=== PATIENT | male | born 1965 | race African-American/Black ===

== ENCOUNTER 2017-03-25 09:03 | Emergency (ER) | payer OTHER ==
[~2017-03-25] VITALS: Ht 170.2 cm; Wt 61.2 kg
[~2017-03-25 09:03] MED LIST: OXYC10TA44 PO
[2017-03-25 09:12] VITALS: BP 117/74
== END 2017-03-25 10:10 | disposition home or self-care (01) ==
LOC: ER 09:09
DX: S46.912A Strain of unspecified muscle, fascia and tendon at shoulder and upper arm level, left arm, initial encounter (principal); S76.912A Strain of unspecified muscles, fascia and tendons at thigh level, left thigh, initial encounter; I10 Essential (primary) hypertension; V43.52XA Car driver injured in collision with other type car in traffic accident, initial encounter; Y93.89 Activity, other specified; Y92.89 Other specified places as the place of occurrence of the external cause; Y99.8 Other external cause status

== ENCOUNTER 2018-10-30 14:33 | Emergency (ER) | payer OTHER ==
[~2018-10-30] VITALS: Ht 175.3 cm; Wt 63.5 kg
[2018-10-30] MEDS ORDERED: SODIUM CHLORIDE 0.9% 1,000 ML IV ONE (15:45)
[2018-10-30 16:06] LABS: Basophils # (auto) 0.1 uL; Basophils % (auto) 0.5 % (0.0-2.0); Eosinophils # (auto) 0 uL; Eosinophils % (auto) 0.3 % (0.0-7.0); Hematocrit 31.1 % (41.0-53.0); Hemoglobin 10.1 g/dL (13.5-17.5); Lymphocytes # (auto) 1.5 uL; Lymphocytes % (auto) 13.3 % (10.0-50.0); Mean Corpuscular Hemoglobin 29.9 pg (28.0-32.0); Mean Corpuscular Hgb Conc. 32.6 g/dL (32.0-36.0); Mean Corpuscular Volume 91.8 fL (80.0-100.0); Monocytes # (auto) 0.8 uL; Monocytes % (auto) 6.7 % (0.0-12.0); Neutrophils # (auto) 9.2 uL; Neutrophils % (auto) 79.2 % (37.0-80.0); Platelet Count (auto) 452 10^3/uL (140-450); Red Blood Cells 3.38 10^6/uL (4.5-5.90); Red Cell Distribution Width 17.8 % (11.8-14.3); White Blood Cell 11.6 10^3/uL (4.4-10.8)
[2018-10-30 16:24] LABS: Albumin 2.9 g/dL (3.4-5.0); Anion Gap 6 (5-15); Blood Urea Nitrogen 32 mg/dL (7-18); Calcium 8.9 mg/dL (8.5-10.1); Carbon Dioxide 27 mmol/L (21-32); Chloride 102 mmol/L (98-107); Glucose 90 mg/dL (74-106); Magnesium 2.5 mg/dL (1.6-2.6); Potassium 3.4 mmol/L (3.5-5.1); Sodium 135 mmol/L (136-145)
[2018-10-30 16:28] LABS: Alanine Aminotransferase 11 U/L (16-61); Alkaline Phosphatase 119 U/L (45-117); Aspartate Aminotransferase 7 U/L (15-37); BUN/Creatinine Ratio 19.5; Bilirubin, Total 0.4 mg/dL (0.2-1.0); GFR African American 57 mL/min; GFR Non-African American 47 mL/min; Total Protein 7.8 g/dL (6.4-8.2)
[2018-10-30 16:43] LABS: INR 1.1 (0.9-1.15); Partial Thromboplastin Time 26.1 sec (23.78-33.04); Prothrombin Time 11.7 sec (9.27-12.13)
[2018-10-30 18:27] VITALS: BP 92/54
[2018-10-30] MEDS ORDERED: HYDROcodone-ACET 10/325MG TAB PO ONE (19:15)
[2018-10-30] MEDS ORDERED: ONDANSETRON ODT 4 MG TAB PO ONE (19:15)
== END 2018-10-30 21:59 | disposition home or self-care (01) ==
LOC: EDBD 14:33 → ER 14:33
DX: G89.18 Other acute postprocedural pain (principal); R10.9 Unspecified abdominal pain; R55 Syncope and collapse; M54.9 Dorsalgia, unspecified; R11.11 Vomiting without nausea; R53.1 Weakness; I10 Essential (primary) hypertension
CPT/HCPCS: 36415; 70450; 71045; 74176; 80053; 82150; 83690; 83735; 83880; 84443; 84484; 85025; 85610; 85730; 93005; 96360; 99284; J7030; Q0162

== ENCOUNTER 2019-04-27 11:56 | Emergency (ER) | payer OTHER ==
[~2019-04-27] VITALS: Ht 170.2 cm; Wt 63.5 kg
[2019-04-27 14:35] VITALS: BP 110/72
== END 2019-04-27 14:58 | disposition home or self-care (01) ==
LOC: ER 12:09
DX: S71.112D Laceration without foreign body, left thigh, subsequent encounter (principal); I10 Essential (primary) hypertension; F12.10 Cannabis abuse, uncomplicated; X58.XXXD Exposure to other specified factors, subsequent encounter

== ENCOUNTER 2022-02-10 10:28 | Emergency (ER) | payer OTHER ==
[~2022-02-10] VITALS: Ht 170.2 cm; Wt 63.5 kg
[2022-02-10 12:46] LABS: Basophils # (auto) 0.1 10 ^3/uL (0-0.2); Eosinophils # (auto) 0.1 10 ^3/uL (0-0.8); Hemoglobin 7.9 g/dL (13.5-17.5); Lymphocytes # (auto) 3.4 10 ^3/uL (0.4-5.4); Mean Corpuscular Hemoglobin 24.9 pg (28.0-32.0); Monocytes # (auto) 0.8 10 ^3/uL (0-1.3); White Blood Cell 13.3 10^3/uL (4.4-10.8)
[2022-02-10 12:52] LABS: Eosinophils % (auto) 0.6 % (0.0-7.0); Hematocrit 25.1 % (41.0-53.0); Lymphocytes % (auto) 25.8 % (10.0-50.0); Mean Corpuscular Hgb Conc. 31.4 g/dL (32.0-36.0); Mean Corpuscular Volume 79.3 fL (80.0-100.0); Neutrophils # (auto) 8.8 10 ^3/uL (1.6-8.6); Neutrophils % (auto) 66.6 % (37.0-80.0); Red Blood Cells 3.17 10^6/uL (4.5-5.90); Red Cell Distribution Width 21.5 % (11.8-14.3)
[2022-02-10 12:58] LABS: Albumin 2.7 g/dL (3.4-5.0); Calcium 8.6 mg/dL (8.5-10.1); Magnesium 3.1 mg/dL (1.6-2.6); Potassium 3.6 mmol/L (3.5-5.1)
[2022-02-10 13:01] LABS: BUN/Creatinine Ratio 12.3; Bilirubin, Total 0.2 mg/dL (0.2-1.0); Total Protein 9.1 g/dL (6.4-8.2)
[2022-02-11] MEDS ORDERED: AMLO-496 PO (05:14)
[2022-02-11] MEDS ORDERED: VORI200T3 PO (05:15)
[2022-02-11 06:00] VITALS: BP 113/64
[2022-02-11] MEDS ORDERED: VORICONAZOLE INJ 0 MG in D5W 5% 250 ML IV SCH (08:30)
== END 2022-02-11 08:35 | disposition left against medical advice (07) ==
LOC: ER 10:28
DX: R06.02 Shortness of breath (principal); I10 Essential (primary) hypertension; Z86.19 Personal history of other infectious and parasitic diseases; Z20.822 Contact with and (suspected) exposure to COVID-19
CPT/HCPCS: 36415; 71045; 80053; 83735; 83880; 84484; 85025; 93005

== ENCOUNTER 2025-01-24 09:56 | Inpatient (IN) | payer OTHER ==
[~2025-01-24] VITALS: Ht 170.2 cm; Wt 71.0 kg
[~2025-01-24 09:56] MED LIST changes: +AMLO1TAB23 PO; +BENA-36 PO; +HYDR12.55 PO; +OMEP-448 PO; +OXYC30TA PO; +VORI200T3 PO
--- NOTE | 2025-01-24 11:05 | ED.PDOC ---
History of Present Illness HPI Comments 60 year old male presents to the ED with a chief complaint of abnormal labs onset today (01/24/25). Patient states he was sent to ED by PCP due to low hemoglobin of 5.7. Has no further complaints PMHx HTN. No other symptoms or modifying factors present at this time. Chief Complaint: Abnormal LAB's Time Seen by MD: 10:30 Primary Care Provider: unknown Reviewed Notes: Medications, Allergies Allergies: Coded Allergies: NO KNOWN ALLERGIES (Unverified , 03/30/16) Home Meds Reported Medications Voriconazole (VORICONAZOLE) 200 Mg Tab, 200 MG PO, TAB 02/11/22 Amlodipine Besylate (Amlodipine Besylate) 10 Mg Tab, 1 TAB PO DAILY, #30 TAB 5 Refills 02/11/22 Oxycodone W/ Acetaminophen (Percocet 10/325) 1 Tab Tab, 3 TAB PO BID, #60 TAB 04/05/16 Information Source: Patient Mode of Arrival: Ambulatory Severity: Moderate Timing: Hours Duration: Since onset Prehospital treatment: None Past Medical History PAST MEDICAL HISTORY: HTN Surgical History: Denies all surgeries Family History Family History: Unobtainable Social History Smoker: Non-Smoker Alcohol: Denies ETOH Use Drugs: Marijuana Lives In: Home Constitutional: reports: others (abnormal lab values); denies: chills, di aphoresis, fatigue, fever, malaise, sweats, weakness EENTM: denies: blurred vision, double vision, ear bleeding, ear discharge, ear drainage, ear pain, ear ringing, eye pain, eye redness, hearing loss, mouth pain, mouth swelling, nasal discharge, nose bleeding, nose congestion, nose pain, photophobia, tearing, throat pain, throat swelling, voice changes, others Respiratory: denies: cough, hemoptysis, orthopnea, SOB at rest, shortness of breath, SOB with excertion, stridor, wheezing, others Cardiovascular: denies: chest pain, dizzy spells, diaphoresis, Dyspnea on exert ion, edema, irregular heart beat, left arm pain, lightheadedness, palpitations, PND, syncope, others Gastrointestinal: denies: abdomen distended, abdominal pain, blood streaked bowels, constipated, diarrhea, dysphagia, difficulty swallowing, hematemesis, melena, nausea, poor appetite, poor fluid intake, rectal bleeding, rectal pain, vomiting, others Genitourinary: denies: burning, dysuria, flank pain, frequency, hematuria, incontinence, penile discharge, penile sore, pain, testicle pain, testicle swelling, urgency, others Neurological: denies: dizziness, fainting, headache, left sided numbness, left sided weakness, numbness, paresthesia, pre-existing deficit, right sided numbness, right sided weakness, seizure, speech problems, tingling, tremors, weakness, others Musculoskeletal: denies: back pain, gout, joint pain, joint swelling, muscle pain, muscle stiffness, neck pain, others Integumetry: denies: bruises, change in color, change in hair/nails, dryness, laceration, lesions, lumps, rash, wounds, others Allergic/Immunocompromised: denies: Difficulty Healing, Frequent Infections, Hives, Itching, others Hematologic/Lymphatic: denies: anemia, blood clots, easy bleeding, easy bruising, swollen glands, others Endocrine: denies: excessive hunger, excessive sweating, excessive thirst, excessive urination, flushing, intolerance to cold, intolerance to heat, unexplained weight gain, unexplained weight loss, others Psychiatric: denies: anxiety, bipolar disorder, depression, hopeless, panic disorder, schizophrenia, sleepless, suicidal, others All Other Systems: Reviewed and Negative Physical Exam General Appearance: Normal HEENT: Normal ENT Inspection, Pharynx Normal, TMs Normal Neck: Full Range of Motion, Non-Tender, Normal, Normal Inspection Respiratory: Chest Non-Tender, Lungs Clear, No Accessory Muscle Use, No Respiratory Distress, Normal Breath Sounds Cardiovascular: No Edema, No JVD, No Murmur, No Gallop, Normal Peripheral Pulses, Regular Rate/Rhythm Breast Exam: Deferred Gastrointestinal: No Organomegaly, Non Tender, No Pulsatile Mass, Normal Bowel Sounds, Soft Genitalia: Deferred Pelvic: Deferred Rectal: Deferred Extremities: No calf tenderness, Normal capillary refill, Normal inspection, Normal range of motion, Non-tender, No pedal edema Musculoskeletal : Apperance: Normal Neurologic: Alert, cigarette stamper II-XII nml as Tested, No Motor Deficits, Normal Affect, Normal Mood, No Sensory Deficits Cerebellar Function: Normal Reflexes: Normal Skin: Dry, Normal Color, Warm Lymphatic: No Adenopathy Was a procedure done? Was a procedure done?: No Differential Dx Considerations may include: Symptomatic anemia that, electrolyte abnormality, infectious etiology, viral syndrome X-Ray, Labs, Meds, VS Vital Signs Date Time Temp Pulse Resp B/P (MAP) Pulse Ox O2 Delivery O2 Flow Rate FiO2 01/24/25 10:30 98.1 81 17 114/73 (87) 97 98.1 Lab Test 01/24/25 11:00 Range/Units White Blood Count 8.9 4.4-10.8 10^3/uL Red Blood Count 2.91 L 4.5-5.90 10^6/uL Hemoglobin 5.7 *L 13.5-17.5 g/dL Hematocrit 18.5 L 41.0-53.0 % Mean Corpuscular Volume 63.7 L 80.0-100.0 fL Mean Corpuscular Hemoglobin 19.7 L 28.0-32.0 pg Mean Corpuscular Hemoglobin Concent 31.0 L 32.0-36.0 g/dL Red Cell Distribution Width 23.5 H 11.8-14.3 % Platelet Count 504 H 140-450 10^3/uL Mean Platelet Volume 7.0 6.9-10.8 fL Neutrophils (%) (Auto) 65.3 37.0-80.0 % Lymphocytes (%) (Auto) 23.7 10.0-50.0 % Monocytes (%) (Auto) 9.2 0.0-12.0 % Eosinophils (%) (Auto) 1.4 0.0-7.0 % Basophils (%) (Auto) 0.4 0.0-2.0 % Neutrophils # (Auto) 5.8 1.6-8.6 10 ^3/uL Lymphocytes # (Auto) 2.1 0.4-5.4 10 ^3/uL Monocytes # (Auto) 0.8 0-1.3 10 ^3/uL Eosinophils # (Auto) 0.1 0-0.8 10 ^3/uL Basophils # (Auto) 0 0-0.2 10 ^3/uL Nucleated Red Blood Cells 0.1 % Platelet Estimate Pending Prothrombin Time Pending Prothrombin Time INR Pending Activated Partial Thromboplast Time Pending Sodium Level 141 136-145 mmol/L Potassium Level 3.8 3.5-5.1 mmol/L Chloride Level 109 H 98-107 mmol/L Carbon Dioxide Level 25 20-31 mmol/L Anion Gap 7 5-15 Blood Urea Nitrogen Pending Creatinine Pending Glomerular Filtration Rate Calc Pending BUN/Creatinine Ratio Pending Serum Glucose Pending Calcium Level 9.1 8.7-10.4 mg/dL Time of 1ST Reevaluation: 11:00 Reevaluation 1ST: Unchanged Patient Education/Counseling: Diagnosis, Treatment, Prognosis Family Education/Counseling: No Family Present SEPSIS Sepsis Screen Physician Orders PTPTT (01/24/25 10:56) Type And Screen (01/24/25 10:56) Basic Metabolic Panel (01/24/25 10:56) Complete Blood Count (01/24/25 10:56) Sodium Chloride 0.9% (01/24/25 11:00) Rbc Morphology (01/24/25 11:00) Packedcell-Noactive Bleeding (01/24/25 11:39) Vital Signs Date Time Temp Pulse Resp B/P (MAP) Pulse Ox O2 Delivery O2 Flow Rate FiO2 01/24/25 10:30 98.1 81 17 114/73 (87) 97 98.1 Laboratory Tests Test 01/24/25 11:00 White Blood Count 8.9 10^3/uL (4.4-10.8) Departure 1 Departure Time of Disposition: 11:40 (Patient with a worsening dizziness and weakness concerning for symptomatic anemia. We will transfuse the patient with blunt admit patient for further workup and expert consultation.) Impression: Primary Impression: Symptomatic anemia Additional Impression: Generalized weakness Disposition: ADMITTED INPATIENT Admit to: Med Surg Condition: Serious Critical Care Note Critical Care Time?: Yes Critical care comment: Symptomatic anemia Authorized and Performed by: Nickie Howell MD Total critical care time: Approximately 39 minutes Due to a high probability of clinically significant, life threatening deterioration, the patient required my highest level of preparedness to intervene emergently and I personally spent this critical care time directly and personally managing the patient. This critical care time included obtaining a history; examining the patient; pulse oximetry; ordering and review of studies; arranging urgent treatment with development of a management plan; evaluation of patient's response to treatment; frequent reassessment; and, discussions with other providers. This critical care time was performed to assess and manage the high probability of imminent, life-threatening deterioration that could result in multi-organ failure. It was exclusive of separately billable procedures and treating other patients and teaching time. Please see my other sections and the rest of the note for further information on patient assessment and treatment. Stability Stability form required: No I personally scribed for NICKIE HOWELL MD ([email or web address]) on 01/24/25 at 11:05. Electronically submitted by Veena Knapp ([email or web address]). I personally scribed for NICKIE HOWELL MD ([email or web address]) on 01/24/25 at 11:15. Electronically submitted by Veena Knapp ([email or web address]). NICKIE HOWELL MD Jan 24, 2025 11:05
[2025-01-24 11:27] LABS: Eosinophils # (auto) 0.1 10 ^3/uL (0-0.8); Monocytes # (auto) 0.8 10 ^3/uL (0-1.3)
[2025-01-24 11:30] LABS: Basophils # (auto) 0 10 ^3/uL (0-0.2); Basophils % (auto) 0.4 % (0.0-2.0); Eosinophils % (auto) 1.4 % (0.0-7.0); Hematocrit 18.5 % (41.0-53.0); Lymphocytes # (auto) 2.1 10 ^3/uL (0.4-5.4); Lymphocytes % (auto) 23.7 % (10.0-50.0); Mean Corpuscular Hemoglobin 19.7 pg (28.0-32.0); Mean Corpuscular Volume 63.7 fL (80.0-100.0); Monocytes % (auto) 9.2 % (0.0-12.0); Neutrophils # (auto) 5.8 10 ^3/uL (1.6-8.6); Neutrophils % (auto) 65.3 % (37.0-80.0); Nucleated Red Blood Cells % 0.1 %; Platelet Count (auto) 504 10^3/uL (140-450); Red Blood Cells 2.91 10^6/uL (4.5-5.90); White Blood Cell 8.9 10^3/uL (4.4-10.8)
[2025-01-24 11:32] LABS: Red Cell Distribution Width 23.5 % (11.8-14.3)
[2025-01-24 11:33] LABS: Hemoglobin 5.7 g/dL (13.5-17.5)
[2025-01-24 11:35] LABS: Potassium 3.8 mmol/L (3.5-5.1); Sodium 141 mmol/L (136-145)
[2025-01-24 11:36] LABS: Anion Gap 7 (5-15); Carbon Dioxide 25 mmol/L (20-31); Chloride 109 mmol/L (98-107)
[2025-01-24 11:37] LABS: Calcium 9.1 mg/dL (8.7-10.4)
[2025-01-24 11:41] LABS: BUN/Creatinine Ratio 10.1 (10.0-20.0); Blood Urea Nitrogen 14 mg/dL (9-23); Glucose 102 mg/dL (74-106)
[2025-01-24 11:50] LABS: INR 1.22 (0.9-1.15); Partial Thromboplastin Time 32.3 SEC (24.5-34.5); Prothrombin Time 12.7 sec (9.3-11.8)
[2025-01-24 12:02] LABS: Anisocytosis Slight; Hypochromia Marked; Platelet Estimate Increased
[2025-01-24 12:03] LABS: Target Cell FEW
--- NOTE | 2025-01-24 14:38 | DVHHP2 ---
History of Present Illness Reason for Visit: anemia History of Present Illness 60-year-old male past medical history hypertension valley fever right foot drop chief complaint patient was sent by his primary doctor for abnormal labs they were told his hemoglobin was low when he did his blood work so they told him to come to the ER for evaluation patient currently denies any black stools no vomiting blood no blood in his urine he denies any dizziness but he is tired and weak he denies any chest pain no shortness with the breath patient does state he is on treatment for valley fever since 2006 back then they told me was anemic with never told that he was so anemic that he had a blood transfusion he is currently on antifungal medications he takes daily as scheduled when evaluating patient's labs and imaging normal saline was provided hemoglobin was 5.7 18.5 platelet count was 504 creatinine was 1.39 INR was 1.22 otherwise CBC and CMP unremarkable with these findings we will admit we will provide blood transfusion. Occult blood to be ordered. We will follow up hemoglobin in the a.m. we will likely need workup for anemia Past Medical History See HPI above Past Surgical History See HPI above Family History Reviewed, non-contributory to the management of this case. Past Social History The patient lives at home, denies smoking, alcohol or illicit drugs abuse. Does smoke marijuana Review of Systems Constitutional: No: Fever, Chills, Sweats, Weakness, Malaise, Other Eyes: No: Pain, Vision change, Conjunctivae inflammation, Eyelid inflammation, Other, Redness ENT: No: Ear pain, Ear discharge, Nose pain, Nose discharge, Nose congestion, Mouth pain, Mouth swelling, Throat pain, Throat swelling, Other Respiratory: No: Cough, Dry, Shortness of breath, SOB with excertion, Wheezing, Hemoptysis, Pleuritic Pain, Sputum, Wheezing, Other Cardiovascular: No: Chest Pain, Palpitations, Orthopnea, Paroxysmal Noc. Dyspnea, Edema, Lt Headedness, Other Gastrointestinal: No: Nausea, Vomiting, Abdominal Pain, Diarrhea, Constipation, Melena, Hematochezia, Other Genitourinary: No Dysuria, No Frequency, No Incontinence, No Hematuria, No Retention, No Other Musculoskeletal: No: other, neck pain, shoulder pain, arm pain, back pain, hand pain, leg pain, foot pain Skin: No: Rash, Lesions, Jaundice, Bruising, Other Neurological: No: Weakness, Numbness, Incoordination, Change in speech, Confusion, Seizures, Other Allergies: Coded Allergies: NO KNOWN ALLERGIES (Unverified , 03/30/16) Exam Vital Signs Vital Signs Date Time Temp Pulse Resp B/P (MAP) Pulse Ox O2 Delivery O2 Flow Rate FiO2 01/24/25 13:59 65 17 133/68 (89) 99 01/24/25 10:30 98.1 98.1 General Appearance: Alert, Oriented X3, Cooperative, No acute distress HEENT: Atraumatic, PERRLA, EOMI, Mucous membr. moist/pink Respiratory: Clear to auscultation, Normal air movement Cardiovascular: Regular rate, Normal S1, Normal S2, No murmurs Abdominal: Normal bowel sounds, Soft, No tenderness, No hepatospenomegaly, No masses, Other (lower back with open fistula draining no fever no new drainage per pt, does do wound care daily ) Extremities: No clubbing, No cyanosis, No edema, Normal pulses, No tenderness/swelling Skin: No rashes, No breakdown, No significant lesion Neuro: Normal gait, Normal speech, Strength at 5/5 X4 ext, Sensation intact, Cranial nerves 3-12 NL Psych/Mental Status: Mental status NL, Mood NL Labs/Xrays I reviewed labs, imaging CT scan abdomen pelvis, EKG and all diagnostic studies on this patient from ED records and the medical chart Labs Test 01/24/25 11:00 Range/Units White Blood Count 8.9 4.4-10.8 10^3/uL Red Blood Count 2.91 L 4.5-5.90 10^6/uL Hemoglobin 5.7 *L 13.5-17.5 g/dL Hematocrit 18.5 L 41.0-53.0 % Mean Corpuscular Volume 63.7 L 80.0-100.0 fL Mean Corpuscular Hemoglobin 19.7 L 28.0-32.0 pg Mean Corpuscular Hemoglobin Concent 31.0 L 32.0-36.0 g/dL Red Cell Distribution Width 23.5 H 11.8-14.3 % Platelet Count 504 H 140-450 10^3/uL Mean Platelet Volume 7.0 6.9-10.8 fL Neutrophils (%) (Auto) 65.3 37.0-80.0 % Lymphocytes (%) (Auto) 23.7 10.0-50.0 % Monocytes (%) (Auto) 9.2 0.0-12.0 % Eosinophils (%) (Auto) 1.4 0.0-7.0 % Basophils (%) (Auto) 0.4 0.0-2.0 % Neutrophils # (Auto) 5.8 1.6-8.6 10 ^3/uL Lymphocytes # (Auto) 2.1 0.4-5.4 10 ^3/uL Monocytes # (Auto) 0.8 0-1.3 10 ^3/uL Eosinophils # (Auto) 0.1 0-0.8 10 ^3/uL Basophils # (Auto) 0 0-0.2 10 ^3/uL Nucleated Red Blood Cells 0.1 % Platelet Estimate Increased Hypochromasia (manual) Marked Anisocytosis (manual) Slight Microcytosis Marked Target Cells Few Prothrombin Time 12.7 H 9.3-11.8 sec Prothrombin Time INR 1.22 H 0.9-1.15 Activated Partial Thromboplast Time 32.3 24.5-34.5 SEC Sodium Level 141 136-145 mmol/L Potassium Level 3.8 3.5-5.1 mmol/L Chloride Level 109 H 98-107 mmol/L Carbon Dioxide Level 25 20-31 mmol/L Anion Gap 7 5-15 Blood Urea Nitrogen 14 9-23 mg/dL Creatinine 1.39 H 0.700-1.30 mg/dL Glomerular Filtration Rate Calc 58 >90 mL/min BUN/Creatinine Ratio 10.1 10.0-20.0 Serum Glucose 102 74-106 mg/dL Calcium Level 9.1 8.7-10.4 mg/dL Assessment/Plan Assessment/Plan acute symptomatic anemia unknown reason for loss found hemoglobin 5.7 er provided 2 units of blood fu post transfusion hemoglobin ordered occult blood in stool fu results rounding team to consider iron panel acute janny likely from severe anemia transfuse fu crea in am if uptrending consider workup and renal consult chronic problems htn valley fever takes vorconazole did consult id for assistance of alternative if pt not able to bring home medication/ cont dressing change right foot drop fen/ppx diet hl scd no dvt ppx in setting of anemia protonix plan admit to tele provide transfusion Plan discussed with: Patient Date of Service: Jan 24, 2025 Billing Provider: MORGAN RAMOS DNP Common Visit Codes: [id number] INP/OBS CARE (HIGH) MORGAN RAMOS [facility] Jan 24, 2025 14:38
[2025-01-24] MEDS: SODIUM CHLORIDE 0.9% 1,000 ML IV ONE (15:10)
[2025-01-24 16:20] VITALS: BP 127/72; PULSE 72; RESP 20; TEMP 98.1
[2025-01-24] MEDS ORDERED: NITROGLYCERIN 0.4 MG SL TAB SL PRN (16:45)
[2025-01-24] MEDS ORDERED: DOCUSATE SOD 100 MG CAP PO PRN (16:45)
[2025-01-24 16:46] VITALS: BP 106/59; PULSE 76; RESP 20; TEMP 98
[2025-01-24 20:20] VITALS: BP 123/60; PULSE 78; RESP 20; TEMP 98.1
[2025-01-24 20:27] LABS: Urine Bacteria None Seen /hpf (None Seen)
[2025-01-24 20:30] VITALS: PULSE 83; RESP 18; O2SAT 96
[2025-01-24 20:34] LABS: Urine Blood Negative /uL (Negative); Urine Clarity Clear (Clear); Urine Color Light-Yellow (Yellow); Urine Protein, UAD Negative (Negative); Urine Squamous Epithelial Cell None Seen /hpf (<5); Urine Urobilinogen Normal (Negative); Urine WBC < 1 /HPF (0-3)
[2025-01-24 20:35] VITALS: BP 133/87; PULSE 80; RESP 18; TEMP 98.1
[2025-01-24] MEDS ORDERED: OXYCODONE PO SCH (22:00)
[2025-01-24] MEDS ORDERED: ACETAMINOPHEN PO SCH (22:00)
[2025-01-24] MEDS: ONDANSETRON HCL 4 MG/2 ML VIAL IV PRN (23:16)
[2025-01-24] MEDS: MORPHINE SULFATE INJ 2 MG/ml SYRG IV PRN (23:17)
[2025-01-24 23:34] VITALS: BP 133/87; PULSE 83; RESP 18; TEMP 98.1
[2025-01-25] MEDS: SODIUM CHLORIDE 0.9% 1,000 ML IV SCH (00:09)
[2025-01-25 01:24] LABS: Basophils # (auto) 0 10 ^3/uL (0-0.2); Basophils % (auto) 0.5 % (0.0-2.0); Eosinophils # (auto) 0.2 10 ^3/uL (0-0.8); Hematocrit 25.7 % (41.0-53.0); Hemoglobin 8.4 g/dL (13.5-17.5); Lymphocytes % (auto) 19.9 % (10.0-50.0); Mean Corpuscular Hemoglobin 22.4 pg (28.0-32.0); Mean Corpuscular Hgb Conc. 32.5 g/dL (32.0-36.0); Mean Corpuscular Volume 68.9 fL (80.0-100.0); Neutrophils # (auto) 6.9 10 ^3/uL (1.6-8.6); Neutrophils % (auto) 67.6 % (37.0-80.0); Nucleated Red Blood Cells % 0.1 %; Platelet Count (auto) 499 10^3/uL (140-450); Red Blood Cells 3.73 10^6/uL (4.5-5.90); Red Cell Distribution Width 27.8 % (11.8-14.3); White Blood Cell 10.2 10^3/uL (4.4-10.8)
[2025-01-25 02:22] LABS: Anisocytosis Slight
[2025-01-25 02:23] LABS: Target Cell FEW
[2025-01-25 02:24] LABS: Hypochromia Moderate; Platelet Estimate Increased
[2025-01-25 02:25] LABS: Giant Platelets Few
[2025-01-25 02:26] LABS: Polychromasia Slight
[2025-01-25 06:39] LABS: Albumin 3.5 g/dL (3.2-4.8); Anion Gap 10 (5-15); Aspartate Aminotransferase 8 U/L (<34); BUN/Creatinine Ratio 8.8 (10.0-20.0); Blood Urea Nitrogen 10 mg/dL (9-23); Calcium 8.9 mg/dL (8.7-10.4); Glucose 88 mg/dL (74-106); Sodium 137 mmol/L (136-145)
[2025-01-25 06:41] LABS: Basophils # (auto) 0.1 10 ^3/uL (0-0.2); Eosinophils # (auto) 0.2 10 ^3/uL (0-0.8); Eosinophils % (auto) 1.9 % (0.0-7.0); Hemoglobin 8.6 g/dL (13.5-17.5); Lymphocytes # (auto) 2.7 10 ^3/uL (0.4-5.4); Monocytes # (auto) 1.1 10 ^3/uL (0-1.3); Neutrophils # (auto) 7.5 10 ^3/uL (1.6-8.6); White Blood Cell 11.5 10^3/uL (4.4-10.8)
[2025-01-25 06:45] LABS: Alanine Aminotransferase < 9 U/L (7-40); Alkaline Phosphatase 192 U/L (46-116); Basophils % (auto) 0.6 % (0.0-2.0); Bilirubin, Total 0.2 mg/dL (0.2-1.0); Carbon Dioxide 20 mmol/L (20-31); Chloride 107 mmol/L (98-107); Lymphocytes % (auto) 23.1 % (10.0-50.0); Mean Corpuscular Hemoglobin 21.6 pg (28.0-32.0); Mean Corpuscular Hgb Conc. 31.7 g/dL (32.0-36.0); Monocytes % (auto) 9.4 % (0.0-12.0); Nucleated Red Blood Cells % 0.3 %; Platelet Count (auto) 526 10^3/uL (140-450); Potassium 3.5 mmol/L (3.5-5.1); Red Blood Cells 3.96 10^6/uL (4.5-5.90); Red Cell Distribution Width 27.6 % (11.8-14.3)
[2025-01-25 07:02] LABS: Hypochromia Moderate
[2025-01-25 07:03] LABS: Anisocytosis Slight
[2025-01-25 07:04] LABS: Platelet Estimate Increased; Target Cell MODERATE
[2025-01-25 07:55] VITALS: PULSE 88; RESP 18; O2SAT 97
[2025-01-25] MEDS: amLODIPine BESYLATE 5 MG TAB PO SCH (10:17)
--- NOTE | 2025-01-25 12:18 | DVHPN2 ---
Subjective Patient is seen and examined at bedside. The patient upset that he was not come up to the floor yet. The patient in the private room in ER. Reviewed: Care Plan, H&P, Labs, Medications, Previous Orders, Radiology Changes from previous H/P or p: No Changes Eyes: No Pain, No Vision change, No Conjunctivae inflammation, No Eyelid inflammation, No Other, No Redness ENT: No Ear pain, No Ear discharge, No Nose pain, No Nose discharge, No Nose congestion, No Mouth pain, No Mouth swelling, No Throat pain, No Throat swelling, No Other Cardiovascular: No Chest Pain, No Palpitations, No Orthopnea, No Paroxysmal Noc. Dyspnea, No Edema, No Lt Headedness, No Other Respiratory: No Cough, No Dry, No Shortness of breath, No SOB with excertion, No Wheezing, No Hemoptysis, No Pleuritic Pain, No Sputum, No Other Gastrointestinal: No Nausea, No Vomiting, No Abdominal Pain, No Diarrhea, No Constipation, No Melena, No Hematochezia, No Other Genitourinary: No Dysuria, No Frequency, No Incontinence, No Hematuria, No Retention, No Other Musculoskeletal: No other, No neck pain, No shoulder pain, No arm pain, No back pain, No hand pain, No leg pain, No foot pain Skin: No Rash, No Lesions, No Jaundice, No Bruising, No Other Objective Vitals Vital Signs Date Time Temp Pulse Resp B/P (MAP) Pulse Ox O2 Delivery O2 Flow Rate FiO2 01/25/25 10:17 140/89 01/25/25 07:55 88 18 97 Room Air* 0 21 01/25/25 07:54 97.5 97.5 Intake/Output Intake and Output 01/25/25 06:59 Intake Total 1620 ml Balance 1620 ml Intake IV Total 1000 ml Blood Product 620 ml General Appearance: Alert, Cooperative HEENT: Atraumatic, PERRLA, EOMI, Mucous membr. moist/pink Neck: Supple Lungs: Clear to auscultation, Normal air movement Cardiovascular: Regular rate, Normal S1, Normal S2, No murmurs, Gallops, Rubs Abdomen: Normal bowel sounds, Soft, No tenderness Neuro: Cranial nerves 3-12 NL Psych/Mental Status: Mental status NL Medications Current Medications Medications Dose Ordered Sig/Lakhwinder Route Start Time Stop Time Status Last Admin Dose Admin Amlodipine Besylate 10 mg DAILY PO 01/25/25 10:00 01/25/25 10:17 10 MG Patient Own Medication 3 tab BID PO 01/24/25 22:00 Hold Sodium Chloride 1,000 ml @ 70 mls/hr [id number] IV 01/24/25 16:45 01/25/25 00:09 70 MLS/HR Ondansetron HCl 4 mg Q4HP PRN IV 01/24/25 16:45 01/24/25 23:16 4 MG Docusate Sodium 100 mg BIDPRN PRN PO 01/24/25 16:45 Morphine Sulfate 2 mg Q4HPRN PRN IV 01/24/25 16:45 01/24/25 23:17 2 MG Nitroglycerin 0.4 mg Q5MINP PRN SL 01/24/25 16:45 Laboratory Results Laboratory Tests 01/25/25 05:55 Chemistry Test 01/25/25 05:55 Albumin 3.5 g/dL (3.2-4.8) Calcium Level 8.9 mg/dL (8.7-10.4) Total Protein 8.0 g/dL (5.7-8.2) LFT Test 01/25/25 05:55 Alanine Aminotransferase (ALT) < 9 U/L (7-40) Alkaline Phosphatase 192 U/L (46-116) H Aspartate Amino Transferase (AST) 8 U/L (<34) Total Bilirubin 0.2 mg/dL (0.2-1.0) Urinalysis Test 01/24/25 16:00 Urine Color Light-yellow (Yellow) Urine Clarity Clear (Clear) Urine pH 6.0 (5.0-9.0) Urine Specific Pease 1.010 (1.001-1.035) Urine Protein Negative (Negative) Urine Ketones Negative (Negative) Urine Blood Negative /uL (Negative) Urine Nitrite Negative (Negative) Urine Bilirubin Negative (Negative) Urine Urobilinogen Normal mg/dL (Negative) Urine Leukocyte Esterase Negative /uL (Negative) Urine RBC None seen /hpf (0 - 3) Urine Microscopic WBC < 1 /HPF (0-3) Urine Squamous Epithelial Cells None seen /hpf (<5) Urine Bacteria None seen /hpf (None Seen) Urine Glucose Normal mg/dL (Normal) Assessment/Plan Assessment/Plan Acute symptomatic anemia unknown reason for loss, status post two packed red blood cell transfusion We will follow up with occult blood in stool. We will follow up with GI specialist recommendation Acute janny likely from severe anemia, we will follow up after blood transfusion and IV fluid HTN Valley fever takes vorconazole waiting for Infectious Disease specialist for assistance of alternative if pt not able to bring home medication/ cont dressing change right foot drop Patient is upset and wanted to sign against medical advice because the patient did not have a room upstairs on the floor. I explained to the patient he in the private room in emergency department. Once he had a bed assignment upstairs I will send him up there. The patient wanted to sign out AMA and threatened will sign AMA if he do not have bed in 1 hours. This medical document was created using an electronic medical record system with [employer] direct computerized dictation system. Although this document has been carefully reviewed, there may still be some phonetic and typographical errors. These areas are purely typographical due to imperfections of the software programs, and do not reflect any compromise in the patient's medical care. Plan discussed with: Patient Date of Service: Jan 25, 2025 Billing Provider: LINDA SPAULDING MD Common Visit Codes: [id number] INP/OBS CARE(HIGH) LINDA SPAULDING MD Jan 25, 2025 12:18
[2025-01-25 17:37] VITALS: BP 129/79; PULSE 83; RESP 20; TEMP 98.6; O2SAT 97
[2025-01-25 19:47] VITALS: BP 140/83; PULSE 85; RESP 16; TEMP 98; O2SAT 98
[2025-01-25 19:50] VITALS: PULSE 85; RESP 16; O2SAT 98
[2025-01-25 21:55] VITALS: BP 145/93; PULSE 96; RESP 18; TEMP 98.4; O2SAT 99
[2025-01-26] VITALS (7 sets, daily range): BP systolic 118–144; BP diastolic 70–89; PULSE 82–99; RESP 16–20; TEMP 97.8–98.7; O2SAT 97–99
--- NOTE | 2025-01-26 12:12 | DVHINCON2 ---
Date of service: Jan 25, 2025 Family History: Cancer of colon G8 MOTHER, Onset:60 years & older Allergies: Coded Allergies: NO KNOWN ALLERGIES (Unverified , 03/30/16) Home Meds Reported Medications Hydrochlorothiazide (Hydrochlorothiazide) 12.5 Mg Tab, 1 TAB PO DAILY for 90 Days, #90 01/25/25 Omeprazole (Omeprazole Dr) 40 Mg Cap, 1 CAP PO DAILY for 90 Days, #90 01/25/25 Oxycodone HCl (Oxycodone Hydrochloride) 30 Mg Tab, 1 TAB PO TID PRN for PAIN for 30 Days, #90 01/25/25 Benazepril Hcl (Benazepril Hcl) 20 Mg Tab, 1 TAB PO DAILY for 90 Days, #90 01/25/25 Voriconazole (VORICONAZOLE) 200 Mg Tab, 1 TAB PO BID for 30 Days, #60 02/11/22 Amlodipine Besylate (Amlodipine Besylate) 10 Mg Tab, 1 TAB PO DAILY, #30 TAB 5 Refills 02/11/22 Vital Signs Vital Signs Date Time Temp Pulse Resp B/P (MAP) Pulse Ox O2 Delivery O2 Flow Rate FiO2 01/26/25 10:22 132/87 01/26/25 09:00 98.7 84 20 97 98.7 01/25/25 19:50 Room Air* 0 21 Labs/Diagnostic Data Labs Test 01/25/25 05:55 01/25/25 01:06 01/24/25 16:00 01/24/25 11:00 Range/Units White Blood Count 11.5 H 4.4-10.8 10^3/uL Red Blood Count 3.96 L 4.5-5.90 10^6/uL Hemoglobin 8.6 L 13.5-17.5 g/dL Hematocrit 27.0 L 41.0-53.0 % Mean Corpuscular Volume 68.0 L 80.0-100.0 fL Mean Corpuscular Hemoglobin 21.6 L 28.0-32.0 pg Mean Corpuscular Hemoglobin Concent 31.7 L 32.0-36.0 g/dL Red Cell Distribution Width 27.6 H 11.8-14.3 % Platelet Count 526 H 140-450 10^3/uL Mean Platelet Volume 7.5 6.9-10.8 fL Neutrophils (%) (Auto) 65.0 37.0-80.0 % Lymphocytes (%) (Auto) 23.1 10.0-50.0 % Monocytes (%) (Auto) 9.4 0.0-12.0 % Eosinophils (%) (Auto) 1.9 0.0-7.0 % Basophils (%) (Auto) 0.6 0.0-2.0 % Neutrophils # (Auto) 7.5 1.6-8.6 10 ^3/uL Lymphocytes # (Auto) 2.7 0.4-5.4 10 ^3/uL Monocytes # (Auto) 1.1 0-1.3 10 ^3/uL Eosinophils # (Auto) 0.2 0-0.8 10 ^3/uL Basophils # (Auto) 0.1 0-0.2 10 ^3/uL Nucleated Red Blood Cells 0.3 % Platelet Estimate Increased Hypochromasia (manual) Moderate Anisocytosis (manual) Slight Microcytosis Marked Target Cells Moderate Sodium Level 137 136-145 mmol/L Potassium Level 3.5 3.5-5.1 mmol/L Chloride Level 107 98-107 mmol/L Carbon Dioxide Level 20 20-31 mmol/L Anion Gap 10 5-15 Blood Urea Nitrogen 10 9-23 mg/dL Creatinine 1.13 0.700-1.30 mg/dL Glomerular Filtration Rate Calc 74 >90 mL/min BUN/Creatinine Ratio 8.8 L 10.0-20.0 Serum Glucose 88 74-106 mg/dL Calcium Level 8.9 8.7-10.4 mg/dL Total Bilirubin 0.2 0.2-1.0 mg/dL Aspartate Amino Transferase (AST) 8 <34 U/L Alanine Aminotransferase (ALT) < 9 7-40 U/L Alkaline Phosphatase 192 H 46-116 U/L Total Protein 8.0 5.7-8.2 g/dL Albumin 3.5 3.2-4.8 g/dL Giant Platelets Few Polychromasia Slight Urine Color Light-yellow Yellow Urine Clarity Clear Clear Urine pH 6.0 5.0-9.0 Urine Specific [place] 1.010 1.001-1.035 Urine Protein Negative Negative Urine Ketones Negative Negative Urine Blood Negative Negative /uL Urine Nitrite Negative Negative Urine Bilirubin Negative Negative Urine Urobilinogen Normal Negative mg/dL Urine Leukocyte Esterase Negative Negative /uL Urine RBC None seen 0 - 3 /hpf Urine Microscopic WBC < 1 0-3 /HPF Urine Squamous Epithelial Cells None seen <5 /hpf Urine Bacteria None seen None Seen /hpf Urine Glucose Normal Normal mg/dL Prothrombin Time 12.7 H 9.3-11.8 sec Prothrombin Time INR 1.22 H 0.9-1.15 Activated Partial Thromboplast Time 32.3 24.5-34.5 SEC Problems(with codes): (1) History of [place] fever (2) Symptomatic anemia (3) H/O coccidioidomycosis (4) Back abscess Plan/Recommendation ASSESSMENT AND PLAN: ID Problem List: - Anemia (hemoglobin 5.7 on admission) - Hypertension - Valley fever (coccidioidomycosis) - Right drop foot - 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 He was noted to have a hemoglobin of 5.7 on admission after being informed of a low hemoglobin by his primary care physician. No evidence of active bleedingdenies hematemesis, melena, or blood in stool. He is not on any anticoagulant medication. On exam, found to be thin and cachectic, with palpable fusion of the lumbar spine. Vital signs are stable. Laboratory work shows platelet count 504 x 10^9/L, WBC 8.9 x 10^9/L, INR 1.22. Plan: - Monitor for symptoms of anemia or signs of active bleeding - Evaluate for underlying causes of anemia (further workup pending) - Continue to monitor hemoglobin and hematocrit levels - Maintain supportive care - Monitor for complications related to osteomyelitis and valley fever - Assess nutritional status and address cachexia as indicated - Continue management of hypertension Isolation Precautions: Standard Assessment and plan was discussed with the patient as written above. Plan is subject to change pending incorporation of new incoming informa tion/diagnostics. Updates may be added as addendum at the bottom (OR TOP) of this note. Thank you for the interesting consult. Will continue to follow. Please contact for any questions or concerns. Trinh Zamora M.D. Electronically signed by: Trinh Zamora MD, 01/26/2025 History: The patient's chart and medications were reviewed in detail and the patient was seen and examined. History obtained from: patient (as reported) The patient is a 6-year-old male with a past medical history significant for hypertension, valley fever (coccidioidomycosis), right drop foot, and osteomyelitis of the spine secondary to valley fever infection. He presents after being found to have asymptomatic anemia with a hemoglobin of 5.7. Denies blood in stool or vomiting blood. No new cough or shortness of breath. Review of Systems: A complete 10-system review of systems was completed and negative except as noted in the HPI or here. - CONSTITUTIONAL: Denies fever and chills. No weight loss noted. - HEENT: Denies changes in vision and hearing. - RESPIRATORY: Denies shortness of breath and cough. - CARDIOVASCULAR: Denies chest pain and palpitations. - GASTROINTESTINAL: Denies abdominal pain, nausea, vomiting, diarrhea, hematemesis, or melena. - GENITOURINARY: Denies dysuria and urinary frequency. - MUSCULOSKELETAL: Reports right drop foot and palpable lumbar fusion. Denies myalgia and other joint pain. - SKIN: Denies rash and pruritus. No skin lesions. - NEUROLOGICAL: Denies headache and syncope. - PSYCHIATRIC: Denies recent changes in mood, anxiety, or depression. 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 No masses. HEENT: PERRL. Normal lids and conjunctiva. Moist mucous membranes. Oropharynx without lesions, exudates or excessive erythema. Normal appearance of the external aspects of the nose and ears. Heart: Regular rhythm, normal rate. No murmur. No lower extremity edema. Lungs: Normal respiratory effort. Clear to auscultation bilaterally. No wheezes. No crackles. Abdomen: Soft. Non-tender. Non-distended. No masses or abdominal hernia. Msk: No digital cyanosis. Normal strength and tone in all 4 limbs. Palpable lumbar fusion; right drop foot. Skin: Warm and dry, no rashes. No skin lesions. Neuro: Alert. No facial droop or slurred speech. Extra-ocular movements intact. Sensation intact to soft touch in all 4 limbs. Right drop foot noted. Psych: Appropriate mood. Full affect. Oriented to person, place, time, and situation. Lines: Not provided in transcript. Diagnostic Studies: Available diagnostic studies were reviewed personally. Significant relevant results and findings are outlined below and in the Assessment and Plan. - Hemoglobin: 5.7 - White blood cell count: 8.9 x 10^9/L - Platelet count: 504 x 10^9/L INR: 1.22 Pertinent Imaging: Not provided in transcript. Plan discussed with: Patient TRINH ZAMORA MD Jan 26, 2025 12:12
[2025-01-26 12:29] LABS: Basophils # (auto) 0.1 10 ^3/uL (0-0.2); Basophils % (auto) 0.9 % (0.0-2.0); Eosinophils # (auto) 0.1 10 ^3/uL (0-0.8); Eosinophils % (auto) 1.1 % (0.0-7.0); Hematocrit 27.3 % (41.0-53.0); Hemoglobin 8.9 g/dL (13.5-17.5); Lymphocytes # (auto) 2.2 10 ^3/uL (0.4-5.4); Lymphocytes % (auto) 21.8 % (10.0-50.0); Mean Corpuscular Hemoglobin 21.9 pg (28.0-32.0); Mean Corpuscular Hgb Conc. 32.6 g/dL (32.0-36.0); Mean Corpuscular Volume 67.3 fL (80.0-100.0); Monocytes # (auto) 1.2 10 ^3/uL (0-1.3); Monocytes % (auto) 11.7 % (0.0-12.0); Neutrophils # (auto) 6.5 10 ^3/uL (1.6-8.6); Neutrophils % (auto) 64.5 % (37.0-80.0); Platelet Count (auto) 530 10^3/uL (140-450); Red Blood Cells 4.05 10^6/uL (4.5-5.90); Red Cell Distribution Width 27.3 % (11.8-14.3)
[2025-01-26 12:40] LABS: Chloride 107 mmol/L (98-107); Potassium 3.6 mmol/L (3.5-5.1); Sodium 138 mmol/L (136-145)
[2025-01-26 12:41] LABS: Anion Gap 9 (5-15); Calcium 9.1 mg/dL (8.7-10.4); Carbon Dioxide 22 mmol/L (20-31)
[2025-01-26 12:46] LABS: BUN/Creatinine Ratio 8.3 (10.0-20.0); Blood Urea Nitrogen 10 mg/dL (9-23); Glucose 92 mg/dL (74-106)
--- NOTE | 2025-01-26 14:13 | DVHPN2 ---
Subjective Patient is seen and examined at bedside. The patient upset that he was not come up to the floor yet. The patient in the private room in ER. Reviewed: Care Plan, H&P, Labs, Medications, Previous Orders, Radiology Changes from previous H/P or p: No Changes Eyes: No Pain, No Vision change, No Conjunctivae inflammation, No Eyelid inflammation, No Other, No Redness ENT: No Ear pain, No Ear discharge, No Nose pain, No Nose discharge, No Nose congestion, No Mouth pain, No Mouth swelling, No Throat pain, No Throat swelling, No Other Cardiovascular: No Chest Pain, No Palpitations, No Orthopnea, No Paroxysmal Noc. Dyspnea, No Edema, No Lt Headedness, No Other Respiratory: No Cough, No Dry, No Shortness of breath, No SOB with excertion, No Wheezing, No Hemoptysis, No Pleuritic Pain, No Sputum, No Other Gastrointestinal: No Nausea, No Vomiting, No Abdominal Pain, No Diarrhea, No Constipation, No Melena, No Hematochezia, No Other Genitourinary: No Dysuria, No Frequency, No Incontinence, No Hematuria, No Retention, No Other Musculoskeletal: No other, No neck pain, No shoulder pain, No arm pain, No back pain, No hand pain, No leg pain, No foot pain Skin: No Rash, No Lesions, No Jaundice, No Bruising, No Other Objective Vitals Vital Signs Date Time Temp Pulse Resp B/P (MAP) Pulse Ox O2 Delivery O2 Flow Rate FiO2 01/26/25 10:22 132/87 01/26/25 09:00 98.7 84 20 97 98.7 01/26/25 08:00 Room Air* 0 21 Intake/Output Intake and Output 01/26/25 07:00 Intake Total 600 ml Balance 600 ml Intake Oral 600 ml # Voids 1 General Appearance: Alert, Cooperative HEENT: Atraumatic, PERRLA, EOMI, Mucous membr. moist/pink Neck: Supple Lungs: Clear to auscultation, Normal air movement Cardiovascular: Regular rate, Normal S1, Normal S2, No murmurs, Gallops, Rubs Abdomen: Normal bowel sounds, Soft, No tenderness Neuro: Cranial nerves 3-12 NL Psych/Mental Status: Mental status NL Medications Current Medications Medications Dose Ordered Sig/Lakhwinder Route Start Time Stop Time Status Last Admin Dose Admin Amlodipine Besylate 10 mg DAILY PO 01/25/25 10:00 01/26/25 10:22 10 MG Sodium Chloride 1,000 ml @ 70 mls/hr [id number] IV 01/24/25 16:45 01/25/25 00:09 70 MLS/HR Ondansetron HCl 4 mg Q4HP PRN IV 01/24/25 16:45 01/25/25 18:00 4 MG Docusate Sodium 100 mg BIDPRN PRN PO 01/24/25 16:45 Morphine Sulfate 2 mg Q4HPRN PRN IV 01/24/25 16:45 01/25/25 23:50 2 MG Nitroglycerin 0.4 mg Q5MINP PRN SL 01/24/25 16:45 Voriconazole 270 mg/Dextrose 277 ml @ 138.5 mls/ hr Q12H IV 01/27/25 12:45 UNV Patient Own Medication 3 tab TID PRN PO 01/26/25 13:30 UNV Benazepril HCl 20 mg DAILY PO 01/27/25 10:00 Hydrochlorothiazide 12.5 mg DAILY PO 01/27/25 10:00 Pregabalin 50 mg DAILY PO 01/27/25 10:00 Pantoprazole Sodium 40 mg DAILY@0600 PO 01/27/25 06:00 Laboratory Results Laboratory Tests 01/26/25 12:14 Chemistry Test 01/26/25 12:14 Calcium Level 9.1 mg/dL (8.7-10.4) Urinalysis Test 01/24/25 16:00 Urine Color Light-yellow (Yellow) Urine Clarity Clear (Clear) Urine pH 6.0 (5.0-9.0) Urine Specific [place] 1.010 (1.001-1.035) Urine Protein Negative (Negative) Urine Ketones Negative (Negative) Urine Blood Negative /uL (Negative) Urine Nitrite Negative (Negative) Urine Bilirubin Negative (Negative) Urine Urobilinogen Normal mg/dL (Negative) Urine Leukocyte Esterase Negative /uL (Negative) Urine RBC None seen /hpf (0 - 3) Urine Microscopic WBC < 1 /HPF (0-3) Urine Squamous Epithelial Cells None seen /hpf (<5) Urine Bacteria None seen /hpf (None Seen) Urine Glucose Normal mg/dL (Normal) Labs and/or images reviewed: Labs reviewed by me Assessment/Plan Assessment/Plan Acute symptomatic anemia unknown reason for loss, status post two packed red blood cell transfusion We will follow up with occult blood in stool. We will follow up with GI specialist recommendation Acute janny likely from severe anemia, we will follow up after blood transfusion and IV fluid HTN Valley fever takes vorconazole waiting for Infectious Disease specialist for assistance of alternative if pt not able to bring home medication/ cont dressing change right foot drop Continue current management. Hb so far stable. This medical document was created using an electronic medical record system with [employer] direct computerized dictation system. Although this document has been carefully reviewed, there may still be some phonetic and typographical errors. These areas are purely typographical due to imperfections of the software programs, and do not reflect any compromise in the patient's medical care. Plan discussed with: Patient My Orders Orders - LINDA SPAULDING MD Procedure Category Date Status Time * Wound Consult CONS 01/25/25 Transmitted Wound Culture W/ Gs CANDY 01/26/25 In Process 10:52 Dietary NOTICE 01/26/25 Transmitted Recommendations 12:31 (Nf) Oxycodone W/ PHA 01/26/25 Logged Acetaminophen (Percoce 13:30 Benazepril Hcl Tablet PHA 01/27/25 In Process (Lotensin Tablet) 10:00 Hydrochlorothiazide PHA 01/27/25 In Process Tablet (Hydrochlorot 10:00 Pregabalin Capsule PHA 01/27/25 In Process (Lyrica Capsule) 10:00 Pantoprazole Tablet PHA 01/27/25 In Process (Protonix Tablet) 06:00 Cover Wound With Dry SHAUN 01/26/25 In Process Dressing 10:50 Date of Service: Jan 26, 2025 Billing Provider: LINDA SPAULDING MD Common Visit Codes: [id number] INP/OBS CARE(HIGH) LINDA SPAULDING MD Jan 26, 2025 14:12
--- NOTE | 2025-01-26 14:36 | DVH ---
CT CHEST WITHOUT CONTRAST INDICATION: evlaute R lung lesion EXAM DATE: 01/26/2025 01:14 PM COMPARISON: None RADIATION DOSE: CTDIvol: 8.24 mGy, DLP: 280.79 mGy*cm PROCEDURE: Helical CT images were obtained of the chest without intravenous contrast. Sagittal and c oronal reconstructions are provided. ADDITIONAL IMAGES / REFORMATS: None All CT scans at this medical facility are performed using dose modulation techniques as appropriate t o a performed exam including the following: Automated exposure control was utilized; adjustment of th e MA and/or KV according to patient size; and use of iterative reconstruction technique. FINDINGS: Bones: Scattered degenerative changes are noted. There appears to be renal osteodystrophy. Visualized Abdomen: Left hydronephrosis. Gallstones. Chest Wall: Normal. Soft tissues: Normal. Mediastinum: Normal. Heart: Coronary artery calcifications are noted. Vessels: Normal. Lymph Nodes: Normal. Pleura: Normal. Airways: Normal. Lung: There is a 6mm right upper lobe subpleural pulmonary nodule. Right basilar atelectasis is visua lized. Right apical pleural scarring is noted. Other: None IMPRESSION: 6mm right upper lobe subpleural pulmonary nodule. Right basilar atelectasis / scarring. Right apical pleural scarring . Left hydronephrosis. Gallstones.
[2025-01-26] MEDS: oxyCODONE HCL 5MG TAB PO PRN (16:31)
[2025-01-26] MEDS: OXYCODONE W/ ACETAMINOPHEN 5/325MG TABLET PO PRN (16:31)
[2025-01-27 01:01] VITALS: BP 130/77; PULSE 78; RESP 18; TEMP 98.6; O2SAT 100
[2025-01-27 05:00] VITALS: BP 126/72; PULSE 74; RESP 18; TEMP 98.2; O2SAT 97
[2025-01-27] MEDS: PANTOPRAZOLE 40 MG TAB PO SCH (05:34)
[2025-01-27 09:00] VITALS: BP 146/83; PULSE 91; RESP 18; TEMP 98.2; O2SAT 97
[2025-01-27 09:45] LABS: Basophils # (auto) 0.1 10 ^3/uL (0-0.2); Eosinophils # (auto) 0.1 10 ^3/uL (0-0.8); Hemoglobin 9.7 g/dL (13.5-17.5); Lymphocytes % (auto) 26.9 % (10.0-50.0)
[2025-01-27 09:47] LABS: Basophils % (auto) 0.5 % (0.0-2.0); Hematocrit 31.3 % (41.0-53.0); Lymphocytes # (auto) 3.8 10 ^3/uL (0.4-5.4); Mean Corpuscular Hemoglobin 21.4 pg (28.0-32.0); Mean Corpuscular Hgb Conc. 31.2 g/dL (32.0-36.0); Mean Corpuscular Volume 68.7 fL (80.0-100.0); Monocytes # (auto) 1.5 10 ^3/uL (0-1.3); Neutrophils # (auto) 8.5 10 ^3/uL (1.6-8.6); Neutrophils % (auto) 60.6 % (37.0-80.0); Platelet Count (auto) 590 10^3/uL (140-450); Red Blood Cells 4.55 10^6/uL (4.5-5.90); Red Cell Distribution Width 28.1 % (11.8-14.3)
[2025-01-27] MEDS: PREGABALIN 25 MG CAP PO SCH (09:56)
[2025-01-27] MEDS: hydroCHLOROthiazide 25 MG TAB PO SCH (09:56)
[2025-01-27] MEDS: BENAZEPRIL HCL 10 MG TAB PO SCH (09:57)
[2025-01-27 10:01] LABS: Chloride 104 mmol/L (98-107); Potassium 3.6 mmol/L (3.5-5.1)
[2025-01-27 10:02] LABS: Anion Gap 12 (5-15)
[2025-01-27 10:03] LABS: Calcium 9.5 mg/dL (8.7-10.4)
[2025-01-27 10:04] LABS: Carbon Dioxide 19 mmol/L (20-31); Sodium 135 mmol/L (136-145)
[2025-01-27 10:07] LABS: BUN/Creatinine Ratio 7.8 (10.0-20.0); Blood Urea Nitrogen 10 mg/dL (9-23); Glucose 101 mg/dL (74-106)
[2025-01-27 13:00] VITALS: BP 138/86; PULSE 80; RESP 16; TEMP 97.5; O2SAT 100
--- NOTE | 2025-01-27 14:39 | DVHDS2 ---
Discharge Summary Date of Admission Jan 24, 2025 at 16:34 Date of Discharge: Jan 27, 2025 Admitting Diagnosis Acute symptomatic anemia unknown reason for loss, status post two packed red blood cell transfusion Acute janny likely from severe anemia, we will follow up after blood transfusion and IV fluid HTN Valley fever takes vorconazole right foot drop Labs/Diagnostic Data: Laboratory Results Test 01/27/25 09:03 01/26/25 14:57 01/26/25 12:14 01/25/25 05:55 White Blood Count 14.0 10^3/uL (4.4-10.8) Red Blood Count 4.55 10^6/uL (4.5-5.90) Hemoglobin 9.7 g/dL (13.5-17.5) Hematocrit 31.3 % (41.0-53.0) Mean Corpuscular Volume 68.7 fL (80.0-100.0) Mean Corpuscular Hemoglobin 21.4 pg (28.0-32.0) Mean Corpuscular Hemoglobin Concent 31.2 g/dL (32.0-36.0) Red Cell Distribution Width 28.1 % (11.8-14.3) Platelet Count 590 10^3/uL (140-450) Mean Platelet Volume 7.2 fL (6.9-10.8) Neutrophils (%) (Auto) 60.6 % (37.0-80.0) Lymphocytes (%) (Auto) 26.9 % (10.0-50.0) Monocytes (%) (Auto) 11.0 % (0.0-12.0) Eosinophils (%) (Auto) 1.0 % (0.0-7.0) Basophils (%) (Auto) 0.5 % (0.0-2.0) Neutrophils # (Auto) 8.5 10 ^3/uL (1.6-8.6) Lymphocytes # (Auto) 3.8 10 ^3/uL (0.4-5.4) Monocytes # (Auto) 1.5 10 ^3/uL (0-1.3) Eosinophils # (Auto) 0.1 10 ^3/uL (0-0.8) Basophils # (Auto) 0.1 10 ^3/uL (0-0.2) Nucleated Red Blood Cells 0.0 % Sodium Level 135 mmol/L (136-145) Potassium Level 3.6 mmol/L (3.5-5.1) Chloride Level 104 mmol/L (98-107) Carbon Dioxide Level 19 mmol/L (20-31) Anion Gap 12 (5-15) Blood Urea Nitrogen 10 mg/dL (9-23) Creatinine 1.28 mg/dL (0.700-1.30) Glomerular Filtration Rate Calc 64 mL/min (>90) BUN/Creatinine Ratio 7.8 (10.0-20.0) Serum Glucose 101 mg/dL (74-106) Calcium Level 9.5 mg/dL (8.7-10.4) Miscellaneous Referred Test (Refrg) Sent to [facility] Platelet Estimate Increased Hypochromasia (manual) Moderate Anisocytosis (manual) Slight Microcytosis Marked Target Cells Moderate Total Bilirubin 0.2 mg/dL (0.2-1.0) Aspartate Amino Transferase (AST) 8 U/L (<34) Alanine Aminotransferase (ALT) < 9 U/L (7-40) Alkaline Phosphatase 192 U/L (46-116) Total Protein 8.0 g/dL (5.7-8.2) Albumin 3.5 g/dL (3.2-4.8) Test 01/25/25 01:06 01/24/25 16:00 01/24/25 11:00 Giant Platelets Few Polychromasia Slight Urine Color Light-yellow (Yellow) Urine Clarity Clear (Clear) Urine pH 6.0 (5.0-9.0) Urine Specific [place] 1.010 (1.001-1.035) Urine Protein Negative (Negative) Urine Ketones Negative (Negative) Urine Blood Negative /uL (Negative) Urine Nitrite Negative (Negative) Urine Bilirubin Negative (Negative) Urine Urobilinogen Normal mg/dL (Negative) Urine Leukocyte Esterase Negative /uL (Negative) Urine RBC None seen /hpf (0 - 3) Urine Microscopic WBC < 1 /HPF (0-3) Urine Squamous Epithelial Cells None seen /hpf (<5) Urine Bacteria None seen /hpf (None Seen) Urine Glucose Normal mg/dL (Normal) Prothrombin Time 12.7 sec (9.3-11.8) Prothrombin Time INR 1.22 (0.9-1.15) Activated Partial Thromboplast Time 32.3 SEC (24.5-34.5) Other Laboratory Tests 01/27/25 09:03 Brief Hx & Hospital Course: This is 60 year-old- male with past medical history of hypertension, valley fever currently on treatment, right foot drop came to emergency department with appearance of abnormal lab. Apparently the patient went to a primary care physician blood test was drawn which showed abnormal hemoglobin so he come to emergency department for further evaluation. The patient denied any melena or bright red blood per rectum. Denied any hematemesis or dizziness. The patient's hemoglobin was 5.7. The patient subsequently received two packed red blood cell. His Hemoccult is positive. After two packed red blood cell his hemoglobin up to 9.7. GI specialist recommend endoscopy and colonoscopy. The patient however wanted to go home and we will come to the GI specialist office for elective colonoscopy and endoscopy. Today the patient tolerated diet. No dizziness. No chest pain. No nausea or vomiting. I am going to discharge him home. Advised him to follow up with primary care physician 1-2 weeks. Follow up with Dr. Albright, GI specialist for outpatient endoscopy and colonoscopy to workup on his anemia. Activity as tolerated. Diet per home diet. Physical exam: HEENT: Normocephalic atraumatic pupils equal react to light and accommodation. Extraocular muscles intact, conjunctiva pink, oropharynx moist, no thrush, no exudate. Lymphatic: No lymphadenopathy Cardiovascular exam: S1, S2 was heard. No murmurs, rubs, gallops Lung: Clear on auscultation bilaterally, no wheeze, rale, rhonchi. GI: Abdominal soft, nondistended, nontenderness, positive bowel sounds. Extremity: No crepitus, cyanosis, edema. Pedal pulses present bilateral. Full range of motion. Skin: Normal turgor, no rash. Psych: Alert, oriented x3. Neurology: No focal deficits, cranial nerve II to XII grossly intact. This medical document was created using an electronic medical record system with [employer] direct computerized dictation system. Although this document has been carefully reviewed, there may still be some phonetic and typographical errors. These areas are purely typographical due to imperfections of the software programs, and do not reflect any compromise in the patient's medical care. Condition at Discharge: Stable Final Diagnosis/Problems List Acute symptomatic anemia unknown reason for loss, status post two packed red blood cell transfusion Occult blood positive Acute janny likely from severe anemia, we will follow up after blood transfusion and IV fluid HTN Valley fever takes vorconazole right foot drop Discharge Disposition: Home Discharge Instruct/Medications Diet: Regular Activity: No Restrictions, As Tolerated Follow Up/Referral: pcp 1-[address] chest to follow up with lung noddle right lung in 1 year. GI specialist as outpatient Medications: Resume home meds Discharge Statement: "Patient was advised to return to the ER or call 911 if any headaches, dizziness, shortness of breath, chest pain, abdominal pain, bleeding, fevers, or worsening of medical condition. Patient was counseled about treatment plan, medications, possible side effects, patientverbalized understanding. All questions were answered to the best of my ability. This discharge took greater then 30 minutes in planning, reviewing documentation, counseling the patient, and discussing with other team members." ASSESSMENT ASSESSMENT Assessment anemia Date of Service: Jan 27, 2025 Billing Provider: LINDA SPAULDING MD Common Visit Codes: 50826-FIF/OBS DISCH DAY >30min LINDA SPAULDING MD Jan 27, 2025 14:39
--- NOTE | 2025-01-27 15:54 | DVHINCON2 ---
Date of service: Jan 27, 2025 Referring Physician Lucy Kim Reason for Consultation Anemia History of Present Illness 60-year-old male was sent by his primary doctor for abnormal labs and low hemoglobin on his blood work. Patient denied any active GI bleeding. 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 He has prior history of anemia. He has been taking antifungal treatments. Patient has been evaluated by ID consult. Patient has a history of marijuana use. He has history of anemia of chronic disease. His last endoscopy and colonoscopy were 10 years ago. His hemoglobin on presentation was 5.7 but after 2 units is up to 9.7. Past Medical History past medical history hypertension valley fever right foot drop Family History: Cancer of colon G8 MOTHER, Onset:60 years & older Allergies: Coded Allergies: NO KNOWN ALLERGIES (Unverified , 03/30/16) Home Meds Reported Medications Hydrochlorothiazide (Hydrochlorothiazide) 12.5 Mg Tab, 1 TAB PO DAILY for 90 Days, #90 01/25/25 Omeprazole (Omeprazole Dr) 40 Mg Cap, 1 CAP PO DAILY for 90 Days, #90 01/25/25 Oxycodone HCl (Oxycodone Hydrochloride) 30 Mg Tab, 1 TAB PO TID PRN for PAIN for 30 Days, #90 01/25/25 Benazepril Hcl (Benazepril Hcl) 20 Mg Tab, 1 TAB PO DAILY for 90 Days, #90 01/25/25 Voriconazole (VORICONAZOLE) 200 Mg Tab, 1 TAB PO BID for 30 Days, #60 02/11/22 Amlodipine Besylate (Amlodipine Besylate) 10 Mg Tab, 1 TAB PO DAILY, #30 TAB 5 Refills 02/11/22 Current Medications Current Medications Medications (Trade) Dose Ordered Sig/Lakhwinder Route PRN Reason Start Time Stop Time Status Last Admin Voriconazole 270 mg/Dextrose 250 ml @ 125 mls/hr Q12H IV 01/26/25 16:00 01/27/25 03:33 Benazepril HCl (Lotensin Tablet) 20 mg DAILY PO 01/27/25 10:00 01/27/25 09:57 Hydrochlorothiazide (hydroCHLOROthiazide TABLET) 12.5 mg DAILY PO 01/27/25 10:00 01/27/25 09:56 Pregabalin (Lyrica Capsule) 50 mg DAILY PO 01/27/25 10:00 01/27/25 09:56 Pantoprazole Sodium (Protonix Tablet) 40 mg DAILY@0600 PO 01/27/25 06:00 01/27/25 05:34 Vital Signs Vital Signs Date Time Temp Pulse Resp B/P (MAP) Pulse Ox O2 Delivery O2 Flow Rate FiO2 01/27/25 13:00 97.5 80 16 138/86 (103) 100 97.5 01/27/25 08:00 Room Air* 0 21 Physical Exam General Appearance: Alert, Oriented X3, Cooperative, No acute distress HEENT: Atraumatic, PERRLA, EOMI, Mucous membr. moist/pink Respiratory: Clear to auscultation, Normal air movement Cardiovascular: Regular rate, Normal S1, Normal S2, No murmurs Abdominal: Normal bowel sounds, Soft, No tenderness, No hepatospenomegaly, No masses, Other (lower back with open fistula draining no fever no new drainage per pt, does do wound care daily ) Extremities: No clubbing, No cyanosis, No edema, Normal pulses, No tenderness/swelling Skin: No rashes, No breakdown, No significant lesion Neuro: Normal gait, Normal speech, Strength at 5/5 X4 ext, Sensation intact, Cranial nerves 3-12 NL Psych/Mental Status: Mental status NL, Mood NL Labs/Diagnostic Data Labs Test 01/27/25 09:03 01/26/25 14:57 01/26/25 12:14 01/25/25 05:55 Range/Units White Blood Count 14.0 #H 4.4-10.8 10^3/uL Red Blood Count 4.55 4.5-5.90 10^6/uL Hemoglobin 9.7 L 13.5-17.5 g/dL Hematocrit 31.3 #L 41.0-53.0 % Mean Corpuscular Volume 68.7 L 80.0-100.0 fL Mean Corpuscular Hemoglobin 21.4 L 28.0-32.0 pg Mean Corpuscular Hemoglobin Concent 31.2 L 32.0-36.0 g/dL Red Cell Distribution Width 28.1 H 11.8-14.3 % Platelet Count 590 H 140-450 10^3/uL Mean Platelet Volume 7.2 6.9-10.8 fL Neutrophils (%) (Auto) 60.6 37.0-80.0 % Lymphocytes (%) (Auto) 26.9 10.0-50.0 % Monocytes (%) (Auto) 11.0 0.0-12.0 % Eosinophils (%) (Auto) 1.0 0.0-7.0 % Basophils (%) (Auto) 0.5 0.0-2.0 % Neutrophils # (Auto) 8.5 1.6-8.6 10 ^3/uL Lymphocytes # (Auto) 3.8 0.4-5.4 10 ^3/uL Monocytes # (Auto) 1.5 H 0-1.3 10 ^3/uL Eosinophils # (Auto) 0.1 0-0.8 10 ^3/uL Basophils # (Auto) 0.1 0-0.2 10 ^3/uL Nucleated Red Blood Cells 0.0 % Sodium Level 135 L 136-145 mmol/L Potassium Level 3.6 3.5-5.1 mmol/L Chloride Level 104 98-107 mmol/L Carbon Dioxide Level 19 L 20-31 mmol/L Anion Gap 12 5-15 Blood Urea Nitrogen 10 9-23 mg/dL Creatinine 1.28 0.700-1.30 mg/dL Glomerular Filtration Rate Calc 64 >90 mL/min BUN/Creatinine Ratio 7.8 L 10.0-20.0 Serum Glucose 101 74-106 mg/dL Calcium Level 9.5 8.7-10.4 mg/dL Miscellaneous Referred Test (Refrg) Sent to [facility] Platelet Estimate Increased Hypochromasia (manual) Moderate Anisocytosis (manual) Slight Microcytosis Marked Target Cells Moderate Total Bilirubin 0.2 0.2-1.0 mg/dL Aspartate Amino Transferase (AST) 8 <34 U/L Alanine Aminotransferase (ALT) < 9 7-40 U/L Alkaline Phosphatase 192 H 46-116 U/L Total Protein 8.0 5.7-8.2 g/dL Albumin 3.5 3.2-4.8 g/dL Test 01/25/25 01:06 01/24/25 16:00 01/24/25 11:00 Range/Units Giant Platelets Few Polychromasia Slight Urine Color Light-yellow Yellow Urine Clarity Clear Clear Urine pH 6.0 5.0-9.0 Urine Specific [place] 1.010 1.001-1.035 Urine Protein Negative Negative Urine Ketones Negative Negative Urine Blood Negative Negative /uL Urine Nitrite Negative Negative Urine Bilirubin Negative Negative Urine Urobilinogen Normal Negative mg/dL Urine Leukocyte Esterase Negative Negative /uL Urine RBC None seen 0 - 3 /hpf Urine Microscopic WBC < 1 0-3 /HPF Urine Squamous Epithelial Cells None seen <5 /hpf Urine Bacteria None seen None Seen /hpf Urine Glucose Normal Normal mg/dL Prothrombin Time 12.7 H 9.3-11.8 sec Prothrombin Time INR 1.22 H 0.9-1.15 Activated Partial Thromboplast Time 32.3 24.5-34.5 SEC Microbiology Date/Time Source Procedure Growth Status 01/26/25 11:12 Back Gram Stain - Final Resulted 01/26/25 11:12 Back Wound Culture - Preliminary Resulted CT CHEST IMPRESSION: 6mm right upper lobe subpleural pulmonary nodule. Right basilar atelectasis / scarring. Right apical pleural scarring . Left hydronephrosis. Gallstones. Problems(with codes): (1) Symptomatic anemia (2) Generalized weakness (3) Back abscess (4) History of [place] fever (5) H/O coccidioidomycosis Plan/Recommendation Plan Discharge planning is in progress as the patient would like to go home He has been given my contact information to follow up in my office as an outpatient I can arrange an EGD and colonoscopy for him Advance diet as tolerated Supportive care for now Follow up with PCP in one week Plan discussed with: Patient REYNA TRINIDAD MD Jan 27, 2025 15:54
[2025-01-27 17:00] VITALS: BP 142/91; PULSE 86; RESP 17; TEMP 97.8; O2SAT 98
[2025-01-31 02:06] LABS: Coccidioides CF Antibody <1:2 (<1:2)
== END 2025-01-27 18:20 | disposition home or self-care (01) | DRG 812 ==
LOC: ER 09:56 → OVERFLOW 16:34 → WEST WING 01-25 21:55
PROVIDERS: ADMIT Internal Medicine; ATTEND Internal Medicine
PROC: 30233N1 Transfusion of Nonautologous Red Blood Cells into Peripheral Vein, Percutaneous Approach (ICD-10-PCS; principal; 2025-01-24)
DX: D62 Acute posthemorrhagic anemia (principal); B38.0 Acute pulmonary coccidioidomycosis; R64 Cachexia; N17.9 Acute kidney failure, unspecified; I10 Essential (primary) hypertension; Z68.23 Body mass index [BMI] 23.0-23.9, adult; M21.371 Foot drop, right foot; K80.20 Calculus of gallbladder without cholecystitis without obstruction; Z80.0 Family history of malignant neoplasm of digestive organs; Z79.899 Other long term (current) drug therapy
CPT/HCPCS: 36415; 36430; 71250; 80048; 80053; 81001; 85025; 85610; 85730; 86635; 86850; 86900; 86901; 86920; 87205; 96360; 99291; G0378; J2405; J3465; J7060

== ENCOUNTER 2025-04-03 09:15 | Inpatient (IN) | payer OTHER ==
[~2025-04-03] VITALS: Ht 175.3 cm; Wt 66.1 kg
[~2025-04-03 09:15] MED LIST changes: -OXYC10TA44 PO
--- NOTE | 2025-04-03 09:28 | ECG ---
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
[2025-04-03] MEDS: SODIUM CHLORIDE 0.9% 1,000 ML IV ONE ×3 (09:45→15:27)
--- NOTE | 2025-04-03 09:51 | ED.PDOC ---
History of Present Illness HPI Comments 60 y/o M, with a history of anemia, hypertension, and Valley fever, is BIBA from private residence for c/c generalized weakness and bodyaches. Patient endorses on progressively worsening symptoms for over the past 3x days following initial onset. Patient, recently, received iron injections 3x days ago (usually, receives treatment M/W/F). Patient denies any chest pain, shortness of breath, dizziness, fever, chills, or further associated symptoms. Chief Complaint: General Weakness Time Seen by MD: 09:20 Primary Care Provider: unknown Reviewed Notes: Nurses Notes, Medications, Allergies Allergies: Coded Allergies: NO KNOWN ALLERGIES (Unverified , 03/30/16) Home Meds Reported Medications Hydrochlorothiazide (Hydrochlorothiazide) 12.5 Mg Tab, 1 TAB PO DAILY for 90 Days, #90 01/25/25 Omeprazole (Omeprazole Dr) 40 Mg Cap, 1 CAP PO DAILY for 90 Days, #90 01/25/25 Oxycodone HCl (Oxycodone Hydrochloride) 30 Mg Tab, 1 TAB PO TID PRN for PAIN for 30 Days, #90 01/25/25 Benazepril Hcl (Benazepril Hcl) 20 Mg Tab, 1 TAB PO DAILY for 90 Days, #90 01/25/25 Voriconazole (VORICONAZOLE) 200 Mg Tab, 1 TAB PO BID for 30 Days, #60 02/11/22 Amlodipine Besylate (Amlodipine Besylate) 10 Mg Tab, 1 TAB PO DAILY, #30 TAB 5 Refills 02/11/22 Information Source: Patient Mode of Arrival: EMS Severity: Moderate Past Medical History PAST MEDICAL HISTORY: HTN Surgical History: Denies all surgeries Family History Family History: Unobtainable Social History Smoker: Non-Smoker Alcohol: Denies ETOH Use Drugs: Marijuana Lives In: Home All Other Systems: Reviewed and Negative (Comprehensive systems review obtained and negative except for what is stated in the HPI.) Physical Exam General Appearance: Moderate Distress HEENT: Normal ENT Inspection, Pharynx Normal, TMs Normal Neck: Full Range of Motion, Non-Tender, Normal, Normal Inspection Respiratory: Chest Non-Tender, Lungs Clear, No Accessory Muscle Use, No Respiratory Distress, Normal Breath Sounds Cardiovascular: No Edema, No JVD, No Murmur, No Gallop, Normal Peripheral Pulses, Regular Rate/Rhythm Breast Exam: Deferred Gastrointestinal: No Organomegaly, Non Tender, No Pulsatile Mass, Normal Bowel Sounds, Soft Genitalia: Deferred Pelvic: Deferred Rectal: Deferred Extremities: Decreased range of motion (Bilateral lower extremity), No calf tenderness, Normal capillary refill, Non-tender, No pedal edema Musculoskeletal : Apperance: Normal Neurologic: Alert, counterintelligence agent II-XII nml as Tested, No Motor Deficits, Normal Affect, Normal Mood, No Sensory Deficits Cerebellar Function: NOT DONE Reflexes: NOT DONE Skin: Dry, Normal Color, Warm Peripheral Pulses: 3+ Radial (R), 3+ Radial (L) Lymphatic: No Adenopathy Was a procedure done? Was a procedure done?: No EKG EKG : Pulse Rate (adult): 79 [place]: Normal Cardiac Rhythm: NSR Block: None Hypertrophy: None ST: Normal Differential Dx Considerations may include: anemia, electrolyte imbalance, dehydration, viral syndrome, among others X-Ray, Labs, Meds, VS Vital Signs Date Time Temp Pulse Resp B/P (MAP) Pulse Ox O2 Delivery O2 Flow Rate FiO2 04/03/25 09:52 79 04/03/25 09:21 79 04/03/25 09:20 98.5 118 16 99/64 98 98.5 Lab Test 04/03/25 09:50 Range/Units White Blood Count 20.3 H 4.4-10.8 10^3/uL Red Blood Count 3.96 L 4.5-5.90 10^6/uL Hemoglobin 9.1 L 13.5-17.5 g/dL Hematocrit 29.0 L 41.0-53.0 % Mean Corpuscular Volume 73.3 L 80.0-100.0 fL Mean Corpuscular Hemoglobin 22.9 L 28.0-32.0 pg Mean Corpuscular Hemoglobin Concent 31.2 L 32.0-36.0 g/dL Red Cell Distribution Width 26.6 H 11.8-14.3 % Platelet Count 482 H 140-450 10^3/uL Mean Platelet Volume 7.3 6.9-10.8 fL Neutrophils (%) (Auto) 88.2 H 37.0-80.0 % Lymphocytes (%) (Auto) 5.9 L 10.0-50.0 % Monocytes (%) (Auto) 5.8 0.0-12.0 % Eosinophils (%) (Auto) 0.0 0.0-7.0 % Basophils (%) (Auto) 0.1 0.0-2.0 % Neutrophils # (Auto) 17.9 H 1.6-8.6 10 ^3/uL Lymphocytes # (Auto) 1.2 0.4-5.4 10 ^3/uL Monocytes # (Auto) 1.2 0-1.3 10 ^3/uL Eosinophils # (Auto) 0 0-0.8 10 ^3/uL Basophils # (Auto) 0 0-0.2 10 ^3/uL Nucleated Red Blood Cells 0.0 % Sodium Level 142 136-145 mmol/L Potassium Level 2.2 *L 3.5-5.1 mmol/L Chloride Level 107 98-107 mmol/L Carbon Dioxide Level 20 20-31 mmol/L Anion Gap 15 5-15 Blood Urea Nitrogen 16 9-23 mg/dL Creatinine 1.55 H 0.700-1.30 mg/dL Glomerular Filtration Rate Calc 51 >90 mL/min BUN/Creatinine Ratio 10.3 10.0-20.0 Serum Glucose 116 H 74-106 mg/dL Calcium Level 8.9 8.7-10.4 mg/dL Troponin I High Sensitivity 26 </=54 ng/L [place] [id number] Ph: [phone] DIAGNOSTIC IMAGING Diagnostic Imaging Report : [id number] Signed PATIENT: MYLES GARCIA ACCT: [id number] UNIT: [id number] : 1965 LOC: ER ROOM / BED: / AGE / SEX: 60 / M ADM STATUS: REG ER SERVICE [id number] ORDERING PHYSICIAN: MEHRDAD BARRIGA MD PROCEDURE(s): CXRP - CHEST PORTABLE REASON: sob ORDER NUMBER(s): [id number], ACCESSION NUMBER(s): [id number] INDICATION: sob TECHNIQUE: Frontal view of the chest. COMPARISON: CT CHEST WITHOUT CONTRAST on DOS: 01/26/25, CXRP on DOS: 02/10/22, CHEST PORTABLE on DOS: 02/10/22 FINDINGS: The heart and mediastinal contours are grossly unremarkable. There is no evidence of pleural disease. Small right pleural effusion.. The bony structures of the chest are intact without fracture. IMPRESSION: 1. Small right pleural effusion. ATED BY: ANSELMO GARCIA MD DICTATED DATE/TIME: 04/03/25 1026 SIGNED BY: ANSELMO GARCIA MD SIGNED DATE/TIME: 04/03/25 1026 CC: Patient alert. Complaining of generalized symptoms. Vitals stable. Answering questions. Chest x-ray reviewed does not show any acute changes. No leg swelling. No shortness a breath. No chest pain. Cardiac marker within normal limits. Potassium is low. He does have anemia. WBC elevated. Hypotensive. Establish intravenous access. Was given fluids. Explained to the patient. Continue monitoring. Time of 1ST Reevaluation: 09:50 Reevaluation 1ST: Unchanged Patient Education/Counseling: Diagnosis, Treatment Family Education/Counseling: No Family Present SEPSIS Sepsis Screen Date sepsis recognized/suspect: Apr 03, 2025 Time Sepsis recognized/suspect: 921 Recent Procedure: No On Antibiotic Therapy: No Respiratory Rate >20: No Heart Rate >90: Yes Temp<36 C (96.8 F) or >38.3 C: No SBP <90 or MAP <65 mmHG: No New Acute Mental Status Change: No Is the patient on CPAP, BIPAP,: No Physician Orders Chest Portable (04/03/25 09:39) Potassium Chl 20meq/100ml (04/03/25 11:00) Ct Ab Pel Wo Con-No Oral Or Iv (04/03/25 10:50) Blood Culture (04/03/25 10:50) Lactic Acid W/ Reflex Order (04/03/25 10:50) Ceftriaxone 1gm/50ml D5w (Rocephin) (04/03/25 11:00) Azithromycin 500mg/ 250ml (Zithromax 50 (04/03/25 11:00) Sodium Chloride 0.9% (04/03/25 11:00) Sodium Chloride 0.9% (04/03/25 11:00) Vital Signs Date Time Temp Pulse Resp B/P (MAP) Pulse Ox O2 Delivery O2 Flow Rate FiO2 04/03/25 09:52 79 04/03/25 09:21 79 04/03/25 09:20 98.5 118 16 99/64 98 98.5 Laboratory Tests Test 04/03/25 09:50 White Blood Count 20.3 10^3/uL (4.4-10.8) H Departure 1 Departure Time of Disposition: 10:49 Impression: Primary Impression: Hypokalemia Additional Impressions: Symptomatic anemia Generalized weakness Disposition: ADMITTED INPATIENT Admit to: Med Surg Condition: Guarded Critical Care Note Critical Care Time?: Yes (90 min-critical care time only) Stability Stability form required: No Heart Score Heart Score: Heart Score Response (Comments) Value History N/A 0 EKG N/A 0 Age N/A 0 Risk Factors N/A 0 Troponin N/A 0 Total 0 I personally scribed for MEHRDAD BARRIGA MD ([email or web address]) on 04/03/25 at 09:51. Electronically submitted by Juan Gibson ([email or web address]). I personally scribed for MEHRDAD BARRIGA MD ([email or web address]) on 04/03/25 at 09:52. Electronically submitted by Juan Gibson ([email or web address]). I personally scribed for MEHRDAD BARRIGA MD ([email or web address]) on 04/03/25 at 10:35. Electronically submitted by Juan Gibson ([email or web address]). MEHRDAD BARRIGA MD Apr 03, 2025 09:51
[2025-04-03 10:03] LABS: Hematocrit 29.0 % (41.0-53.0); Hemoglobin 9.1 g/dL (13.5-17.5); Mean Corpuscular Hemoglobin 22.9 pg (28.0-32.0); Mean Corpuscular Volume 73.3 fL (80.0-100.0); Nucleated Red Blood Cells % 0.0 %
[2025-04-03 10:06] LABS: Sodium 142 mmol/L (136-145)
[2025-04-03 10:07] LABS: Anion Gap 15 (5-15); Calcium 8.9 mg/dL (8.7-10.4)
[2025-04-03 10:12] LABS: BUN/Creatinine Ratio 10.3 (10.0-20.0); Blood Urea Nitrogen 16 mg/dL (9-23)
[2025-04-03 10:13] LABS: Carbon Dioxide 20 mmol/L (20-31); Chloride 107 mmol/L (98-107); Glucose 116 mg/dL (74-106); Potassium 2.2 mmol/L (3.5-5.1)
--- NOTE | 2025-04-03 10:28 | DVH ---
INDICATION: sob TECHNIQUE: Frontal view of the chest. COMPARISON: CT CHEST WITHOUT CONTRAST on DOS: 01/26/25, CXRP on DOS: 02/10/22, CHEST PORTABLE on DOS: 02/10/22 FINDINGS: The heart and mediastinal contours are grossly unremarkable. There is no evidence of pleural disease . Small right pleural effusion.. The bony structures of the chest are intact without fracture. IMPRESSION: 1. Small right pleural effusion.
[2025-04-03 12:02] LABS: Lactic Acid w/Reflex 3.7 mmol/L (0.4-2.0)
--- NOTE | 2025-04-03 12:05 | DVH ---
Exam: CT CT AB PEL WO CON-NO ORAL OR IV History: enteritisvalleyfever Comparison Study: None Technique: Multidetector spiral CT of the abdomen was performed from lung bases to pubic symphysis. I maging was performed without IV contrast. Axial, coronal and sagittal multiplanar reformats were obta ined from the axial data set by the technologist. Radiation Dose : 1. Abdomen/Pelvis: CTDIvol 8.13 mGy, DLP 407.79 mGy*cm. Findings: Evaluation of solid organs is limited due to lack of intravenous contrast use. Lung Bases: No acute or significant lung base finding. Normal heart size. No pleural or pericardial effusion. Liver: The liver is normal in size. No focal lesions. Gallbladder and Biliary Tree: Unremarkable Spleen: Unremarkable Pancreas: The pancreas is grossly normal in appearance. Adrenal Glands: Unremarkable Kidneys: Right kidney is unremarkable. Moderate to severe left hydroureteronephrosis. Possible obstr uction associated with the left psoas muscle. Bladder: Distended urinary bladder. Bowel: The stomach is grossly normal in appearance. Large volume colonic stool. The appendix is not v isualized; however, no secondary findings of acute appendicitis identified. Ascites: Absent Lymphadenopathy: No mesenteric, retroperitoneal or periportal lymphadenopathy. Abdominal Wall and Mesentery: Asymmetric enlargement of the left lower psoas muscle with possible phl egmonous type change or abscess formation measuring 2.4 cm at the level of the iliac crest. Vasculature: The visualized abdominal aorta is normal in size and caliber. There is extensive athero sclerotic calcification of the aorta and its branches. Evaluation of abdominal and pelvic vessels is limited due to lack of intravenous contrast. Pelvic Organs: Unremarkable Musculoskeletal: No aggressive focal bony lesions, acute fractures or dislocation. Lumbar spinal fixa tion hardware. Scoliosis. IMPRESSION: Distended urinary bladder. Large volume colonic stool. Asymmetric enlargement of the left psoas muscle with possible abscess or phlegmonous type change paul uring 2.4 cm within the muscle at the level of the iliac crest. There is moderate to severe left hydroureteronephrosis. The left ureter is followed to the level of the left psoas muscle abscess/ phlegmon possibly representing setups obstruction. Sensitivity of the examination is extremely limited secondary to lack of intravenous contrast and sco liosis.
[2025-04-03 15:10] VITALS: PULSE 100; PULSE 83; RESP 21; O2SAT 100; O2SAT 94
[2025-04-03] MEDS ORDERED: SODIUM CHLORIDE 0.9% 1,000 ML IV SCH (15:15)
[2025-04-03] MEDS ORDERED: DOCUSATE SOD 100 MG CAP PO PRN (15:15)
[2025-04-03] MEDS ORDERED: MORPHINE SULFATE INJ 2 MG/ml SYRG IV PRN (15:15)
[2025-04-03] MEDS ORDERED: NITROGLYCERIN 0.4 MG SL TAB SL PRN (15:15)
[2025-04-03] MEDS: ONDANSETRON HCL 4 MG/2 ML VIAL IV ONE (15:25)
[2025-04-03] MEDS: POTASSIUM CHL 20MEQ/100ML 100 ML IV SCH (15:26)
[2025-04-03] MEDS: MORPHINE SULFATE 4 MG/ML SYR/VIAL IV ONE (15:26)
[2025-04-03] MEDS: CEFEPIME 1GM/50ML 50 ML IV SCH (15:30)
[2025-04-03] MEDS ORDERED: VANCOMYCIN PER PHARMACY 0 MG IV SCH (15:30)
[2025-04-03 16:14] LABS: Alanine Aminotransferase 19.0 U/L (7-40)
[2025-04-03 16:15] LABS: Albumin 3.9 g/dL (3.2-4.8); Bilirubin, Total 0.5 mg/dL (0.2-1.0)
[2025-04-03 16:16] LABS: Alkaline Phosphatase 211.0 U/L (46-116); Total Protein 8.4 g/dL (5.7-8.2)
[2025-04-03] MEDS: AZITHROMYCIN 500MG/ 250ML 250 ML IV ONE (16:24)
[2025-04-03 16:26] LABS: INR 1.45 (0.9-1.15); Partial Thromboplastin Time 35.6 SEC (24.5-34.5); Prothrombin Time 14.8 sec (9.3-11.8)
[2025-04-03 16:42] LABS: Bilirubin, Direct 0.3 mg/dL (<0.3)
--- NOTE | 2025-04-03 16:55 | DVHHPRES ---
History of Present Illness Resident Creating Document: ANNIA PLEITEZ RESIDENT History of Present Illness This is a 60-year-old male with PMH of valley fever and right foot drop who presented to the ED after he was sent by his PCP for low blood count. Patient mentions that his hemoglobin was 7.7 this morning at his PCP's office. The patient has history of low blood count in the past for which he also got transfusion. Patient has history of weakness along with nausea. The patient does not have any history of diarrhea or vomiting. patient also has history of back pain since many years. PMH: valley fever, hypertension, right foot drop, scoliosis PSH: Back surgery, abdominal surgery smoking: Smokes weed 3 cigars a day alcohol : Denies lives at home with cousins Allergies: no known allergies Review of Systems Review of Systems Patient seen and examined at bedside. Patient is alert and oriented to time, place person and responding to all questions. Patient is in mild distress. Eyes: conjunctival pallor, No Pain, No Vision change, No Conjunctivae inflammation, No Eyelid inflammation, No Redness ENT: No Ear pain, No Ear discharge, No Nose pain, No Nose discharge, No Nose congestion, No Mouth pain, No Mouth swelling, No Throat pain, No Throat swelling Cardiovascular: No Chest Pain, No Palpitations, No Orthopnea, No Paroxysmal No Dyspnea, No Edema, No Lt Headedness Respiratory: No Cough, No Dry, No Shortness of breath, No SOB with exertion, No Wheezing, No Hemoptysis, No Pleuritic Pain, No Sputum Gastrointestinal: No Nausea, No Vomiting, No Abdominal Pain, No Diarrhea, No Constipation, No Melena, No Hematochezia Genitourinary: No Dysuria, No Frequency, No Incontinence, No Hematuria, No Retention Allergies: Coded Allergies: NO KNOWN ALLERGIES (Unverified , 03/30/16) Medications Current Medications Medications Dose Ordered Sig/Lakhwinder Route Start Time Stop Time Status Last Admin Dose Admin Potassium Chloride 100 ml @ 50 mls/hr Q2H IV 04/03/25 11:00 04/03/25 16:59 04/03/25 15:26 50 MLS/HR Sodium Chloride 1,000 ml @ 60 mls/hr [id number] IV 04/03/25 15:15 UNV Ondansetron HCl 4 mg Q4HP PRN IV 04/03/25 15:15 UNV Docusate Sodium 100 mg BIDPRN PRN PO 04/03/25 15:15 UNV Acetaminophen 650 mg Q6HP PRN PO 04/03/25 15:15 UNV Morphine Sulfate 2 mg Q4HPRN PRN IV 04/03/25 15:15 UNV Nitroglycerin 0.4 mg Q5MINP PRN SL 04/03/25 15:15 UNV Morphine Sulfate 2 mg Q30M PRN IV 04/03/25 15:15 UNV Vancomycin HCl 0 ml @ 0 mls/hr UD IV 04/03/25 15:30 Cefepime HCl 50 ml @ 12.5 mls/hr Q12HR IV 04/03/25 15:30 UNV Pantoprazole Sodium 40 mg DAILY IV 04/04/25 10:00 UNV Lactulose 30 ml BID PO 04/03/25 22:00 UNV Metronidazole 100 ml @ 100 mls/hr Q8HR IV 04/03/25 22:00 UNV Exam Vital Signs Vital Signs Date Time Temp Pulse Resp B/P (MAP) Pulse Ox O2 Delivery O2 Flow Rate FiO2 04/03/25 16:01 104 04/03/25 16:00 20 108/73 04/03/25 15:10 94 04/03/25 09:20 98.5 98.5 Exam General Appearance: Cooperative, patient is in distress. patient has scoliosis. Head Exam: Normal inspection Neck Exam: Normal inspection. Non-tender. Normal alignment Pulmonary/Respiratory: Chest non-tender. Clear bilateral breath sounds, no crackles, no wheezing. Cardiovascular/Chest: Regular rate and rhythm. No murmurs. No JVD. Peripheral Pulses: 2+ Radial (R). 2+ Radial (L). 2+ Pedal (R). 2+ Pedal (L) Abdominal Exam: tenderness in the mid lower abdomen Ankle Exam: Negative ankle edema Lower extremities: Negative lower extremity edema Neuro/Mental Status: A&O x4. Coherent. Thoughts/Psych: Normal thought pattern. Appropriate mood and affect. Good judgement and insight Skin Exam: Normal inspection. Normal color. Warm. Dry Labs/Xrays Labs Test 04/03/25 16:19 04/03/25 15:45 04/03/25 12:54 04/03/25 09:50 Range/Units Prothrombin Time 14.8 H 9.3-11.8 sec Prothrombin Time INR 1.45 H 0.9-1.15 Activated Partial Thromboplast Time 35.6 H 24.5-34.5 SEC Potassium Level 2.2 *L 3.5-5.1 mmol/L Total Bilirubin 0.5 0.2-1.0 mg/dL Direct Bilirubin 0.3 <0.3 mg/dL Aspartate Amino Transferase (AST) 53 H 13-40 U/L Alanine Aminotransferase (ALT) 19 7-40 U/L Alkaline Phosphatase 211 H 46-116 U/L Total Protein 8.4 H 5.7-8.2 g/dL Albumin 3.9 3.2-4.8 g/dL Lactic Acid Level 3.2 *H 0.4-2.0 mmol/L White Blood Count 20.3 H 4.4-10.8 10^3/uL Red Blood Count 3.96 L 4.5-5.90 10^6/uL Hemoglobin 9.1 L 13.5-17.5 g/dL Hematocrit 29.0 L 41.0-53.0 % Mean Corpuscular Volume 73.3 L 80.0-100.0 fL Mean Corpuscular Hemoglobin 22.9 L 28.0-32.0 pg Mean Corpuscular Hemoglobin Concent 31.2 L 32.0-36.0 g/dL Red Cell Distribution Width 26.6 H 11.8-14.3 % Platelet Count 482 H 140-450 10^3/uL Mean Platelet Volume 7.3 6.9-10.8 fL Neutrophils (%) (Auto) 88.2 H 37.0-80.0 % Lymphocytes (%) (Auto) 5.9 L 10.0-50.0 % Monocytes (%) (Auto) 5.8 0.0-12.0 % Eosinophils (%) (Auto) 0.0 0.0-7.0 % Basophils (%) (Auto) 0.1 0.0-2.0 % Neutrophils # (Auto) 17.9 H 1.6-8.6 10 ^3/uL Lymphocytes # (Auto) 1.2 0.4-5.4 10 ^3/uL Monocytes # (Auto) 1.2 0-1.3 10 ^3/uL Eosinophils # (Auto) 0 0-0.8 10 ^3/uL Basophils # (Auto) 0 0-0.2 10 ^3/uL Nucleated Red Blood Cells 0.0 % Sodium Level 142 136-145 mmol/L Chloride Level 107 98-107 mmol/L Carbon Dioxide Level 20 20-31 mmol/L Anion Gap 15 5-15 Blood Urea Nitrogen 16 9-23 mg/dL Creatinine 1.55 H 0.700-1.30 mg/dL Glomerular Filtration Rate Calc 51 >90 mL/min BUN/Creatinine Ratio 10.3 10.0-20.0 Serum Glucose 116 H 74-106 mg/dL Calcium Level 8.9 8.7-10.4 mg/dL Troponin I High Sensitivity 26 </=54 ng/L SEPSIS Sepsis Screen Date sepsis recognized/suspect: Apr 03, 2025 Time Sepsis recognized/suspect: 921 Recent Procedure: No On Antibiotic Therapy: No Respiratory Rate >20: No Heart Rate >90: Yes Temp<36 C (96.8 F) or >38.3 C: No SBP <90 or MAP <65 mmHG: No New Acute Mental Status Change: No Is the patient on CPAP, BIPAP,: No Physician Orders Chest Portable (04/03/25 09:39) Potassium Chl 20meq/100ml (04/03/25 11:00) Ct Ab Pel Wo Con-No Oral Or Iv (04/03/25 10:50) Blood Culture (04/03/25 10:50) Sodium Chloride 0.9% (04/03/25 11:00) 2 Large Bore Ivs (20mg Or Larg (04/03/25 14:44) Admit (04/03/25 15:10) Allergies (04/03/25 15:10) Code Status (04/03/25 15:10) Sodium Chloride 0.9% (04/03/25 15:15) Ondansetron Hcl (Zofran) (04/03/25 15:15) Docusate Sodium Capsule (Colace Capsule) (04/03/25 15:15) Complete Blood Count (04/04/25 04:00) Comprehensive Metabolic Panel (04/04/25 04:00) Condition: Fair (04/03/25 15:10) Acetaminophen Tablet (Tylenol Tablet) (04/03/25 15:15) Clear Liq Diet (04/03/25 Dinner) Morphine Sulfate Injection (04/03/25 15:15) Sequential Compression Device (04/03/25 ) Nitroglycerin Sublingual (Ntrostat Subli (04/03/25 15:15) Morphine Sulfate Injection (04/03/25 15:15) Oxygen By Nasal Cannula (04/03/25 15:10) Stat Ekg For Chest Pain (04/03/25 15:10) Notify Md Of Changes From Base (04/03/25 15:10) Scrap Metal Burner For 24 Hours (04/03/25 15:10) Emergency Dysrhythmia Protocol (04/03/25 15:10) Rhythm Strips Once Every Shift (04/03/25 15:10) Tap Water Enema (04/03/25 15:28) Lactulose Oral (04/03/25 15:30) Vancomycin Per Pharmacy (04/03/25 15:30) Cefepime 1gm/ 50ml (Maxipime 1gm/50ml) (04/03/25 15:30) Pantoprazole (Protonix) (04/03/25 15:30) Pantoprazole (Protonix) (04/04/25 10:00) Urinalysis (04/03/25 15:28) Drug Screen (04/03/25 15:28) Lactulose Oral (04/03/25 22:00) * [facility] Business Office Coordinator (04/03/25 16:25) * Surgical Consult (04/03/25 ) Metronidazole 500mg/100ml (Flagyl 500mg/ (04/03/25 22:00) Metronidazole 500mg/100ml (Flagyl 500mg/ (04/03/25 16:30) Stool Occult Blood (04/03/25 16:25) Thyroid Stimulating Hormone (04/03/25 16:25) Reticulocyte Count (04/03/25 16:25) Iron Panel (04/03/25 16:40) Ferritin (04/03/25 16:40) Vancomycin 1.5gm/250ml (Vancomycin [place] (04/03/25 17:00) Vancomycin,Random (04/04/25 04:00) Magnesium (04/03/25 16:45) Ferrous Sulfate Tablet (04/05/25 10:00) Vital Signs Date Time Temp Pulse Resp B/P (MAP) Pulse Ox O2 Delivery O2 Flow Rate FiO2 04/03/25 16:01 104 04/03/25 16:00 100 20 108/73 04/03/25 15:26 98 22 120/74 04/03/25 15:10 100 21 108/73 (85) 94 04/03/25 09:52 79 04/03/25 09:21 79 04/03/25 09:20 98.5 118 16 99/64 98 98.5 Laboratory Tests Test 04/03/25 09:50 04/03/25 11:18 04/03/25 12:54 White Blood Count 20.3 10^3/uL (4.4-10.8) H Lactic Acid Level 3.7 mmol/L (0.4-2.0) *H 3.2 mmol/L (0.4-2.0) *H Medications Medications Dose Ordered Sig/Lakhwinder Route Start Time Stop Time Status Last Admin Dose Admin Azithromycin 250 ml @ 125 mls/hr ONCE ONCE IV 04/03/25 11:00 04/03/25 12:59 DC 04/03/25 16:24 125 MLS/HR Ceftriaxone Sodium 50 ml @ 100 mls/hr ONCE ONCE IV 04/03/25 11:00 04/03/25 11:29 DC 04/03/25 15:26 100 MLS/HR Morphine Sulfate 4 mg ONCE ONCE IV 04/03/25 09:45 04/03/25 09:46 DC 04/03/25 15:26 4 MG Ondansetron HCl 4 mg ONCE ONCE IV 04/03/25 09:45 04/03/25 09:46 DC 04/03/25 15:25 4 MG Potassium Chloride 100 ml @ 50 mls/hr Q2H IV 04/03/25 11:00 04/03/25 16:59 04/03/25 15:26 50 MLS/HR Sodium Chloride 1,000 ml @ 150 mls/hr Q6H40M ONCE IV 04/03/25 11:00 04/03/25 17:39 04/03/25 15:27 150 MLS/HR Sodium Chloride 1,000 ml @ 1,000 mls/hr Q1H ONCE IV 04/03/25 09:45 04/03/25 10:44 DC 04/03/25 09:45 1,000 MLS/HR Sodium Chloride 1,000 ml @ 1,000 mls/hr Q1H ONCE IV 04/03/25 11:00 04/03/25 11:59 DC 04/03/25 15:27 1,000 MLS/HR Assessment/Plan Assessment/Plan Sepsis likely unspecified now ? left psoas muscle with possible abscess or phlegmonous - IVF - CT abd/ pel showed asymmetric enlargement of the left psoas muscle with possible abscess or phlegmonous and moderate to severe left hydroureteronephrosis - vancomycin, cefepime, Flagyl for now - monitor labs - surgical consult - ordered blood culture MARGARITA, likely due to VMN or obstructive uropathy acute urinary retention rule out UTI or pyelonephritis moderate to severe left hydronephrosis, likely obstructive from above - pending urinalysis - CT abd/ pel showed asymmetric enlargement of the left psoas muscle with possible abscess or phlegmonous and moderate to severe left hydroureteronephrosis - inserted Sultana - antibiotics as above - repeat ultrasound tomorrow to check whether it has resolved or not symptomatic anemia likely iron-deficiency anemia - hemoglobin is 9.1 - transfuse if it is less than 7 - consulted GI - ordered iron panel - SOB pending hypokalemia, severe - 2.2 on admission - repleting with 3 bags - continuously monitor labs PUD prophylaxis: protonix DVT prophylaxis:SCDs Goals of care: Full code, discussed for >16 minutes Plan discussed with patient Plan discussed with Dr Ayala Plan discussed with: Patient My Orders Orders - ANNIA PLEITEZ RESIDENT Procedure Category Date Status Time Admit ADMIT 04/03/25 Transmitted 15:10 Allergies [facility] 04/03/25 In Process 15:10 Code Status CODE 04/03/25 Transmitted 15:10 Sodium Chloride 0.9% PHA 04/03/25 Logged 15:15 Ondansetron Hcl PHA 04/03/25 Logged (Zofran) 15:15 Docusate Sodium PHA 04/03/25 Logged Capsule (Colace 15:15 Complete Blood Count LAB 04/04/25 Verified 04:00 Comprehensive LAB 04/04/25 Verified Metabolic Panel 04:00 Condition: Fair SHAUN 04/03/25 In Process 15:10 Acetaminophen Tablet PHA 04/03/25 Logged (Tylenol Tablet) 15:15 Clear Liq Diet DIET 04/03/25 Transmitted Dinner Morphine Sulfate PHA 04/03/25 Logged Injection 15:15 Sequential SHAUN 04/03/25 In Process Compression Device Nitroglycerin PHA 04/03/25 Logged Sublingual (Ntrostat 15:15 Morphine Sulfate PHA 04/03/25 Logged Injection 15:15 Oxygen By Nasal RT 04/03/25 Transmitted Cannula 15:10 Stat Ekg For Chest SHAUN 04/03/25 In Process Pain 15:10 Notify Of Changes [facility] 04/03/25 In Process From Base 15:10 Scrap Metal Burner For [facility] 04/03/25 In Process 24 Hours 15:10 Emergency Dysrhythmia [facility] 04/03/25 In Process Protocol 15:10 Rhythm Strips Once [facility] 04/03/25 In Process Every Shift 15:10 Tap Water Enema ORDERS 04/03/25 Transmitted 15:28 Lactulose Oral PHA 04/03/25 Logged 15:30 Vancomycin Per PHA 04/03/25 In Process Pharmacy 15:30 Cefepime 1gm/ 50ml PHA 04/03/25 Logged (Maxipime 1gm/50ml) 15:30 Pantoprazole PHA 04/03/25 Logged (Protonix) 15:30 Pantoprazole PHA 04/04/25 Logged (Protonix) 10:00 Urinalysis LAB 04/03/25 Logged 15:28 Drug Screen LAB 04/03/25 Logged 15:28 Lactulose Oral PHA 04/03/25 Logged 22:00 * [facility] [employer] Office Coordinator CONS 04/03/25 Transmitted 16:25 * Surgical Consult CONS 04/03/25 Transmitted Metronidazole PHA 04/03/25 Logged 500mg/100ml (Flagyl 22:00 Metronidazole PHA 04/03/25 Logged 500mg/100ml (Flagyl 16:30 Stool Occult Blood LAB 04/03/25 Logged 16:25 Thyroid Stimulating LAB 04/03/25 In Process Hormone 16:25 Reticulocyte Count LAB 04/03/25 Logged 16:25 Iron Panel LAB 04/03/25 Logged 16:40 Ferritin LAB 04/03/25 Logged 16:40 Vancomycin PHA 04/03/25 In Process 1.5gm/250ml 17:00 Vancomycin,Random LAB 04/04/25 Verified 04:00 Magnesium LAB 04/03/25 Logged 16:45 Ferrous Sulfate Tablet PHA 04/05/25 Transmitted 10:00 Date of Service: Apr 03, 2025 Billing Provider: ALISSON NOBLE MD Common Visit Codes: 45441-TKB/OBS DISCH DAY >30min ANNIA PLEITEZ RESIDENT Apr 03, 2025 16:55 ALISSON NOBLE MD Apr 07, 2025 23:05
[2025-04-03 17:17] LABS: Iron 10.0 ug/dL (65-175)
[2025-04-03 17:19] LABS: Total Iron Binding Capacity 200.0 ug/dL (250-425)
[2025-04-03] MEDS: PANTOPRAZOLE 40 MG/10 ML VIAL INJ IV ONE (18:39)
[2025-04-03] MEDS: LACTULOSE 20Gm/30ML SOLN PO ONE (18:39)
[2025-04-03 19:30] VITALS: PULSE 90; RESP 16; O2SAT 99
[2025-04-03 19:47] LABS: Urine Protein, UAD 1+ (Negative)
[2025-04-03] MEDS: VANCOMYCIN 1.5GM/250ML 250 ML IV ONE (19:54)
[2025-04-03 19:56] LABS: Amphetamine Screen, Urine Neg (NEGATIVE); Barbiturate Scree,Urine Neg (NEGATIVE); Benzodiazephine Screen, Urine Neg (NEGATIVE); Cannabinoid Screen, Urine Pos (NEGATIVE); Cocaine Screen, Urine Neg (NEGATIVE); Opiate Scree,Urine Neg (NEGATIVE); Phencyclidine Screen, Urine Neg (NEGATIVE)
[2025-04-03] MEDS: POTASSIUM CHL 20MEQ/100ML 100 ML IV ONE (20:02)
[2025-04-03 21:43] VITALS: BP 101/63; PULSE 60; RESP 18; TEMP 98.6; O2SAT 99
[2025-04-03 22:33] VITALS: BP 101/63; PULSE 60; RESP 18; TEMP 98.6; O2SAT 99
[2025-04-03] MEDS: ACETAMINOPHEN 325 MG TAB PO PRN (23:57)
[2025-04-03] MEDS: LACTULOSE 20Gm/30ML SOLN PO SCH (23:59)
[2025-04-04] VITALS (8 sets, daily range): BP systolic 103–126; BP diastolic 61–89; PULSE 65–100; RESP 17–18; TEMP 97.5–98.5; O2SAT 95–98
[2025-04-04] MEDS ORDERED: ASCO1TAB27 PO (01:30)
[2025-04-04] MEDS ORDERED: ITRA100C3 PO (01:30)
[2025-04-04] MEDS ORDERED: PREG50CA PO (01:30)
[2025-04-04] MEDS ORDERED: IBUP-1456 PO (01:30)
[2025-04-04] MEDS ORDERED: NALO0.4I3 NAS (01:30)
[2025-04-04] MEDS ORDERED: DOCU-94 PO (01:30)
[2025-04-04] MEDS ORDERED: ONDA-155 PO (01:30)
[2025-04-04] MEDS: ONDANSETRON HCL 4 MG/2 ML VIAL IV PRN (02:33)
[2025-04-04] MEDS: POTASSIUM EFFERVESENT TAB 25 MEQ PO ONE (03:30)
[2025-04-04] MEDS: MORPHINE SULFATE INJ 2 MG/ml SYRG IV PRN (04:49)
[2025-04-04 06:32] LABS: Hemoglobin 8.4 g/dL (13.5-17.5)
[2025-04-04 06:33] LABS: Hematocrit 27.1 % (41.0-53.0); Mean Corpuscular Hemoglobin 23.2 pg (28.0-32.0); Mean Corpuscular Volume 75.1 fL (80.0-100.0); Nucleated Red Blood Cells % 0.0 %
[2025-04-04 07:03] LABS: Alanine Aminotransferase 23 U/L (7-40); Anion Gap 14 (5-15); BUN/Creatinine Ratio 10.1 (10.0-20.0); Blood Urea Nitrogen 13 mg/dL (9-23); Calcium 8.8 mg/dL (8.7-10.4); Glucose 88 mg/dL (74-106); Sodium 142 mmol/L (136-145); Total Protein 8.2 g/dL (5.7-8.2)
[2025-04-04 07:04] LABS: Albumin 3.7 g/dL (3.2-4.8); Alkaline Phosphatase 192 U/L (46-116); Carbon Dioxide 15 mmol/L (20-31); Chloride 113 mmol/L (98-107); Potassium 2.9 mmol/L (3.5-5.1)
[2025-04-04] MEDS: POTASSIUM CHL 20MEQ/100ML 100 ML IV SCH (07:04)
[2025-04-04 07:07] LABS: Bilirubin, Total 0.2 mg/dL (0.2-1.0)
[2025-04-04] MEDS: D5W/SOD CHL 0.9%/KCL 40MEQ 1,000 ML IV SCH (08:15)
--- NOTE | 2025-04-04 09:30 | DVH ---
INDICATION: hydronephrosis resolutin TECHNIQUE: Multiple real-time sonographic images of the kidneys and bladder were obtained. COMPARISON: None FINDINGS: The right kidney measures 10 cm in length, which is normal in size. There is normal echogen icity of the right kidney. No hydronephrosis. The left kidney measures 12 cm in length, which is normal in size. There is normal echogenicity of th e left kidney. Moderate left hydronephrosis. No large intraluminal masses are seen in the bladder. IMPRESSION: Moderate left hydronephrosis.
[2025-04-04] MEDS: PANTOPRAZOLE 40 MG/10 ML VIAL INJ IV SCH (09:58)
[2025-04-04] MEDS ORDERED: LACTULOSE 20Gm/30ML SOLN PO SCH (10:00)
[2025-04-04] MEDS: VANCOMYCIN 750MG KIT 100 ML IV SCH (11:41)
[2025-04-04] MEDS: HALOPERIDOL LACTATE 5 MG/ML INJ VIAL IM PRN (13:51)
--- NOTE | 2025-04-04 14:03 | DVHINCON2 ---
Date of service: Apr 04, 2025 History of Present Illness History Source: Patient, MD Notes Exam Limitations: No limitations HPI This is a 60-year-old male with PMH of valley fever and right foot drop who presented to the ED after he was sent by his PCP for low blood count. Patient m entions that his hemoglobin was 7.7 this morning at his PCP's office. The patient has history of low blood count in the past for which he also got transfusion. Patient has history of weakness along with nausea. The patient does not have any history of diarrhea or vomiting. patient also has history of back pain since many years. PMH: valley fever, hypertension, right foot drop, scoliosis PSH: Back surgery, abdominal surgery smoking: Smokes weed 3 cigars a day alcohol : Denies lives at home with cousins Allergies: no known allergies Home Meds Reported Medications Pregabalin (Lyrica) 50 Mg Cap, 1 CAP PO, #60 CAP 04/04/25 Ondansetron HCl (Ondansetron) 4 Mg Tab, 4 MG PO, TAB 04/04/25 Naloxone Hcl (Naloxone Hcl) 0.4 Mg/Ml Inj, 0.4 MG TORRIE, INJ 04/04/25 Ibuprofen (Ibuprofen) 800 Mg Tab, 800 MG PO, MG 04/04/25 Itraconazole (Itraconazole) 100 Mg Cap, 100 MG PO, CAP 04/04/25 Docusate Sodium (Colace) 100 Mg Cap, 1 CAP PO BID, #30 CAP 04/04/25 Ascorbic Acid (Vitamin C 500 mg) 1 Tab Tab, 1 TAB PO, TAB 04/04/25 Hydrochlorothiazide (Hydrochlorothiazide) 12.5 Mg Tab, 1 TAB PO DAILY for 90 Days, #90 01/25/25 Omeprazole (Omeprazole Dr) 40 Mg Cap, 1 CAP PO DAILY for 90 Days, #90 01/25/25 Oxycodone HCl (Oxycodone Hydrochloride) 30 Mg Tab, 1 TAB PO TID PRN for PAIN for 30 Days, #90 01/25/25 Benazepril Hcl (Benazepril Hcl) 20 Mg Tab, 1 TAB PO DAILY for 90 Days, #90 01/25/25 Voriconazole (VORICONAZOLE) 200 Mg Tab, 1 TAB PO BID for 30 Days, #60 02/11/22 Amlodipine Besylate (Amlodipine Besylate) 10 Mg Tab, 1 TAB PO DAILY, #30 TAB 5 Refills 02/11/22 Past Medical History Patient Family History: Cancer of colon G8 MOTHER, Onset:60 years & older Drugs: Marijuana Review of Systems Constitutional: Malaise, Weakness H&P Exam Vital Signs Vital Signs Date Time Temp Pulse Resp B/P (MAP) Pulse Ox O2 Delivery O2 Flow Rate FiO2 04/04/25 13:17 98.4 82 18 117/76 (90) 97 98.4 04/04/25 08:00 Room Air* 0 21 General Appeara: Well developed, Well nourished, Normal Appearance Labs/Xrays [place] [address] Ph: [phone] DIAGNOSTIC IMAGING Diagnostic Imaging Report : [id number] Signed PATIENT: MYLES GARCIA ACCT: [id number] UNIT: [id number] : 1965 LOC: ER ROOM / BED: / AGE / SEX: 60 / M ADM STATUS: REG ER SERVICE 1050 ORDERING PHYSICIAN: MEHRDAD BARRIGA MD PROCEDURE(s): ABPL - CT AB PEL WO CON-NO ORAL OR IV REASON: enteritisvalleyfever ORDER NUMBER(s): [id number], ACCESSION NUMBER(s): [id number] Exam: CT CT AB PEL WO CON-NO ORAL OR IV History: enteritisvalleyfever Comparison Study: None Technique: Multidetector spiral CT of the abdomen was performed from lung bases to pubic symphysis. Imaging was performed without IV contrast. Axial, coronal and sagittal multiplanar reformats were obtained from the axial data set by the technologist. Radiation Dose : 1. Abdomen/Pelvis: CTDIvol 8.13 mGy, DLP 407.79 mGy*cm. Findings: Evaluation of solid organs is limited due to lack of intravenous contrast use. Lung Bases: No acute or significant lung base finding. Normal heart size. No pleural or pericardial effusion. Liver: The liver is normal in size. No focal lesions. Gallbladder and Biliary Tree: Unremarkable Spleen: Unremarkable Pancreas: The pancreas is grossly normal in appearance. Adrenal Glands: Unremarkable Kidneys: Right kidney is unremarkable. Moderate to severe left hydroureteronephrosis. Possible obstruction associated with the left psoas muscle. Bladder: Distended urinary bladder. Bowel: The stomach is grossly normal in appearance. Large volume colonic stool. The appendix is not visualized; however, no secondary findings of acute appendicitis identified. Ascites: Absent Lymphadenopathy: No mesenteric, retroperitoneal or periportal lymphadenopathy. Abdominal Wall and Mesentery: Asymmetric enlargement of the left lower psoas muscle with possible phlegmonous type change or abscess formation measuring 2.4 cm at the level of the iliac crest. Vasculature: The visualized abdominal aorta is normal in size and caliber. The re is extensive atherosclerotic calcification of the aorta and its branches. Evaluation of abdominal and pelvic vessels is limited due to lack of intravenous contrast. Pelvic Organs: Unremarkable Musculoskeletal: No aggressive focal bony lesions, acute fractures or dislocation. Lumbar spinal fixation hardware. Scoliosis. IMPRESSION: Distended urinary bladder. Large volume colonic stool. Asymmetric enlargement of the left psoas muscle with possible abscess or phlegmonous type change measuring 2.4 cm within the muscle at the level of the iliac crest. There is moderate to severe left hydroureteronephrosis. The left ureter is followed to the level of the left psoas muscle abscess/ phlegmon possibly representing setups obstruction. Sensitivity of the examination is extremely limited secondary to lack of intravenous contrast and scoliosis. ATED BY: NAEEM JOHNSON MD DICTATED DATE/TIME: 04/03/25 120 SIGNED BY: NAEEM JOHNSON MD SIGNED DATE/TIME: 04/03/251202 CC: [place] [address] Ph: [phone] DIAGNOSTIC IMAGING Diagnostic Imaging Report : [id number] Signed PATIENT: MYLES GARCIA ACCT: [id number] UNIT: [id number] : 1965 LOC: [facility] ROOM / BED: [facility] / A AGE / SEX: 60 / M ADM STATUS: ADM IN SERVICE 0 ORDERING PHYSICIAN: JASWANT LOMBARDO RESIDENT PROCEDURE(s): KIDUS - KIDNEY REASON: hydronephrosis resolutin ? ORDER NUMBER(s): [id number], ACCESSION NUMBER(s): [id number] INDICATION: hydronephrosis resolutin TECHNIQUE: Multiple real-time sonographic images of the kidneys and bladder were obtained. COMPARISON: None FINDINGS: The right kidney measures 10 cm in length, which is normal in size. There is normal echogenicity of the right kidney. No hydronephrosis. The left kidney measures 12 cm in length, which is normal in size. There is normal echogenicity of the left kidney. Moderate left hydronephrosis. No large intraluminal masses are seen in the bladder. IMPRESSION: Moderate left hydronephrosis. ATED BY: SEBASTIAN GARCIA MD DICTATED DATE/TIME: 04/04/25927 SIGNED BY: SEBASTIAN GARCIA MD SIGNED DATE/TIME: 04/04/25927 CC: Labs Test 04/04/25 05:55 04/04/25 05:51 04/03/25 19:32 04/03/25 15:45 Range/Units B-Type Natriuretic Peptide 102.38 0-100 pg/mL White Blood Count 21.6 H 4.4-10.8 10^3/uL Red Blood Count 3.61 L 4.5-5.90 10^6/uL Hemoglobin 8.4 L 13.5-17.5 g/dL Hematocrit 27.1 L 41.0-53.0 % Mean Corpuscular Volume 75.1 L 80.0-100.0 fL Mean Corpuscular Hemoglobin 23.2 L 28.0-32.0 pg Mean Corpuscular Hemoglobin Concent 30.9 L 32.0-36.0 g/dL Red Cell Distribution Width 27.0 H 11.8-14.3 % Platelet Count 401 140-450 10^3/uL Mean Platelet Volume 8.2 6.9-10.8 fL Neutrophils (%) (Auto) 90.1 H 37.0-80.0 % Lymphocytes (%) (Auto) 6.2 L 10.0-50.0 % Monocytes (%) (Auto) 3.6 0.0-12.0 % Eosinophils (%) (Auto) 0.0 0.0-7.0 % Basophils (%) (Auto) 0.1 0.0-2.0 % Neutrophils # (Auto) 19.5 H 1.6-8.6 10 ^3/uL Lymphocytes # (Auto) 1.3 0.4-5.4 10 ^3/uL Monocytes # (Auto) 0.8 0-1.3 10 ^3/uL Eosinophils # (Auto) 0 0-0.8 10 ^3/uL Basophils # (Auto) 0 0-0.2 10 ^3/uL Nucleated Red Blood Cells 0.0 % Sodium Level 142 136-145 mmol/L Potassium Level 2.9 L 3.5-5.1 mmol/L Chloride Level 113 H 98-107 mmol/L Carbon Dioxide Level 15 L 20-31 mmol/L Anion Gap 14 5-15 Blood Urea Nitrogen 13 9-23 mg/dL Creatinine 1.29 0.700-1.30 mg/dL Glomerular Filtration Rate Calc 63 >90 mL/min BUN/Creatinine Ratio 10.1 10.0-20.0 Serum Glucose 88 74-106 mg/dL Calcium Level 8.8 8.7-10.4 mg/dL Total Bilirubin 0.2 0.2-1.0 mg/dL Aspartate Amino Transferase (AST) 69 H 13-40 U/L Alanine Aminotransferase (ALT) 23 7-40 U/L Alkaline Phosphatase 192 H 46-116 U/L Total Protein 8.2 5.7-8.2 g/dL Albumin 3.7 3.2-4.8 g/dL Random Vancomycin Level 14.2 H 5-10 ug/mL Urine Color Yellow Yellow Urine Clarity Clear Clear Urine pH 5.5 5.0-9.0 Urine Specific [place] 1.018 1.001-1.035 Urine Protein 1+ H Negative Urine Ketones Negative Negative Urine Blood Negative Negative /uL Urine Nitrite Negative Negative Urine Bilirubin Negative Negative Urine Urobilinogen Normal Negative mg/dL Urine Leukocyte Esterase Negative Negative /uL Urine RBC <1 0 - 3 /hpf Urine Microscopic WBC < 1 0-3 /HPF Urine Squamous Epithelial Cells None seen <5 /hpf Urine Bacteria None seen None Seen /hpf Urine Hyaline Casts Few 0 - 2 /lpf Urine Granular Casts Few 0 /lpf Urine Mucus Few None Seen Urine Glucose Normal Normal mg/dL Urine Opiates Screen Neg NEGATIVE Urine Fentanyl Screen Neg NEGATIVE Urine Barbiturates Screen Neg NEGATIVE Urine Phencyclidine Screen Neg NEGATIVE Urine Amphetamines Screen Neg NEGATIVE Urine Benzodiazepines Screen Neg NEGATIVE Urine Cocaine Screen Neg NEGATIVE Urine Cannabinoids Screen Pos NEGATIVE Prothrombin Time 14.8 H 9.3-11.8 sec Prothrombin Time INR 1.45 H 0.9-1.15 Activated Partial Thromboplast Time 35.6 H 24.5-34.5 SEC Iron Level 10 L 65-175 ug/dL Total Iron Binding Capacity 200 L 250-425 ug/dL Percent Iron Saturation 5.0 L 20-55 % Ferritin 685.8 H 22-322 ng/mL Direct Bilirubin 0.3 <0.3 mg/dL Thyroid Stimulating Hormone (TSH) 2.07 0.55-4.78 uIU/mL Test 04/03/25 12:54 04/03/25 09:50 Range/Units Lactic Acid Level 3.2 *H 0.4-2.0 mmol/L Reticulocyte Count (auto) 2.45 H 0.5-1.5 % Magnesium Level 2.6 1.6-2.6 mg/dL Troponin I High Sensitivity 26 </=54 ng/L Microbiology Date/Time Source Procedure Growth Status 04/03/25 11:27 Blood Blood Culture - Preliminary NO GROWTH AFTER 24 HOURS OF INCUBATION. Resulted Assessment/Plan Problem List: (1) Severe malnutrition (2) Back abscess (3) History of [facility] fever (4) H/O coccidioidomycosis (5) Hypokalemia (6) Generalized weakness (7) Symptomatic anemia (8) Hydronephrosis (9) Urinary retention (10) Other injury of urethra, initial encounter (11) Malfunction of Jones catheter Plan jones to gravity fill balloon to 30 cc to prevent pt from pulling out sitter bedside outpt cystoscopy TBA Plan discussed with: Patient, Other IHSAN GUTIÉRREZ NP Apr 04, 2025 14:03
--- NOTE | 2025-04-04 14:04 | DVHINCON2 ---
GI Consult Consult Note GI consult note Date of Consultation: 04/04/2025 Chief Complaint: Recurrent anemia, weakness Referring Physician: Dr. Chamorro H&P: 60-year-old male with past medical history of valley fever and right foot drop admitted from PCP for low blood count, hemoglobin 7.7. Patient has history of anemia was diagnosed five years ago and has also had transfusions in the past. Patient admits to feeling of weakness especially when walking. No abdominal pain. Patient has persistent nausea and vomiting mostly throwing up water. No hematemesis. Last bowel movement this morning no melena or red blood in stool. Surgical consult pending for possible psoas muscle abscess Past Medical History: valley fever, hypertension, right foot drop, scoliosis Past Surgical History: Back surgery, abdominal surgery Social History: smoking: Smokes weed 3 cigars a day alcohol : Denies lives at home with cousins Family History: Noncontributory Review of Systems: Constitutional: no fever, chill, weight loss HEENT: no eye pain, no hearing loss, no oral lesion, no scleral icterus Heart: no chest pain, no chest pressure Lung: no cough, no dyspnea with exertion Abdomen: see HPI : Patient pulled out his Sultana catheter Physical exam: General: Mild distress, AAOX3 Chest: lung valdez clear to auscultation Heart: RRR, no murmur Abdomen: non-distended, no tenderness to palpation, +BS Labs: Labs Test 04/04/25 05:55 04/04/25 05:51 04/03/25 19:32 04/03/25 15:45 Range/Units B-Type Natriuretic Peptide 102.38 0-100 pg/mL White Blood Count 21.6 H 4.4-10.8 10^3/uL Red Blood Count 3.61 L 4.5-5.90 10^6/uL Hemoglobin 8.4 L 13.5-17.5 g/dL Hematocrit 27.1 L 41.0-53.0 % Mean Corpuscular Volume 75.1 L 80.0-100.0 fL Mean Corpuscular Hemoglobin 23.2 L 28.0-32.0 pg Mean Corpuscular Hemoglobin Concent 30.9 L 32.0-36.0 g/dL Red Cell Distribution Width 27.0 H 11.8-14.3 % Platelet Count 401 140-450 10^3/uL Mean Platelet Volume 8.2 6.9-10.8 fL Neutrophils (%) (Auto) 90.1 H 37.0-80.0 % Lymphocytes (%) (Auto) 6.2 L 10.0-50.0 % Monocytes (%) (Auto) 3.6 0.0-12.0 % Eosinophils (%) (Auto) 0.0 0.0-7.0 % Basophils (%) (Auto) 0.1 0.0-2.0 % Neutrophils # (Auto) 19.5 H 1.6-8.6 10 ^3/uL Lymphocytes # (Auto) 1.3 0.4-5.4 10 ^3/uL Monocytes # (Auto) 0.8 0-1.3 10 ^3/uL Eosinophils # (Auto) 0 0-0.8 10 ^3/uL Basophils # (Auto) 0 0-0.2 10 ^3/uL Nucleated Red Blood Cells 0.0 % Sodium Level 142 136-145 mmol/L Potassium Level 2.9 L 3.5-5.1 mmol/L Chloride Level 113 H 98-107 mmol/L Carbon Dioxide Level 15 L 20-31 mmol/L Anion Gap 14 5-15 Blood Urea Nitrogen 13 9-23 mg/dL Creatinine 1.29 0.700-1.30 mg/dL Glomerular Filtration Rate Calc 63 >90 mL/min BUN/Creatinine Ratio 10.1 10.0-20.0 Serum Glucose 88 74-106 mg/dL Calcium Level 8.8 8.7-10.4 mg/dL Total Bilirubin 0.2 0.2-1.0 mg/dL Aspartate Amino Transferase (AST) 69 H 13-40 U/L Alanine Aminotransferase (ALT) 23 7-40 U/L Alkaline Phosphatase 192 H 46-116 U/L Total Protein 8.2 5.7-8.2 g/dL Albumin 3.7 3.2-4.8 g/dL Random Vancomycin Level 14.2 H 5-10 ug/mL Urine Color Yellow Yellow Urine Clarity Clear Clear Urine pH 5.5 5.0-9.0 Urine Specific [place] 1.018 1.001-1.035 Urine Protein 1+ H Negative Urine Ketones Negative Negative Urine Blood Negative Negative /uL Urine Nitrite Negative Negative Urine Bilirubin Negative Negative Urine Urobilinogen Normal Negative mg/dL Urine Leukocyte Esterase Negative Negative /uL Urine RBC <1 0 - 3 /hpf Urine Microscopic WBC < 1 0-3 /HPF Urine Squamous Epithelial Cells None seen <5 /hpf Urine Bacteria None seen None Seen /hpf Urine Hyaline Casts Few 0 - 2 /lpf Urine Granular Casts Few 0 /lpf Urine Mucus Few None Seen Urine Glucose Normal Normal mg/dL Urine Opiates Screen Neg NEGATIVE Urine Fentanyl Screen Neg NEGATIVE Urine Barbiturates Screen Neg NEGATIVE Urine Phencyclidine Screen Neg NEGATIVE Urine Amphetamines Screen Neg NEGATIVE Urine Benzodiazepines Screen Neg NEGATIVE Urine Cocaine Screen Neg NEGATIVE Urine Cannabinoids Screen Pos NEGATIVE Prothrombin Time 14.8 H 9.3-11.8 sec Prothrombin Time INR 1.45 H 0.9-1.15 Activated Partial Thromboplast Time 35.6 H 24.5-34.5 SEC Iron Level 10 L 65-175 ug/dL Total Iron Binding Capacity 200 L 250-425 ug/dL Percent Iron Saturation 5.0 L 20-55 % Ferritin 685.8 H 22-322 ng/mL Direct Bilirubin 0.3 <0.3 mg/dL Thyroid Stimulating Hormone (TSH) 2.07 0.55-4.78 uIU/mL Test 04/03/25 12:54 04/03/25 09:50 Range/Units Lactic Acid Level 3.2 *H 0.4-2.0 mmol/L Reticulocyte Count (auto) 2.45 H 0.5-1.5 % Magnesium Level 2.6 1.6-2.6 mg/dL Troponin I High Sensitivity 26 </=54 ng/L Microbiology Date/Time Source Procedure Growth Status 04/03/25 11:27 Blood Blood Culture - Preliminary NO GROWTH AFTER 24 HOURS OF INCUBATION. Resulted Imaging: CT abdomen pelvis IMPRESSION: Distended urinary bladder. Large volume colonic stool. Asymmetric enlargement of the left psoas muscle with possible abscess or phlegmonous type change measuring 2.4 cm within the muscle at the level of the iliac crest. There is moderate to severe left hydroureteronephrosis. The left ureter is followed to the level of the left psoas muscle abscess/ phlegmon possibly representing setups obstruction. Sensitivity of the examination is extremely limited secondary to lack of intravenous contrast and scoliosis. Assessment: Persistent nausea and vomiting Severe anemia Possible abscess psoas muscle Hydroureteronephrosis Hypokalemia Plan: Discussed with Dr. Albright - Pt will be scheduled for an EGD tomorrow 04/05/2025. Pt was informed of the risks (bleeding, infection, perforation, reaction to sedation medications and cardiopulmonary arrest) and benefit and is agreeable to undergo the procedures. Monitor labs Zofran and Protonix Thank you for this consult Date of Service: Apr 04, 2025 Billing Provider: ALEC CASTILLO Common Visit Codes: CONSULT ONLY Consultation Codes: [id number] CONSULT <60MIN ALEC CASTILLO Apr 04, 2025 14:04
[2025-04-04] MEDS: TAMSULOSIN HYDROCHLORIDE 0.4 MG CAP PO SCH (17:00)
--- NOTE | 2025-04-04 18:51 | DVHPNRES ---
Progress Note Date Seen: Apr 04, 2025 Resident Creating Document: ANNIA PLEITEZ RESIDENT Medical Necessity Reason Pt with a Central, PICC or Fol: Yes Reason for jones catheter: Bladder Retention/Obstruc Subjective Review of Systems This is a 60-year-old male with PMH of valley fever and right foot drop who presented to the ED after he was sent by his PCP for low blood count. Patient mentions that his hemoglobin was 7.7 this morning at his PCP's office. The patient has history of low blood count in the past for which he also got transfusion. Patient has history of weakness along with nausea. The patient does not have any history of diarrhea or vomiting. patient also has history of back pain since many years. 04/04- The patient was seen at bedside. He looked disoriented and also could not state his name. According to the report from the retail greeter nurse, he pulled out his Jones catheter causing a lot of bleeding. A new Jones was put in after consultation with Urology he was given Haldol for the agitation. GI and surgical consults are pending for the patient. The patient also has a sacral wound which was looked at by wound care described as a draining full-thickness wound measuring 3.5x3.8x0.8cm. The wound is moist red hypergranulated tissue with epibole forming to the inferior aspect of the wound, minimal serous exudate on previous dressing, approx. 20% soiled, no odor, elvira wound tissue is consistent with patient's ethnicity and has areas scattered on the sacrum that are intact pink collagen scar tissue. Patient states that the lower back wound is a chronic wound he has had for tears and he has a h/o Valley Fever. Wound care cleansed the wound bed with NS and collected a wound culture using Garcia technique and sent to lab for interpretation. Cleansed patient's low back wound with wound cleanser, patted dry with gauze, applied therahoney gel, alginate rope gauze piece, and secured with optifoam per MD order. Patient tolerated skin check well. Gastroenterology saw the patient and mentioned that the patient will be taken for EGD on 04/05/2025. PMH: valley fever, hypertension, right foot drop, scoliosis PSH: Back surgery, abdominal surgery smoking: Smokes weed 3 cigars a day alcohol : Denies lives at home with cousins Allergies: no known allergies Patient seen and examined at bedside. Patient is alert and oriented to time, place person and responding to all questions. Patient is in mild distress. Eyes: conjunctival pallor, No Pain, No Vision change, No Conjunctivae inflammation, No Eyelid inflammation, No Redness ENT: No Ear pain, No Ear discharge, No Nose pain, No Nose discharge, No Nose congestion, No Mouth pain, No Mouth swelling, No Throat pain, No Throat swelling Cardiovascular: No Chest Pain, No Palpitations, No Orthopnea, No Paroxysmal No Dyspnea, No Edema, No Lt Headedness Respiratory: No Cough, No Dry, No Shortness of breath, No SOB with exertion, No Wheezing, No Hemoptysis, No Pleuritic Pain, No Sputum Gastrointestinal: No Nausea, No Vomiting, No Abdominal Pain, No Diarrhea, No Constipation, No Melena, No Hematochezia Genitourinary: No Dysuria, No Frequency, No Incontinence, No Hematuria, No Retention Objective vital signs Vital Sign Date Time Temp Pulse Resp B/P (MAP) Pulse Ox O2 Delivery O2 Flow Rate FiO2 04/04/25 17:31 98.5 100 18 111/65 (80) 97 98.5 04/04/25 08:00 Room Air* 0 21 Total Intake and Output 04/03/25 04/03/25 04/04/25 15:00 23:00 07:00 Intake Total 2000 ml 630 ml Balance 2000 ml 630 ml medications Current Medications Medications Dose Ordered Sig/Lakhwinder Route Start Time Stop Time Status Last Admin Dose Admin Ondansetron HCl 4 mg Q4HP PRN IV 04/03/25 15:15 04/04/25 02:33 4 MG Docusate Sodium 100 mg BIDPRN PRN PO 04/03/25 15:15 Acetaminophen 650 mg Q6HP PRN PO 04/03/25 15:15 04/03/25 23:57 650 MG Morphine Sulfate 2 mg Q4HPRN PRN IV 04/03/25 15:15 04/04/25 04:49 2 MG Nitroglycerin 0.4 mg Q5MINP PRN SL 04/03/25 15:15 Morphine Sulfate 2 mg Q30M PRN IV 04/03/25 15:15 Vancomycin HCl 0 ml @ 0 mls/hr UD IV 04/03/25 15:30 Cefepime HCl 50 ml @ 12.5 mls/hr Q12HR IV 04/03/25 15:30 04/04/25 09:58 12.5 MLS/HR Pantoprazole Sodium 40 mg DAILY IV 04/04/25 10:00 04/04/25 09:58 40 MG Lactulose 30 ml BID PO 04/03/25 22:00 04/04/25 09:58 30 ML Metronidazole 100 ml @ 100 mls/hr Q8HR IV 04/04/25 06:00 04/04/25 13:56 100 MLS/HR Ferrous Sulfate 325 mg MWF PO 04/05/25 10:00 Potassium Chloride/Dextrose/ Sod Cl 1,000 ml @ 75 mls/hr [id number] IV 04/04/25 08:15 04/04/25 08:15 75 MLS/HR Vancomycin HCl 100 ml @ 100 mls/hr Q12H IV 04/04/25 12:00 04/04/25 11:41 100 MLS/HR Tamsulosin HCl 0.4 mg QPM PO 04/04/25 18:00 Haloperidol Lactate 10 mg Q6HPRN PRN IM 04/04/25 12:45 04/04/25 13:51 10 MG Examination General Appearance: Cooperative, patient is in distress. patient has scoliosis. Head Exam: Normal inspection Neck Exam: Normal inspection. Non-tender. Normal alignment Pulmonary/Respiratory: Chest non-tender. Clear bilateral breath sounds, no crackles, no wheezing. Cardiovascular/Chest: Regular rate and rhythm. No murmurs. No JVD. Peripheral Pulses: 2+ Radial (R). 2+ Radial (L). 2+ Pedal (R). 2+ Pedal (L) Abdominal Exam: tenderness in the mid lower abdomen Ankle Exam: Negative ankle edema Lower extremities: Negative lower extremity edema Neuro/Mental Status: A&O x4. Coherent. Thoughts/Psych: Normal thought pattern. Appropriate mood and affect. Good judgement and insight Skin Exam: Normal inspection. Normal color. Warm. Dry laboratory and microbiology Laboratory Tests 04/04/25 05:51 Test 04/04/25 05:51 Range/Units Serum Glucose 88 74-106 mg/dL Microbiology Date/Time Source Procedure Growth Status 04/03/25 11:27 Blood Blood Culture - Preliminary NO GROWTH AFTER 24 HOURS OF INCUBATION. Resulted Labs and/or images reviewed: Labs reviewed by me, Image(s) reviewed by me Problem List/Assessment/Plan Problem List/Assessment/Plan Sepsis likely unspecified now ? left psoas muscle with possible abscess or phlegmonous - IVF - CT abd/ pel showed asymmetric enlargement of the left psoas muscle with possible abscess or phlegmonous and moderate to severe left hydroureteronephrosis - vancomycin, cefepime, Flagyl for now - monitor labs - surgical consult - ordered blood culture Acute metabolic encephalopathy, from sepsis Sacral wound present on admission MARGARITA, likely due to VMN or obstructive uropathy acute urinary retention rule out UTI or pyelonephritis moderate to severe left hydronephrosis, likely obstructive from above - pending urinalysis - CT abd/ pel showed asymmetric enlargement of the left psoas muscle with possible abscess or phlegmonous and moderate to severe left hydroureteronephrosis - inserted Jones - antibiotics as above - repeat ultrasound tomorrow to check whether it has resolved or not symptomatic anemia likely iron-deficiency anemia - hemoglobin is 9.1 - transfuse if it is less than 7 - consulted GI - ordered iron panel - SOB pending Severe malnutrition hypokalemia, severe - 2.2 on admission - repleting with 3 bags - continuously monitor labs PUD prophylaxis: protonix DVT prophylaxis:SCDs Goals of care: Full code, discussed for >16 minutes Plan discussed with patient Plan discussed with Dr Ayala Plan discussed with: Patient Plan discussed with: Patient My Orders My Orders Orders - ANNIA PLEITEZ RESIDENT Procedure Category Date Status Time Insert Jones Catheter SHAUN 04/03/25 In Process 19:01 * Wound Consult CONS 04/03/25 Transmitted Vancomycin 750mg Kit PHA 04/04/25 In Process (Vancomycin Hcl) 12:00 Vancomycin,Trough LAB 04/05/25 Verified 23:00 Creatinine LAB 04/05/25 Verified 04:00 Vancomycin Per SHAUN 04/04/25 In Process Pharmacy Protoc 11:13 Strict I & O SHAUN 04/04/25 In Process 11:14 * Urology Consult CONS 04/04/25 Transmitted 11:41 Tamsulosin PHA 04/04/25 In Process Hydrochloride (Flomax) 18:00 Date of Service: Apr 04, 2025 Billing Provider: ALISSON NOBLE MD Common Visit Codes: [id number] INP/OBS CARE(HIGH) ANNIA PLEITEZ RESIDENT Apr 04, 2025 18:51 ALISSON NOBLE MD Apr 07, 2025 22:19
[2025-04-05] VITALS (39 sets, daily range): BP systolic 63–169; BP diastolic 41–99; PULSE 57–118; RESP 13–24; TEMP 92.5–98.9; O2SAT 93–100
[2025-04-05 06:51] LABS: Hemoglobin 8.2 g/dL (13.5-17.5); Nucleated Red Blood Cells % 0.0 %
[2025-04-05 06:53] LABS: Hematocrit 27.0 % (41.0-53.0); Mean Corpuscular Hemoglobin 23.1 pg (28.0-32.0); Mean Corpuscular Volume 75.6 fL (80.0-100.0)
[2025-04-05 06:57] LABS: Calcium 8.7 mg/dL (8.7-10.4); Potassium 3.6 mmol/L (3.5-5.1); Sodium 143 mmol/L (136-145)
[2025-04-05 06:58] LABS: Anion Gap 13 (5-15)
[2025-04-05 07:04] LABS: BUN/Creatinine Ratio 19.8 (10.0-20.0); Blood Urea Nitrogen 23 mg/dL (9-23); Glucose 84 mg/dL (74-106)
[2025-04-05 07:08] LABS: Carbon Dioxide 18 mmol/L (20-31); Chloride 112 mmol/L (98-107)
--- NOTE | 2025-04-05 08:22 | DVH ---
INDICATION: hydro resolution TECHNIQUE: Multiple real-time sonographic images of the kidneys and bladder were obtained. COMPARISON: US KIDNEY on DOS: 04/04/25 FINDINGS: The right kidney measures 11 cm in length, which is normal in size. There is normal echogen icity of the right kidney. No hydronephrosis. The left kidney measures 13 cm in length, which is normal in size. There is normal echogenicity of th e left kidney. Moderate left hydronephrosis. Urinary bladder is evaluation and compressed by Sultana catheter. IMPRESSION: Stable moderate left hydronephrosis.
--- NOTE | 2025-04-05 09:18 | DVH ---
EXAM: CT HEAD WITHOUT CONTRAST INDICATION: ACUTE METABOLIC ENCEPHALOPATHY TECHNIQUE: CT of the head without intravenous contrast. Radiation Dose Information: CT Dose: CTDI volume is 57.72 mGy. Dose-length product is 1137.43 mGy*cm The dose indicators for CT are the volume Computed Tomography (CT) Dose Index (CTDIvol) and the Dose Length Product (DLP), and are measured in units of mGy and mGy-cm, respectively. These indicators are not patient dose, but values generated from the CT scanner acquisition factors. The report includes radiation exposure data for exposures received during this examination. COMPARISON: None FINDINGS: There is no evidence of acute intracranial hemorrhage, extra-axial collection, mass effect, midline s hift, herniation or hydrocephalus. The ventricles, sulci and cisterns are age appropriate. The harris-white differentiation is intact. Patchy periventricular and subcortical white matter hypoattenuation is nonspecific but may be related to small vessel ischemic disease. The visualized paranasal sinuses and mastoid air cells are clear. The surrounding soft tissues and osseous structures are unremarkable. IMPRESSION: No acute intracranial abnormality.
[2025-04-05] MEDS: FERROUS SULFATE 325mg EC TAB PO SCH (10:00)
[2025-04-05] MEDS: FOLIC ACID 1 MG TAB PO ONE (11:30)
--- NOTE | 2025-04-05 13:13 | DVHPN2 ---
Subjective Patient appears to be altered and more agitated today History per RN, family we will be flying in today No melena or red blood in stool. No nausea or vomiting Changes from previous H/P or p: No Changes Objective Vitals Vital Signs Date Time Temp Pulse Resp B/P (MAP) Pulse Ox O2 Delivery O2 Flow Rate FiO2 04/05/25 12:43 98.9 83 20 126/79 (95) 93 98.9 04/05/25 08:00 Room Air* 0 21 Intake/Output Intake and Output 04/05/25 07:00 Intake Total 475 ml Output Total 1925 ml Balance -1450 ml Intake Oral 225 ml IV Total 250 ml Output Urine Total 1925 ml General Appearance: mild distress Lungs: Clear to auscultation, Normal air movement, Other Cardiovascular: Regular rate, Normal S1, Normal S2, No murmurs, Gallops, Rubs, Other Abdomen: Normal bowel sounds, Soft, No tenderness, No hepatospenomegaly, No masses, Other Medications Current Medications Medications Dose Ordered Sig/Lakhwinder Route Start Time Stop Time Status Last Admin Dose Admin Ondansetron HCl 4 mg Q4HP PRN IV 04/03/25 15:15 04/04/25 02:33 4 MG Docusate Sodium 100 mg BIDPRN PRN PO 04/03/25 15:15 Acetaminophen 650 mg Q6HP PRN PO 04/03/25 15:15 04/05/25 00:11 650 MG Morphine Sulfate 2 mg Q4HPRN PRN IV 04/03/25 15:15 04/05/25 12:36 2 MG Nitroglycerin 0.4 mg Q5MINP PRN SL 04/03/25 15:15 Morphine Sulfate 2 mg Q30M PRN IV 04/03/25 15:15 Vancomycin HCl 0 ml @ 0 mls/hr UD IV 04/03/25 15:30 Cefepime HCl 50 ml @ 12.5 mls/hr Q12HR IV 04/03/25 15:30 04/05/25 10:00 12.5 MLS/HR Pantoprazole Sodium 40 mg DAILY IV 04/04/25 10:00 04/05/25 10:00 40 MG Lactulose 30 ml BID PO 04/03/25 22:00 04/04/25 09:58 30 ML Metronidazole 100 ml @ 100 mls/hr Q8HR IV 04/04/25 06:00 04/05/25 06:41 100 MLS/HR Ferrous Sulfate 325 mg MWF PO 04/05/25 10:00 Potassium Chloride/Dextrose/ Sod Cl 1,000 ml @ 75 mls/hr [id number] IV 04/04/25 08:15 04/05/25 10:55 75 MLS/HR Vancomycin HCl 100 ml @ 100 mls/hr Q12H IV 04/04/25 12:00 04/05/25 12:35 100 MLS/HR Tamsulosin HCl 0.4 mg QPM PO 04/04/25 18:00 Haloperidol Lactate 10 mg Q6HPRN PRN IM 04/04/25 12:45 04/04/25 13:51 10 MG Thiamine HCl 300 mg DAILY IV 04/06/25 10:00 04/06/25 10:00 Folic Acid 1 mg DAILY PO 04/06/25 10:00 Laboratory Results Laboratory Tests 04/05/25 05:45 Chemistry Test 04/05/25 05:45 Calcium Level 8.7 mg/dL (8.7-10.4) Urinalysis Test 04/03/25 19:32 Urine Color Yellow (Yellow) Urine Clarity Clear (Clear) Urine pH 5.5 (5.0-9.0) Urine Specific [place] 1.018 (1.001-1.035) Urine Protein 1+ (Negative) H Urine Ketones Negative (Negative) Urine Blood Negative /uL (Negative) Urine Nitrite Negative (Negative) Urine Bilirubin Negative (Negative) Urine Urobilinogen Normal mg/dL (Negative) Urine Leukocyte Esterase Negative /uL (Negative) Urine RBC <1 /hpf (0 - 3) Urine Microscopic WBC < 1 /HPF (0-3) Urine Squamous Epithelial Cells None seen /hpf (<5) Urine Bacteria None seen /hpf (None Seen) Urine Hyaline Casts Few /lpf (0 - 2) Urine Granular Casts Few /lpf (0) Urine Mucus Few (None Seen) Urine Glucose Normal mg/dL (Normal) Microbiology Microbiology Date/Time Source Procedure Growth Status 04/04/25 17:22 Back Gram Stain - Final Resulted 04/04/25 17:22 Back Wound Culture - Preliminary Resulted 04/03/25 11:27 Blood Blood Culture - Preliminary NO GROWTH AFTER 48 HOURS OF INCUBATION. Resulted Labs and/or images reviewed: Labs reviewed by me, Image(s) reviewed by me Assessment/Plan Assessment/Plan Assessment: Persistent nausea and vomiting Severe anemia Possible abscess psoas muscle Hydroureteronephrosis Hypokalemia Plan: Discussed with Dr. Jose Ramon Cohn and Protonix Labs for B12 folate and ammonia Labs in a.m. We will cancel schedule EGD for today due to patient being more agitated and altered We will continue to monitor patient Plan discussed with: Other (RN) My Orders Orders - ALEC CASTILLO Procedure Category Date Status Time Obtain Consent For: ORDERS 04/04/25 Transmitted 13:55 Npo (Nothing By DIET 04/04/25 Transmitted Mouth) Diet Dinner Obtain Consent For SHAUN 04/04/25 In Process Anesthesia 13:55 Vitamin B12 LAB 04/05/25 Logged 13:07 Folate (Folic Acid) LAB 04/05/25 Logged 13:07 Ammonia LAB 04/05/25 Logged 13:07 Date of Service: Apr 05, 2025 Billing Provider: ALEC CASTILLO Common Visit Codes: [id number] INP/OBS CARE(HIGH) ALEC CASTILLO Apr 05, 2025 13:13
--- NOTE | 2025-04-05 15:04 | DVHPNRES ---
Progress Note Date Seen: Apr 05, 2025 Resident Creating Document: ANNIA PLEITEZ RESIDENT Medical Necessity Reason Pt with a Central, PICC or Fol: Yes Reason for jones catheter: Bladder Retention/Obstruc Subjective Review of Systems This is a 60-year-old male with PMH of valley fever and right foot drop who presented to the ED after he was sent by his PCP for low blood count. Patient mentions that his hemoglobin was 7.7 this morning at his PCP's office. The patient has history of low blood count in the past for which he also got transfusion. Patient has history of weakness along with nausea. The patient does not have any history of diarrhea or vomiting. patient also has history of back pain since many years. 04/04- The patient was seen at bedside. He looked disoriented and also could not state his name. According to the report from the host/hostess nurse, he pulled out his Jones catheter causing a lot of bleeding. A new Jones was put in after consultation with Urology he was given Haldol for the agitation. GI and surgical consults are pending for the patient. The patient also has a sacral wound which was looked at by wound care described as a draining full-thickness wound measuring 3.5x3.8x0.8cm. The wound is moist red hypergranulated tissue with epibole forming to the inferior aspect of the wound, minimal serous exudate on previous dressing, approx. 20% soiled, no odor, elvira wound tissue is consistent with patient's ethnicity and has areas scattered on the sacrum that are intact pink collagen scar tissue. Patient states that the lower back wound is a chronic wound he has had for tears and he has a h/o Valley Fever. Wound care cleansed the wound bed with NS and collected a wound culture using Garcia technique and sent to lab for interpretation. Cleansed patient's low back wound with wound cleanser, patted dry with gauze, applied therahoney gel, alginate rope gauze piece, and secured with optifoam per MD order. Patient tolerated skin check well. Gastroenterology saw the patient and mentioned that the patient will be taken for EGD on 04/05/2025. PMH: valley fever, hypertension, right foot drop, scoliosis PSH: Back surgery, abdominal surgery smoking: Smokes weed 3 cigars a day alcohol : Denies lives at home with cousins Allergies: no known allergies Patient seen and examined at bedside. Patient is AOx1. Patient is in mild distress and looks confused. Eyes: conjunctival pallor, No Pain, No Vision change, No Conjunctivae inflammation, No Eyelid inflammation, No Redness ENT: No Ear pain, No Ear discharge, No Nose pain, No Nose discharge, No Nose congestion, No Mouth pain, No Mouth swelling, No Throat pain, No Throat swelling Cardiovascular: No Chest Pain, No Palpitations, No Orthopnea, No Paroxysmal No Dyspnea, No Edema, No Lt Headedness Respiratory: No Cough, No Dry, No Shortness of breath, No SOB with exertion, No Wheezing, No Hemoptysis, No Pleuritic Pain, No Sputum Gastrointestinal: No Nausea, No Vomiting, No Abdominal Pain, No Diarrhea, No Constipation, No Melena, No Hematochezia Genitourinary: No Dysuria, No Frequency, No Incontinence, No Hematuria, No Retention 04/05- The patient was seen at bedside. He looks disoriented and confused. Patient complains of pain his back most likely where the sacral wound is. The wound was examined . and a CT abdomen pelvis was ordered to immigration judge the depth of the wound. Patient was also put on thiamine and folic acid considering his raised liver enzymes and suspecting alcohol withdrawal. The patient was supposed to undergo EGD today but it was canceled as the patient could not consent to it as he was altered and agitated. The nurse noted that daughter will be flying in today and would be able to consent for the same. Repeat renal ultrasound done today showed moderate left-sided hydronephrosis. The patient was seen by Urology yesterday and was advised outpatient cystoscopy. Today afternoon patient was more altered, confused and who was passing out so to protect airway patient was intubated and on mechanical ventilation with the bedside RR 20, VTE for 500, peep 5, FiO2 30% SHIFTED TO ICU Objective vital signs Vital Sign Date Time Temp Pulse Resp B/P (MAP) Pulse Ox O2 Delivery O2 Flow Rate FiO2 04/05/25 12:43 98.9 83 20 126/79 (95) 93 98.9 04/05/25 08:00 Room Air* 0 21 Total Intake and Output 04/04/25 04/04/25 04/05/25 15:00 23:00 07:00 Intake Total 225 ml 250 ml Output Total 1100 ml 825 ml Balance -875 ml -575 ml medications Current Medications Medications Dose Ordered Sig/Lakhwinder Route Start Time Stop Time Status Last Admin Dose Admin Ondansetron HCl 4 mg Q4HP PRN IV 04/03/25 15:15 04/04/25 02:33 4 MG Docusate Sodium 100 mg BIDPRN PRN PO 04/03/25 15:15 Acetaminophen 650 mg Q6HP PRN PO 04/03/25 15:15 04/05/25 00:11 650 MG Morphine Sulfate 2 mg Q4HPRN PRN IV 04/03/25 15:15 04/05/25 12:36 2 MG Nitroglycerin 0.4 mg Q5MINP PRN SL 04/03/25 15:15 Morphine Sulfate 2 mg Q30M PRN IV 04/03/25 15:15 Vancomycin HCl 0 ml @ 0 mls/hr UD IV 04/03/25 15:30 Cefepime HCl 50 ml @ 12.5 mls/hr Q12HR IV 04/03/25 15:30 04/05/25 10:00 12.5 MLS/HR Pantoprazole Sodium 40 mg DAILY IV 04/04/25 10:00 04/05/25 10:00 40 MG Lactulose 30 ml BID PO 04/03/25 22:00 04/04/25 09:58 30 ML Metronidazole 100 ml @ 100 mls/hr Q8HR IV 04/04/25 06:00 04/05/25 06:41 100 MLS/HR Ferrous Sulfate 325 mg MWF PO 04/05/25 10:00 Potassium Chloride/Dextrose/ Sod Cl 1,000 ml @ 75 mls/hr [id number] IV 04/04/25 08:15 04/05/25 10:55 75 MLS/HR Vancomycin HCl 100 ml @ 100 mls/hr Q12H IV 04/04/25 12:00 04/05/25 12:35 100 MLS/HR Tamsulosin HCl 0.4 mg QPM PO 04/04/25 18:00 Haloperidol Lactate 10 mg Q6HPRN PRN IM 04/04/25 12:45 04/04/25 13:51 10 MG Thiamine HCl 300 mg DAILY IV 04/06/25 10:00 04/06/25 10:00 Folic Acid 1 mg DAILY PO 04/06/25 10:00 Examination Pt is lying on bed General Appearance: Intubated on mechanical ventilation with the vent settings RR 20, VTE 500, FiO2 30%, peep 5 HEENT: Atraumatic, Mucous membranes moist/pink Respiratory: Clear to auscultation, Normal air movement, No added sounds on vent Cardiovascular: Regular rate, Normal S1, Normal S2, No murmurs Abdominal: Active bowel sounds, Soft, no distention, no tenderness Extremities: No edema, Normal pulses, No tenderness/swelling Skin: No Significant rash, except past surgical scars Neuro: Deferred Nurse was there as regulator inspector during examination laboratory and microbiology Laboratory Tests 04/05/25 05:45 Test 04/05/25 05:45 Range/Units Serum Glucose 84 74-106 mg/dL Microbiology Date/Time Source Procedure Growth Status 04/04/25 17:22 Back Gram Stain - Final Resulted 04/04/25 17:22 Back Wound Culture - Preliminary Resulted 04/03/25 11:27 Blood Blood Culture - Preliminary NO GROWTH AFTER 48 HOURS OF INCUBATION. Resulted Labs and/or images reviewed: Labs reviewed by me, Image(s) reviewed by me Problem List/Assessment/Plan Problem List/Assessment/Plan Sepsis likely unspecified now Acute metabolic encephalopathy, from sepsis - Today afternoon patient was more altered, confused and who was passing out so to protect airway patient was intubated and on mechanical ventilation with the bedside RR 20, VTE for 500, peep 5, FiO2 30% SHIFTED TO ICU - Continuously monitor status with daily ABGs, CXR and consulted Dr. Pena - Antibiotics as below ? left psoas muscle with possible abscess or phlegmonous - IVF - CT abd/ pel showed asymmetric enlargement of the left psoas muscle with possible abscess or phlegmonous and moderate to severe left hydroureteronephrosis - vancomycin, AND UPGRADED CEFEPIME AND FLAGYL TO MEROPENEM - monitor labs - surgical consult - ordered blood culture Sacral wound, present on admission full thickness, with pus ozzing MARGARITA, likely due to VMN or obstructive uropathy acute urinary retention rule out UTI or pyelonephritis moderate to severe left hydronephrosis, likely obstructive from above - pending urinalysis - CT abd/ pel showed asymmetric enlargement of the left psoas muscle with possible abscess or phlegmonous and moderate to severe left hydroureteronephrosis - inserted Jones - antibiotics as above - repeat ultrasound tomorrow to check whether it has resolved or not symptomatic anemia likely iron-deficiency anemia - hemoglobin is 9.1 - transfuse if it is less than 7 - consulted GI - ordered iron panel - SOB pending Severe malnutrition hypokalemia, severe - 2.2 on admission - repleting with 3 bags - continuously monitor labs PUD prophylaxis: protonix DVT prophylaxis:SCDs Goals of care: Full code, discussed for >16 minutes Plan discussed with Dr Ayala Plan discussed with: Patient's daughter Critical care time spent excluding procedure and including discussion with the family for more than 111 minutes Plan discussed with: Daughter My Orders My Orders Orders - ANNIA PLEITEZ RESIDENT Procedure Category Date Status Time Head Without Contrast CT 04/05/25 Resulted 08:08 Thiamine Inj PHA 04/06/25 In Process 10:00 Folic Acid Tablet PHA 04/06/25 In Process 10:00 Complete Blood Count LAB 04/06/25 Verified 04:00 Creatinine LAB 04/06/25 Verified 04:[address] Ct Abd Pelvis W CT 04/05/25 Logged Con-Oral & Iv 14:41 Dietary Evaluation Review Comments: Advance to diet as toleratedd after EGD Offer nutrition oral supplementation if PO intake<50% Iron supplementation Reassess PRN Expected Outcomes/Goals: Improved PO intake to meet at least 75% of his needs Improved iron status Graudal wt gain Date of Service: Apr 05, 2025 Billing Provider: ALISSON NOBLE MD Common Visit Codes: [id number] INP/OBS CARE(HIGH) ANNIA PLEITEZ RESIDENT Apr 05, 2025 15:04 JASWANT LOMBARDO RESIDENT Apr 05, 2025 19:17 ALISSON NOBLE MD Apr 07, 2025 22:22
[2025-04-05] MEDS: OMNIPAQUE 12mg/ml 500ml ORAL SOLUTION PO ONE (15:07)
--- NOTE | 2025-04-05 15:27 | DVHINCON2 ---
Date Seen: Apr 05, 2025 Family History: Cancer of colon G8 MOTHER, Onset:60 years & older Allergies: Coded Allergies: NO KNOWN ALLERGIES (Unverified , 03/30/16) Home Meds Reported Medications Pregabalin (Lyrica) 50 Mg Cap, 1 CAP PO, #60 CAP 04/04/25 Ondansetron HCl (Ondansetron) 4 Mg Tab, 4 MG PO, TAB 04/04/25 Naloxone Hcl (Naloxone Hcl) 0.4 Mg/Ml Inj, 0.4 MG TORRIE, INJ 04/04/25 Ibuprofen (Ibuprofen) 800 Mg Tab, 800 MG PO, MG 04/04/25 Itraconazole (Itraconazole) 100 Mg Cap, 100 MG PO, CAP 04/04/25 Docusate Sodium (Colace) 100 Mg Cap, 1 CAP PO BID, #30 CAP 04/04/25 Ascorbic Acid (Vitamin C 500 mg) 1 Tab Tab, 1 TAB PO, TAB 04/04/25 Hydrochlorothiazide (Hydrochlorothiazide) 12.5 Mg Tab, 1 TAB PO DAILY for 90 Days, #90 01/25/25 Omeprazole (Omeprazole Dr) 40 Mg Cap, 1 CAP PO DAILY for 90 Days, #90 01/25/25 Oxycodone HCl (Oxycodone Hydrochloride) 30 Mg Tab, 1 TAB PO TID PRN for PAIN for 30 Days, #90 01/25/25 Benazepril Hcl (Benazepril Hcl) 20 Mg Tab, 1 TAB PO DAILY for 90 Days, #90 01/25/25 Voriconazole (VORICONAZOLE) 200 Mg Tab, 1 TAB PO BID for 30 Days, #60 02/11/22 Amlodipine Besylate (Amlodipine Besylate) 10 Mg Tab, 1 TAB PO DAILY, #30 TAB 5 Refills 02/11/22 Current Medications Current Medications Medications (Trade) Dose Ordered Sig/Lakhwinder Route PRN Reason Start Time Stop Time Status Last Admin Ferrous Sulfate 325 mg MWF PO 04/05/25 10:00 Tamsulosin HCl (Flomax) 0.4 mg QPM PO 04/04/25 18:00 Thiamine HCl 300 mg DAILY IV 04/06/25 10:00 04/06/25 10:00 Folic Acid 1 mg DAILY PO 04/06/25 10:00 Vital Signs Vital Signs Date Time Temp Pulse Resp B/P (MAP) Pulse Ox O2 Delivery O2 Flow Rate FiO2 8/29/25 12:43 98.9 83 20 126/79 (95) 93 98.9 04/05/25 08:00 Room Air* 0 21 Labs/Diagnostic Data Labs Test 04/05/25 13:11 04/05/25 05:45 04/05/25 05:25 04/04/25 05:55 Range/Units Ammonia 17 11-32 umol/L White Blood Count 19.0 H 4.4-10.8 10^3/uL Red Blood Count 3.57 L 4.5-5.90 10^6/uL Hemoglobin 8.2 L 13.5-17.5 g/dL Hematocrit 27.0 L 41.0-53.0 % Mean Corpuscular Volume 75.6 L 80.0-100.0 fL Mean Corpuscular Hemoglobin 23.1 L 28.0-32.0 pg Mean Corpuscular Hemoglobin Concent 30.5 L 32.0-36.0 g/dL Red Cell Distribution Width 26.6 H 11.8-14.3 % Platelet Count 312 140-450 10^3/uL Mean Platelet Volume 7.8 6.9-10.8 fL Neutrophils (%) (Auto) 88.6 H 37.0-80.0 % Lymphocytes (%) (Auto) 5.0 L 10.0-50.0 % Monocytes (%) (Auto) 5.7 0.0-12.0 % Eosinophils (%) (Auto) 0.4 0.0-7.0 % Basophils (%) (Auto) 0.3 0.0-2.0 % Neutrophils # (Auto) 16.8 H 1.6-8.6 10 ^3/uL Lymphocytes # (Auto) 0.9 0.4-5.4 10 ^3/uL Monocytes # (Auto) 1.1 0-1.3 10 ^3/uL Eosinophils # (Auto) 0.1 0-0.8 10 ^3/uL Basophils # (Auto) 0.1 0-0.2 10 ^3/uL Nucleated Red Blood Cells 0.0 % Sodium Level 143 136-145 mmol/L Potassium Level 3.6 3.5-5.1 mmol/L Chloride Level 112 H 98-107 mmol/L Carbon Dioxide Level 18 L 20-31 mmol/L Anion Gap 13 5-15 Blood Urea Nitrogen 23 # 9-23 mg/dL Creatinine 1.16 0.700-1.30 mg/dL Glomerular Filtration Rate Calc 72 >90 mL/min BUN/Creatinine Ratio 19.8 10.0-20.0 Serum Glucose 84 74-106 mg/dL Calcium Level 8.7 8.7-10.4 mg/dL B-Type Natriuretic Peptide 102.38 0-100 pg/mL Test 04/04/25 05:51 04/03/25 19:32 04/03/25 15:45 04/03/25 12:54 Range/Units Total Bilirubin 0.2 0.2-1.0 mg/dL Aspartate Amino Transferase (AST) 69 H 13-40 U/L Alanine Aminotransferase (ALT) 23 7-40 U/L Alkaline Phosphatase 192 H 46-116 U/L Total Protein 8.2 5.7-8.2 g/dL Albumin 3.7 3.2-4.8 g/dL Random Vancomycin Level 14.2 H 5-10 ug/mL Urine Color Yellow Yellow Urine Clarity Clear Clear Urine pH 5.5 5.0-9.0 Urine Specific [place] 1.018 1.001-1.035 Urine Protein 1+ H Negative Urine Ketones Negative Negative Urine Blood Negative Negative /uL Urine Nitrite Negative Negative Urine Bilirubin Negative Negative Urine Urobilinogen Normal Negative mg/dL Urine Leukocyte Esterase Negative Negative /uL Urine RBC <1 0 - 3 /hpf Urine Microscopic WBC < 1 0-3 /HPF Urine Squamous Epithelial Cells None seen <5 /hpf Urine Bacteria None seen None Seen /hpf Urine Hyaline Casts Few 0 - 2 /lpf Urine Granular Casts Few 0 /lpf Urine Mucus Few None Seen Urine Glucose Normal Normal mg/dL Urine Opiates Screen Neg NEGATIVE Urine Fentanyl Screen Neg NEGATIVE Urine Barbiturates Screen Neg NEGATIVE Urine Phencyclidine Screen Neg NEGATIVE Urine Amphetamines Screen Neg NEGATIVE Urine Benzodiazepines Screen Neg NEGATIVE Urine Cocaine Screen Neg NEGATIVE Urine Cannabinoids Screen Pos NEGATIVE Prothrombin Time 14.8 H 9.3-11.8 sec Prothrombin Time INR 1.45 H 0.9-1.15 Activated Partial Thromboplast Time 35.6 H 24.5-34.5 SEC Iron Level 10 L 65-175 ug/dL Total Iron Binding Capacity 200 L 250-425 ug/dL Percent Iron Saturation 5.0 L 20-55 % Ferritin 685.8 H 22-322 ng/mL Direct Bilirubin 0.3 <0.3 mg/dL Thyroid Stimulating Hormone (TSH) 2.07 0.55-4.78 uIU/mL Lactic Acid Level 3.2 *H 0.4-2.0 mmol/L Test 04/03/25 09:50 Range/Units Reticulocyte Count (auto) 2.45 H 0.5-1.5 % Magnesium Level 2.6 1.6-2.6 mg/dL Troponin I High Sensitivity 26 </=54 ng/L Microbiology Date/Time Source Procedure Growth Status 04/04/25 17:22 Back Gram Stain - Final Resulted 04/04/25 17:22 Back Wound Culture - Preliminary Resulted 04/03/25 11:27 Blood Blood Culture - Preliminary NO GROWTH AFTER 48 HOURS OF INCUBATION. Resulted Assessment Responded to rapid response that was called Plan discussed with: Patient Date of Service: Apr 05, 2025 Billing Provider: BEST TAYLOR Common Visit Codes: [id number] INP/OBS CARE (HIGH) BEST TAYLOR Apr 05, 2025 15:27
--- NOTE | 2025-04-05 15:39 | DVHINCON2 ---
Date of service: Apr 05, 2025 History of Present Illness 60-year-old male with a history of valley fever admitted secondary anemia. Patient is currently being worked up by GI. Surgery was urgently consulted as is imaging study on admission showed a possible psoas abscess however there was no surgeon that was saw the patient. Just now patient had an episode of altered mental status but currently arousable. Past Medical History Valley fever. Hypertension. Right foot drop. Scoliosis. Past Surgical History Back surgery. Unknown abdominal surgery. Family History: Cancer of colon G8 MOTHER, Onset:60 years & older Family History Noncontributory Social History Smokes marijuana and cigars. No history of alcohol abuse. Allergies: Coded Allergies: NO KNOWN ALLERGIES (Unverified , 03/30/16) Home Meds Reported Medications Pregabalin (Lyrica) 50 Mg Cap, 1 CAP PO, #60 CAP 04/04/25 Ondansetron HCl (Ondansetron) 4 Mg Tab, 4 MG PO, TAB 04/04/25 Naloxone Hcl (Naloxone Hcl) 0.4 Mg/Ml Inj, 0.4 MG TORRIE, INJ 04/04/25 Ibuprofen (Ibuprofen) 800 Mg Tab, 800 MG PO, MG 04/04/25 Itraconazole (Itraconazole) 100 Mg Cap, 100 MG PO, CAP 04/04/25 Docusate Sodium (Colace) 100 Mg Cap, 1 CAP PO BID, #30 CAP 04/04/25 Ascorbic Acid (Vitamin C 500 mg) 1 Tab Tab, 1 TAB PO, TAB 04/04/25 Hydrochlorothiazide (Hydrochlorothiazide) 12.5 Mg Tab, 1 TAB PO DAILY for 90 Days, #90 01/25/25 Omeprazole (Omeprazole Dr) 40 Mg Cap, 1 CAP PO DAILY for 90 Days, #90 01/25/25 Oxycodone HCl (Oxycodone Hydrochloride) 30 Mg Tab, 1 TAB PO TID PRN for PAIN for 30 Days, #90 01/25/25 Benazepril Hcl (Benazepril Hcl) 20 Mg Tab, 1 TAB PO DAILY for 90 Days, #90 01/25/25 Voriconazole (VORICONAZOLE) 200 Mg Tab, 1 TAB PO BID for 30 Days, #60 02/11/22 Amlodipine Besylate (Amlodipine Besylate) 10 Mg Tab, 1 TAB PO DAILY, #30 TAB 5 Refills 02/11/22 Current Medications Current Medications Medications (Trade) Dose Ordered Sig/Lakhwinder Route PRN Reason Start Time Stop Time Status Last Admin Ferrous Sulfate 325 mg MWF PO 04/05/25 10:00 Tamsulosin HCl (Flomax) 0.4 mg QPM PO 04/04/25 18:00 Thiamine HCl 300 mg DAILY IV 04/06/25 10:00 04/06/25 10:00 Folic Acid 1 mg DAILY PO 04/06/25 10:00 Vital Signs Vital Signs Date Time Temp Pulse Resp B/P (MAP) Pulse Ox O2 Delivery O2 Flow Rate FiO2 04/05/25 12:43 98.9 83 20 126/79 (95) 93 98.9 04/05/25 08:00 Room Air* 0 21 Physical Exam GEN: Lethargic male in no acute distress. Arousable. HEENT: Normocephalic atraumatic. Moist mucous membranes. Anicteric sclerae. ABD: Soft. Nontender nondistended. Back: There is multiple skin openings with slightly excess granulation tissue with some minimal purulent drainage. No obvious fluctuance. Noncontrast CT of the abdomen and pelvis: Asymmetric enlargement of the left lower psoas muscle with possible phlegmonous type changes or abscess measuring 2.4 cm at the level of the iliac crest. Labs/Diagnostic Data Labs Test 04/05/25 15:19 04/05/25 13:11 04/05/25 05:45 04/05/25 05:25 Range/Units POC Glucose 99 70-106 mg/dl Ammonia 17 11-32 umol/L White Blood Count 19.0 H 4.4-10.8 10^3/uL Red Blood Count 3.57 L 4.5-5.90 10^6/uL Hemoglobin 8.2 L 13.5-17.5 g/dL Hematocrit 27.0 L 41.0-53.0 % Mean Corpuscular Volume 75.6 L 80.0-100.0 fL Mean Corpuscular Hemoglobin 23.1 L 28.0-32.0 pg Mean Corpuscular Hemoglobin Concent 30.5 L 32.0-36.0 g/dL Red Cell Distribution Width 26.6 H 11.8-14.3 % Platelet Count 312 140-450 10^3/uL Mean Platelet Volume 7.8 6.9-10.8 fL Neutrophils (%) (Auto) 88.6 H 37.0-80.0 % Lymphocytes (%) (Auto) 5.0 L 10.0-50.0 % Monocytes (%) (Auto) 5.7 0.0-12.0 % Eosinophils (%) (Auto) 0.4 0.0-7.0 % Basophils (%) (Auto) 0.3 0.0-2.0 % Neutrophils # (Auto) 16.8 H 1.6-8.6 10 ^3/uL Lymphocytes # (Auto) 0.9 0.4-5.4 10 ^3/uL Monocytes # (Auto) 1.1 0-1.3 10 ^3/uL Eosinophils # (Auto) 0.1 0-0.8 10 ^3/uL Basophils # (Auto) 0.1 0-0.2 10 ^3/uL Nucleated Red Blood Cells 0.0 % Sodium Level 143 136-145 mmol/L Potassium Level 3.6 3.5-5.1 mmol/L Chloride Level 112 H 98-107 mmol/L Carbon Dioxide Level 18 L 20-31 mmol/L Anion Gap 13 5-15 Blood Urea Nitrogen 23 # 9-23 mg/dL Creatinine 1.16 0.700-1.30 mg/dL Glomerular Filtration Rate Calc 72 >90 mL/min BUN/Creatinine Ratio 19.8 10.0-20.0 Serum Glucose 84 74-106 mg/dL Calcium Level 8.7 8.7-10.4 mg/dL Test 04/04/25 05:55 04/04/25 05:51 04/03/25 19:32 04/03/25 15:45 Range/Units B-Type Natriuretic Peptide 102.38 0-100 pg/mL Total Bilirubin 0.2 0.2-1.0 mg/dL Aspartate Amino Transferase (AST) 69 H 13-40 U/L Alanine Aminotransferase (ALT) 23 7-40 U/L Alkaline Phosphatase 192 H 46-116 U/L Total Protein 8.2 5.7-8.2 g/dL Albumin 3.7 3.2-4.8 g/dL Random Vancomycin Level 14.2 H 5-10 ug/mL Urine Color Yellow Yellow Urine Clarity Clear Clear Urine pH 5.5 5.0-9.0 Urine Specific [place] 1.018 1.001-1.035 Urine Protein 1+ H Negative Urine Ketones Negative Negative Urine Blood Negative Negative /uL Urine Nitrite Negative Negative Urine Bilirubin Negative Negative Urine Urobilinogen Normal Negative mg/dL Urine Leukocyte Esterase Negative Negative /uL Urine RBC <1 0 - 3 /hpf Urine Microscopic WBC < 1 0-3 /HPF Urine Squamous Epithelial Cells None seen <5 /hpf Urine Bacteria None seen None Seen /hpf Urine Hyaline Casts Few 0 - 2 /lpf Urine Granular Casts Few 0 /lpf Urine Mucus Few None Seen Urine Glucose Normal Normal mg/dL Urine Opiates Screen Neg NEGATIVE Urine Fentanyl Screen Neg NEGATIVE Urine Barbiturates Screen Neg NEGATIVE Urine Phencyclidine Screen Neg NEGATIVE Urine Amphetamines Screen Neg NEGATIVE Urine Benzodiazepines Screen Neg NEGATIVE Urine Cocaine Screen Neg NEGATIVE Urine Cannabinoids Screen Pos NEGATIVE Prothrombin Time 14.8 H 9.3-11.8 sec Prothrombin Time INR 1.45 H 0.9-1.15 Activated Partial Thromboplast Time 35.6 H 24.5-34.5 SEC Iron Level 10 L 65-175 ug/dL Total Iron Binding Capacity 200 L 250-425 ug/dL Percent Iron Saturation 5.0 L 20-55 % Ferritin 685.8 H 22-322 ng/mL Direct Bilirubin 0.3 <0.3 mg/dL Thyroid Stimulating Hormone (TSH) 2.07 0.55-4.78 uIU/mL Test 04/03/25 12:54 04/03/25 09:50 Range/Units Lactic Acid Level 3.2 *H 0.4-2.0 mmol/L Reticulocyte Count (auto) 2.45 H 0.5-1.5 % Magnesium Level 2.6 1.6-2.6 mg/dL Troponin I High Sensitivity 26 </=54 ng/L Microbiology Date/Time Source Procedure Growth Status 04/04/25 17:22 Back Gram Stain - Final Resulted 04/04/25 17:22 Back Wound Culture - Preliminary Resulted 04/03/25 11:27 Blood Blood Culture - Preliminary NO GROWTH AFTER 48 HOURS OF INCUBATION. Resulted Assessment 1. Leukocytosis possibly from a left psoas abscess Plan/Recommendation 1. We will repeat a CT of the abdomen and pelvis with IV contrast for better evaluation. If it really is a 2.4 cm abscess this is quite small and may not be amenable to percutaneous drainage in which case I recommend conservative treatment with IV antibiotics. Plan discussed with: Patient DECLAN VIZCARRA MD Apr 05, 2025 15:39
[2025-04-05 15:40] LABS: Base Excess -8.6 mmol/L (-2.0-3.0)
[2025-04-05] MEDS: MIDAZOLAM DRIP 50 mg/50mL 50 ML IV ONE (16:24)
[2025-04-05] MEDS: fentaNYL Drip 2500mCg/250mlNS 250 ML IV ONE (16:25)
[2025-04-05] MEDS: ROCURONIUM 10MG/ML 10ML VIAL IV ONE ×2 (16:25→17:12)
[2025-04-05] MEDS: ETOMIDATE (2MG/ML) 20ML VIAL IV ONE ×2 (16:25→17:08)
[2025-04-05] MEDS: NOREPINEPHRINE 8 MG/250ML KIT 250 ML IV ONE (16:25)
[2025-04-05] MEDS: NOREPINEPHRINE 8 MG/250ML KIT 250 ML IV SCH (16:45)
[2025-04-05] MEDS: fentaNYL Drip 2500mCg/250mlNS 250 ML IV SCH (17:11)
[2025-04-05] MEDS: MIDAZOLAM DRIP 50 mg/50mL 50 ML IV SCH (17:14)
--- NOTE | 2025-04-05 17:29 | DVHNC2 ---
Intubation Indication: Altered Mental Status, Airway Protection Prep: Preoxygenation Pretreated with: Analgesia Medicated with: Other (rocuronium and etomidate) Intubation Approach: Orotracheal Informed consent obtained: Yes Risks/benefits/alt described: Yes Date of Service: Apr 05, 2025 Billing Provider: ALISSON NOBLE MD Common Visit Codes: PROCEDURE ONLY Procedure Codes: [id number] JASWANT LOMBARDO Apr 05, 2025 17:29 ALISSON NOBLE MD Apr 07, 2025 23:06
--- NOTE | 2025-04-05 17:31 | DVHNC2 ---
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) Indication: Other Room prepared for procedure: Yes Manager Employment performed hand hygien: Yes Maximal sterile barrier precau: Mask/Eye shield, Sterile gown, Cap, Sterlie gloves, Large sterlie drape Skin Preparation: Chlorhexidine gluconate, Providine iodine Skin preparation completely dr: Yes Insertion site: Right, Internal jugular Central line catheter type: [id number] dialysis Number of lumens: 3 Central line exchanged over a: No Antiseptic ointment applied to: Yes Post Assessment: Chest X-Ray Informed consent obtained: Yes Risks/benefits/alt described: Yes Date of Service: Apr 05, 2025 Billing Provider: ALISSON NOBLE MD Common Visit Codes: PROCEDURE ONLY Procedure Codes: [id number] NON-TUNNEL CV CATH JASWANT LOMBARDO RESIDENT Apr 05, 2025 17:31
--- NOTE | 2025-04-05 17:43 | DVH ---
CHEST RADIOGRAPH Indication: POSSIBLE ASPIRATION Technique: XY CHEST PORTABLE COMPARISON: 04/03/2025 FINDINGS: The cardiac silhouette is enlarged. The lungs demonstrate bilateral patchy airspace opacities, most p ronounced in the right lower lobe, significantly increased since previous examination. The pulmonary vasculature is prominent. Small right pleural effusion. There is no pneumothorax. Right IJ catheter tip projects over the SVC. Nasogastric tube projects towards stomach. Endotracheal tube tip projects 8.3 cm above the larry. IMPRESSION: Cardiomegaly with pulmonary vascular congestion and bilateral patchy airspace opacities.
--- NOTE | 2025-04-05 18:05 | DVH ---
CHEST RADIOGRAPH REASON FOR EXAM: TUBE ADVANCEMENT COMPARISON: XY CHEST PORTABLE on DOS: 04/05/25, XY CHEST PORTABLE on DOS: 04/03/25, CT CHEST WITHOUT CO NTRAST on DOS: 01/26/25, CXRP on DOS: 02/10/22, CHEST PORTABLE on DOS: 02/10/22 TECHNIQUE: One view of the chest is provided FINDINGS: Evaluation is degraded by patient rotation. The cardiomediastinal silhouette is grossly st able. The endotracheal tube terminates approximately 5.7 cm from the larry. There is an enteric tube with the tip coursing below the diaphragm and out of the field of view. There is a right neck cathet er with the tip projecting over the area of the right brachiocephalic vein. There is unchanged bilate ral patchy airspace disease. There is pulmonary venous congestion. There is small right pleural eff usion. The left costophrenic sulcus is excluded from view. IMPRESSION: The endotracheal tube now terminates approximately 5.7 cm from the larry. Pulmonary venous congestion and patchy bilateral airspace disease. This may represent pulmonary edema or Multifocal pneumonia.
[2025-04-05] MEDS: LACTATED RINGER'S 500 ML IV SCH (18:45)
[2025-04-05 18:49] LABS: Hematocrit 26.4 % (41.0-53.0); Hemoglobin 8.3 g/dL (13.5-17.5); Mean Corpuscular Hemoglobin 22.5 pg (28.0-32.0); Mean Corpuscular Volume 72.1 fL (80.0-100.0); Nucleated Red Blood Cells % 0.0 %
[2025-04-05 19:06] LABS: Albumin 3.3 g/dL (3.2-4.8); Anion Gap 12 (5-15); BUN/Creatinine Ratio 19.1 (10.0-20.0); Bilirubin, Total 0.3 mg/dL (0.2-1.0); Blood Urea Nitrogen 21 mg/dL (9-23); Calcium 9.0 mg/dL (8.7-10.4); Glucose 93 mg/dL (74-106); Sodium 143 mmol/L (136-145); Total Protein 7.4 g/dL (5.7-8.2)
[2025-04-05 19:07] LABS: Alanine Aminotransferase 51 U/L (7-40); Alkaline Phosphatase 218 U/L (46-116); Carbon Dioxide 20 mmol/L (20-31); Chloride 111 mmol/L (98-107); Potassium 3.3 mmol/L (3.5-5.1)
[2025-04-05] MEDS: SODIUM BICARB 50mEq/50ml Vial 50 ML in D5W 5% 1,000 ML IV SCH (21:02)
[2025-04-05] MEDS: POTASSIUM CHL 20MEQ/100ML 100 ML IV ONE (21:03)
[2025-04-05 21:17] LABS: Base Excess -8.7 mmol/L (-2.0-3.0)
[2025-04-05] MEDS ORDERED: ATROPINE SULF 1 MG/10ml SYR IV PRN (22:15)
[2025-04-05] MEDS: MAGNESIUM SULFATE 1GM/100ML 100 ML IV ONE (22:25)
[2025-04-05] MEDS: MEROPENEM 1GM IVPB 50 ML IV SCH (23:06)
[2025-04-05 23:11] LABS: INR 1.44 (0.9-1.15); Partial Thromboplastin Time 41.6 SEC (24.5-34.5); Prothrombin Time 14.7 sec (9.3-11.8)
[2025-04-05 23:13] LABS: Potassium 3.8 mmol/L (3.5-5.1)
[2025-04-05 23:20] LABS: Magnesium 2.4 mg/dL (1.6-2.6)
[2025-04-06] VITALS (109 sets, daily range): BP systolic 69–118; BP diastolic 45–78; PULSE 63–88; RESP 14–21; TEMP 96.6–100.2; O2SAT 97–100
[2025-04-06] MEDS: MAGNESIUM SULFATE 1GM/100ML 100 ML IV ONE (00:26)
--- NOTE | 2025-04-06 01:48 | DVHSR ---
APPROVED REPORT EXAM: Two-dimensional and M-mode echocardiogram with Doppler and color Doppler. Blood Pressure: 103/60 mmHg INDICATION r/o chf RISK FACTORS Height: 5'9, Weight: 139 DIMENSIONS LVDd4.1 (3.8-5.7cm)LA (2D)3.8 (1.9-4.0cm)Aortic Root3.1 (2.0-3.7cm) LVDs2.7 (2.5-4.0cm)LA (MM) (1.9-4.0cm)Aortic Cusp Exc1.2 (1.5-2.0cm) EF (%) 65.0 (55-70%)Rt. Atrium3.7 (1.9-4.0cm)Asc. Aorta3.4 cm IVSd1.4 (0.7-1.1cm)RV (D)4.4 (1.8-2.4cm) PWd1.1 (0.7-1.1cm) Mitral Valve MitralMitral Stenosis E wave0.85m/sMV Mean GR.mmHg A wave1.03m/sMV Peak GR.mmHg E/A ratio0.82D MVAcm2 DECEL [id number] 1/2 Timems Aortic Valve Aortic ValveAortic Stenosis V11.27m/Beth Mean GR.7mmHg V22.00m/Beth Peak GR.16mmHg LVOT Diameter2.0 (1.8-2.4cm)Doppler AVA1.99cm2 Pulmonic Valve V21.28m/s Other Information Technically limited study due to pt confused, moving Conclusion MODERATE DEGREE LVH AND MODERATE DEGREE LV DIASTOLIC DYSFUNCTION LV EF IS 65% MODERATELY CALCIFIED AORTIC LEAFLETS AORTIC VALVE SEPERATION ( OPENING) IS 1.2 CM AND IS REDUCED AORTIC VALVE AREA IS 1.9 CM SQUARE BORDERLINE MILD AORTIC STENOSIS NO EFFUSION NORMAL RV FUNCTION
[2025-04-06 03:40] LABS: Hematocrit 24.3 % (41.0-53.0); Hemoglobin 7.7 g/dL (13.5-17.5); Mean Corpuscular Hemoglobin 22.6 pg (28.0-32.0); Mean Corpuscular Volume 71.8 fL (80.0-100.0); Nucleated Red Blood Cells % 0.2 %
[2025-04-06 03:46] LABS: Anion Gap 10 (5-15); BUN/Creatinine Ratio 13.4 (10.0-20.0); Blood Urea Nitrogen 20 mg/dL (9-23); Carbon Dioxide 21 mmol/L (20-31); Glucose 96 mg/dL (74-106); Potassium 3.8 mmol/L (3.5-5.1); Sodium 143 mmol/L (136-145); Total Protein 7.1 g/dL (5.7-8.2)
[2025-04-06 03:50] LABS: Alanine Aminotransferase 58 U/L (7-40); Albumin 3.1 g/dL (3.2-4.8); Alkaline Phosphatase 205 U/L (46-116); Bilirubin, Total 0.2 mg/dL (0.2-1.0); Calcium 8.7 mg/dL (8.7-10.4); Chloride 112 mmol/L (98-107)
[2025-04-06 05:58] LABS: Anisocytosis Moderate
[2025-04-06 05:59] LABS: Stomatocytes Few
[2025-04-06] MEDS: ALBUMIN 25% 50 ML IV ONE (06:40)
--- NOTE | 2025-04-06 06:41 | DVH ---
CHEST RADIOGRAPH Indication: INTUBATED Technique: Single frontal view of the chest was obtained COMPARISON: XY CHEST PORTABLE on DOS: 04/05/25, XY CHEST PORTABLE on DOS: 04/05/25, XY CHEST PORTABLE o n DOS: 04/03/25, CT CHEST WITHOUT CONTRAST on DOS: 01/26/25, CXRP on DOS: 02/10/22 FINDINGS: Lines and Tubes: Median sternotomy. Endotracheal tube and right central venous catheter in satisfact ory position. Lungs: Congestion Pleura: No effusion. No pneumothorax. Cardiomediastinal contours: Unremarkable Bones: Unremarkable IMPRESSION: Lines and tubes in satisfactory position. No significant interval change.
[2025-04-06 06:50] LABS: Base Excess -5.9 mmol/L (-2.0-3.0)
[2025-04-06] MEDS: VORICONAZOLE INJ 400 MG in D5W 5% 250 ML IV SCH (08:00)
--- NOTE | 2025-04-06 08:55 | DVHPNRES ---
Progress Note Date Seen: Apr 06, 2025 Resident Creating Document: IRASEMA MCDONALD RESIDENT Medical Necessity Reason Pt with a Central, PICC or Fol: Yes Reason for jones catheter: Bladder Retention/Obstruc Subjective Review of Systems This is a 60-year-old male with PMH of valley fever and right foot drop who presented to the ED after he was sent by his PCP for low blood count. Patient mentions that his hemoglobin was 7.7 this morning at his PCP's office. The patient has history of low blood count in the past for which he also got transfusion. Patient has history of weakness along with nausea. The patient does not have any history of diarrhea or vomiting. patient also has history of back pain since many years. 04/04- The patient was seen at bedside. He looked disoriented and also could not state his name. According to the report from the relay tester helper nurse, he pulled out his Jones catheter causing a lot of bleeding. A new Jones was put in after consultation with Urology he was given Haldol for the agitation. GI and surgical consults are pending for the patient. The patient also has a sacral wound which was looked at by wound care described as a draining full-thickness wound measuring 3.5x3.8x0.8cm. The wound is moist red hypergranulated tissue with epibole forming to the inferior aspect of the wound, minimal serous exudate on previous dressing, approx. 20% soiled, no odor, elvira wound tissue is consistent with patient's ethnicity and has areas scattered on the sacrum that are intact pink collagen scar tissue. Patient states that the lower back wound is a chronic wound he has had for tears and he has a h/o Valley Fever. Wound care cleansed the wound bed with NS and collected a wound culture using Garcia technique and sent to lab for interpretation. Cleansed patient's low back wound with wound cleanser, patted dry with gauze, applied therahoney gel, alginate rope gauze piece, and secured with optifoam per MD order. Patient tolerated skin check well. Gastroenterology saw the patient and mentioned that the patient will be taken for EGD on 04/05/2025. 04/05- The patient was seen at bedside. He looks disoriented and confused. Patient complains of pain his back most likely where the sacral wound is. The wound was examined . and a CT abdomen pelvis was ordered to trial court judge the depth of the wound. Patient was also put on thiamine and folic acid considering his raised liver enzymes and suspecting alcohol withdrawal. The patient was supposed to undergo EGD today but it was canceled as the patient could not consent to it as he was altered and agitated. The nurse noted that daughter will be flying in today and would be able to consent for the same. Repeat renal ultrasound done today showed moderate left-sided hydronephrosis. The patient was seen by Urology yesterday and was advised outpatient cystoscopy. Yesterday afternoon patient was more altered, confused and who was passing out so to protect airway patient was intubated and on mechanical ventilation with the bedside RR 20, VTE for 500, peep 5, FiO2 30% SHIFTED TO ICU ROS Patient is intubated and sedated on mechanical ventilation. Objective vital signs Vital Sign Date Time Temp Pulse Resp B/P (MAP) Pulse Ox O2 Delivery O2 Flow Rate FiO2 04/06/25 08:35 100/66 04/06/25 08:14 98.8 74 20 99 30 98.8 04/06/25 06:00 Mechanical Ventilator+ 04/05/25 16:00 0 Total Intake and Output 04/05/25 04/05/25 04/06/25 15:00 23:00 07:00 Intake Total 786.75 ml 2970.00 ml Output Total 950 ml 260 ml Balance -163.25 ml 2710.00 ml medications Current Medications Medications Dose Ordered Sig/Lakhwinder Route Start Time Stop Time Status Last Admin Dose Admin Docusate Sodium 100 mg BIDPRN PRN PO 04/03/25 15:15 Acetaminophen 650 mg Q6HP PRN PO 04/03/25 15:15 04/05/25 00:11 650 MG Morphine Sulfate 2 mg Q4HPRN PRN IV 04/03/25 15:15 04/05/25 12:36 2 MG Nitroglycerin 0.4 mg Q5MINP PRN SL 04/03/25 15:15 Morphine Sulfate 2 mg Q30M PRN IV 04/03/25 15:15 Vancomycin HCl 0 ml @ 0 mls/hr UD IV 04/03/25 15:30 Lactulose 30 ml BID PO 04/03/25 22:00 04/04/25 09:58 30 ML Vancomycin HCl 100 ml @ 100 mls/hr Q12H IV 04/04/25 12:00 04/06/25 00:31 100 MLS/HR Tamsulosin HCl 0.4 mg QPM PO 04/04/25 18:00 Thiamine HCl 300 mg DAILY IV 04/06/25 10:00 04/06/25 10:00 Folic Acid 1 mg DAILY PO 04/06/25 10:00 Norepinephrine Bitartrate 250 ml @ 3.75 mls/hr Q24H IV 04/05/25 16:45 04/06/25 08:35 45 MLS/HR Midazolam HCl 50 ml @ 1 mls/hr Q24H IV 04/05/25 16:45 04/05/25 17:14 1 MLS/HR Fentanyl Citrate 250 ml @ 2.5 mls/hr Q24H IV 04/05/25 16:45 04/05/25 17:11 2.5 MLS/HR Meropenem 50 ml @ 17 mls/hr Q8HR IV 04/05/25 22:00 04/06/25 06:33 17 MLS/HR Lactated Ringer's 500 ml @ 100 mls/hr Q5H IV 04/05/25 18:45 04/06/25 08:35 100 MLS/HR Pantoprazole Sodium 40 mg DAILY IV 04/06/25 10:00 Sodium Bicarbonate 50 ml/ Dextrose 1,050 ml @ 100 mls/hr [id number] IV 04/05/25 18:45 04/06/25 07:15 100 MLS/HR Atropine Sulfate 0.5 mg ONCE PRN IV 04/05/25 22:15 Voriconazole 400 mg/Dextrose 290 ml @ 145 mls/hr Q12H IV 04/06/25 08:00 04/06/25 21:59 Examination Patient lying in bed, under sedoanalgesia due to mechanical ventilation General: RASS -3, afebrile, mucosae are moist Cardiovascular: Normal S1 and S2. No murmurs, gallops or rubs Respiratory: Intubated on mechanical ventilation with the vent settings RR 20, VTE 500, FiO2 30%, peep 5 Abdomen: Soft, nontender, no organomegaly, normal bowel sounds MSK/skin: Mobilization of limbs cannot be evaluated. Skin is dry and warm Neurological: Orientation cannot be assessed. No apparent motor no sensitive deficits. Pupils are isocoric and reactive laboratory and microbiology Laboratory Tests 04/06/25 02:24 Test 04/06/25 02:24 Range/Units Serum Glucose 96 74-106 mg/dL Microbiology Date/Time Source Procedure Growth Status 04/04/25 17:22 Back Gram Stain - Final Resulted 04/04/25 17:22 Back Wound Culture - Preliminary Resulted 04/03/25 11:27 Blood Blood Culture - Preliminary NO GROWTH AFTER 48 HOURS OF INCUBATION. Resulted Problem List/Assessment/Plan Problem List/Assessment/Plan Neurology : # Acute metabolic encephalopathy due to sepsis - patient is intubated and sedated - maintain ventilation setting Cardiovascular : # maintain blood pressure with vasopressor. Respiratory : # possible Gram-positive/negative bacterial pneumonia - continue current antibiotic, meropenem and vancomycin - Intubated on mechanical ventilation with the vent settings RR 20, VTE 500, FiO2 30%, peep 5 - pulmonology consult Gastrointestinal : # Persistent nausea and vomiting -canceled schedule EGD for today due to patient being more agitated and altered -now patient is intubated Genitourinary : -MARGARITA, likely due to VMN or obstructive uropathy -acute urinary retention -rule out UTI or pyelonephritis - moderate to severe left hydronephrosis, likely obstructive from above - CT abd/ pel showed asymmetric enlargement of the left psoas muscle with possible abscess or phlegmonous and moderate to severe left hydroureteronephrosis - inserted Jones - antibiotics as above Infectious Disease : # sepsis due to left psoas muscle with possible abscess or phlegmonous - IVF - CT abd/ pel showed asymmetric enlargement of the left psoas muscle with possible abscess or phlegmonous and moderate to severe left hydroureteronephrosis - vancomycin, MEROPENEM - monitor labs - surgical consult appreciated: Recommend, repeat a CT of the abdomen and pelvis with IV contrast for better evaluation. If it really is a 2.4 cm abscess this is quite small and may not be amenable to percutaneous , conservative treatment with IV antibiotics. - ordered blood culture # Sacral wound, present on admission full thickness, with pus ozzing Hematology : # symptomatic anemia # likely iron-deficiency anemia - hemoglobin is 9.1 - transfuse if it is less than 7 - consulted GI - ordered iron panel - SOB pending Nutrition : # Severe malnutrition # hypokalemia, severe - replenished - continuously monitor labs Prophylaxis PUD : IV Protonix 40 mg daily DVT: SCD Invasive access : Jones catheter : Placed on 04/04/25 Endotracheal tube : Placed on 04/05/2025 Rt IJ central line : Placed on 04/05/2025 Drips: Levophed 24 Fentanyl 150 Talked to his daughter (Pineda [phone]), updated her about patient's condition and management plan. Critical Care time spent 53 minutes including patient care, chart review and updating family, excluding procedure. Plan discussed with Dr Ayala Plan discussed with: Patient's daughter Plan discussed with: Daughter Dietary Evaluation Review Comments: Advance to diet as toleratedd after EGD Offer nutrition oral supplementation if PO intake<50% Iron supplementation Reassess PRN Expected Outcomes/Goals: Improved PO intake to meet at least 75% of his needs Improved iron status Graudal wt gain Date of Service: Apr 06, 2025 Billing Provider: ALISSON NOBLE MD Common Visit Codes: 30654-[id number] INP/OBS CARE(HIGH) IRASEMA MCDONALD RESIDENT Apr 06, 2025 08:55 ALISSON NOBLE MD Apr 07, 2025 22:34
[2025-04-06] MEDS: OMNIPAQUE 12mg/ml 500ml ORAL SOLUTION PO ONE (09:22)
[2025-04-06] MEDS ORDERED: THIAMINE 100mg/ml INJ (200mg/2ml VIAL) IV SCH (10:00)
[2025-04-06] MEDS: FOLIC ACID 1 MG TAB PO SCH (10:35)
[2025-04-06] MEDS: PANTOPRAZOLE 40 MG/10 ML VIAL INJ IV SCH (10:35)
--- NOTE | 2025-04-06 11:48 | DVHPN2 ---
Progress Note - Dictate Date Seen: Apr 06, 2025 Medical Necessity Reason Pt with a Central, PICC or Fol: No Reason for jones catheter: Bladder Retention/Obstruc vital signs Vital Sign Date Time Temp Pulse Resp B/P (MAP) Pulse Ox O2 Delivery O2 Flow Rate FiO2 04/06/25 09:18 73 20 107/71 (83) 100 30 04/06/25 08:14 98.8 98.8 04/06/25 08:00 Mechanical Ventilator+ 04/05/25 16:00 0 Total Intake and Output 04/05/25 04/05/25 04/06/25 15:00 23:00 07:00 Intake Total 786.75 ml 2970.00 ml Output Total 950 ml 260 ml Balance -163.25 ml 2710.00 ml medications Current Medications Medications Dose Ordered Sig/Lakhwinder Route Start Time Stop Time Status Last Admin Dose Admin Docusate Sodium 100 mg BIDPRN PRN PO 04/03/25 15:15 Acetaminophen 650 mg Q6HP PRN PO 04/03/25 15:15 04/05/25 00:11 650 MG Morphine Sulfate 2 mg Q4HPRN PRN IV 04/03/25 15:15 04/05/25 12:36 2 MG Nitroglycerin 0.4 mg Q5MINP PRN SL 04/03/25 15:15 Morphine Sulfate 2 mg Q30M PRN IV 04/03/25 15:15 Vancomycin HCl 0 ml @ 0 mls/hr UD IV 04/03/25 15:30 Lactulose 30 ml BID PO 04/03/25 22:00 04/06/25 10:35 30 ML Vancomycin HCl 100 ml @ 100 mls/hr Q12H IV 04/04/25 12:00 04/06/25 00:31 100 MLS/HR Tamsulosin HCl 0.4 mg QPM PO 04/04/25 18:00 Folic Acid 1 mg DAILY PO 04/06/25 10:00 04/06/25 10:35 1 MG Norepinephrine Bitartrate 250 ml @ 3.75 mls/hr Q24H IV 04/05/25 16:45 04/06/25 08:35 45 MLS/HR Midazolam HCl 50 ml @ 1 mls/hr Q24H IV 04/05/25 16:45 04/05/25 17:14 1 MLS/HR Fentanyl Citrate 250 ml @ 2.5 mls/hr Q24H IV 04/05/25 16:45 04/05/25 17:11 2.5 MLS/HR Meropenem 50 ml @ 17 mls/hr Q8HR IV 04/05/25 22:00 04/06/25 06:33 17 MLS/HR Lactated Ringer's 500 ml @ 100 mls/hr Q5H IV 04/05/25 18:45 04/06/25 10:36 100 MLS/HR Pantoprazole Sodium 40 mg DAILY IV 04/06/25 10:00 04/06/25 10:35 40 MG Sodium Bicarbonate 50 ml/ Dextrose 1,050 ml @ 100 mls/hr [id number] IV 04/05/25 18:45 04/06/25 07:15 100 MLS/HR Atropine Sulfate 0.5 mg ONCE PRN IV 04/05/25 22:15 Voriconazole 400 mg/Dextrose 290 ml @ 145 mls/hr Q12H IV 04/06/25 08:00 04/06/25 21:59 04/06/25 08:00 145 MLS/HR objective E: intubated and transferred to ICU o/n. bradycardia to 40's improved after atropine. curr on levophed. GEN: intubated/sedated ABD: soft. poor exam d/t pt being on sedation laboratory and microbiology Laboratory Tests 04/06/25 02:24 Test 04/06/25 02:24 Range/Units Serum Glucose 96 74-106 mg/dL Assessment/Plan A: 1. septic shock 2. resp failure 3. L psoas abscess P: 1. cont broad spectrum abx. 2. repeat CT for abscess. 2.5 cm is quite small. if it is larger, then may need percutaneous drainage 3. IR consult. 4. d/w family Dietary Evaluation Review Comments: Advance to diet as toleratedd after EGD Offer nutrition oral supplementation if PO intake<50% Iron supplementation Reassess PRN Expected Outcomes/Goals: Improved PO intake to meet at least 75% of his needs Improved iron status Graudal wt gain Plan discussed with: Daughter DECLAN VIZCARRA Apr 06, 2025 11:48
--- NOTE | 2025-04-06 12:16 | ECG ---
[facility] Test Date: 2025-04-05 Test Time: 22:18:53 Pat Name: MYLES GARCIA Department: icu Room: [address] [place] [address] A Gender: M Personalized Living Manager: ross : 1965 Requested By: ALISSON MCCRACKEN Order Number: [id number] Reading MD: Ulysses Mae Measurements Intervals [place] Rate: 96 P: 7 TX: 140 QRS: -46 QRSD: 76 T: -4 QT: 427 QTc: 540 Interpretive Statements Sinus rhythm Left axis deviation Low voltage, extremity leads Abnormal T, consider ischemia, anterior leads Prolonged QT interval Electronically Signed On 04-06-2025 16:19:30 PDT by Ulysses Mae Please click the below link to view image of tracing.
[2025-04-06 14:14] LABS: Potassium 3.7 mmol/L (3.5-5.1); Sodium 143 mmol/L (136-145)
[2025-04-06 14:15] LABS: Anion Gap 8 (5-15); Carbon Dioxide 22 mmol/L (20-31)
[2025-04-06 14:20] LABS: BUN/Creatinine Ratio 14.5 (10.0-20.0); Glucose 88 mg/dL (74-106)
[2025-04-06 14:27] LABS: Blood Urea Nitrogen 24 mg/dL (9-23); Calcium 7.8 mg/dL (8.7-10.4); Chloride 113 mmol/L (98-107)
[2025-04-06] MEDS: NOREPINEPHRINE BITARTRATE 32 MG in SODIUM CHL 0.9% 218 ML IV SCH (15:00)
[2025-04-06 15:04] LABS: Hemoglobin 7.5 g/dL (13.5-17.5)
[2025-04-06 15:06] LABS: Hematocrit 23.4 % (41.0-53.0); Mean Corpuscular Hemoglobin 22.8 pg (28.0-32.0); Mean Corpuscular Volume 71.2 fL (80.0-100.0)
[2025-04-06 15:28] LABS: Anisocytosis Slight; Total Cells Counted 100.0 (100)
[2025-04-06] MEDS: LACTATED RINGER'S 1,000 ML IV SCH (17:00)
[2025-04-06] MEDS ORDERED: TPN PER PHARMACY 0 ML IV SCH (18:45)
[2025-04-06] MEDS: AMINO ACID INFUSION IN D10W 1,000 ML IV SCH (21:42)
--- NOTE | 2025-04-06 22:46 | DVHPN2 ---
Progress Note - Dictate Date Seen: Apr 06, 2025 Medical Necessity Reason Pt with a Central, PICC or Fol: No Reason for jones catheter: Bladder Retention/Obstruc Subjective Patient was seen in ICU 101 He is intubated sedated Mild persistent leukocytosis, hemoglobin 7.5 No active GI bleeding reported Folate level is low Mild persistent elevation in liver enzymes vital signs Vital Sign Date Time Temp Pulse Resp B/P (MAP) Pulse Ox O2 Delivery O2 Flow Rate FiO2 04/06/25 20:45 97.9 72 20 95/65 (75) 98 208.2 04/06/25 20:10 30 04/06/25 20:00 Mechanical Ventilator+ 04/05/25 16:00 0 Total Intake and Output 04/05/25 04/05/25 04/06/25 15:00 23:00 07:00 Intake Total 786.75 ml 2970.00 ml Output Total 950 ml 260 ml Balance -163.25 ml 2710.00 ml medications Current Medications Medications Dose Ordered Sig/Lakhwinder Route Start Time Stop Time Status Last Admin Dose Admin Docusate Sodium 100 mg BIDPRN PRN PO 04/03/25 15:15 Acetaminophen 650 mg Q6HP PRN PO 04/03/25 15:15 04/05/25 00:11 650 MG Morphine Sulfate 2 mg Q4HPRN PRN IV 04/03/25 15:15 04/05/25 12:36 2 MG Nitroglycerin 0.4 mg Q5MINP PRN SL 04/03/25 15:15 Morphine Sulfate 2 mg Q30M PRN IV 04/03/25 15:15 Vancomycin HCl 0 ml @ 0 mls/hr UD IV 04/03/25 15:30 Lactulose 30 ml BID PO 04/03/25 22:00 04/06/25 21:42 30 ML Vancomycin HCl 100 ml @ 100 mls/hr Q12H IV 04/04/25 12:00 04/06/25 12:10 100 MLS/HR Tamsulosin HCl 0.4 mg QPM PO 04/04/25 18:00 04/06/25 17:34 0.4 MG Folic Acid 1 mg DAILY PO 04/06/25 10:00 04/06/25 10:35 1 MG Midazolam HCl 50 ml @ 1 mls/hr Q24H IV 04/05/25 16:45 04/05/25 17:14 1 MLS/HR Fentanyl Citrate 250 ml @ 2.5 mls/hr Q24H IV 04/05/25 16:45 04/06/25 12:03 15 MLS/HR Meropenem 50 ml @ 17 mls/hr Q8HR IV 04/05/25 22:00 04/06/25 21:42 17 MLS/HR Pantoprazole Sodium 40 mg DAILY IV 04/06/25 10:00 04/06/25 10:35 40 MG Sodium Bicarbonate 50 ml/ Dextrose 1,050 ml @ 100 mls/hr [id number] IV 04/05/25 18:45 04/06/25 17:09 100 MLS/HR Atropine Sulfate 0.5 mg ONCE PRN IV 04/05/25 22:15 Norepinephrine Bitartrate 32 mg/ Sodium Chloride 250 ml @ 0.938 mls/ hr Q24H IV 04/06/25 15:00 04/06/25 15:57 11.25 MLS/HR Lactated Ringer's 1,000 ml @ 100 mls/hr Q10H IV 04/06/25 17:00 04/06/25 18:45 100 MLS/HR Amino Acids 0 ml @ 0 mls/hr PER PHARMACY IV 04/06/25 18:45 Amino Acids/ Electrolytes/ Dextrose 1,000 ml @ 41 mls/hr DAILY@2200 IV 04/06/25 22:00 04/07/25 21:59 04/06/25 21:42 41 MLS/HR Diagnostic Test (Pha) 1 strip Q6HR 04/07/25 00:00 Insulin Human Regular FOLLOW SLIDING SCALE Q6HR SC 04/07/25 00:00 Dextrose 50 ml UD IV 04/07/25 00:00 objective General: RASS -3, afebrile, mucosae are moist Cardiovascular: Normal S1 and S2. No murmurs, gallops or rubs Respiratory: Intubated on mechanical ventilation with the vent settings RR 20, VTE 500, FiO2 30%, peep 5 Abdomen: Soft, nontender, no organomegaly, normal bowel sounds MSK/skin: Mobilization of limbs cannot be evaluated. Skin is dry and warm Neurological: Orientation cannot be assessed. No apparent motor no sensitive deficits. Pupils are isocoric and reactive laboratory and microbiology Laboratory Tests 04/06/25 14:47 04/06/25 13:45 Test 04/06/25 13:45 Range/Units Serum Glucose 88 74-106 mg/dL Problems(with codes): (1) Back abscess (2) Symptomatic anemia (3) Generalized weakness (4) History of [facility] fever Prognosis Plan Likely anemia of chronic disease Check stool for occult blood Vitamin B12 is normal but serum folate is low at 2.98 Transfuse 1 unit PRBC if hemoglobin is less than seven Supplement folic acid I will follow up patient with you Start nutritional supplementation possible IV Clinimix at 42 mL/hour Dietary Evaluation Review Comments: Advance to diet as toleratedd after EGD Offer nutrition oral supplementation if PO intake<50% Iron supplementation Reassess PRN Expected Outcomes/Goals: Improved PO intake to meet at least 75% of his needs Improved iron status Graudal wt gain Plan discussed with: Other (ICU Nurse) REYNA TRINIDAD MD Apr 06, 2025 22:45
[2025-04-06] MEDS: InsuLIN REG 1unit/0.01ml Soln (100units/ml) SC SCH (23:59)
[2025-04-07] VITALS (102 sets, daily range): BP systolic 66–133; BP diastolic 39–85; PULSE 71–94; RESP 19–23; TEMP 97.2–99; O2SAT 95–98
[2025-04-07] MEDS ORDERED: DEXTROSE (50%) 50ML SYRG IV SCH
[2025-04-07] MEDS: ACCU-CHEK COMFORT CURVE STRIP VI SCH
[2025-04-07 04:25] LABS: Hematocrit 23.5 % (41.0-53.0); Hemoglobin 7.5 g/dL (13.5-17.5); Mean Corpuscular Hemoglobin 23.0 pg (28.0-32.0); Mean Corpuscular Volume 72.1 fL (80.0-100.0)
[2025-04-07 05:12] LABS: Anion Gap 11 (5-15); BUN/Creatinine Ratio 11.5 (10.0-20.0); Blood Urea Nitrogen 20 mg/dL (9-23); Glucose 79 mg/dL (74-106); Potassium 4.5 mmol/L (3.5-5.1); Sodium 144 mmol/L (136-145)
[2025-04-07 05:13] LABS: Magnesium 2.2 mg/dL (1.6-2.6); Total Protein 6.0 g/dL (5.7-8.2)
[2025-04-07 05:14] LABS: Bilirubin, Total 0.3 mg/dL (0.2-1.0)
[2025-04-07 05:21] LABS: Alanine Aminotransferase 50 U/L (7-40); Albumin 2.6 g/dL (3.2-4.8); Alkaline Phosphatase 220 U/L (46-116); Calcium 8.0 mg/dL (8.7-10.4); Carbon Dioxide 20 mmol/L (20-31); Chloride 113 mmol/L (98-107)
--- NOTE | 2025-04-07 06:18 | DVH ---
CHEST RADIOGRAPH Indication: Patient is intubated Technique: Single frontal view of the chest was obtained COMPARISON: XY CHEST PORTABLE on DOS: 04/06/25, XY CHEST PORTABLE on DOS: 04/05/25, XY CHEST PORTABLE o n DOS: 04/05/25, XY CHEST PORTABLE on DOS: 04/03/25, CT CHEST WITHOUT CONTRAST on DOS: 01/26/25 FINDINGS: Lines and Tubes: Interval retraction of the endotracheal tube such that the tip now projects approxim ately 6.5 cm above the level of the larry. Remaining lines and tubes unchanged. Lungs: Stable appearing bibasilar pulmonary airspace disease and probable bilateral pleural effusions . No pneumothorax. Cardiomediastinal contours: Unremarkable Bones: Unremarkable IMPRESSION: 1. Stable appearing bibasilar pulmonary airspace disease and probable bilateral pleural effusions. 2. Interval retraction of endotracheal tube such that the tip now projects approximately 6.5 cm above the level of the larry. Remaining lines and tubes unchanged.
[2025-04-07 06:36] LABS: Base Excess -2.8 mmol/L (-2.0-3.0)
[2025-04-07 06:41] LABS: Triglycerides 114 mg/dL (< 150)
[2025-04-07 07:55] LABS: Anisocytosis Moderate; Total Cells Counted 100.0 (100)
--- NOTE | 2025-04-07 09:06 | DVHPN2 ---
Progress Note - Dictate Date Seen: Apr 06, 2025 Medical Necessity Reason Pt with a Central, PICC or Fol: Yes The following are medically ne: Jones Catheter Reason for jones catheter: Bladder Retention/Obstruc, Strict I&O Subjective Patient seen and examined at bedside. intubated on mechanical ventilator. Overnight events reviewed. vital signs Vital Sign Date Time Temp Pulse Resp B/P (MAP) Pulse Ox O2 Delivery O2 Flow Rate FiO2 04/07/25 08:15 98.2 86 20 90/59 (69) 97 208.8 04/07/25 08:00 30 04/07/25 08:00 Mechanical Ventilator+ 04/05/25 16:00 0 Total Intake and Output 04/06/25 04/06/25 04/07/25 15:00 23:00 07:00 Intake Total 2700 ml 1997.00 ml 2385.314 ml Output Total 1300 ml 650 ml Balance 2700 ml 697.00 ml 1735.314 ml medications Current Medications Medications Dose Ordered Sig/Lakhwinder Route Start Time Stop Time Status Last Admin Dose Admin Docusate Sodium 100 mg BIDPRN PRN PO 04/03/25 15:15 Acetaminophen 650 mg Q6HP PRN PO 04/03/25 15:15 04/05/25 00:11 650 MG Morphine Sulfate 2 mg Q4HPRN PRN IV 04/03/25 15:15 04/05/25 12:36 2 MG Nitroglycerin 0.4 mg Q5MINP PRN SL 04/03/25 15:15 Morphine Sulfate 2 mg Q30M PRN IV 04/03/25 15:15 Vancomycin HCl 0 ml @ 0 mls/hr UD IV 04/03/25 15:30 Lactulose 30 ml BID PO 04/03/25 22:00 04/06/25 21:42 30 ML Vancomycin HCl 100 ml @ 100 mls/hr Q12H IV 04/04/25 12:00 04/07/25 00:00 100 MLS/HR Tamsulosin HCl 0.4 mg QPM PO 04/04/25 18:00 04/06/25 17:34 0.4 MG Folic Acid 1 mg DAILY PO 04/06/25 10:00 04/06/25 10:35 1 MG Midazolam HCl 50 ml @ 1 mls/hr Q24H IV 04/05/25 16:45 04/05/25 17:14 1 MLS/HR Fentanyl Citrate 250 ml @ 2.5 mls/hr Q24H IV 04/05/25 16:45 04/07/25 04:21 12.5 MLS/HR Pantoprazole Sodium 40 mg DAILY IV 04/06/25 10:00 04/06/25 10:35 40 MG Sodium Bicarbonate 50 ml/ Dextrose 1,050 ml @ 100 mls/hr [id number] IV 04/05/25 18:45 04/06/25 17:09 100 MLS/HR Atropine Sulfate 0.5 mg ONCE PRN IV 04/05/25 22:15 Norepinephrine Bitartrate 32 mg/ Sodium Chloride 250 ml @ 0.938 mls/ hr Q24H IV 04/06/25 15:00 04/06/25 15:57 11.25 MLS/HR Lactated Ringer's 1,000 ml @ 100 mls/hr Q10H IV 04/06/25 17:00 04/07/25 05:26 100 MLS/HR Amino Acids 0 ml @ 0 mls/hr PER PHARMACY IV 04/06/25 18:45 Amino Acids/ Electrolytes/ Dextrose 1,000 ml @ 41 mls/hr DAILY@2200 IV 04/06/25 22:00 04/07/25 21:59 04/06/25 21:42 41 MLS/HR Diagnostic Test (Pha) 1 strip Q6HR 04/07/25 00:00 04/07/25 05:34 1 STRIP Insulin Human Regular FOLLOW SLIDING SCALE Q6HR SC 04/07/25 00:00 Dextrose 50 ml UD IV 04/07/25 00:00 Meropenem 50 ml @ 17 mls/hr Q12H IV 04/07/25 18:00 objective Gen.: Patient lying in bed in medical ICU. Intubated on mechanical ventilator. Head: Normocephalic, atraumatic. Eyes: PERRLA. Ears: Normal external anatomy. Throat: Endotracheal tube and orogastric tube in place. Neck: Supple, trachea midline. Chest: Transmitted breath sounds bilaterally. Decreased air entry bilaterally. No wheezing. Bibasilar crackles. Cardiovascular: Positive S1, positive S2. Regular rate and rhythm. Abdomen: Positive bowel sounds in all 4 quadrants. Soft, nontender, nondistended. : Jones in place. Normal external genitalia. Rectal: Deferred. Skin: Warm, dry. Intact. Extremities: 2+ radial pulses bilaterally. No lower extremity edema. Neuro: Off sedation laboratory and microbiology Laboratory Tests 04/07/25 03:30 Test 04/07/25 03:30 Range/Units Serum Glucose 79 74-106 mg/dL Assessment/Plan Impression: Acute hypoxic respiratory failure On mechanical ventilator Sepsis Left psoas muscle abscess Acute kidney injury Anemia Plan: s/p intubation on mechanical ventilator. ABG reviewed, compensated On AC mode; RR 20, VT 500, PEEP 5, FiO2 30% Titrate FIO2 to keep O2 saturation above 90%. VAP bundle. Daily ABG and CXR while intubated Off sedation Continue antibiotics for psoas infection F/u cultures. Follow up ID recommendations IV fluids with LR at 100 ml/hr. On bicarb drip. On pressors for hemodynamic support Levophed 2 mcg/min Titrate to keep mean arterial pressure greater than 65 mmHg. Off dopamine drip. Follow up Cardiology recommendations. Note, patient was bradycardic overnight and required atropine. Monitor renal function Monitor electrolytes. Supplement as necessary. Monitor ins and outs. GI prophylaxis. DVT prophylaxis. Prognosis: Poor given patient's multiple co-morbidities. Condition: Critical Rest of plan per hospitalist and other consultants. A total of 35 minutes of critical care time was spent reviewing the patient record, examining the patient, making a diagnostic and therapeutic plan, discussing this plan with the medical personnel, following up on diagnostic studies and following the patient for clinical stability excluding any and all procedures. At least 50% of this time was spent in direct, [id number] contact. Thank you, , for allowing me to participate in this patient's care. Further recommendations will depend on the patient's clinical course. Please do not hesitate to contact me if you have any questions or concerns. This medical document was created using an electronic medical record system with [employer] dictation system. Although these documentations are being carefully reviewed, there may still be some phonetic and typographical changes. The errors are purely typographical, due to imperfection on the software program, and do not reflect any compromise in the patient's medical care. Dietary Evaluation Review Comments: Advance to diet as toleratedd after EGD Offer nutrition oral supplementation if PO intake<50% Iron supplementation Reassess PRN Expected Outcomes/Goals: Improved PO intake to meet at least 75% of his needs Improved iron status Graudal wt gain Plan discussed with: Other (GRETEL Garcia) Critical Care Time(min): 35 SUKUMAR STARK MD Apr 07, 2025 09:06
[2025-04-07] MEDS: HYDROCORTISONE SOD SUCC 100 MG/2ML INJ VIAL ONE (10:00)
[2025-04-07] MEDS: VASOPRESSIN 20 UNIT/ML ONE (10:00)
[2025-04-07] MEDS: VASOPRESSIN 20 UNITS in SODIUM CHL 0.9% 99 ML IV SCH (10:01)
[2025-04-07] MEDS: HYDROCORTISONE SOD SUCC 100 MG/2ML INJ VIAL IV SCH (10:02)
[2025-04-07] MEDS: LACTATED RINGER'S 1,000 ML IV SCH ×2 (11:15→17:55)
[2025-04-07] MEDS: MIDODRINE HCL 10 MG TAB NG SCH (12:18)
[2025-04-07] MEDS: Nepro With Carb Steady 1 Liter Bottle GT SCH (12:52)
--- NOTE | 2025-04-07 13:49 | DVHPNRES ---
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 On 04/04, he was disoriented and pulled out his Jones catheter, causing bleeding; a new Jones was placed after Urology consult, and Haldol was given for agitation. Wound care evaluated a chronic sacral wound and initiated appropriate dressing and culture. GI consult planned EGD for 04/05. On 04/05, the patient remained confused and complained of sacral wound pain. CT abdomen/pelvis was ordered, and thiamine/folic acid started for suspected alcohol withdrawal. EGD was canceled due to inability to consent; daughter was expected to arrive for consent. Renal ultrasound showed moderate left hydronephrosis; outpatient cystoscopy was advised. Later, the patient became more altered and was intubated for airway protection, then transferred to ICU on mechanical ventilation. RR 20, VTE for 500, peep 5, FiO2 30% 04/06: seen and examined at the bedside. Unable to obtain ROS due to patient's clinical status. 04/07: Seen and examined at the bedside. Family at bedside. Unable to obtain ROS due to patient's clinical status currently intubated and on mechanical ventilation RR 20, VTE 500, peep 5 and FiO2 30%. Currently weaning off from the sedation. Due to lack of reflexes patient was ordered head CT And weaning off from sedation. Added vasopressin, hydrocortisone and midodrine. Pending CT abdominal pelvis with the contrast due to given kidney function but advised to give bolus and proceed with a CT scan. Changes from previous H/P or p: No Changes Objective vital signs Vital Sign Date Time Temp Pulse Resp B/P (MAP) Pulse Ox O2 Delivery O2 Flow Rate FiO2 04/07/25 13:32 80 20 105/68 (80) 96 30 04/07/25 13:15 99.0 210.2 04/07/25 12:00 Mechanical Ventilator+ 04/05/25 16:00 0 Total Intake and Output 04/06/25 04/06/2525 15:00 23:00 07:00 Intake Total 2700 ml 1997.00 ml 2385.314 ml Output Total 1300 ml 650 ml Balance 2700 ml 697.00 ml 1735.314 ml medications Current Medications Medications Dose Ordered Sig/Lakhwinder Route Start Time Stop Time Status Last Admin Dose Admin Acetaminophen 650 mg Q6HP PRN PO 04/03/25 15:15 04/05/25 00:11 650 MG Vancomycin HCl 0 ml @ 0 mls/hr UD IV 04/03/25 15:30 Lactulose 30 ml BID PO 04/03/25 22:00 04/07/25 10:00 30 ML Vancomycin HCl 100 ml @ 100 mls/hr Q12H IV 04/04/25 12:00 04/07/25 12:18 100 MLS/HR Tamsulosin HCl 0.4 mg QPM PO 04/04/25 18:00 04/06/25 17:34 0.4 MG Midazolam HCl 50 ml @ 1 mls/hr Q24H IV 04/05/25 16:45 04/05/25 17:14 1 MLS/HR Fentanyl Citrate 250 ml @ 2.5 mls/hr Q24H IV 04/05/25 16:45 04/07/25 04:21 12.5 MLS/HR Pantoprazole Sodium 40 mg DAILY IV 04/06/25 10:00 04/07/25 10:01 40 MG Sodium Bicarbonate 50 ml/ Dextrose 1,050 ml @ 100 mls/hr [id number] IV 04/05/25 18:45 04/07/25 13:32 100 MLS/HR Atropine Sulfate 0.5 mg ONCE PRN IV 04/05/25 22:15 Norepinephrine Bitartrate 32 mg/ Sodium Chloride 250 ml @ 0.938 mls/ hr Q24H IV 04/06/25 15:00 04/06/25 15:57 11.25 MLS/HR Amino Acids 0 ml @ 0 mls/hr PER PHARMACY IV 04/06/25 18:45 Amino Acids/ Electrolytes/ Dextrose 1,000 ml @ 41 mls/hr DAILY@2200 IV 04/06/25 22:00 04/07/25 21:59 04/06/25 21:42 41 MLS/HR Diagnostic Test (Pha) 1 strip Q6HR 04/07/25 00:00 04/07/25 12:19 1 STRIP Insulin Human Regular FOLLOW SLIDING SCALE Q6HR SC 04/07/25 00:00 Dextrose 50 ml UD IV 04/07/25 00:00 Meropenem 50 ml @ 17 mls/hr Q12H IV 04/07/25 18:00 Vasopressin 20 units/Sodium Chloride 100 ml @ 9 mls/hr Q11H7M IV 04/07/25 10:00 04/07/25 10:01 9 MLS/HR Hydrocortisone Sodium Succinate 100 mg Q8H IV 04/07/25 10:00 04/07/25 10:02 100 MG Fat Emulsion Intravenous 100 ml/Sodium Acetate 20 meq/Potassium Acetate 20 meq/ Calcium Gluconate 4.65 meq/ Magnesium Sulfate 6 meq/ Multivitamins 10 ml/Chromium/ Copper/Manganese/ Zinc 1 ml/Amino Acids/Dextrose 942.5 ml @ 39 mls/hr [id number] IV 04/07/25 22:00 04/08/25 21:59 Midodrine 10 mg TID@0600,1200,1800 NG 04/07/25 12:00 04/07/25 12:18 10 MG Lactated Ringer's 1,000 ml @ 50 mls/hr Q20H IV 04/07/25 11:15 Enteral Nutritional Formula 1,000 ml 30ML/HR GT 04/07/25 11:15 04/07/25 12:52 1,000 ML Examination Patient lying in bed, under sedoanalgesia due to mechanical ventilation General: RASS -3, afebrile, mucosae are moist Cardiovascular: Normal S1 and S2. No murmurs, gallops or rubs Respiratory: Intubated on mechanical ventilation with the vent settings RR 20, VTE 500, FiO2 30%, peep 5 Abdomen: Soft, nontender, no organomegaly, normal bowel sounds MSK/skin: Mobilization of limbs cannot be evaluated. Skin is dry and warm Neurological: Orientation cannot be assessed. No apparent motor no sensitive deficits. Pupils are isocoric and reactive laboratory and microbiology Laboratory Tests 04/07/25 03:30 Test 04/07/25 03:30 Range/Units Serum Glucose 79 74-106 mg/dL Microbiology Date/Time Source Procedure Growth Status 04/05/25 17:30 Sputum Gram Stain - Final Resulted 04/05/25 17:30 Sputum Respiratory Culture - Preliminary Resulted 04/05/25 16:25 Nose MRSA Screen - Final Complete 04/03/25 11:27 Blood Blood Culture - Preliminary NO GROWTH AFTER 72 HOURS OF INCUBATION. Resulted Labs and/or images reviewed: Labs reviewed by me, Image(s) reviewed by me Problem List/Assessment/Plan Problem List/Assessment/Plan Neurology : # Acute metabolic encephalopathy due to sepsis - patient is intubated and sedated - maintain ventilation setting -coming down from sedation Cardiovascular : # septic shock -currently on Levophed and added vasopressin today along with midodrine -continue IVF Respiratory : # possible Gram-positive/negative bacterial pneumonia - continue current antibiotic, meropenem and vancomycin - Intubated on mechanical ventilation with the vent settings RR 20, VTE 500, FiO2 30%, peep 5 - pulmonology consult Gastrointestinal : # Persistent nausea and vomiting -canceled schedule EGD for today due to patient being more agitated and altered -now patient is intubated Genitourinary : # MARGARITA, likely due to VMN or obstructive uropathy # acute urinary retention # ruled out UTI or pyelonephritis - moderate to severe left hydronephrosis, likely obstructive from above - CT abd/ pel showed asymmetric enlargement of the left psoas muscle with possible abscess or phlegmonous and moderate to severe left hydroureteronephrosis - inserted Jones - antibiotics as above Infectious Disease : # sepsis due to left psoas muscle with possible abscess or phlegmonous - IVF - CT abd/ pel showed asymmetric enlargement of the left psoas muscle with possible abscess or phlegmonous and moderate to severe left hydroureteronephrosis - vancomycin, MEROPENEM - monitor labs - surgical consult appreciated: Recommend, repeat a CT of the abdomen and pelvis with IV contrast for better evaluation. If it really is a 2.4 cm abscess this is quite small and may not be amenable to percutaneous , conservative treatment with IV antibiotics. - ordered blood culture # Sacral wound/abscess, present on admission - full thickness, with pus ozzing -antibiotics as above # history of valley fever Hematology : # symptomatic anemia # likely iron-deficiency anemia - hemoglobin is 9.1 - transfuse if it is less than 7 - consulted GI - ordered iron panel - SOB pending Nutrition : # Severe malnutrition # hypokalemia, severe - replenished - continuously monitor labs Prophylaxis PUD : IV Protonix 40 mg daily DVT: SCD Diet: Nepro 30 mL/hour Invasive access : Jones catheter : Placed on 04/04/25 Endotracheal tube : Placed on 04/05/2025 Rt IJ central line : Placed on 04/05/2025 Drips: Levophed 24 Fentanyl 0 Vasopressin Talked to his daughter (Pineda [phone]), updated her about patient's condition and management plan. Critical Care time spent 53 minutes including patient care, chart review and updating family, excluding procedure. Plan discussed with Dr Ayala Plan discussed with: Patient's daughter Plan discussed with: Daughter, Other (rn) My Orders My Orders Orders - JASWANT LOMBARDO Procedure Category Date Status Time Meropenem 1gm Ivpb PHA 04/07/25 In Process (Merrem 1gm/ Ns) 18:00 Sodium Chl 0.9% PHA 04/07/25 In Process (So... W/Vasopressin 10:00 Hydrocortisone PHA 04/07/25 In Process Succinate Inj 10:00 * Street Car Inspector CONS 04/07/25 Transmitted Consult Midodrine Tablet PHA 04/07/25 In Process (Proamatine Tablet) 12:00 Ct Chest/Ab/Pl W Con- CT 04/07/25 Logged Iv Only 09:59 Lactated Ringer's PHA 04/07/25 In Process 11:15 Nutritional PHA 04/07/25 In Process Supplements (Nepro 11:15 Dietary Evaluation Review Comments: Advance to diet as toleratedd after EGD Offer nutrition oral supplementation if PO intake<50% Iron supplementation Reassess PRN Expected Outcomes/Goals: Improved PO intake to meet at least 75% of his needs Improved iron status Graudal wt gain Date of Service: Apr 07, 2025 Billing Provider: ALISSON NOBLE MD Common Visit Codes: [id number] INP/OBS CARE(HIGH) JASWANT LOMBARDO RESIDENT Apr 07, 2025 13:49 ALISSON NOBLE MD Apr 07, 2025 22:45
[2025-04-07] MEDS: IOHEXOL 300 MG/ML 100ML BOTTLE IJ ONE (15:51)
--- NOTE | 2025-04-07 16:12 | DVH ---
EXAM: CT CT CHEST/AB/PL W CON- IV ONLY INDICATION: LUNG ABSCESS, ABSCESS SIZE OSTEOMYELITIS IN LUMBOSACREA TECHNIQUE: Volumetric multidetector CT images of the chest, abdomen and pelvis were obtained after th e administration of IV contrast. All CT scans at this facility use dose modulation, iterative reconst ruction, and/or weight based dosing when appropriate to reduce radiation dose to as low as reasonably achievable. COMPARISON: XY CHEST XRAY 1 VIEW on DOS: 04/07/25 FINDINGS: LOWER NECK: Unremarkable LYMPH NODES/MEDIASTINUM: No abnormal lymph nodes by CT size criteria. CARDIOVASCULAR: Normal cardiac size. No pericardial effusion. No aneurysmal dilatation of the great v essels. No significant coronary artery calcifications. LUNG PARENCHYMA/PLEURAL SPACE: Partial collapse of bilateral lower lobes with trace right-sided pleur al effusion. CHEST WALL: Unremarkable. LIVER: Normal hepatic size without suspicious focal lesion. GALLBLADDER/BILIARY TREE: Layering cholelithiasis gallbladder distention SPLEEN: Unremarkable. PANCREAS: Unremarkable. ADRENAL GLANDS: Unremarkable KIDNEYS: Left-sided renal sinus cysts versus at least moderate hydronephrosis. No visualized hydrour eter. No nephroureterolithiasis BLADDER: Sutlana catheter. Circumferential bladder wall thickening, which may be seen in the setting of acute versus chronic cystitis and correlate with urinalysis. PELVIC ORGANS: Unremarkable. BOWEL/MESENTERY: Nasogastric tube in the stomach. Air-fluid level in the stomach. At least mild-to-m oderate stool burden. Mesenteric congestion. ASCITES: Small volume ascites LYMPHADENOPATHY: Subcentimeter retroperitoneal lymph nodes VASCULATURE: No aneurysmal dilatation. ABDOMINAL WALL: Mild body wall edema MUSCULOSKELETAL: Abnormal area of possible soft tissue emphysema along the left psoas muscle extendin g inferiorly to the level of the iliac wing. Possible underlying fluid collection, incompletely rosaline cterized. Multifocal degenerative change of the visualized spine. Abnormal diffuse sclerosis of the v isualized osseous structures. IMPRESSION: 1. Abnormal area of possible soft tissue emphysema along the left psoas muscle extending inferiorly t o the level of the iliac wing. Possible underlying fluid collection, incompletely characterized. 2. Left-sided renal sinus cysts versus at least moderate hydronephrosis. No visualized hydroureter. No nephroureterolithiasis. 3. Partial collapse of bilateral lower lobes with trace right-sided pleural effusion. 4. Abnormal diffuse sclerosis of the visualized osseous structures, which may be suggestive of underl robles systemic disease. 5. Constipation. Gallbladder hydrops with cholelithiasis.
--- NOTE | 2025-04-07 16:14 | DVH ---
COMPUTERIZED TOMOGRAPHY OF THE HEAD WITHOUT CONTRAST REASON FOR STUDY: STROKE; altered level of consciousness. COMPARISON: CT HEAD WITHOUT CONTRAST on DOS: 04/05/25 TECHNIQUE: Helical tomographic scans were obtained through the brain. 2-D coronal and sagittal refor matted images are provided. Radiation optimization: All CT scans at this facility use at least one of these dose optimization techniques: Automated exposure control mA and/or kV adjustment per patient s ize (includes targeted exams where dose is matched to clinical indication) or iterative reconstructio n. RADIATION DOSE: CTDI: 64 mGy DLP: 1152 mGy-cm FINDINGS: There is globally decreased harris-white differentiation. There is complete loss of the sulc i in the cerebrum and cerebellum consistent with diffuse edema. There is obliteration of all basal ci sterns. There is cerebellar tonsillar herniation. There is obliteration of the 3rd and 4th ventricles and severe narrowing of bilateral lateral ventricles. No acute intracranial hemorrhage is identified . There is partial visualization of endotracheal and nasogastric tubes. There is a small retention cy st versus polyp in the right maxillary sinus. The mastoid air cells are clear. IMPRESSION: Severe global cerebral and cerebellar edema with cerebellar tonsillar herniation and obliteration of basal cisterns and the ventricular system. No acute intracranial hemorrhage is identified. [phone] ([facility] ICU) Diffuse cerebral edema with tonsillar herniation. Critical Result: Diffuse intracranial edema Findings discussed with Dr. Dr. Rutherford, at 04/07/2025 04:03 PM, and acknowledged receipt and understand ing of the findings. #CRITICAL#
[2025-04-07] MEDS: methylPREDNISolone SOD SUCC 125 MG/2 ML VL IV ONE (17:56)
[2025-04-07] MEDS: MEROPENEM 1GM IVPB 50 ML IV SCH (17:59)
[2025-04-07] MEDS: MANNITOL 20% SOLN 100 gm/500ml 250 ML IV ONE (18:33)
--- NOTE | 2025-04-07 21:18 | DVHPN2 ---
Progress Note - Dictate Date Seen: Apr 07, 2025 Medical Necessity Reason Pt with a Central, PICC or Fol: Yes The following are medically ne: Jones Catheter Reason for jones catheter: Bladder Retention/Obstruc, Strict I&O Subjective Patient was seen in ICU 101 He is intubated sedated; RR 20, VTE 500, peep 5 and FiO2 30%. Mild persistent leukocytosis, hemoglobin 7.5 No active GI bleeding reported Folate level is low Weaning off pressures and added vasopressin hydrocortisone and midodrine Mild persistent elevation in liver enzymes Patient is scheduled for CT abdomen and CT head vital signs Vital Sign Date Time Temp Pulse Resp B/P (MAP) Pulse Ox O2 Delivery O2 Flow Rate FiO2 04/07/25 20:30 98.4 77 22 116/75 (89) 97 209.1 04/07/25 20:30 30 04/07/25 20:00 Mechanical Ventilator+ 04/05/25 16:00 0 Total Intake and Output 04/06/25 04/06/25 04/07/25 15:00 23:00 07:00 Intake Total 2700 ml 1997.00 ml 2385.314 ml Output Total 1300 ml 650 ml Balance 2700 ml 697.00 ml 1735.314 ml medications Current Medications Medications Dose Ordered Sig/Lakhwinder Route Start Time Stop Time Status Last Admin Dose Admin Acetaminophen 650 mg Q6HP PRN PO 04/03/25 15:15 04/05/25 00:11 650 MG Vancomycin HCl 0 ml @ 0 mls/hr UD IV 04/03/25 15:30 Lactulose 30 ml BID PO 04/03/25 22:00 04/07/25 10:00 30 ML Vancomycin HCl 100 ml @ 100 mls/hr Q12H IV 04/04/25 12:00 04/07/25 12:18 100 MLS/HR Tamsulosin HCl 0.4 mg QPM PO 04/04/25 18:00 04/07/25 17:59 0.4 MG Midazolam HCl 50 ml @ 1 mls/hr Q24H IV 04/05/25 16:45 04/05/25 17:14 1 MLS/HR Fentanyl Citrate 250 ml @ 2.5 mls/hr Q24H IV 04/05/25 16:45 04/07/25 04:21 12.5 MLS/HR Pantoprazole Sodium 40 mg DAILY IV 04/06/25 10:00 04/07/25 10:01 40 MG Sodium Bicarbonate 50 ml/ Dextrose 1,050 ml @ 100 mls/hr [id number] IV 04/05/25 18:45 04/07/25 13:32 100 MLS/HR Atropine Sulfate 0.5 mg ONCE PRN IV 04/05/25 22:15 Norepinephrine Bitartrate 32 mg/ Sodium Chloride 250 ml @ 0.938 mls/ hr Q24H IV 04/06/25 15:00 04/07/25 16:00 7.5 MLS/HR Meropenem 50 ml @ 17 mls/hr Q12H IV 04/07/25 18:00 04/07/25 17:59 17 MLS/HR Vasopressin 20 units/Sodium Chloride 100 ml @ 9 mls/hr Q11H7M IV 04/07/25 10:00 04/07/25 18:00 9 MLS/HR Hydrocortisone Sodium Succinate 100 mg Q8H IV 04/07/25 10:00 04/07/25 17:59 100 MG Midodrine 10 mg TID@0600,1200,1800 NG 04/07/25 12:00 04/07/25 17:59 10 MG Enteral Nutritional Formula 1,000 ml 30ML/HR GT 04/07/25 11:15 04/07/25 12:52 1,000 ML Lactated Ringer's 1,000 ml @ 100 mls/hr Q10H IV 04/07/25 17:15 04/07/25 17:55 100 MLS/HR objective General: RASS -3, afebrile, mucosae are moist Cardiovascular: Normal S1 and S2. No murmurs, gallops or rubs Respiratory: Intubated on mechanical ventilation with the vent settings RR 20, VTE 500, FiO2 30%, peep 5 Abdomen: Soft, nontender, no organomegaly, normal bowel sounds MSK/skin: Mobilization of limbs cannot be evaluated. Skin is dry and warm Neurological: Orientation cannot be assessed. No apparent motor no sensitive deficits. Pupils are isocoric and reactive laboratory and microbiology Laboratory Tests 04/07/25 03:30 Test 04/07/25 03:30 Range/Units Serum Glucose 79 74-106 mg/dL Abd Pelvic Chest CT IMPRESSION: 1. Abnormal area of possible soft tissue emphysema along the left psoas muscle extending inferiorly to the level of the iliac wing. Possible underlying fluid collection, incompletely characterized. 2. Left-sided renal sinus cysts versus at least moderate hydronephrosis. No visualized hydroureter. No nephroureterolithiasis. 3. Partial collapse of bilateral lower lobes with trace right-sided pleural effusion. 4. Abnormal diffuse sclerosis of the visualized osseous structures, which may be suggestive of underlying systemic disease. 5. Constipation. Gallbladder hydrops with cholelithiasis. CT Head IMPRESSION: Severe global cerebral and cerebellar edema with cerebellar tonsillar herniation and obliteration of basal cisterns and the ventricular system. No acute intracranial hemorrhage is identified. [phone] ([facility]) Diffuse cerebral edema with tonsillar herniation. Critical Result: Diffuse intracranial edema Problems(with codes): (1) Urinary retention (2) Hydronephrosis (3) History of [facility] fever (4) Back abscess (5) Symptomatic anemia (6) Generalized weakness (7) Cerebral edema (8) Cerebellar herniation Prognosis Plan Patient has critical findings on the head CT requiring neurology consultation Patient does have cholelithiasis with gallbladder hydrops however he is not a surgical candidate at this time Continue supportive care, continue to monitor labs IV steroids IV antibiotics IV PPI Check stool for occult blood We will follow as needed Dietary Evaluation Review Comments: Advance to diet as toleratedd after EGD Offer nutrition oral supplementation if PO intake<50% Iron supplementation Reassess PRN Expected Outcomes/Goals: Improved PO intake to meet at least 75% of his needs Improved iron status Graudal wt gain Plan discussed with: Other (ICU Nurse) REYNA TRINIDAD MD Apr 07, 2025 21:18
[2025-04-07] MEDS ORDERED: TPN PER PHARMACY IV NR (22:00)
--- NOTE | 2025-04-07 23:22 | DVHPN2 ---
Progress Note - Dictate Date Seen: Apr 07, 2025 Medical Necessity Reason Pt with a Central, PICC or Fol: Yes The following are medically ne: Jones Catheter Reason for jones catheter: Bladder Retention/Obstruc, Strict I&O Subjective Patient seen and examined at bedside. intubated on mechanical ventilator. Overnight events reviewed. vital signs Vital Sign Date Time Temp Pulse Resp B/P (MAP) Pulse Ox O2 Delivery O2 Flow Rate FiO2 04/07/25 22:34 77 22 110/71 (84) 98 30 04/07/25 22:00 Mechanical Ventilator+ 04/07/25 20:30 98.4 209.1 04/05/25 16:00 0 Total Intake and Output 04/06/25 04/06/25 04/07/25 15:00 23:00 07:00 Intake Total 2700 ml 1997.00 ml 2385.314 ml Output Total 1300 ml 650 ml Balance 2700 ml 697.00 ml 1735.314 ml medications Current Medications Medications Dose Ordered Sig/Lakhwinder Route Start Time Stop Time Status Last Admin Dose Admin Acetaminophen 650 mg Q6HP PRN PO 04/03/25 15:15 04/05/25 00:11 650 MG Vancomycin HCl 0 ml @ 0 mls/hr UD IV 04/03/25 15:30 Lactulose 30 ml BID PO 04/03/25 22:00 04/07/25 21:51 30 ML Vancomycin HCl 100 ml @ 100 mls/hr Q12H IV 04/04/25 12:00 04/07/25 12:18 100 MLS/HR Tamsulosin HCl 0.4 mg QPM PO 04/04/25 18:00 04/07/25 17:59 0.4 MG Midazolam HCl 50 ml @ 1 mls/hr Q24H IV 04/05/25 16:45 04/05/25 17:14 1 MLS/HR Fentanyl Citrate 250 ml @ 2.5 mls/hr Q24H IV 04/05/25 16:45 04/07/25 04:21 12.5 MLS/HR Pantoprazole Sodium 40 mg DAILY IV 04/06/25 10:00 04/07/25 10:01 40 MG Sodium Bicarbonate 50 ml/ Dextrose 1,050 ml @ 100 mls/hr [id number] IV 04/05/25 18:45 04/07/25 13:32 100 MLS/HR Atropine Sulfate 0.5 mg ONCE PRN IV 04/05/25 22:15 Norepinephrine Bitartrate 32 mg/ Sodium Chloride 250 ml @ 0.938 mls/ hr Q24H IV 04/06/25 15:00 04/07/25 16:00 7.5 MLS/HR Meropenem 50 ml @ 17 mls/hr Q12H IV 04/07/25 18:00 04/07/25 17:59 17 MLS/HR Vasopressin 20 units/Sodium Chloride 100 ml @ 9 mls/hr Q11H7M IV 04/07/25 10:00 04/07/25 18:00 9 MLS/HR Hydrocortisone Sodium Succinate 100 mg Q8H IV 04/07/25 10:00 04/07/25 17:59 100 MG Midodrine 10 mg TID@0600,1200,1800 NG 04/07/25 12:00 04/07/25 17:59 10 MG Lactated Ringer's 1,000 ml @ 100 mls/hr Q10H IV 04/07/25 17:15 04/07/25 17:55 100 MLS/HR objective Gen.: Patient lying in bed in medical ICU. Intubated on mechanical ventilator. Head: Normocephalic, atraumatic. Eyes: PERRLA. Ears: Normal external anatomy. Throat: Endotracheal tube and orogastric tube in place. Neck: Supple, trachea midline. Chest: Transmitted breath sounds bilaterally. Decreased air entry bilaterally. No wheezing. Bibasilar crackles. Cardiovascular: Positive S1, positive S2. Regular rate and rhythm. Abdomen: Positive bowel sounds in all 4 quadrants. Soft, nontender, nondistended. : Jones in place. Normal external genitalia. Rectal: Deferred. Skin: Warm, dry. Intact. Extremities: 2+ radial pulses bilaterally. No lower extremity edema. Neuro: Off sedation laboratory and microbiology Laboratory Tests 04/07/25 03:30 Test 04/07/25 03:30 Range/Units Serum Glucose 79 74-106 mg/dL Assessment/Plan Impression: Acute hypoxic respiratory failure On mechanical ventilator Sepsis Left psoas muscle abscess Acute kidney injury Anemia Events: Remains on vent support On AC mode; RR 20, VT 500, PEEP 5, FiO2 30% Taper FiO2 as tolerated ABG reviewed, compensated CXR revealing bibasilar opacities. Blunting of the costophrenic angle, suggestive of pleural effusions. On pressors for hemodynamic support Levophed 30 mcg/min, vasopressin 0.03 units/min Titrate to keep mean arterial pressure greater than 65 mmHg. Off dopamine drip. On bicarb drip IV fluids with LR at 100 ml/hr. Continue antibiotics F/u cultures Clinimix for nutritional support Plan to obtain CT head Follow up Neuro recommendations Labs and imaging reviewed. Rest of plan as noted below. Plan: s/p intubation on mechanical ventilator. On AC mode; RR 20, VT 500, PEEP 5, FiO2 30% Titrate FIO2 to keep O2 saturation above 90%. VAP bundle. Daily ABG and CXR while intubated Off sedation Continue antibiotics for psoas infection F/u cultures. Follow up ID recommendations IV fluids with LR at 100 ml/hr. On bicarb drip. On pressors for hemodynamic support Titrate to keep mean arterial pressure greater than 65 mmHg. Follow up Cardiology recommendations. Note, patient was bradycardic overnight and required atropine. Monitor renal function Monitor electrolytes. Supplement as necessary. Monitor ins and outs. GI prophylaxis. DVT prophylaxis. Prognosis: Poor given patient's multiple co-morbidities. Condition: Critical Rest of plan per hospitalist and other consultants. A total of 35 minutes of critical care time was spent reviewing the patient record, examining the patient, making a diagnostic and therapeutic plan, discussing this plan with the medical personnel, following up on diagnostic studies and following the patient for clinical stability excluding any and all procedures. At least 50% of this time was spent in direct, [id number] contact. Thank you, , for allowing me to participate in this patient's care. Further recommendations will depend on the patient's clinical course. Please do not hesitate to contact me if you have any questions or concerns. This medical document was created using an electronic medical record system with [employer] dictation system. Although these documentations are being carefully reviewed, there may still be some phonetic and typographical changes. The errors are purely typographical, due to imperfection on the software program, and do not reflect any compromise in the patient's medical care. Dietary Evaluation Review Comments: Advance to diet as toleratedd after EGD Offer nutrition oral supplementation if PO intake<50% Iron supplementation Reassess PRN Expected Outcomes/Goals: Improved PO intake to meet at least 75% of his needs Improved iron status Graudal wt gain Plan discussed with: Other (RN Gregorio) Critical Care Time(min): 35 SUKUMAR STARK MD Apr 07, 2025 23:22
[2025-04-07] MEDS: SODIUM BICARB 8.4% 50Meq/50ml SYR Vial IV ONE (23:57)
[2025-04-08] VITALS (109 sets, daily range): BP systolic 85–155; BP diastolic 53–78; PULSE 61–81; RESP 18–22; TEMP 95.9–99.7; O2SAT 93–99
[2025-04-08 03:51] LABS: Hematocrit 20.3 % (41.0-53.0)
[2025-04-08 03:54] LABS: Mean Corpuscular Hemoglobin 22.4 pg (28.0-32.0); Mean Corpuscular Volume 70.3 fL (80.0-100.0); Nucleated Red Blood Cells % 0.1 %
[2025-04-08 03:56] LABS: Hemoglobin 6.5 g/dL (13.5-17.5)
[2025-04-08 04:10] LABS: Anion Gap 11 (5-15); BUN/Creatinine Ratio 13.8 (10.0-20.0); Bilirubin, Total 0.3 mg/dL (0.2-1.0); Blood Urea Nitrogen 21 mg/dL (9-23); Carbon Dioxide 24 mmol/L (20-31); Chloride 106 mmol/L (98-107); Magnesium 2.0 mg/dL (1.6-2.6); Sodium 141 mmol/L (136-145); Total Protein 6.2 g/dL (5.7-8.2)
[2025-04-08 04:32] LABS: Alanine Aminotransferase 62 U/L (7-40); Albumin 2.7 g/dL (3.2-4.8); Alkaline Phosphatase 247 U/L (46-116); Calcium 8.2 mg/dL (8.7-10.4); Glucose 158 mg/dL (74-106); Potassium 3.4 mmol/L (3.5-5.1)
[2025-04-08 05:14] LABS: Anisocytosis Moderate
--- NOTE | 2025-04-08 05:57 | DVH ---
CHEST RADIOGRAPH Indication: fu Technique: Single frontal view of the chest was obtained COMPARISON: CT CT CHEST/AB/PL W CON- IV ONLY on DOS: 04/07/25, XY CHEST XRAY 1 VIEW on DOS: 04/07/25, X Y CHEST PORTABLE on DOS: 04/06/25, XY CHEST PORTABLE on DOS: 04/05/25, XY CHEST PORTABLE on DOS: 5 FINDINGS: Lines and Tubes: Unchanged. Lungs: Stable appearing bibasilar pulmonary airspace disease and bilateral pleural effusions. No pneumothorax. Cardiomediastinal contours: Unremarkable Bones: Unremarkable IMPRESSION: 1. Stable bibasilar pulmonary airspace disease and bilateral pleural effusions. 2. Lines and tubes unchanged.
[2025-04-08 07:10] LABS: Base Excess 0.2 mmol/L (-2.0-3.0)
[2025-04-08] MEDS ORDERED: CLINIMIX PER PHARMACY 0 ML IV SCH (07:15)
--- NOTE | 2025-04-08 10:44 | DVHPN2 ---
Progress Note Date Seen: Apr 08, 2025 Resident Creating Document: KISHA BLUM RESIDENT Medical Necessity Reason Pt with a Central, PICC or Fol: Yes The following are medically ne: Jones Catheter Reason for jones catheter: Bladder Retention/Obstruc, Strict I&O Subjective Review of Systems Patient seen and examined at bedside Respiratory rate 22, tidal volume 500, FiO2 30%, peep of 5 Hb 6.5, S/p 2 PRBCs On Clinimix Objective vital signs Vital Sign Date Time Temp Pulse Resp B/P (MAP) Pulse Ox O2 Delivery O2 Flow Rate FiO2 04/08/25 10:01 66 22 104/68 (80) 96 30 04/08/25 08:00 Mechanical Ventilator+ 04/08/25 06:45 96.6 205.9 Total Intake and Output 04/07/25 04/07/25 04/08/25 15:00 23:00 07:00 Intake Total 1831.001 ml 1945.125 ml 1758.0 ml Output Total 1300 ml 3100 ml Balance 1831.001 ml 645.125 ml -1342.0 ml medications Current Medications Medications Dose Ordered Sig/Lakhwinder Route Start Time Stop Time Status Last Admin Dose Admin Acetaminophen 650 mg Q6HP PRN PO 04/03/25 15:15 04/05/25 00:11 650 MG Vancomycin HCl 0 ml @ 0 mls/hr UD IV 04/03/25 15:30 Lactulose 30 ml BID PO 04/03/25 22:00 04/08/25 09:50 30 ML Tamsulosin HCl 0.4 mg QPM PO 04/04/25 18:00 04/07/25 17:59 0.4 MG Midazolam HCl 50 ml @ 1 mls/hr Q24H IV 04/05/25 16:45 04/05/25 17:14 1 MLS/HR Fentanyl Citrate 250 ml @ 2.5 mls/hr Q24H IV 04/05/25 16:45 04/07/25 04:21 12.5 MLS/HR Pantoprazole Sodium 40 mg DAILY IV 04/06/25 10:00 04/08/25 09:50 40 MG Atropine Sulfate 0.5 mg ONCE PRN IV 04/05/25 22:15 Norepinephrine Bitartrate 32 mg/ Sodium Chloride 250 ml @ 0.938 mls/ hr Q24H IV 04/06/25 15:00 04/07/25 16:00 7.5 MLS/HR Meropenem 50 ml @ 17 mls/hr Q12H IV 04/07/25 18:00 04/08/25 05:08 17 MLS/HR Vasopressin 20 units/Sodium Chloride 100 ml @ 9 mls/hr Q11H7M IV 04/07/25 10:00 04/08/25 04:36 9 MLS/HR Hydrocortisone Sodium Succinate 100 mg Q8H IV 04/07/25 10:00 04/08/25 09:50 100 MG Midodrine 10 mg TID@0600,1200,1800 NG 04/07/25 12:00 04/07/25 17:59 10 MG Lactated Ringer's 1,000 ml @ 100 mls/hr Q10H IV 04/07/25 17:15 04/08/25 03:41 100 MLS/HR Amino Acids 0 ml @ 0 mls/hr PER PHARMACY IV 04/08/25 07:15 Examination General Appearance: Sedated, intubated on mechanical ventilation Head Exam: Bilateral dilated pupils, nonreactive Pulmonary/Respiratory: Bilateral air entry Cardiovascular/Chest: Regular rate and rhythm. No murmurs. No JVD. Abdominal Exam: Normal bowel sounds. Soft. normal abdomen, no visible veins, Nontender. No hepatospenomegaly. No masses Lower extremities: Trace lower extremity edema Skin Exam: Normal inspection. Normal color. Warm. Dry. Hyperpigmented patches noted on bilateral anterior shins. laboratory and microbiology Laboratory Tests 04/08/25 02:36 Test 04/08/25 02:36 Range/Units Serum Glucose 158 H 74-106 mg/dL Microbiology Date/Time Source Procedure Growth Status 04/05/25 17:30 Sputum Gram Stain - Final Resulted 04/05/25 17:30 Sputum Respiratory Culture - Preliminary Resulted 04/05/25 16:25 Nose MRSA Screen - Final Complete 04/03/25 11:27 Blood Blood Culture - Preliminary NO GROWTH AFTER 72 HOURS OF INCUBATION. Resulted Labs and/or images reviewed: Labs reviewed by me, Image(s) reviewed by me Problem List/Assessment/Plan Problem List/Assessment/Plan Microcytic hypochromic anemia, blood loss versus nutritional Intractable nausea and vomiting Acute urinary retention History of [facility] fever Sacral wound Cerebral edema, diffuse and generalized Cerebellar tonsillar herniation Plan: Patient has critical findings on the head CT requiring neurology consultation Patient does have cholelithiasis with gallbladder hydrops however he is not a surgical candidate at this time Continue supportive care, continue to monitor labs IV steroids IV antibiotics IV Protonix 40 mg daily Midodrine Vancomycin, meropenem Clinimix Stool occult blood Thank you so much for the opportunity to consult on your patient. GI team will follow the patient. In case of any questions or concerns please feel free to reach out. Plan discussed with Dr. Albright Plan discussed with: Other (RN) My Orders My Orders Orders - KISHA BLUM RESIDENT Procedure Category Date Status Time Stool Occult Blood LAB 04/08/25 Logged 10:29 Dietary Evaluation Review Comments: Advance to diet as toleratedd after EGD Offer nutrition oral supplementation if PO intake<50% Iron supplementation Reassess PRN Expected Outcomes/Goals: Improved PO intake to meet at least 75% of his needs Improved iron status Analyudal wt KISHA Brambila RESIDENT Apr 08, 2025 10:44
[2025-04-08] MEDS: MANNITOL IV ONE (11:06)
--- NOTE | 2025-04-08 11:39 | DVHINCON2 ---
Date of service: Apr 08, [address] Rutherford Reason for Consultation Cerebral edema on CT History of Present Illness Mr. Luna is a 60 years old gentleman with a history of hypertension, diabetes, anemia, iron deficiency, valley fever, he was brought to the [facility] on 04/03/2025 with a chief complaint of generalized weakness, body aching. At this time, he is intubated, nonresponsive to painful stimuli, the history is obtained from his daughter, chart review, nurse Because of progressive generalized weakness, diffuse body aching, the patient was brought to the [facility] on 04/03/2025. According to the COLLECTIONS CLERK note 15:10, the patient was and alert and oriented x4. But later patient developed altered mental status, (Dr. Chamorro's note 04/05/2025), on 03/27/2025 when he was in the CT machine, he had foam in his mouth, and was intubated, transferred to ICU. The CT brain scan dated on 04/05/2025 showed evidence of diffuse brain ischemia, which is more obvious in the CT brain scan on 04/08/2025 Hypotension captured during the hospital stay UDS, 03/2725: Cannabinoids Urinalysis, 04/03/25, unremarkable Wound culture, 04/04/2025: E coli Blood culture, 04/03/2025: WBC/HB/PLT/MCV, 04/08/2025: 17.4/6.5/210/70.3 PT/INR/PTT, 04/05/2025: 14.7/1.44/41.6 BUN/CR, 04/08/2025: 21/1.52 GFR, 04/08/2025: 52 Lactic acid, T/02/24/2025: 3.7, 3.2, AST: 1.4 TBI/AST/ALT/AP, 04/08/2025: 0.3/89/62/247 Vitamin B12, 04/05/25: 1154 Folic acid, 04/05/2025: 2.9 Chest x-ray, 04/05/2025: Cardiomegaly with pulmonary vascular congestion and bilateral patchy airspace opacities. Chest x-ray, 04/05/2025: The endotracheal tube now terminates approximately 5.7 cm from the larry. Pulmonary venous congestion and patchy bilateral airspace disease. This may represent pulmonary edema or Multifocal pneumonia. CT head, 04/05/2025: No acute intracranial abnormality (I saw evidence suggest chyna of diffuse brain edema) CT head, 04/07/2025: Severe global cerebral and cerebellar edema with cerebellar tonsillar herniation and obliteration of basal cisterns and the ventricular system. No acute intracranial hemorrhage is identified. Past Medical History Hypertension, diabetes, anemia, iron deficiency, valley fever Past Surgical History Lumbar spine surgery Family History: Cancer of colon G8 MOTHER, Onset:60 years & older Family History Stroke, cancer Social History He smokes marijuana but has no history of tobacco smoking, he used to drink alcohol heavily, he has no history of drug abuse Allergies: Coded Allergies: NO KNOWN ALLERGIES (Unverified , 03/30/16) Home Meds Reported Medications Pregabalin (Lyrica) 50 Mg Cap, 1 CAP PO, #60 CAP 04/04/25 Ondansetron HCl (Ondansetron) 4 Mg Tab, 4 MG PO, TAB 04/04/25 Naloxone Hcl (Naloxone Hcl) 0.4 Mg/Ml Inj, 0.4 MG TORRIE, INJ 04/04/25 Ibuprofen (Ibuprofen) 800 Mg Tab, 800 MG PO, MG 04/04/25 Itraconazole (Itraconazole) 100 Mg Cap, 100 MG PO, CAP 04/04/25 Docusate Sodium (Colace) 100 Mg Cap, 1 CAP PO BID, #30 CAP 04/04/25 Ascorbic Acid (Vitamin C 500 mg) 1 Tab Tab, 1 TAB PO, TAB 04/04/25 Hydrochlorothiazide (Hydrochlorothiazide) 12.5 Mg Tab, 1 TAB PO DAILY for 90 Days, #90 01/25/25 Omeprazole (Omeprazole Dr) 40 Mg Cap, 1 CAP PO DAILY for 90 Days, #90 01/25/25 Oxycodone HCl (Oxycodone Hydrochloride) 30 Mg Tab, 1 TAB PO TID PRN for PAIN for 30 Days, #90 01/25/25 Benazepril Hcl (Benazepril Hcl) 20 Mg Tab, 1 TAB PO DAILY for 90 Days, #90 01/25/25 Voriconazole (VORICONAZOLE) 200 Mg Tab, 1 TAB PO BID for 30 Days, #60 7/7/22 Amlodipine Besylate (Amlodipine Besylate) 10 Mg Tab, 1 TAB PO DAILY, #30 TAB 5 Refills 02/11/22 Current Medications Current Medications Medications (Trade) Dose Ordered Sig/Lakhwinder Route PRN Reason Start Time Stop Time Status Last Admin Meropenem 50 ml @ 17 mls/hr Q12H IV 04/07/25 18:00 04/08/25 05:08 Fat Emulsion Intravenous 100 ml/Sodium Acetate 20 meq/Potassium Acetate 20 meq/ Calcium Gluconate 4.65 meq/ Magnesium Sulfate 6 meq/ Multivitamins 10 ml/Chromium/ Copper/Manganese/ Zinc 1 ml/Amino Acids/Dextrose 942.5 ml @ 39 mls/hr [id number] IV 04/07/25 22:00 04/07/25 17:08 DC Midodrine (Proamatine Tablet) 10 mg TID@0600,1200,1800 NG 04/07/25 12:00 04/07/25 17:59 Lactated Ringer's 1,000 ml @ 100 mls/hr Q10H IV 04/07/25 17:15 04/08/25 03:41 Amino Acids 0 ml @ 0 mls/hr PER PHARMACY IV 04/08/25 07:15 Review of Systems As above, the other systems are negative Vital Signs Vital Signs Date Time Temp Pulse Resp B/P (MAP) Pulse Ox O2 Delivery O2 Flow Rate FiO2 04/08/25 11:30 96.8 64 22 108/71 96.8 04/08/25 11:26 97 30 04/08/25 08:00 Mechanical Ventilator+ Physical Exam The patient is well-nourished and well-developed with no distress. The patient is intubated HEENT: Normocephalic, neck supple, no carotid bruits Lungs: Clear to auscultation Cardiovascular: Regular rate and region, S1, S2, no murmurs Abdomen: Soft, nontender, normal bowel sounds MENTAL STATUS: Not responsive to the surroundings, CRANIAL NERVES: Pupils are equal, round and fixed, 6-7 mm.There are corneal reflexes and doll's eyes phenomenon. No signs of facial weakness. There are no gagging or coughing reflexes SENSATION: No responses to pain stimuli. MOTOR: Normal tone in the upper and lower extremity. Normal muscle bulk. No fasciculations. No spontaneous movement. REFLEXES: Deep tendon reflexes are symmetrical. No pathological reflexes. CEREBELLAR/COORDINATION: Deferred GAIT/STATION: deferred. Labs/Diagnostic Data Labs Test 04/08/25 06:59 04/08/25 02:36 04/07/25 22:58 04/07/25 12:34 Range/Units Blood Gas Specimen Type Arterial Blood Gas Sample Site Right radial Blood Gas Patient Temperature 37.0 Arterial Blood Date Drawn [id number] Arterial Blood pH 7.488 H 7.350-7.450 Arterial Blood Partial Pressure CO2 31.6 L 35.0-48.0 mmHg Arterial Blood Partial Pressure O2 71.8 L 83.0-108.0 mmHg Arterial Blood HCO3 23.4 21.0-28.0 mmol/L Arterial Blood Oxygen Saturation 93.8 L 94.0-98.0 % Arterial Blood Base Excess 0.2 -2.0-3.0 mmol/L Arterial Blood Oxyhemoglobin 91.1 L 94.0-98.0 % Arterial Blood Carboxyhemoglobin 2.6 H 0.5-1.5 % Arterial Blood Methemoglobin 0.3 0.0-1.5 % Zaki Test Modified Blood Gas Total Hemoglobin 7.10 L 13.5-17.5 g/dL Blood Gas Set Respiration Rate 22.0 Blood Gas Modality Vent - ac FiO2 % 30.0 Blood Gas Tidal Volume 500.0 Blood Gas PEEP or CPAP 5.0 White Blood Count 17.4 H 4.4-10.8 10^3/uL Red Blood Count 2.89 L 4.5-5.90 10^6/uL Hemoglobin 6.5 *L 13.5-17.5 g/dL Hematocrit 20.3 #L 41.0-53.0 % Mean Corpuscular Volume 70.3 L 80.0-100.0 fL Mean Corpuscular Hemoglobin 22.4 L 28.0-32.0 pg Mean Corpuscular Hemoglobin Concent 31.9 L 32.0-36.0 g/dL Red Cell Distribution Width 26.4 H 11.8-14.3 % Platelet Count 210 140-450 10^3/uL Mean Platelet Volume 8.4 6.9-10.8 fL Neutrophils (%) (Auto) 47.4 37.0-80.0 % Lymphocytes (%) (Auto) 46.3 10.0-50.0 % Monocytes (%) (Auto) 5.7 0.0-12.0 % Eosinophils (%) (Auto) 0.3 0.0-7.0 % Basophils (%) (Auto) 0.3 0.0-2.0 % Neutrophils # (Auto) 8.2 1.6-8.6 10 ^3/uL Lymphocytes # (Auto) 8.0 H 0.4-5.4 10 ^3/uL Monocytes # (Auto) 1.0 0-1.3 10 ^3/uL Eosinophils # (Auto) 0.1 0-0.8 10 ^3/uL Basophils # (Auto) 0.1 0-0.2 10 ^3/uL Nucleated Red Blood Cells 0.1 % Platelet Estimate Adequate Hypochromasia (manual) Slight Anisocytosis (manual) Moderate Microcytosis Moderate Target Cells Few Sodium Level 141 136-145 mmol/L Potassium Level 3.4 L 3.5-5.1 mmol/L Chloride Level 106 98-107 mmol/L Carbon Dioxide Level 24 20-31 mmol/L Anion Gap 11 5-15 Blood Urea Nitrogen 21 9-23 mg/dL Creatinine 1.52 H 0.700-1.30 mg/dL Glomerular Filtration Rate Calc 52 >90 mL/min BUN/Creatinine Ratio 13.8 10.0-20.0 Serum Glucose 158 H 74-106 mg/dL Calcium Level 8.2 L 8.7-10.4 mg/dL Phosphorus Level 4.9 2.4-5.1 mg/dL Magnesium Level 2.0 1.6-2.6 mg/dL Total Bilirubin 0.3 0.2-1.0 mg/dL Aspartate Amino Transferase (AST) 89 H 13-40 U/L Alanine Aminotransferase (ALT) 62 H 7-40 U/L Alkaline Phosphatase 247 H 46-116 U/L Total Protein 6.2 5.7-8.2 g/dL Albumin 2.7 L 3.2-4.8 g/dL Random Vancomycin Level 21.4 H 5-10 ug/mL Vancomycin Level Trough 23.8 H 5-10 ug/mL POC Glucose 120 H 70-106 mg/dl Test 04/07/25 06:26 04/07/25 03:30 04/06/25 02:44 04/06/25 02:24 Range/Units Blood Gas Critical Value Read Back Yes Blood Gas Notified Whom [place] Blood Gas Notified Time [id number] Blood Gas Notified By Enamel Sprayer candido mistry Differential Total Cells Counted 100.0 100 Neutrophils % (Manual) 82 H 37.0-80.0 Band Neutrophils % (Manual) 10 Lymphocytes % (Manual) 4 L 10.0-50.0 Monocytes % (Manual) 4 0-12 Eosinophils % (Manual) 0 0-7 Basophils % (Manual) 0 0.0-2.0 Metamyelocytes % (manual) 0 Myelocytes % (Manual) 0 Promyelocytes % (Manual) 0 Blast Cells % (Manual) 0 Reactive Lymphocytes 0 Triglycerides Level 114 < 150 mg/dL Lactic Acid Level 1.1 0.4-2.0 mmol/L Large Platelets Few Stomatocytes Few Test 04/06/25 01:35 04/05/25 22:37 04/05/25 18:20 04/05/25 15:20 Range/Units Troponin I High Sensitivity 13 </=54 ng/L Prothrombin Time 14.7 H 9.3-11.8 sec Prothrombin Time INR 1.44 H 0.9-1.15 Activated Partial Thromboplast Time 41.6 H 24.5-34.5 SEC Ammonia < 10 L 11-32 umol/L Blood Gas Spontaneous Rate 24 Test 04/05/25 05:25 04/04/25 05:55 04/03/25 19:32 04/03/25 15:45 Range/Units Vitamin B12 Level 1154 H 211-911 pg/mL Folic Acid 2.90 >5.38 ng/mL B-Type Natriuretic Peptide 102.38 0-100 pg/mL Urine Color Yellow Yellow Urine Clarity Clear Clear Urine pH 5.5 5.0-9.0 Urine Specific [place] 1.018 1.001-1.035 Urine Protein 1+ H Negative Urine Ketones Negative Negative Urine Blood Negative Negative /uL Urine Nitrite Negative Negative Urine Bilirubin Negative Negative Urine Urobilinogen Normal Negative mg/dL Urine Leukocyte Esterase Negative Negative /uL Urine RBC <1 0 - 3 /hpf Urine Microscopic WBC < 1 0-3 /HPF Urine Squamous Epithelial Cells None seen <5 /hpf Urine Bacteria None seen None Seen /hpf Urine Hyaline Casts Few 0 - 2 /lpf Urine Granular Casts Few 0 /lpf Urine Mucus Few None Seen Urine Glucose Normal Normal mg/dL Urine Opiates Screen Neg NEGATIVE Urine Fentanyl Screen Neg NEGATIVE Urine Barbiturates Screen Neg NEGATIVE Urine Phencyclidine Screen Neg NEGATIVE Urine Amphetamines Screen Neg NEGATIVE Urine Benzodiazepines Screen Neg NEGATIVE Urine Cocaine Screen Neg NEGATIVE Urine Cannabinoids Screen Pos NEGATIVE Iron Level 10 L 65-175 ug/dL Total Iron Binding Capacity 200 L 250-425 ug/dL Percent Iron Saturation 5.0 L 20-55 % Ferritin 685.8 H 22-322 ng/mL Direct Bilirubin 0.3 <0.3 mg/dL Thyroid Stimulating Hormone (TSH) 2.07 0.55-4.78 uIU/mL Test 04/03/25 09:50 Range/Units Reticulocyte Count (auto) 2.45 H 0.5-1.5 % Microbiology Date/Time Source Procedure Growth Status 04/05/25 17:30 Sputum Gram Stain - Final Resulted 04/05/25 17:30 Sputum Respiratory Culture - Preliminary Resulted 04/05/25 16:25 Nose MRSA Screen - Final Complete 04/03/25 11:27 Blood Blood Culture - Final NO GROWTH AFTER 5 DAYS OF INCUBATION. Complete Assessment Coma Metabolic encephalopathy Hypoxic encephalopathy Toxic encephalopathy Brain edema, etiology unclear ? Hypoxic encephalopathy ? Sepsis, septic shock Sepsis, septic shock Wound infection Anemia Iron deficiency Plan/Recommendation Monitoring Supportive treatment ICU care EEG Stabilize vitals/pressor drip Respiratory support/vent management IV antibiotics Oxygen Wound Care DVT prophylaxis Pulmonology on case More recommendation per clinical course He is likely to have a poor prognosis for meaningful recovery Progress: Guarded This medical document was created using an electronic medical record system with [employer] dictation system. Although this document has been carefully reviewed, there may still be some phonetic and typographical errors. These areas are purely typographical due to imperfections of the software programs, and do not reflect any compromise in the patient's medical care. Plan discussed with: Daughter, Other JOCELYNN NATHAN MD Apr 08, 2025 11:39
--- NOTE | 2025-04-08 15:01 | DVHPNRES ---
Progress Note Date Seen: Apr 08, 2025 Resident Creating Document: JASWANT LOMBARDO RESIDENT Medical Necessity Reason Pt with a Central, PICC or Fol: Yes The following are medically ne: Jones Catheter Reason for jones catheter: Bladder Retention/Obstruc, Strict I&O Subjective Review of Systems A 60-year-old male with a history of Valley Fever, chronic sacral wound, right foot drop, and recurrent anemia presented to the ED with hemoglobin of 7.7, weakness, and nausea. On 04/04, he was disoriented and pulled out his Jones catheter, causing bleeding; a new Jones was placed after Urology consult, and Haldol was given for agitation. Wound care evaluated a chronic sacral wound and initiated appropriate dressing and culture. GI consult planned EGD for 04/05. On 04/05, the patient remained confused and complained of sacral wound pain. CT abdomen/pelvis was ordered, and thiamine/folic acid started for suspected alcohol withdrawal. EGD was canceled due to inability to consent; daughter was expected to arrive for consent. Renal ultrasound showed moderate left hydronephrosis; outpatient cystoscopy was advised. Later, the patient became more altered and was intubated for airway protection, then transferred to ICU on mechanical ventilation. RR 20, VTE for 500, peep 5, FiO2 30% 04/06: seen and examined at the bedside. Unable to obtain ROS due to patient's clinical status. 04/07: Seen and examined at the bedside. Family at bedside. Unable to obtain ROS due to patient's clinical status currently intubated and on mechanical ventilation RR 20, VTE 500, peep 5 and FiO2 30%. Currently weaning off from the sedation. Due to lack of reflexes patient was ordered head CT And weaning off from sedation. Added vasopressin, hydrocortisone and midodrine. Pending CT abdominal pelvis with the contrast due to given kidney function but advised to give bolus and proceed with a CT scan. 04/08: CT results showed severe global cerebral and cerebellar edema with tonsillar herniation and obliteration of basal cisterns and the ventricular system. Consulted Neurology, recommended supportive management and recommended that likely having poor prognosis for meaningful recovery. Continuing current management, discontinue bicarbonate drip Changes from previous H/P or p: No Changes Objective vital signs Vital Sign Date Time Temp Pulse Resp B/P (MAP) Pulse Ox O2 Delivery O2 Flow Rate FiO2 04/08/25 13:57 67 22 92/62 (72) 96 30 04/08/25 13:15 96.1 205.0 04/08/25 10:00 Mechanical Ventilator+ Total Intake and Output 04/07/25 04/07/25 04/08/25 15:00 23:00 07:00 Intake Total 1831.001 ml 1945.125 ml 1967.0 ml Output Total 1300 ml 3100 ml Balance 1831.001 ml 645.125 ml -1133.0 ml medications Current Medications Medications Dose Ordered Sig/Lakhwinder Route Start Time Stop Time Status Last Admin Dose Admin Acetaminophen 650 mg Q6HP PRN PO 04/03/25 15:15 04/05/25 00:11 650 MG Vancomycin HCl 0 ml @ 0 mls/hr UD IV 04/03/25 15:30 Lactulose 30 ml BID PO 04/03/25 22:00 04/08/25 09:50 30 ML Tamsulosin HCl 0.4 mg QPM PO 04/04/25 18:00 04/07/25 17:59 0.4 MG Midazolam HCl 50 ml @ 1 mls/hr Q24H IV 04/05/25 16:45 04/05/25 17:14 1 MLS/HR Fentanyl Citrate 250 ml @ 2.5 mls/hr Q24H IV 04/05/25 16:45 04/07/25 04:21 12.5 MLS/HR Pantoprazole Sodium 40 mg DAILY IV 04/06/25 10:00 04/08/25 09:50 40 MG Atropine Sulfate 0.5 mg ONCE PRN IV 04/05/25 22:15 Norepinephrine Bitartrate 32 mg/ Sodium Chloride 250 ml @ 0.938 mls/ hr Q24H IV 04/06/25 15:00 04/07/25 16:00 7.5 MLS/HR Meropenem 50 ml @ 17 mls/hr Q12H IV 04/07/25 18:00 04/08/25 05:08 17 MLS/HR Vasopressin 20 units/Sodium Chloride 100 ml @ 9 mls/hr Q11H7M IV 04/07/25 10:00 04/08/25 04:36 9 MLS/HR Hydrocortisone Sodium Succinate 100 mg Q8H IV 04/07/25 10:00 04/08/25 09:50 100 MG Midodrine 10 mg TID@0600,1200,1800 NG 04/07/25 12:00 04/08/25 12:35 10 MG Lactated Ringer's 1,000 ml @ 100 mls/hr Q10H IV 04/07/25 17:15 04/08/25 12:36 100 MLS/HR Amino Acids 0 ml @ 0 mls/hr PER PHARMACY IV 04/08/25 07:15 Examination Patient lying in bed, on mechanical ventilation General: RASS -3, afebrile, mucosae are moist Cardiovascular: Normal S1 and S2. No murmurs, gallops or rubs Respiratory: Intubated on mechanical ventilation with the vent settings RR 20, VTE 500, FiO2 30%, peep 5 Abdomen: Soft, nontender, no organomegaly, normal bowel sounds MSK/skin: Mobilization of limbs cannot be evaluated. Skin is dry and warm Neurological: Orientation cannot be assessed. No apparent motor no sensitive deficits. Pupillary and gag reflex not noted laboratory and microbiology Laboratory Tests 04/08/25 02:36 Test 04/08/25 02:36 Range/Units Serum Glucose 158 H 74-106 mg/dL Microbiology Date/Time Source Procedure Growth Status 04/05/25 17:30 Sputum Gram Stain - Final Resulted 04/05/25 17:30 Sputum Respiratory Culture - Preliminary Resulted 04/05/25 16:25 Nose MRSA Screen - Final Complete 04/03/25 11:27 Blood Blood Culture - Final NO GROWTH AFTER 5 DAYS OF INCUBATION. Complete Labs and/or images reviewed: Labs reviewed by me, Image(s) reviewed by me Problem List/Assessment/Plan Problem List/Assessment/Plan Neurology : # Acute metabolic/hypoxic/toxic encephalopathy due to sepsis # Brain edema, etiology unclear ? Hypoxic encephalopathy ? Sepsis, septic shock - patient is intubated and sedated - maintain ventilation setting -coming down from sedation, currently off of sedation -repeat CT head showed diffuse cerebral and cerebellar edema with a tonsillar herniation Cardiovascular : # septic shock -currently on Levophed and added vasopressin today along with midodrine -continue IVF Respiratory : # possible Gram-positive/negative bacterial pneumonia - continue current antibiotic, meropenem and vancomycin - Intubated on mechanical ventilation with the vent settings RR 20, VTE 500, FiO2 30%, peep 5 - pulmonology consult Gastrointestinal : # Persistent nausea and vomiting -canceled schedule EGD for today due to patient being more agitated and altered -now patient is intubated # cholelithiasis with gallbladder hydrops -he is not a surgical candidate at this time Genitourinary : # MARGARITA, likely due to VMN or obstructive uropathy # acute urinary retention # ruled out UTI or pyelonephritis - moderate to severe left hydronephrosis, likely obstructive from above - CT abd/ pel showed asymmetric enlargement of the left psoas muscle with possible abscess or phlegmonous and moderate to severe left hydroureteronephrosis - inserted Jones - antibiotics as above Infectious Disease : # sepsis due to left psoas muscle with possible abscess or phlegmonous - IVF - CT abd/ pel showed asymmetric enlargement of the left psoas muscle with possible abscess or phlegmonous and moderate to severe left hydroureteronephrosis - vancomycin, MEROPENEM - monitor labs - surgical consult appreciated: Recommend, repeat a CT of the abdomen and pelvis with IV contrast for better evaluation. If it really is a 2.4 cm abscess this is quite small and may not be amenable to percutaneous , conservative treatment with IV antibiotics. - ordered blood culture # Sacral wound/abscess, present on admission - full thickness, with pus ozzing -antibiotics as above # history of valley fever Hematology : # symptomatic anemia # likely iron-deficiency anemia - transfuse if it is less than 7 - 1 PRBC - consulted GI - ordered iron panel - SOB pending Nutrition : # Severe malnutrition # hypokalemia, severe - replenished - continuously monitor labs Prophylaxis PUD : IV Protonix 40 mg daily DVT: SCD Diet: Nepro 30 mL/hour Invasive access : Jones catheter : Placed on 04/04/25 Endotracheal tube : Placed on 04/05/2025 Rt IJ central line : Placed on 04/05/2025 Drips: Levophed 24 Fentanyl 0 Vasopressin Talked to his daughter (Pineda [phone]), updated her about patient's condition and management plan. Goals of care, full code status for now Critical Care time spent 53 minutes including patient care, chart review and updating family, excluding procedure. Family meeting tomorrow a.m. to discuss goals of care Plan discussed with Dr Ayala Plan discussed with: Patient's daughter Plan discussed with: Daughter My Orders My Orders Orders - JASWANT LOMBARDO RESIDENT Procedure Category Date Status Time * Neurology Consult CONS 04/07/25 Transmitted 17:00 Lactated Ringer's PHA 8/31/25 In Process 17:15 Ventilator Orders RT 04/07/25 Transmitted 17:23 Chest Portable XY 04/08/25 Resulted 04:00 Abg W/ Co-Ox RT 04/08/25 Logged 04:00 * Pediatric Neurologist CONS 04/07/25 Transmitted Consult Clinimix Per Pharmacy PHA 04/08/25 In Process 07:15 Dietary Evaluation Review Comments: Advance to diet as toleratedd after EGD Offer nutrition oral supplementation if PO intake<50% Iron supplementation Reassess PRN Expected Outcomes/Goals: Improved PO intake to meet at least 75% of his needs Improved iron status Graudal wt gain Date of Service: Apr 08, 2025 Billing Provider: ALISSON NOBLE MD Common Visit Codes: [id number] CARE 30-74 MIN JASWANT LOMBARDO RESIDENT Apr 08, 2025 15:01 ALISSON NOBLE MD Apr 14, 2025 23:47
[2025-04-08] MEDS: VANCOMYCIN 1GM/250ML KIT 250 ML IV SCH (16:15)
[2025-04-08 16:59] LABS: Hematocrit 22.8 % (41.0-53.0); Hemoglobin 7.5 g/dL (13.5-17.5)
[2025-04-08] MEDS: AMINO ACID INFUSION IN D10W 1,000 ML IV SCH (21:25)
[2025-04-08] MEDS: LACTATED RINGER'S 1,000 ML IV SCH (21:26)
--- NOTE | 2025-04-08 22:45 | DVHPN2 ---
Progress Note - Dictate Date Seen: Apr 08, 2025 Medical Necessity Reason Pt with a Central, PICC or Fol: Yes The following are medically ne: Jones Catheter Reason for jones catheter: Bladder Retention/Obstruc, Strict I&O Subjective Patient seen and examined at bedside. intubated on mechanical ventilator. Overnight events reviewed. vital signs Vital Sign Date Time Temp Pulse Resp B/P (MAP) Pulse Ox O2 Delivery O2 Flow Rate FiO2 04/08/25 22:21 71 22 104/60 (75) 96 30 04/08/25 22:15 98.4 209.1 04/08/25 22:00 Mechanical Ventilator+ Total Intake and Output 04/07/25 04/07/25 04/08/25 15:00 23:00 07:00 Intake Total 1831.001 ml 1945.125 ml 1967.0 ml Output Total 1300 ml 3100 ml Balance 1831.001 ml 645.125 ml -1133.0 ml medications Current Medications Medications Dose Ordered Sig/Lakhwinder Route Start Time Stop Time Status Last Admin Dose Admin Acetaminophen 650 mg Q6HP PRN PO 04/03/25 15:15 04/05/25 00:11 650 MG Vancomycin HCl 0 ml @ 0 mls/hr UD IV 04/03/25 15:30 Lactulose 30 ml BID PO 04/03/25 22:00 04/08/25 21:26 30 ML Tamsulosin HCl 0.4 mg QPM PO 04/04/25 18:00 04/08/25 17:41 0.4 MG Midazolam HCl 50 ml @ 1 mls/hr Q24H IV 04/05/25 16:45 04/05/25 17:14 1 MLS/HR Fentanyl Citrate 250 ml @ 2.5 mls/hr Q24H IV 04/05/25 16:45 04/07/25 04:21 12.5 MLS/HR Pantoprazole Sodium 40 mg DAILY IV 04/06/25 10:00 04/08/25 09:50 40 MG Atropine Sulfate 0.5 mg ONCE PRN IV 04/05/25 22:15 Norepinephrine Bitartrate 32 mg/ Sodium Chloride 250 ml @ 0.938 mls/ hr Q24H IV 04/06/25 15:00 04/07/25 16:00 7.5 MLS/HR Meropenem 50 ml @ 17 mls/hr Q12H IV 04/07/25 18:00 04/08/25 17:41 17 MLS/HR Vasopressin 20 units/Sodium Chloride 100 ml @ 9 mls/hr Q11H7M IV 04/07/25 10:00 04/08/25 04:36 9 MLS/HR Hydrocortisone Sodium Succinate 100 mg Q8H IV 04/07/25 10:00 04/08/25 17:41 100 MG Midodrine 10 mg TID@0600,1200,1800 NG 04/07/25 12:00 04/08/25 17:41 10 MG Amino Acids 0 ml @ 0 mls/hr PER PHARMACY IV 04/08/25 07:15 Vancomycin HCl 250 ml @ 250 mls/hr DAILY@1600 IV 04/08/25 16:00 04/08/25 16:15 250 MLS/HR Amino Acids/ Electrolytes/ Dextrose 1,000 ml @ 41 mls/hr DAILY@2200 IV 04/08/25 22:00 04/08/25 21:25 41 MLS/HR Lactated Ringer's 1,000 ml @ 60 mls/hr [id number] IV 04/08/25 22:00 04/08/25 21:26 60 MLS/HR objective Gen.: Patient lying in bed in medical ICU. Intubated on mechanical ventilator. Head: Normocephalic, atraumatic. Eyes: PERRLA. Ears: Normal external anatomy. Throat: Endotracheal tube and orogastric tube in place. Neck: Supple, trachea midline. Chest: Transmitted breath sounds bilaterally. Decreased air entry bilaterally. No wheezing. Bibasilar crackles. Cardiovascular: Positive S1, positive S2. Regular rate and rhythm. Abdomen: Positive bowel sounds in all 4 quadrants. Soft, nontender, nondistended. : Jones in place. Normal external genitalia. Rectal: Deferred. Skin: Warm, dry. Intact. Extremities: 2+ radial pulses bilaterally. No lower extremity edema. Neuro: Off sedation laboratory and microbiology Laboratory Tests 04/08/25 16:15 04/08/25 02:36 Test 04/08/25 02:36 Range/Units Serum Glucose 158 H 74-106 mg/dL Assessment/Plan Impression: Acute hypoxic respiratory failure On mechanical ventilator Sepsis Left psoas muscle abscess Acute kidney injury Anemia Events: Remains on vent support On AC mode; RR 22, VT 500, PEEP 5, FiO2 30% Taper FiO2 as tolerated ABG reviewed, notable for alkalemia CXR revealing stable bibasilar pulmonary airspace disease and bilateral pleural effusions. Off sedation On pressors for hemodynamic support Levophed 30 mcg/min, vasopressin 0.02 units/min Titrate to keep mean arterial pressure greater than 65 mmHg. NGT noted with bilious material. IV fluids with LR at 100 ml/hr. Continue antibiotics F/u cultures Monitor hemoglobin Plan for PRBC transfusion Clinimix for nutritional support CT head reviewed, notable for tonsillar herniation. Neurology recommendations appreciated. Overall poor prognosis. Poor chance of meaningful recovery. Labs and imaging reviewed. Rest of plan as noted below. Plan: s/p intubation on mechanical ventilator. On AC mode; RR 22, VT 500, PEEP 5, FiO2 30% Titrate FIO2 to keep O2 saturation above 90%. VAP bundle. Daily ABG and CXR while intubated Off sedation Continue antibiotics for psoas infection F/u cultures. Follow up ID recommendations IV fluids with LR at 100 ml/hr. On pressors for hemodynamic support Titrate to keep mean arterial pressure greater than 65 mmHg. Follow up Cardiology recommendations. Monitor for bradycardia Monitor renal function Monitor electrolytes. Supplement as necessary. Monitor ins and outs. GI prophylaxis. DVT prophylaxis. Prognosis: Poor given patient's multiple co-morbidities. Condition: Critical Rest of plan per hospitalist and other consultants. A total of 35 minutes of critical care time was spent reviewing the patient record, examining the patient, making a diagnostic and therapeutic plan, discussing this plan with the medical personnel, following up on diagnostic studies and following the patient for clinical stability excluding any and all procedures. At least 50% of this time was spent in direct, [id number] contact. Thank you, , for allowing me to participate in this patient's care. Further recommendations will depend on the patient's clinical course. Please do not hesitate to contact me if you have any questions or concerns. This medical document was created using an electronic medical record system with [employer] system. Although these documentations are being carefully reviewed, there may still be some phonetic and typographical changes. The errors are purely typographical, due to imperfection on the software program, and do not reflect any compromise in the patient's medical care. Dietary Evaluation Review Comments: Advance to diet as toleratedd after EGD Offer nutrition oral supplementation if PO intake<50% Iron supplementation Reassess PRN Expected Outcomes/Goals: Improved PO intake to meet at least 75% of his needs Improved iron status Graudal wt gain Plan discussed with: Other (GRETEL Xie) Critical Care Time(min): 35 SUKUMAR STARK MD Apr 08, 2025 22:45
[2025-04-09] VITALS (104 sets, daily range): BP systolic 95–129; BP diastolic 62–83; PULSE 51–84; RESP 15–24; TEMP 93.2–99.9; O2SAT 77–100
[2025-04-09 03:53] LABS: Anion Gap 11 (5-15); BUN/Creatinine Ratio 17.4 (10.0-20.0); Carbon Dioxide 24 mmol/L (20-31); Magnesium 2.1 mg/dL (1.6-2.6); Total Protein 6.2 g/dL (5.7-8.2)
[2025-04-09 03:56] LABS: Alkaline Phosphatase 219 U/L (46-116); Blood Urea Nitrogen 27 mg/dL (9-23); Chloride 110 mmol/L (98-107); Glucose 125 mg/dL (74-106); Potassium 3.2 mmol/L (3.5-5.1); Sodium 145 mmol/L (136-145)
[2025-04-09 03:57] LABS: Alanine Aminotransferase 42 U/L (7-40); Albumin 2.6 g/dL (3.2-4.8); Bilirubin, Total 0.3 mg/dL (0.2-1.0); Calcium 7.9 mg/dL (8.7-10.4)
[2025-04-09 04:41] LABS: Triglycerides 207 mg/dL (< 150)
[2025-04-09 07:16] LABS: Base Excess -1.2 mmol/L (-2.0-3.0)
[2025-04-09 08:06] LABS: Hematocrit 23.6 % (41.0-53.0); Hemoglobin 7.8 g/dL (13.5-17.5); Mean Corpuscular Hemoglobin 23.6 pg (28.0-32.0); Mean Corpuscular Volume 71.5 fL (80.0-100.0)
--- NOTE | 2025-04-09 09:35 | DVHPN2 ---
Progress Note - Dictate Date Seen: Apr 09, 2025 Medical Necessity Reason Pt with a Central, PICC or Fol: Yes The following are medically ne: Jones Catheter Reason for jones catheter: Bladder Retention/Obstruc, Strict I&O vital signs Vital Sign Date Time Temp Pulse Resp B/P (MAP) Pulse Ox O2 Delivery O2 Flow Rate FiO2 04/09/25 08:45 99.5 75 22 107/72 (84) 96 211.1 04/09/25 08:00 Mechanical Ventilator+ 30 30 Total Intake and Output 04/08/25 04/08/25 04/09/25 15:00 23:00 07:00 Intake Total 1724.5 ml 1020 ml 825 ml Output Total 2000 ml Balance 1724.5 ml 1020 ml -1175 ml medications Current Medications Medications Dose Ordered Sig/Lakhwinder Route Start Time Stop Time Status Last Admin Dose Admin Acetaminophen 650 mg Q6HP PRN PO 04/03/25 15:15 04/05/25 00:11 650 MG Vancomycin HCl 0 ml @ 0 mls/hr UD IV 04/03/25 15:30 Lactulose 30 ml BID PO 04/03/25 22:00 04/08/25 21:26 30 ML Tamsulosin HCl 0.4 mg QPM PO 04/04/25 18:00 04/08/25 17:41 0.4 MG Midazolam HCl 50 ml @ 1 mls/hr Q24H IV 04/05/25 16:45 04/05/25 17:14 1 MLS/HR Fentanyl Citrate 250 ml @ 2.5 mls/hr Q24H IV 04/05/25 16:45 04/07/25 04:21 12.5 MLS/HR Pantoprazole Sodium 40 mg DAILY IV 04/06/25 10:00 04/08/25 09:50 40 MG Atropine Sulfate 0.5 mg ONCE PRN IV 04/05/25 22:15 Norepinephrine Bitartrate 32 mg/ Sodium Chloride 250 ml @ 0.938 mls/ hr Q24H IV 04/06/25 15:00 04/07/25 16:00 7.5 MLS/HR Meropenem 50 ml @ 17 mls/hr Q12H IV 04/07/25 18:00 04/09/25 05:05 17 MLS/HR Vasopressin 20 units/Sodium Chloride 100 ml @ 9 mls/hr Q11H7M IV 04/07/25 10:00 04/08/25 04:36 9 MLS/HR Hydrocortisone Sodium Succinate 100 mg Q8H IV 04/07/25 10:00 04/09/25 02:20 100 MG Midodrine 10 mg TID@0600,1200,1800 NG 04/07/25 12:00 04/08/25 17:41 10 MG Amino Acids 0 ml @ 0 mls/hr PER PHARMACY IV 04/08/25 07:15 Vancomycin HCl 250 ml @ 250 mls/hr DAILY@1600 IV 04/08/25 16:00 04/08/25 16:15 250 MLS/HR Amino Acids/ Electrolytes/ Dextrose 1,000 ml @ 41 mls/hr DAILY@2200 IV 04/08/25 22:00 04/08/25 21:25 41 MLS/HR Lactated Ringer's 1,000 ml @ 60 mls/hr [id number] IV 04/08/25 22:00 04/08/25 21:26 60 MLS/HR objective E: no major events o/n. GEN: intubated. laboratory and microbiology Laboratory Tests 04/09/25 03:08 Test 04/09/25 03:08 Range/Units Serum Glucose 125 H 74-106 mg/dL Assessment/Plan A: 1. encephalopathy 2. L psoas infection w/o drainable fluid collection per radiology P: 1. d/w Dr Jerry. no drainable fluid collection. 2. family considering withdrawal of care. Dietary Evaluation Review Comments: Advance to diet as toleratedd after EGD Offer nutrition oral supplementation if PO intake<50% Iron supplementation Reassess PRN Expected Outcomes/Goals: Improved PO intake to meet at least 75% of his needs Improved iron status Graudal wt gain Plan discussed with: Other (family) DECLAN VIZCARRA MD Apr 09, 2025 09:35
[2025-04-09] MEDS ORDERED: POTASSIUM CHL 20MEQ/100ML 100 ML IV SCH ×2 (09:45)
[2025-04-09] MEDS ORDERED: LORazepam 2MG/ML-1ML VIAL IV PRN (10:15)
[2025-04-09] MEDS ORDERED: MORPHINE SULFATE INJ 2 MG/ml SYRG IV PRN (10:15)
[2025-04-09 10:40] LABS: Anisocytosis Slight; Total Cells Counted 100.0 (100)
--- NOTE | 2025-04-09 12:27 | DVHPN2 ---
Progress Note - Dictate Date Seen: Apr 09, 2025 Medical Necessity Reason Pt with a Central, PICC or Fol: Yes The following are medically ne: Jones Catheter Reason for jones catheter: Bladder Retention/Obstruc, Strict I&O Subjective Mr. Luna is a 60 years old gentleman with a history of hypertension, diabetes, anemia, iron deficiency, valley fever, he was brought to the [facility] on 04/03/2025 with a chief complaint of generalized weakness, body aching altered mental status. I have seen and examined the patient, I have discussed with his nurse, and other medical staff, has been long time discussing with his daughter about the patient condition, in the likely poor prognosis for meaningful/overall recovery I have reviewed his brain images with our in-house radiologist, Dr. Rosalino MCCURDY, 03/2725: Cannabinoids Urinalysis, 04/03/25, unremarkable Wound culture, 04/04/2025: E coli Blood culture, 04/03/2025: WBC/HB/PLT/MCV, 04/08/2025: 17.4/6.5/210/70.3 PT/INR/PTT, 04/05/2025: 14.7/1.44/41.6 BUN/CR, 04/08/2025: 21/1.52 GFR, 04/08/2025: 52 Lactic acid, T/02/24/2025: 3.7, 3.2, AST/: 1.4 TBI/AST/ALT/AP, 04/08/2025: 0.3/89/62/247 Vitamin B12, 04/05/25: 1154 Folic acid, 04/05/2025: 2.9 Chest x-ray, 04/05/2025: Cardiomegaly with pulmonary vascular congestion and bilateral patchy airspace opacities. Chest x-ray, 04/05/2025: The endotracheal tube now terminates approximately 5.7 cm from the larry. Pulmonary venous congestion and patchy bilateral airspace disease. This may represent pulmonary edema or Multifocal pneumonia. CT head, 04/05/2025: No acute intracranial abnormality (I saw evidence suggestive of diffuse brain edema) CT head, 04/07/2025: Severe global cerebral and cerebellar edema with cerebellar tonsillar herniation and obliteration of basal cisterns and the ventricular system. No acute intracranial hemorrhage is identified vital signs Vital Sign Date Time Temp Pulse Resp B/P (MAP) Pulse Ox O2 Delivery O2 Flow Rate FiO2 04/09/25 12:14 84 22 106/72 (83) 97 30 04/09/25 08:45 99.5 211.1 04/09/25 08:00 Mechanical Ventilator+ Total Intake and Output 04/08/25 04/08/25 04/09/25 15:00 23:00 07:00 Intake Total 1724.5 ml 1020 ml 825 ml Output Total 2000 ml Balance 1724.5 ml 1020 ml -1175 ml medications Current Medications Medications Dose Ordered Sig/Lakhwinder Route Start Time Stop Time Status Last Admin Dose Admin Vancomycin HCl 0 ml @ 0 mls/hr UD IV 04/03/25 15:30 Potassium Chloride 100 ml @ 50 mls/hr Q2H IV 04/09/25 09:45 04/09/25 13:44 Potassium Chloride 100 ml @ 50 mls/hr Q2H IV 04/09/25 09:45 04/09/25 13:44 UNV Morphine Sulfate 2 mg Q1HP PRN IV 04/09/25 10:15 Lorazepam 1 mg Q1HP PRN IV 04/09/25 10:15 objective The patient is well-nourished and well-developed with no distress. The patient is intubated MENTAL STATUS: Subjective CRANIAL NERVES: Pupils are equal, round and fixed, 6-7 mm. There are no corneal reflexes and doll's eyes phenomenon. No signs of facial weakness. There are no gagging or coughing reflexes SENSATION: No responses to pain stimuli. MOTOR: Normal tone in the upper and lower extremity. Normal muscle bulk. No fasciculations. No spontaneous movement. REFLEXES: Deep tendon reflexes are symmetrical. No pathological reflexes. CEREBELLAR/COORDINATION: Deferred GAIT/STATION: deferred. laboratory and microbiology Laboratory Tests 04/09/25 03:08 Test 04/09/25 03:08 Range/Units Serum Glucose 125 H 74-106 mg/dL Problem List Coma Metabolic encephalopathy Hypoxic encephalopathy Toxic encephalopathy Brain edema, etiology unclear ? Hypoxic encephalopathy ? Sepsis, septic shock Sepsis, septic shock Wound infection Anemia Iron deficiency Assessment/Plan Monitoring Supportive treatment ICU care EEG Stabilize vitals/pressor drip Respiratory support/vent management IV antibiotics Oxygen Wound Care DVT prophylaxis Pulmonology on case More recommendation per clinical course He is likely to have a poor prognosis for meaningful recovery This medical document was created using an electronic medical record system with [employer] system. Although this document has been carefully reviewed, there may still be some phonetic and typographical errors. These areas are purely typographical due to imperfections of the software programs, and do not reflect any compromise in the patient's medical care. Prognosis guarded Dietary Evaluation Review Comments: Advance to diet as toleratedd after EGD Offer nutrition oral supplementation if PO intake<50% Iron supplementation Reassess PRN Expected Outcomes/Goals: Improved PO intake to meet at least 75% of his needs Improved iron status Graudal wt gain Plan discussed with: Daughter, Other Critical Care Time(min): 45 JOCELYNN NATHAN MD Apr 09, 2025 12:27
--- NOTE | 2025-04-09 14:12 | DVHPN2 ---
Progress Note Date Seen: Apr 09, 2025 Resident Creating Document: KISHA BLUM RESIDENT Medical Necessity Reason Pt with a Central, PICC or Fol: Yes The following are medically ne: Jones Catheter Reason for jones catheter: Bladder Retention/Obstruc, Strict I&O Subjective Review of Systems Patient seen and examined at bedside Respiratory rate 22, tidal volume 500, FiO2 30%, peep of 5 Stable hemoglobin at 7.8, overnight T-max 99.9 On Clinimix Objective vital signs Vital Sign Date Time Temp Pulse Resp B/P (MAP) Pulse Ox O2 Delivery O2 Flow Rate FiO2 04/09/25 14:06 67 22 113/75 (88) 96 30 04/09/25 12:45 98.2 208.8 04/09/25 12:00 Mechanical Ventilator+ Total Intake and Output 04/08/25 04/08/25 04/09/25 15:00 23:00 07:00 Intake Total 1724.5 ml 1020 ml 825 ml Output Total 2000 ml Balance 1724.5 ml 1020 ml -1175 ml medications Current Medications Medications Dose Ordered Sig/Lakhwinder Route Start Time Stop Time Status Last Admin Dose Admin Vancomycin HCl 0 ml @ 0 mls/hr UD IV 04/03/25 15:30 Potassium Chloride 100 ml @ 50 mls/hr Q2H IV 04/09/25 09:45 04/09/25 13:44 UNV Morphine Sulfate 2 mg Q1HP PRN IV 04/09/25 10:15 Lorazepam 1 mg Q1HP PRN IV 04/09/25 10:15 Amino Acids 0 ml @ 0 mls/hr PER PHARMACY IV 04/09/25 14:15 UNV Lactated Ringer's 1,000 ml @ 60 mls/hr [id number] IV 04/09/25 14:15 UNV Examination General Appearance: Sedated, intubated on mechanical ventilation Head Exam: Bilateral dilated pupils, nonreactive Pulmonary/Respiratory: Bilateral air entry Cardiovascular/Chest: Regular rate and rhythm. No murmurs. No JVD. Abdominal Exam: Normal bowel sounds. Soft. normal abdomen, no visible veins, Nontender. No hepatospenomegaly. No masses Lower extremities: Trace lower extremity edema Skin Exam: Normal inspection. Normal color. Warm. Dry. Hyperpigmented patches noted on bilateral anterior shins. laboratory and microbiology Laboratory Tests 04/09/25 03:08 Test 04/09/25 03:08 Range/Units Serum Glucose 125 H 74-106 mg/dL Microbiology Date/Time Source Procedure Growth Status 04/05/25 17:30 Sputum Gram Stain - Final Complete 04/05/25 17:30 Respiratory Culture - Final Staphylococcus aureus Complete 04/05/25 16:25 Nose MRSA Screen - Final Complete 04/03/25 11:27 Blood Blood Culture - Final NO GROWTH AFTER 5 DAYS OF INCUBATION. Complete Labs and/or images reviewed: Labs reviewed by me, Image(s) reviewed by me Problem List/Assessment/Plan Problem List/Assessment/Plan Microcytic hypochromic anemia, blood loss versus nutritional Intractable nausea and vomiting Acute urinary retention History of [facility] fever Sacral wound Cerebral edema, diffuse and generalized Cerebellar tonsillar herniation Plan: Patient has critical findings on the head CT requiring neurology consultation Patient does have cholelithiasis with gallbladder hydrops however he is not a surgical candidate at this time Continue supportive care, continue to monitor labs IV steroids IV antibiotics IV Protonix 40 mg daily Midodrine Vancomycin, meropenem Clinimix Stool occult blood Thank you so much for the opportunity to consult on your patient. GI team will follow the patient. In case of any questions or concerns please feel free to reach out. Plan discussed with Dr. Albright Plan discussed with: Other (RN) Dietary Evaluation Review Comments: Advance to diet as toleratedd after EGD Offer nutrition oral supplementation if PO intake<50% Iron supplementation Reassess PRN Expected Outcomes/Goals: Improved PO intake to meet at least 75% of his needs Improved iron status KISHA Prieto RESIDENT Apr 09, 2025 14:12
[2025-04-09] MEDS ORDERED: CLINIMIX PER PHARMACY 0 ML IV SCH (14:15)
[2025-04-09] MEDS: LACTATED RINGER'S 1,000 ML IV SCH (14:15)
[2025-04-09] MEDS: POTASSIUM CHL 20MEQ/100ML 100 ML IV SCH (15:44)
--- NOTE | 2025-04-09 18:27 | DVHPNRES ---
Progress Note Date Seen: Apr 09, 2025 Resident Creating Document: JASWANT LOMBARDO RESIDENT Medical Necessity Reason Pt with a Central, PICC or Fol: Yes The following are medically ne: Jones Catheter Reason for jones catheter: Bladder Retention/Obstruc, Strict I&O Subjective Review of Systems A 60-year-old male with a history of Valley Fever, chronic sacral wound, right foot drop, and recurrent anemia presented to the ED with hemoglobin of 7.7, weakness, and nausea. 04/04, he was disoriented and pulled out his Jones catheter, causing bleeding; a new Jones was placed after Urology consult, and Haldol was given for agitation. Wound care evaluated a chronic sacral wound and initiated appropriate dressing and culture. GI consult planned EGD for 04/05. 04/05, the patient remained confused and complained of sacral wound pain. CT abdomen/pelvis was ordered, and thiamine/folic acid started for suspected alcohol withdrawal. EGD was canceled due to inability to consent; daughter was expected to arrive for consent. Renal ultrasound showed moderate left hydronephrosis; outpatient cystoscopy was advised. Later, the patient became more altered and was intubated for airway protection, then transferred to ICU on mechanical ventilation. RR 20, VTE for 500, peep 5, FiO2 30% 04/06: seen and examined at the bedside. Unable to obtain ROS due to patient's clinical status. 04/07: Seen and examined at the bedside. Family at bedside. Unable to obtain ROS due to patient's clinical status currently intubated and on mechanical ventilation RR 20, VTE 500, peep 5 and FiO2 30%. Currently weaning off from the sedation. Due to lack of reflexes patient was ordered head CT And weaning off from sedation. Added vasopressin, hydrocortisone and midodrine. Pending CT abdominal pelvis with the contrast due to given kidney function but advised to give bolus and proceed with a CT scan. 04/08: CT results showed severe global cerebral and cerebellar edema with tonsillar herniation and obliteration of basal cisterns and the ventricular system. Consulted Neurology, recommended supportive management and recommended that likely having poor prognosis for meaningful recovery. Continuing current management, discontinue bicarbonate drip 04/09 : Patient seen and examined at the bedside. Unable to obtain ROS due to patient's clinical status. Family discussion done choosing comfort measures met patient is organ donor, [facility] is taking over the patient. Objective vital signs Vital Sign Date Time Temp Pulse Resp B/P (MAP) Pulse Ox O2 Delivery O2 Flow Rate FiO2 04/09/25 16:15 97.7 70 22 112/76 (88) 97 207.9 04/09/25 16:05 30 04/09/25 16:00 Mechanical Ventilator+ Total Intake and Output 04/08/25 04/08/25 04/09/25 15:00 23:00 07:00 Intake Total 1724.5 ml 1020 ml 825 ml Output Total 2000 ml Balance 1724.5 ml 1020 ml -1175 ml medications Current Medications Medications Dose Ordered Sig/Lakhwinder Route Start Time Stop Time Status Last Admin Dose Admin Vancomycin HCl 0 ml @ 0 mls/hr UD IV 04/03/25 15:30 Potassium Chloride 100 ml @ 50 mls/hr Q2H IV 04/09/25 09:45 04/09/25 13:44 UNV Morphine Sulfate 2 mg Q1HP PRN IV 04/09/25 10:15 Lorazepam 1 mg Q1HP PRN IV 04/09/25 10:15 Amino Acids 0 ml @ 0 mls/hr PER PHARMACY IV 04/09/25 14:15 Lactated Ringer's 1,000 ml @ 60 mls/hr [id number] IV 04/09/25 14:15 04/09/25 14:15 60 MLS/HR Potassium Chloride 100 ml @ 50 mls/hr Q2H IV 04/09/25 15:00 04/09/25 18:59 04/09/25 15:44 50 MLS/HR Amino Acids/ Electrolytes/ Dextrose 1,000 ml @ 41 mls/hr DAILY@2200 IV 04/09/25 22:00 Examination Patient lying in bed, on mechanical ventilation General: RASS -3, afebrile, mucosae are moist Cardiovascular: Normal S1 and S2. No murmurs, gallops or rubs Respiratory: Intubated on mechanical ventilation with the vent settings RR 20, VTE 500, FiO2 30%, peep 5 Abdomen: Soft, nontender, no organomegaly, normal bowel sounds MSK/skin: Mobilization of limbs cannot be evaluated. Skin is dry and warm Neurological: Orientation cannot be assessed. No apparent motor no sensitive deficits. Pupillary and gag reflex not noted laboratory and microbiology Laboratory Tests 04/09/25 03:08 Test 04/09/25 03:08 Range/Units Serum Glucose 125 H 74-106 mg/dL Microbiology Date/Time Source Procedure Growth Status 04/05/25 17:30 Sputum Gram Stain - Final Complete 04/05/25 17:30 Respiratory Culture - Final Staphylococcus aureus Complete 04/05/25 16:25 Nose MRSA Screen - Final Complete 04/03/25 11:27 Blood Blood Culture - Final NO GROWTH AFTER 5 DAYS OF INCUBATION. Complete Labs and/or images reviewed: Labs reviewed by me, Image(s) reviewed by me Problem List/Assessment/Plan Problem List/Assessment/Plan Neurology : # Acute metabolic/hypoxic/toxic encephalopathy due to sepsis # Brain edema, etiology unclear ? Hypoxic encephalopathy ? Sepsis, septic shock - patient is intubated and sedated - maintain ventilation setting -coming down from sedation, currently off of sedation -repeat CT head showed diffuse cerebral and cerebellar edema with a tonsillar herniation Cardiovascular : # septic shock -currently on Levophed and added vasopressin today along with midodrine -continue IVF Respiratory : # possible Gram-positive/negative bacterial pneumonia - continue current antibiotic, meropenem and vancomycin - Intubated on mechanical ventilation with the vent settings RR 20, VTE 500, FiO2 30%, peep 5 - pulmonology consult Gastrointestinal : # Persistent nausea and vomiting -canceled schedule EGD for today due to patient being more agitated and altered -now patient is intubated # cholelithiasis with gallbladder hydrops -he is not a surgical candidate at this time Genitourinary : # MARGARITA, likely due to VMN or obstructive uropathy # acute urinary retention # ruled out UTI or pyelonephritis - moderate to severe left hydronephrosis, likely obstructive from above - CT abd/ pel showed asymmetric enlargement of the left psoas muscle with possible abscess or phlegmonous and moderate to severe left hydroureteronephrosis - inserted Jones - antibiotics as above Infectious Disease : # sepsis due to left psoas muscle with possible abscess or phlegmonous - IVF - CT abd/ pel showed asymmetric enlargement of the left psoas muscle with possible abscess or phlegmonous and moderate to severe left hydroureteronephrosis - vancomycin, MEROPENEM - monitor labs - surgical consult appreciated: Recommend, repeat a CT of the abdomen and pelvis with IV contrast for better evaluation. If it really is a 2.4 cm abscess this is quite small and may not be amenable to percutaneous , conservative treatment with IV antibiotics. - ordered blood culture # Sacral wound/abscess, present on admission - full thickness, with pus ozzing -antibiotics as above # history of valley fever Hematology : # symptomatic anemia # likely iron-deficiency anemia - transfuse if it is less than 7 - 1 PRBC - consulted GI - ordered iron panel - SOB pending Nutrition : # Severe malnutrition # hypokalemia, severe - replenished - continuously monitor labs Prophylaxis PUD : IV Protonix 40 mg daily DVT: SCD Diet: Clinimix Invasive access : Jones catheter : Placed on 04/04/25 Endotracheal tube : Placed on 04/05/2025 Rt IJ central line : Placed on 04/05/2025 Drips: Levophed off Fentanyl 0 Vasopressin off Talked to his daughter (Pineda [phone]), updated her about patient's condition and management plan. Goals of care, full code status for now Critical Care time spent 53 minutes including patient care, chart review and updating family, excluding procedure. Family meeting done today with daughter Nilo and patient's friend, explained all the concerns and choose DNR DNI and comfort measures but patient is legal organ donor so [facility] is taking over the patient Plan discussed with Dr Ayala Plan discussed with: Patient's daughter Plan discussed with: Daughter My Orders My Orders Orders - JASWANT LOMBARDO RESIDENT Procedure Category Date Status Time Clinimix Per Pharmacy SHAUN 04/08/25 In Process 18:00 Abg W/ Co-Ox RT 04/09/25 Logged 05:18 Clinimix Per Pharmacy SHAUN 04/09/25 In Process 22:00 Morphine Sulfate PHA 04/09/25 In Process Injection 10:15 Lorazepam 2mg/Ml Inj PHA 04/09/25 In Process (Ativan Inj) 10:15 Clinimix Per Pharmacy PHA 04/09/25 In Process 14:15 Lactated Ringer's PHA 04/09/25 In Process 14:15 Comprehensive LAB 04/10/25 Verified Metabolic Panel 05:00 Magnesium LAB 04/10/25 Verified 05:00 Phosphorus LAB 04/10/25 Verified 05:00 Potassium Chl PHA 04/09/25 In Process 20meq/100ml 15:00 Amino Acid Infusion PHA 04/09/25 In Process In D10w (Clinimix 4. 22:00 Dietary Evaluation Review Comments: Advance to diet as toleratedd after EGD Offer nutrition oral supplementation if PO intake<50% Iron supplementation Reassess PRN Expected Outcomes/Goals: Improved PO intake to meet at least 75% of his needs Improved iron status Graudal wt gain Date of Service: Apr 09, 2025 Billing Provider: ALISSON NOBLE MD Common Visit Codes: [id number] INP/OBS CARE(HIGH) JASWANT LOMBARDO RESIDENT Apr 09, 2025 18:27 ALISSON NOBLE MD Apr 15, 2025 00:11
[2025-04-09] MEDS: AMINO ACID INFUSION IN D10W 1,000 ML IV SCH (22:32)
--- NOTE | 2025-04-09 23:35 | DVHPN2 ---
Progress Note - Dictate Date Seen: Apr 09, 2025 Medical Necessity Reason Pt with a Central, PICC or Fol: Yes The following are medically ne: Jones Catheter Reason for jones catheter: Bladder Retention/Obstruc, Strict I&O Subjective Patient seen and examined at bedside. intubated on mechanical ventilator. Overnight events reviewed. vital signs Vital Sign Date Time Temp Pulse Resp B/P (MAP) Pulse Ox O2 Delivery O2 Flow Rate FiO2 04/09/25 19:45 69 22 108/67 (81) 98 30 04/09/25 18:45 98.6 209.5 04/09/25 18:00 Mechanical Ventilator+ Total Intake and Output 04/08/25 04/08/25 04/09/25 15:00 23:00 07:00 Intake Total 1724.5 ml 1020 ml 825 ml Output Total 2000 ml Balance 1724.5 ml 1020 ml -1175 ml medications Current Medications Medications Dose Ordered Sig/Lakhwinder Route Start Time Stop Time Status Last Admin Dose Admin Vancomycin HCl 0 ml @ 0 mls/hr UD IV 04/03/25 15:30 Potassium Chloride 100 ml @ 50 mls/hr Q2H IV 04/09/25 09:45 04/09/25 13:44 UNV Morphine Sulfate 2 mg Q1HP PRN IV 04/09/25 10:15 Lorazepam 1 mg Q1HP PRN IV 04/09/25 10:15 Amino Acids 0 ml @ 0 mls/hr PER PHARMACY IV 04/09/25 14:15 Lactated Ringer's 1,000 ml @ 60 mls/hr [id number] IV 04/09/25 14:15 04/09/25 14:15 60 MLS/HR Amino Acids/ Electrolytes/ Dextrose 1,000 ml @ 41 mls/hr DAILY@2200 IV 04/09/25 22:00 04/09/25 22:32 41 MLS/HR objective Gen.: Patient lying in bed in medical ICU. Intubated on mechanical ventilator. Head: Normocephalic, atraumatic. Eyes: PERRLA. Ears: Normal external anatomy. Throat: Endotracheal tube and orogastric tube in place. Neck: Supple, trachea midline. Chest: Transmitted breath sounds bilaterally. Decreased air entry bilaterally. No wheezing. Bibasilar crackles. Cardiovascular: Positive S1, positive S2. Regular rate and rhythm. Abdomen: Positive bowel sounds in all 4 quadrants. Soft, nontender, nondistended. : Jones in place. Normal external genitalia. Rectal: Deferred. Skin: Warm, dry. Intact. Extremities: 2+ radial pulses bilaterally. No lower extremity edema. Neuro: Off sedation laboratory and microbiology Laboratory Tests 04/09/25 03:08 Test 04/09/25 03:08 Range/Units Serum Glucose 125 H 74-106 mg/dL Assessment/Plan Impression: Acute hypoxic respiratory failure On mechanical ventilator Sepsis Left psoas muscle abscess Acute kidney injury Anemia Events: Remains on vent support On AC mode; RR 22, VT 500, PEEP 5, FiO2 30% Taper FiO2 as tolerated Remains off sedation On pressors for hemodynamic support On antibiotics IV fluids with LR at 100 ml/hr. Monitor hemoglobin Transfuse if less than 7.0 g/dL. Clinimix for nutritional support CT head notable for tonsillar herniation. Neurology recommendations appreciated. Overall poor prognosis. Poor chance of meaningful recovery. Discussion with family regarding goals of care Family has agreed for compassionate extubation. EEG was done Plan for apnea test. Labs and imaging reviewed. Plan: s/p intubation on mechanical ventilator. On AC mode; RR 22, VT 500, PEEP 5, FiO2 30% Titrate FIO2 to keep O2 saturation above 90%. VAP bundle. Daily ABG and CXR while intubated Off sedation NGT noted with bilious material. Continue antibiotics for psoas infection F/u cultures. Follow up ID recommendations IV fluids with LR at 100 ml/hr. On pressors for hemodynamic support Titrate to keep mean arterial pressure greater than 65 mmHg. Follow up Cardiology recommendations. Monitor for bradycardia Monitor hemoglobin Transfuse if less than 7.0 g/dL. Monitor renal function Monitor electrolytes. Supplement as necessary. Monitor ins and outs. GI prophylaxis. DVT prophylaxis. Prognosis: Poor given patient's multiple co-morbidities. Condition: Critical Rest of plan per hospitalist and other consultants. A total of 35 minutes of critical care time was spent reviewing the patient record, examining the patient, making a diagnostic and therapeutic plan, discussing this plan with the medical personnel, following up on diagnostic studies and following the patient for clinical stability excluding any and all procedures. At least 50% of this time was spent in direct, [id number] contact. Thank you, , for allowing me to participate in this patient's care. Further recommendations will depend on the patient's clinical course. Please do not hesitate to contact me if you have any questions or concerns. This medical document was created using an electronic medical record system with [employer] dictation system. Although these documentations are being carefully reviewed, there may still be some phonetic and typographical changes. The errors are purely typographical, due to imperfection on the software program, and do not reflect any compromise in the patient's medical care. Dietary Evaluation Review Comments: Advance to diet as toleratedd after EGD Offer nutrition oral supplementation if PO intake<50% Iron supplementation Reassess PRN Expected Outcomes/Goals: Improved PO intake to meet at least 75% of his needs Improved iron status Graudal wt gain Plan discussed with: Other (GREETL Xie) Critical Care Time(min): 35 SUKUMAR STARK MD Apr 09, 2025 23:35
[2025-04-09 23:50] LABS: Base Excess -0.4 mmol/L (-2.0-3.0)
[2025-04-10] VITALS (114 sets, daily range): BP systolic 79–134; BP diastolic 44–78; PULSE 52–80; RESP 0–27; TEMP 93.9–100.2; O2SAT 67–100
[2025-04-10 03:44] LABS: Hemoglobin 7.3 g/dL (13.5-17.5)
[2025-04-10 03:45] LABS: INR 1.29 (0.9-1.15); Partial Thromboplastin Time 32.5 SEC (24.5-34.5); Prothrombin Time 13.3 sec (9.3-11.8)
[2025-04-10 03:47] LABS: Hematocrit 22.0 % (41.0-53.0); Mean Corpuscular Hemoglobin 23.6 pg (28.0-32.0); Mean Corpuscular Volume 71.4 fL (80.0-100.0); Nucleated Red Blood Cells % 0.2 %
[2025-04-10 04:04] LABS: Alanine Aminotransferase 30 U/L (7-40); Anion Gap 11 (5-15); BUN/Creatinine Ratio 26.5 (10.0-20.0); Bilirubin, Direct 0.1 mg/dL (<0.3); Carbon Dioxide 25 mmol/L (20-31); Magnesium 2.3 mg/dL (1.6-2.6); Total Protein 6.0 g/dL (5.7-8.2)
[2025-04-10 04:05] LABS: Bilirubin, Total 0.3 mg/dL (0.2-1.0)
[2025-04-10 04:06] LABS: Chloride 118 mmol/L (98-107); Glucose 110 mg/dL (74-106); Potassium 3.3 mmol/L (3.5-5.1); Sodium 154 mmol/L (136-145)
[2025-04-10 04:07] LABS: Albumin 2.6 g/dL (3.2-4.8); Alkaline Phosphatase 189 U/L (46-116); Amylase 156 U/L (30-118); Blood Urea Nitrogen 39 mg/dL (9-23); Calcium 7.5 mg/dL (8.7-10.4); Creatine Kinase IFCC 202 U/L (46-171)
[2025-04-10 04:19] LABS: Lipase 90 U/L (12-53)
[2025-04-10] MEDS: POTASSIUM CHL 20MEQ/100ML 100 ML IV ONE (06:53)
--- NOTE | 2025-04-10 08:07 | ECG ---
[facility] Test Date: 2025-04-09 Test Time: 23:34:05 Pat Name: MYLES GARCIA Department: ICU Room: [address] [place] [address] A Gender: M [employer]: Lola : 1965 Requested By: EUGENIA MAY Order Number: [id number] Reading MD: Ulysses Mae Measurements Intervals [place] Rate: 53 P: 22 MS: 170 QRS: 13 QRSD: 134 T: 52 QT: 492 QTc: 462 Interpretive Statements Sinus rhythm Left bundle branch block Electronically Signed On 04-11-2025 14:39:06 PDT by Ulysses Mae Please click the below link to view image of tracing.
[2025-04-10] MEDS: NOREPINEPHRINE 8 MG/250ML KIT 250 ML IV SCH (09:00)
[2025-04-10] MEDS: NOREPINEPHRINE 8 MG/250ML KIT 250 ML IV ONE (09:25)
[2025-04-10 10:36] LABS: Hematocrit 24.3 % (41.0-53.0); Hemoglobin 7.8 g/dL (13.5-17.5); Mean Corpuscular Hemoglobin 23.2 pg (28.0-32.0); Mean Corpuscular Volume 72.2 fL (80.0-100.0); Nucleated Red Blood Cells % 0.2 %
[2025-04-10 10:51] LABS: INR 1.3 (0.9-1.15); Partial Thromboplastin Time 30.4 SEC (24.5-34.5); Prothrombin Time 13.4 sec (9.3-11.8)
[2025-04-10 10:58] LABS: Alanine Aminotransferase 33 U/L (7-40); Anion Gap 11 (5-15); BUN/Creatinine Ratio 26.6 (10.0-20.0); Bilirubin, Direct 0.1 mg/dL (<0.3); Bilirubin, Total 0.3 mg/dL (0.2-1.0); Carbon Dioxide 24 mmol/L (20-31); Glucose 92 mg/dL (74-106); Magnesium 2.3 mg/dL (1.6-2.6); Potassium 3.6 mmol/L (3.5-5.1); Total Protein 6.3 g/dL (5.7-8.2)
[2025-04-10 10:59] LABS: Albumin 2.8 g/dL (3.2-4.8); Alkaline Phosphatase 198 U/L (46-116); Amylase 280 U/L (30-118); Blood Urea Nitrogen 41 mg/dL (9-23); Calcium 7.6 mg/dL (8.7-10.4); Chloride 120 mmol/L (98-107); Creatine Kinase IFCC 181 U/L (46-171); Sodium 155 mmol/L (136-145)
[2025-04-10 11:20] LABS: Base Excess 0.4 mmol/L (-2.0-3.0)
[2025-04-10 11:20] LABS: Lipase 151 U/L (12-53)
[2025-04-10 12:29] LABS: Urine Protein, UAD Negative (Negative)
--- NOTE | 2025-04-10 14:03 | DVHPN2 ---
Progress Note Date Seen: Apr 10, 2025 Resident Creating Document: KISHA BLUM RESIDENT Medical Necessity Reason Pt with a Central, PICC or Fol: Yes The following are medically ne: Jones Catheter Reason for jones catheter: Bladder Retention/Obstruc, Strict I&O Subjective Review of Systems Patient seen and examined at bedside Respiratory rate 22, tidal volume 500, FiO2 30%, peep of 5 Stable hemoglobin at 7.8, overnight T-max 99.9 On Clinimix Objective vital signs Vital Sign Date Time Temp Pulse Resp B/P (MAP) Pulse Ox O2 Delivery O2 Flow Rate FiO2 04/10/25 12:00 97.3 67 22 100/61 (74) 97 207.1 04/10/25 10:12 30 04/10/25 06:00 Mechanical Ventilator+ Total Intake and Output 04/09/25 04/09/25 04/10/25 15:00 23:00 07:00 Intake Total 377 ml 621 ml 858 ml Output Total 1400 ml 1925 ml Balance 377 ml -779 ml -1067 ml medications Current Medications Medications Dose Ordered Sig/Lakhwinder Route Start Time Stop Time Status Last Admin Dose Admin Vancomycin HCl 0 ml @ 0 mls/hr UD IV 04/03/25 15:30 Potassium Chloride 100 ml @ 50 mls/hr Q2H IV 04/09/25 09:45 04/09/25 13:44 UNV Morphine Sulfate 2 mg Q1HP PRN IV 04/09/25 10:15 Lorazepam 1 mg Q1HP PRN IV 04/09/25 10:15 Amino Acids 0 ml @ 0 mls/hr PER PHARMACY IV 04/09/25 14:15 Lactated Ringer's 1,000 ml @ 60 mls/hr [id number] IV 04/09/25 14:15 04/10/25 05:25 60 MLS/HR Amino Acids/ Electrolytes/ Dextrose 1,000 ml @ 41 mls/hr DAILY@2200 IV 04/09/25 22:00 04/09/25 22:32 41 MLS/HR Norepinephrine Bitartrate 250 ml @ 3.75 mls/hr Q24H IV 04/10/25 09:00 04/10/25 09:00 3.75 MLS/HR Desmopressin Acetate 1 mcg BID IV 04/10/25 13:45 UNV Examination General Appearance: Sedated, intubated on mechanical ventilation Head Exam: Bilateral dilated pupils, nonreactive Pulmonary/Respiratory: Bilateral air entry Cardiovascular/Chest: Regular rate and rhythm. No murmurs. No JVD. Abdominal Exam: Normal bowel sounds. Soft. normal abdomen, no visible veins, Nontender. No hepatospenomegaly. No masses Lower extremities: Trace lower extremity edema Skin Exam: Normal inspection. Normal color. Warm. Dry. Hyperpigmented patches noted on bilateral anterior shins. laboratory and microbiology Laboratory Tests 04/10/25 10:00 Test 04/10/25 10:00 Range/Units Serum Glucose 92 74-106 mg/dL Microbiology Date/Time Source Procedure Growth Status 04/05/25 17:30 Sputum Gram Stain - Final Complete 04/05/25 17:30 Respiratory Culture - Final Staphylococcus aureus Complete 04/05/25 16:25 Nose MRSA Screen - Final Complete 04/03/25 11:27 Blood Blood Culture - Final NO GROWTH AFTER 5 DAYS OF INCUBATION. Complete Labs and/or images reviewed: Labs reviewed by me, Image(s) reviewed by me Problem List/Assessment/Plan Problem List/Assessment/Plan Microcytic hypochromic anemia, blood loss versus nutritional Intractable nausea and vomiting Acute urinary retention History of [facility] fever Sacral wound Cerebral edema, diffuse and generalized Cerebellar tonsillar herniation Plan: Patient has critical findings on the head CT requiring neurology consultation Patient does have cholelithiasis with gallbladder hydrops however he is not a surgical candidate at this time Continue supportive care, continue to monitor labs IV steroids IV antibiotics IV Protonix 40 mg daily Midodrine Vancomycin, meropenem Clinimix Stool occult blood Thank you so much for the opportunity to consult on your patient. GI team will follow the patient. In case of any questions or concerns please feel free to reach out. Plan discussed with Dr. Albright Plan discussed with: Other (RN) Dietary Evaluation Review Comments: Advance to diet as toleratedd after EGD Offer nutrition oral supplementation if PO intake<50% Iron supplementation Reassess PRN Expected Outcomes/Goals: Improved PO intake to meet at least 75% of his needs Improved iron status KISHA Prieto RESIDENT Apr 10, 2025 14:03
--- NOTE | 2025-04-10 14:31 | PRN ---
Misceleneous Note Note Note Brain evaluation I have done a thorough evaluation of cortical and brain stem function. Patient is off sedatives for more than 24 hours, nonresponsive to voice or sternal rub or painful stimuli. To evaluate brainstem function, we find fixed dilated pupils, nonresponsive to light stimuli. Patient has doll's eye positive/oculocephalic reflex absent. There is no corneal reflex. Patient has no cough gag seaman reflex. Patient also fails caloric test bilaterally. Patient unable to maintain core temperature, requiring John Hugger to maintain attempts. We defer apnea test to avoid cardiac arrest and allow 2nd specialty physician to evaluate brain , pulmonology to evaluate for apnea test. Time of evaluation: 1400 Alisson Ayala MD 04/10/2025 ALISSON NOBLE MD Apr 10, 2025 14:31
--- NOTE | 2025-04-10 14:39 | DVHPNRES ---
Progress Note Date Seen: Apr 10, 2025 Resident Creating Document: JASWANT LOMBARDO RESIDENT Medical Necessity Reason Pt with a Central, PICC or Fol: Yes The following are medically ne: Jones Catheter Reason for jones catheter: Bladder Retention/Obstruc, Strict I&O Subjective Review of Systems A 60-year-old male with a history of Valley Fever, chronic sacral wound, right foot drop, and recurrent anemia presented to the ED with hemoglobin of 7.7, weakness, and nausea. 04/04, he was disoriented and pulled out his Jones catheter, causing bleeding; a new Jones was placed after Urology consult, and Haldol was given for agitation. Wound care evaluated a chronic sacral wound and initiated appropriate dressing and culture. GI consult planned EGD for 04/05. 04/05, the patient remained confused and complained of sacral wound pain. CT abdomen/pelvis was ordered, and thiamine/folic acid started for suspected alcohol withdrawal. EGD was canceled due to inability to consent; daughter was expected to arrive for consent. Renal ultrasound showed moderate left hydronephrosis; outpatient cystoscopy was advised. Later, the patient became more altered and was intubated for airway protection, then transferred to ICU on mechanical ventilation. RR 20, VTE for 500, peep 5, FiO2 30% 04/06: seen and examined at the bedside. Unable to obtain ROS due to patient's clinical status. 04/07: Seen and examined at the bedside. Family at bedside. Unable to obtain ROS due to patient's clinical status currently intubated and on mechanical ventilation RR 20, VTE 500, peep 5 and FiO2 30%. Currently weaning off from the sedation. Due to lack of reflexes patient was ordered head CT And weaning off from sedation. Added vasopressin, hydrocortisone and midodrine. Pending CT abdominal pelvis with the contrast due to given kidney function but advised to give bolus and proceed with a CT scan. 04/08: CT results showed severe global cerebral and cerebellar edema with tonsillar herniation and obliteration of basal cisterns and the ventricular system. Consulted Neurology, recommended supportive management and recommended that likely having poor prognosis for meaningful recovery. Continuing current management, discontinue bicarbonate drip 04/09 : Patient seen and examined at the bedside. Unable to obtain ROS due to patient's clinical status. Family discussion done choosing comfort measures met patient is organ donor, [facility] is taking over the patient. history 04/10: Patient is seen and examined at the bedside. Unable to obtain ROS due to patient's clinical status. Doing brain did evaluation today after that [facility] will take over with the patient. Changes from previous H/P or p: No Changes Objective vital signs Vital Sign Date Time Temp Pulse Resp B/P (MAP) Pulse Ox O2 Delivery O2 Flow Rate FiO2 04/10/25 12:00 97.3 67 22 100/61 (74) 97 207.1 04/10/25 10:12 30 04/10/25 06:00 Mechanical Ventilator+ Total Intake and Output 04/09/25 04/09/25 04/10/25 15:00 23:00 07:00 Intake Total 377 ml 621 ml 858 ml Output Total 1400 ml 1925 ml Balance 377 ml -779 ml -1067 ml medications Current Medications Medications Dose Ordered Sig/Lakhwinder Route Start Time Stop Time Status Last Admin Dose Admin Vancomycin HCl 0 ml @ 0 mls/hr UD IV 04/03/25 15:30 Potassium Chloride 100 ml @ 50 mls/hr Q2H IV 04/09/25 09:45 04/09/25 13:44 UNV Morphine Sulfate 2 mg Q1HP PRN IV 04/09/25 10:15 Lorazepam 1 mg Q1HP PRN IV 04/09/25 10:15 Amino Acids 0 ml @ 0 mls/hr PER PHARMACY IV 04/09/25 14:15 Lactated Ringer's 1,000 ml @ 60 mls/hr [id number] IV 04/09/25 14:15 04/10/25 05:25 60 MLS/HR Amino Acids/ Electrolytes/ Dextrose 1,000 ml @ 41 mls/hr DAILY@2200 IV 04/09/25 22:00 04/09/25 22:32 41 MLS/HR Norepinephrine Bitartrate 250 ml @ 3.75 mls/hr Q24H IV 04/10/25 09:00 04/10/25 09:00 3.75 MLS/HR Desmopressin Acetate 1 mcg BID IV 04/10/25 13:45 UNV Examination Patient lying in bed, on mechanical ventilation General: RASS -3, afebrile, mucosae are moist Cardiovascular: Normal S1 and S2. No murmurs, gallops or rubs Respiratory: Intubated on mechanical ventilation with the vent settings RR 20, VTE 500, FiO2 30%, peep 5 Abdomen: Soft, nontender, no organomegaly, normal bowel sounds MSK/skin: Mobilization of limbs cannot be evaluated. Skin is dry and warm Neurological: Orientation cannot be assessed. No apparent motor no sensitive deficits. Pupillary and gag reflex not noted laboratory and microbiology Laboratory Tests 04/10/25 10:00 Test 04/10/25 10:00 Range/Units Serum Glucose 92 74-106 mg/dL Microbiology Date/Time Source Procedure Growth Status 04/05/25 17:30 Sputum Gram Stain - Final Complete 04/05/25 17:30 Respiratory Culture - Final Staphylococcus aureus Complete 04/05/25 16:25 Nose MRSA Screen - Final Complete 04/03/25 11:27 Blood Blood Culture - Final NO GROWTH AFTER 5 DAYS OF INCUBATION. Complete Labs and/or images reviewed: Labs reviewed by me, Image(s) reviewed by me Problem List/Assessment/Plan Problem List/Assessment/Plan Neurology : # Acute metabolic/hypoxic/toxic encephalopathy due to sepsis # Brain edema, etiology unclear ? Hypoxic encephalopathy ? Sepsis, septic shock - patient is intubated and sedated - maintain ventilation setting -coming down from sedation, currently off of sedation -repeat CT head showed diffuse cerebral and cerebellar edema with a tonsillar herniation Cardiovascular : # septic shock -currently on Levophed and added vasopressin today along with midodrine -continue IVF Respiratory : # possible Gram-positive/negative bacterial pneumonia - continue current antibiotic, meropenem and vancomycin - Intubated on mechanical ventilation with the vent settings RR 20, VTE 500, FiO2 30%, peep 5 - pulmonology consult Gastrointestinal : # Persistent nausea and vomiting -canceled schedule EGD for today due to patient being more agitated and altered -now patient is intubated # cholelithiasis with gallbladder hydrops -he is not a surgical candidate at this time Genitourinary : # MARGARITA, likely due to VMN or obstructive uropathy # acute urinary retention # ruled out UTI or pyelonephritis - moderate to severe left hydronephrosis, likely obstructive from above - CT abd/ pel showed asymmetric enlargement of the left psoas muscle with possible abscess or phlegmonous and moderate to severe left hydroureteronephrosis - inserted Jones - antibiotics as above Infectious Disease : # sepsis due to left psoas muscle with possible abscess or phlegmonous - IVF - CT abd/ pel showed asymmetric enlargement of the left psoas muscle with possible abscess or phlegmonous and moderate to severe left hydroureteronephrosis - vancomycin, MEROPENEM - monitor labs - surgical consult appreciated: Recommend, repeat a CT of the abdomen and pelvis with IV contrast for better evaluation. If it really is a 2.4 cm abscess this is quite small and may not be amenable to percutaneous , conservative treatment with IV antibiotics. - ordered blood culture # Sacral wound/abscess, present on admission - full thickness, with pus ozzing -antibiotics as above # history of valley fever Hematology : # symptomatic anemia # likely iron-deficiency anemia - transfuse if it is less than 7 - 1 PRBC - consulted GI - ordered iron panel - SOB pending Nutrition : # Severe malnutrition # hypokalemia, severe - replenished - continuously monitor labs Prophylaxis PUD : IV Protonix 40 mg daily DVT: SCD Diet: Clinimix Invasive access : Jones catheter : Placed on 04/04/25 Endotracheal tube : Placed on 04/05/2025 Rt IJ central line : Placed on 04/05/2025 Drips: Levophed off Fentanyl 0 Vasopressin off Talked to his daughter (Pineda [phone]), updated her about patient's condition and management plan. Goals of care, full code status for now Critical Care time spent 53 minutes including patient care, chart review and updating family, excluding procedure. Family meeting done 04/09/25 with daughter Nilo and patient's friend, explained all the concerns and choose DNR DNI and comfort measures but patient is legal organ donor so [facility] is taking over the patient once brain declared by two physicians. Plan discussed with Dr Ayala Plan discussed with: Patient's daughter Plan discussed with: Daughter My Orders My Orders Orders - JASWANT LOMBARDO RESIDENT Procedure Category Date Status Time Amino Acid Infusion PHA 04/09/25 In Process In D10w (Clinimix 4. 22:00 Code Status CODE 04/10/25 Transmitted 07:14 DNR SHAUN 04/10/25 In Process 07:14 Comprehensive LAB 04/11/25 Verified Metabolic Panel 04:00 Phosphorus LAB 04/11/25 Verified 04:00 Magnesium LAB 04/11/25 Verified 04:00 Clinimix Per Pharmacy SHAUN 04/10/25 In Process 22:00 Desmopressin PHA 04/10/25 Logged Injection (Ddavp 13:45 Dietary Evaluation Review Comments: Advance to diet as toleratedd after EGD Offer nutrition oral supplementation if PO intake<50% Iron supplementation Reassess PRN Expected Outcomes/Goals: Improved PO intake to meet at least 75% of his needs Improved iron status Graudal wt gain Date of Service: Apr 10, 2025 Billing Provider: ALISSON NOBLE MD Common Visit Codes: [id number] INP/OBS CARE(HIGH) JASWANT LOMBARDO RESIDENT Apr 10, 2025 14:39 ALISSON NOBLE MD Apr 15, 2025 00:30
--- NOTE | 2025-04-10 15:44 | DVH ---
INDICATION: evaluate lung status TECHNIQUE: Single frontal view of the chest was obtained COMPARISON: XY CHEST PORTABLE on DOS: 04/08/25, XY CHEST XRAY 1 VIEW on DOS: 04/07/25, XY CHEST PORTABLE on DOS: 04/06/25, XY CHEST PORTABLE on DOS: 04/05/25, XY CHEST PORTABLE on DOS: 04/05/25, XY CHEST PORT ABLE on DOS: 04/08/25 FINDINGS: Lines and Tubes: Unchanged. Lungs: Stable appearing bibasilar pulmonary airspace disease and bilateral pleural effusions. No pneumothorax. Cardiomediastinal contours: Unremarkable Bones: Unremarkable IMPRESSION: 1. Stable bibasilar pulmonary airspace disease and bilateral pleural effusions. 2. Lines and tubes unchanged.
[2025-04-10] MEDS: DESMOPRESSIN ACET 4 MCG/1 ML AMPULE IV SCH (15:50)
[2025-04-10] MEDS ORDERED: VANCOMYCIN 1GM/250ML KIT 250 ML IV ONE (16:00)
[2025-04-10] MEDS: D5W 5% 1,000 ML IV SCH (17:59)
[2025-04-10] MEDS ORDERED: ARTIFICIAL TEARS 15ml EACHEYE PRN (18:45)
--- NOTE | 2025-04-10 20:29 | DVHPN2 ---
Progress Note - Dictate Date Seen: Apr 10, 2025 Medical Necessity Reason Pt with a Central, PICC or Fol: Yes The following are medically ne: Jones Catheter Reason for jones catheter: Bladder Retention/Obstruc, Strict I&O Subjective Patient seen and examined at bedside. intubated on mechanical ventilator. Overnight events reviewed. vital signs Vital Sign Date Time Temp Pulse Resp B/P (MAP) Pulse Ox O2 Delivery O2 Flow Rate FiO2 04/10/25 18:45 97.0 61 21 106/62 (77) 97 206.6 04/10/25 18:30 30 04/10/25 18:00 Mechanical Ventilator+ Total Intake and Output 04/09/25 04/09/25 04/10/25 14:59 22:59 06:59 Intake Total 478 ml 520 ml 808 ml Output Total 1400 ml 1925 ml Balance 478 ml -880 ml -1117 ml medications Current Medications Medications Dose Ordered Sig/Lakhwinder Route Start Time Stop Time Status Last Admin Dose Admin Vancomycin HCl 0 ml @ 0 mls/hr UD IV 04/03/25 15:30 Potassium Chloride 100 ml @ 50 mls/hr Q2H IV 04/09/25 09:45 04/09/25 13:44 UNV Morphine Sulfate 2 mg Q1HP PRN IV 04/09/25 10:15 Lorazepam 1 mg Q1HP PRN IV 04/09/25 10:15 Amino Acids 0 ml @ 0 mls/hr PER PHARMACY IV 04/09/25 14:15 Amino Acids/ Electrolytes/ Dextrose 1,000 ml @ 41 mls/hr DAILY@2200 IV 04/09/25 22:00 04/09/25 22:32 41 MLS/HR Norepinephrine Bitartrate 250 ml @ 3.75 mls/hr Q24H IV 04/10/25 09:00 04/10/25 09:00 3.75 MLS/HR Desmopressin Acetate 1 mcg BID IV 04/10/25 13:45 04/10/25 15:50 1 MCG Dextrose 1,000 ml @ 50 mls/hr Q20H IV 04/10/25 16:30 04/10/25 17:59 50 MLS/HR Artificial Tears 1 drop Q2HP PRN EACHEYE 04/10/25 18:45 objective Gen.: Patient lying in bed in medical ICU. Intubated on mechanical ventilator. Head: Normocephalic, atraumatic. Eyes: PERRLA. Ears: Normal external anatomy. Throat: Endotracheal tube and orogastric tube in place. Neck: Supple, trachea midline. Chest: Transmitted breath sounds bilaterally. Decreased air entry bilaterally. No wheezing. Bibasilar crackles. Cardiovascular: Positive S1, positive S2. Regular rate and rhythm. Abdomen: Positive bowel sounds in all 4 quadrants. Soft, nontender, nondistended. : Jones in place. Normal external genitalia. Rectal: Deferred. Skin: Warm, dry. Intact. Extremities: 2+ radial pulses bilaterally. No lower extremity edema. Neuro: Off sedation laboratory and microbiology Laboratory Tests 04/10/25 10:00 Test 04/10/25 10:00 Range/Units Serum Glucose 92 74-106 mg/dL Assessment/Plan Impression: Acute hypoxic respiratory failure On mechanical ventilator Sepsis Left psoas muscle abscess Acute kidney injury Anemia Events: Remains on vent support On AC mode; RR 22, VT 500, PEEP 5, FiO2 30% Taper FiO2 as tolerated Remains off sedation Labs reviewed. Currently the electrolytes are deranged Sodium is 155 - recommend to correct sodium Change fluids to D5W and monitor sodium closely, goal is 150 or less. We can consider apnea test once electrolytes are corrected. CT head notable for tonsillar herniation and cerebral edema EEG was done Neurology recommendations appreciated. Continue antibiotics Overall very poor prognosis. Poor chance of meaningful recovery. Monitor hemoglobin Transfuse if less than 7.0 g/dL. Clinimix for nutritional support Monitor renal function Monitor electrolytes. Supplement as necessary. Monitor ins and outs. GI/DVT prophylaxis Labs and imaging reviewed. Plan: s/p intubation on mechanical ventilator. On AC mode; RR 22, VT 500, PEEP 5, FiO2 30% Titrate FIO2 to keep O2 saturation above 90%. VAP bundle. Daily ABG and CXR while intubated Off sedation NGT noted with bilious material. Continue antibiotics for psoas infection F/u cultures. Follow up ID recommendations IV fluids Pressors for hemodynamic support Titrate to keep mean arterial pressure greater than 65 mmHg. Follow up Cardiology recommendations. Monitor hemoglobin Transfuse if less than 7.0 g/dL. Monitor renal function Monitor electrolytes. Supplement as necessary. Monitor ins and outs. GI prophylaxis. DVT prophylaxis. Prognosis: Poor given patient's multiple co-morbidities. Condition: Critical Rest of plan per hospitalist and other consultants. A total of 35 minutes of critical care time was spent reviewing the patient record, examining the patient, making a diagnostic and therapeutic plan, discussing this plan with the medical personnel, following up on diagnostic studies and following the patient for clinical stability excluding any and all procedures. At least 50% of this time was spent in direct, [id number] contact. Thank you, , for allowing me to participate in this patient's care. Further recommendations will depend on the patient's clinical course. Please do not hesitate to contact me if you have any questions or concerns. This medical document was created using an electronic medical record system with [employer] dictation system. Although these documentations are being carefully reviewed, there may still be some phonetic and typographical changes. The errors are purely typographical, due to imperfection on the software program, and do not reflect any compromise in the patient's medical care. Dietary Evaluation Review Comments: Advance to diet as toleratedd after EGD Offer nutrition oral supplementation if PO intake<50% Iron supplementation Reassess PRN Expected Outcomes/Goals: Improved PO intake to meet at least 75% of his needs Improved iron status Graudal wt gain Plan discussed with: Other (RN) Critical Care Time(min): 35 SUKUMAR STARK MD Apr 10, 2025 20:29
[2025-04-10 22:20] LABS: Hematocrit 23.5 % (41.0-53.0); Hemoglobin 7.4 g/dL (13.5-17.5); Mean Corpuscular Hemoglobin 23.2 pg (28.0-32.0); Mean Corpuscular Volume 73.9 fL (80.0-100.0); Nucleated Red Blood Cells % 0.4 %
--- NOTE | 2025-04-10 22:24 | DVHPN2 ---
Progress Note - Dictate Date Seen: Apr 10, 2025 Medical Necessity Reason Pt with a Central, PICC or Fol: Yes The following are medically ne: Jonse Catheter Reason for jones catheter: Bladder Retention/Obstruc, Strict I&O Subjective Mr. Luna is a 60 years old gentleman with a history of hypertension, diabetes, anemia, iron deficiency, valley fever, he was [facility] to the [facility] 04[facility]03[facility]25 with a chief complaint of generalized weakness, body aching altered mental status. I have seen and examined the patient, I have discussed with his nurse, respiratory therapist and other medical staff, he remained nonresponsive his surroundings, no gag, no corneal reflexes After examining his tympanic membranes, I obtained negative cold caloric reflexes I performed apnea test, baseline blood pressure was 97/59, pulse ox 100, around 9 minutes into the apnea, his blood pressure dropped to 74/41, pulse ox to 90, there was no respiratory activity noticed, the test was terminated prematurely UDS, 03/2725: Cannabinoids Urinalysis, 04/03/25, unremarkable Wound culture, 04/04/2025: E coli Blood culture, 04/03/2025: WBC/HB/PLT/MCV, 04/08/2025: 17.4/6.5/210/70.3 PT/INR/PTT, 04/05/2025: 14.7/1.44/41.6 Na 04/10/2025: 154, quantity five BUN/CR, 04/08/2025: 21/1.52 GFR, 04/08/2025: 52 Lactic acid, T/02/24/2025: 3.7, 3.2, AST/: 1.4 TBI/AST/ALT/AP, 04/08/2025: 0.3/89/62/247 Vitamin B12, 04/05/25: 1154 Folic acid, 04/05/2025: 2.9 Chest x-ray, 04/05/2025: Cardiomegaly with pulmonary vascular congestion and bilateral patchy airspace opacities. Chest x-ray, 04/05/2025: The endotracheal tube now terminates approximately 5.7 cm from the larry. Pulmonary venous congestion and patchy bilateral airspace disease. This may represent pulmonary edema or Multifocal pneumonia. CT head, 04/05/2025: No acute intracranial abnormality (I saw evidence suggestive of diffuse brain edema) CT head, 04/07/2025: Severe global cerebral and cerebellar edema with cerebellar tonsillar herniation and obliteration of basal cisterns and the ventricular system. No acute intracranial hemorrhage is identified vital signs Vital Sign Date Time Temp Pulse Resp B/P (MAP) Pulse Ox O2 Delivery O2 Flow Rate FiO2 04/10/25 20:27 63 22 95/58 (70) 97 30 04/10/25 18:45 97.0 206.6 04/10/25 18:00 Mechanical Ventilator+ Total Intake and Output 04/09/25 04/09/25 04/10/25 15:00 23:00 07:00 Intake Total 377 ml 621 ml 858 ml Output Total 1400 ml 1925 ml Balance 377 ml -779 ml -1067 ml medications Current Medications Medications Dose Ordered Sig/Lakhwinder Route Start Time Stop Time Status Last Admin Dose Admin Vancomycin HCl 0 ml @ 0 mls/hr UD IV 04/03/25 15:30 Potassium Chloride 100 ml @ 50 mls/hr Q2H IV 04/09/25 09:45 04/09/25 13:44 UNV Morphine Sulfate 2 mg Q1HP PRN IV 04/09/25 10:15 Lorazepam 1 mg Q1HP PRN IV 04/09/25 10:15 Amino Acids 0 ml @ 0 mls/hr PER PHARMACY IV 04/09/25 14:15 Amino Acids/ Electrolytes/ Dextrose 1,000 ml @ 41 mls/hr DAILY@2200 IV 04/09/25 22:00 04/10/25 20:52 41 MLS/HR Norepinephrine Bitartrate 250 ml @ 3.75 mls/hr Q24H IV 04/10/25 09:00 04/10/25 09:00 3.75 MLS/HR Desmopressin Acetate 1 mcg BID IV 04/10/25 13:45 04/10/25 20:52 1 MCG Dextrose 1,000 ml @ 50 mls/hr Q20H IV 04/10/25 16:30 04/10/25 17:59 50 MLS/HR Artificial Tears 1 drop Q2HP PRN EACHEYE 04/10/25 18:45 objective The patient is well-nourished and well-developed with no distress. The patient is intubated MENTAL STATUS: Subjective CRANIAL NERVES: Pupils are equal, round and fixed, 6-7 mm. There are no corneal reflexes and doll's eyes phenomenon. No signs of facial weakness. There are no gagging or coughing reflexes SENSATION: No responses to pain stimuli. MOTOR: Normal tone in the upper and lower extremity. Normal muscle bulk. No fasciculations. No spontaneous movement. REFLEXES: Deep tendon reflexes are symmetrical. No pathological reflexes. CEREBELLAR/COORDINATION: Deferred GAIT/STATION: deferred. laboratory and microbiology Test 04/10/25 21:54 Range/Units Serum Glucose Pending Problem List Coma Metabolic encephalopathy Hypoxic encephalopathy Toxic encephalopathy Brain edema, etiology unclear ? Hypoxic encephalopathy ? Sepsis, septic shock Sepsis, septic shock Wound infection Anemia Iron deficiency The patient is brain Assessment/Plan Monitoring Supportive treatment ICU care Stabilize vitals/pressor drip Respiratory support/vent management IV antibiotics Oxygen Wound Care DVT prophylaxis Pulmonology on case More recommendation per clinical course He is to have a poor prognosis for meaningful/overall recovery This medical document was created using an electronic medical record system with [employer] dictation system. Although this document has been carefully reviewed, there may still be some phonetic and typographical errors. These areas are purely typographical due to imperfections of the software programs, and do not reflect any compromise in the patient's medical care. Prognosis guarded Dietary Evaluation Review Comments: Advance to diet as toleratedd after EGD Offer nutrition oral supplementation if PO intake<50% Iron supplementation Reassess PRN Expected Outcomes/Goals: Improved PO intake to meet at least 75% of his needs Improved iron status Graudal wt gain Plan discussed with: Other Critical Care Time(min): 50 JOCELYNN NATHAN MD Apr 10, 2025 22:24
[2025-04-10 22:32] LABS: INR 1.35 (0.9-1.15); Partial Thromboplastin Time 33.4 SEC (24.5-34.5); Prothrombin Time 13.9 sec (9.3-11.8)
[2025-04-10 22:33] LABS: Anion Gap 12 (5-15); BUN/Creatinine Ratio 30.2 (10.0-20.0); Carbon Dioxide 25 mmol/L (20-31); Creatine Kinase IFCC 159 U/L (46-171); Glucose 81 mg/dL (74-106); Magnesium 2.3 mg/dL (1.6-2.6); Potassium 3.6 mmol/L (3.5-5.1); Total Protein 6.0 g/dL (5.7-8.2)
[2025-04-10 22:34] LABS: Bilirubin, Total 0.7 mg/dL (0.2-1.0)
[2025-04-10 22:35] LABS: Alanine Aminotransferase 57 U/L (7-40); Albumin 2.6 g/dL (3.2-4.8); Alkaline Phosphatase 197 U/L (46-116); Amylase 398 U/L (30-118); Bilirubin, Direct 0.4 mg/dL (<0.3); Blood Urea Nitrogen 45 mg/dL (9-23); Calcium 7.6 mg/dL (8.7-10.4); Chloride 123 mmol/L (98-107); Sodium 160 mmol/L (136-145)
[2025-04-10 22:41] LABS: Urine Amorphous Crystal FEW /hpf (None Seen); Urine Protein, UAD Negative (Negative)
[2025-04-10 23:00] LABS: Lipase 196 U/L (12-53)
[2025-04-10 23:42] LABS: Base Excess 1.1 mmol/L (-2.0-3.0)
[2025-04-10] MEDS: VANCOMYCIN 1GM/250ML KIT 250 ML IV ONE (23:49)
[2025-04-11] VITALS (56 sets, daily range): BP systolic 89–118; BP diastolic 56–72; PULSE 55–76; RESP 19–22; TEMP 98.6–100.2; O2SAT 93–100
[2025-04-11 08:01] LABS: Base Excess 0.7 mmol/L (-2.0-3.0)
--- NOTE | 2025-04-11 10:24 | DVHPN2 ---
Progress Note Date Seen: Apr 11, 2025 Resident Creating Document: KISHA BLUM RESIDENT Medical Necessity Reason Pt with a Central, PICC or Fol: Yes The following are medically ne: Jones Catheter Reason for jones catheter: Bladder Retention/Obstruc, Strict I&O Subjective Review of Systems Patient seen and examined at bedside Respiratory rate 22, tidal volume 500, FiO2 30%, peep of 5 Stable hemoglobin at 7.3 On Clinimix Objective vital signs Vital Sign Date Time Temp Pulse Resp B/P (MAP) Pulse Ox O2 Delivery O2 Flow Rate FiO2 04/11/25 10:02 89/58 04/11/25 10:00 22 93 Mechanical Ventilator+ 30 30 04/11/25 10:00 72 04/11/25 07:00 98.8 209.8 Total Intake and Output 04/10/25 04/10/25 04/11/25 15:00 23:00 07:00 Intake Total 680.5 ml 433.00 ml 698 ml Output Total 1675 ml 1850 ml Balance 680.5 ml -1242.00 ml -1152 ml medications Current Medications Medications Dose Ordered Sig/Lakhwinder Route Start Time Stop Time Status Last Admin Dose Admin Vancomycin HCl 0 ml @ 0 mls/hr UD IV 04/03/25 15:30 Potassium Chloride 100 ml @ 50 mls/hr Q2H IV 04/09/25 09:45 04/09/25 13:44 UNV Morphine Sulfate 2 mg Q1HP PRN IV 04/09/25 10:15 Lorazepam 1 mg Q1HP PRN IV 04/09/25 10:15 Amino Acids 0 ml @ 0 mls/hr PER PHARMACY IV 04/09/25 14:15 Amino Acids/ Electrolytes/ Dextrose 1,000 ml @ 41 mls/hr DAILY@2200 IV 04/09/25 22:00 04/10/25 20:52 41 MLS/HR Norepinephrine Bitartrate 250 ml @ 3.75 mls/hr Q24H IV 04/10/25 09:00 04/11/25 04:08 15 MLS/HR Desmopressin Acetate 1 mcg BID IV 04/10/25 13:45 04/10/25 20:52 1 MCG Dextrose 1,000 ml @ 50 mls/hr Q20H IV 04/10/25 16:30 04/10/25 17:59 50 MLS/HR Artificial Tears 1 drop Q2HP PRN EACHEYE 04/10/25 18:45 Examination General Appearance: Sedated, intubated on mechanical ventilation Head Exam: Bilateral dilated pupils, nonreactive Pulmonary/Respiratory: Bilateral air entry Cardiovascular/Chest: Regular rate and rhythm. No murmurs. No JVD. Abdominal Exam: Normal bowel sounds. Soft. normal abdomen, no visible veins, Nontender. No hepatospenomegaly. No masses Lower extremities: Trace lower extremity edema Skin Exam: Normal inspection. Normal color. Warm. Dry. Hyperpigmented patches noted on bilateral anterior shins. laboratory and microbiology Laboratory Tests 04/10/25 21:54 Test 04/11/25 09:51 Range/Units Serum Glucose Pending Microbiology Date/Time Source Procedure Growth Status 04/10/25 00:15 Blood Blood Culture - Preliminary NO GROWTH AFTER 24 HOURS OF INCUBATION. 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 GI team will follow the patient. In case of any questions or concerns please feel free to reach out. Plan discussed with Dr. Albright Plan discussed with: Other (RN) Dietary Evaluation Review Comments: Advance to diet as toleratedd after EGD Offer nutrition oral supplementation if PO intake<50% Iron supplementation Reassess PRN Expected Outcomes/Goals: Improved PO intake to meet at least 75% of his needs Improved iron status Graudal wt KISHA Brambila RESIDENT Apr 11, 2025 10:23
--- NOTE | 2025-04-11 10:35 | DVHPN2 ---
Progress Note - Dictate Date Seen: Apr 11, 2025 Medical Necessity Reason Pt with a Central, PICC or Fol: Yes The following are medically ne: Jones Catheter Reason for jones catheter: Bladder Retention/Obstruc, Strict I&O Subjective Mr. Luna is a 60 years old gentleman with a history of hypertension, diabetes, anemia, iron deficiency, valley fever, he was brought to the [facility] on 04/03/2025 with a chief complaint of generalized weakness, body aching altered mental status. I have seen and examined the patient, I have discussed with his nurse, daughter and two nieces in the room. The patient has remained nonresponsive to strong painful stimuli, no brainstem reflexes on physical examination I have discussed with [facility] During the apnea test last evening, respiratory therapist obtained baseline ABG at 9:15 p.m., but I do not see follow up one after the test was terminated UDS, 03/2725: Cannabinoids Urinalysis, 04/03/25, unremarkable Wound culture, 04/04/2025: E coli Blood culture, 04/03/2025: WBC/HB/PLT/MCV, 04/08/2025: 17.4/6.5/210/70.3 PT/INR/PTT, 04/05/2025: 14.7/1.44/41.6 Na 04/10/2025: 154, 04/10/2025: 160 BUN/CR, 04/08/2025: 21/1.52 GFR, 04/08/2025: 52 Lactic acid, T/02/24/2025: 3.7, 3.2, AST/: 1.4 TBI/AST/ALT/AP, 04/08/2025: 0.3/89/62/247 Vitamin B12, 04/05/25: 1154 Folic acid, 04/05/2025: 2.9 Chest x-ray, 04/05/2025: Cardiomegaly with pulmonary vascular congestion and bilateral patchy airspace opacities. Chest x-ray, 04/05/2025: The endotracheal tube now terminates approximately 5.7 cm from the larry. Pulmonary venous congestion and patchy bilateral airspace disease. This may represent pulmonary edema or Multifocal pneumonia. CT head, 04/05/2025: No acute intracranial abnormality (I saw evidence suggestive of diffuse brain edema) CT head, 04/07/2025: Severe global cerebral and cerebellar edema with cerebellar tonsillar herniation and obliteration of basal cisterns and the ventricular system. No acute intracranial hemorrhage is identified vital signs Vital Sign Date Time Temp Pulse Resp B/P (MAP) Pulse Ox O2 Delivery O2 Flow Rate FiO2 04/11/25 10:02 89/58 04/11/25 10:00 22 93 Mechanical Ventilator+ 30 30 04/11/25 10:00 72 04/11/25 07:00 98.8 209.8 Total Intake and Output 04/10/25 04/10/25 04/11/25 15:00 23:00 07:00 Intake Total 680.5 ml 433.00 ml 698 ml Output Total 1675 ml 1850 ml Balance 680.5 ml -1242.00 ml -1152 ml medications Current Medications Medications Dose Ordered Sig/Lakhwinder Route Start Time Stop Time Status Last Admin Dose Admin Vancomycin HCl 0 ml @ 0 mls/hr UD IV 04/03/25 15:30 Potassium Chloride 100 ml @ 50 mls/hr Q2H IV 04/09/25 09:45 04/09/25 13:44 UNV Morphine Sulfate 2 mg Q1HP PRN IV 04/09/25 10:15 Lorazepam 1 mg Q1HP PRN IV 04/09/25 10:15 Amino Acids 0 ml @ 0 mls/hr PER PHARMACY IV 04/09/25 14:15 Amino Acids/ Electrolytes/ Dextrose 1,000 ml @ 41 mls/hr DAILY@2200 IV 04/09/25 22:00 04/10/25 20:52 41 MLS/HR Norepinephrine Bitartrate 250 ml @ 3.75 mls/hr Q24H IV 04/10/25 09:00 04/11/25 04:08 15 MLS/HR Desmopressin Acetate 1 mcg BID IV 04/10/25 13:45 04/10/25 20:52 1 MCG Dextrose 1,000 ml @ 50 mls/hr Q20H IV 04/10/25 16:30 04/10/25 17:59 50 MLS/HR Artificial Tears 1 drop Q2HP PRN EACHEYE 04/10/25 18:45 objective The patient is well-nourished and well-developed with no distress. The patient is intubated MENTAL STATUS: Subjective CRANIAL NERVES: Pupils are equal, round and fixed, 6-7 mm. There are no corneal reflexes and doll's eyes phenomenon. No signs of facial weakness. There are no gagging or coughing reflexes SENSATION: No responses to pain stimuli. MOTOR: Normal tone in the upper and lower extremity. Normal muscle bulk. No fasciculations. No spontaneous movement. REFLEXES: Deep tendon reflexes are symmetrical. No pathological reflexes. CEREBELLAR/COORDINATION: Deferred GAIT/STATION: deferred. laboratory and microbiology Test 04/11/25 09:51 Range/Units Serum Glucose Pending Problem List Coma Metabolic encephalopathy Hypoxic encephalopathy Toxic encephalopathy Brain edema, etiology unclear ? Hypoxic encephalopathy ? Sepsis, septic shock Sepsis, septic shock Wound infection Anemia Iron deficiency The patient is brain Assessment/Plan Monitoring Supportive treatment ICU care Stabilize vitals/pressor drip Respiratory support/vent management IV antibiotics Oxygen Wound Care DVT prophylaxis Pulmonology on case More recommendation per clinical course He is to have a poor prognosis for meaningful/overall recovery This medical document was created using an electronic medical record system with S[employer]res dictation system. Although this document has been carefully reviewed, there may still be some phonetic and typographical errors. These areas are purely typographical due to imperfections of the software programs, and do not reflect any compromise in the patient's medical care. Prognosis guarded Dietary Evaluation Review Comments: Advance to diet as toleratedd after EGD Offer nutrition oral supplementation if PO intake<50% Iron supplementation Reassess PRN Expected Outcomes/Goals: Improved PO intake to meet at least 75% of his needs Improved iron status Graudal wt gain Plan discussed with: Daughter, Other Critical Care Time(min): 40 JOCELYNN NATHAN MD Apr 11, 2025 10:35
--- NOTE | 2025-04-11 10:36 | ECG ---
[facility] Test Date: 2025-04-05 Test Time: 17:28:23 Pat Name: MYLES GARCIA Department: icu Room: [address] [place] [address] A Gender: M [employer] Teacher: kelvin : 1965 Requested By: ALISSON MCCRACKEN Order Number: [id number] Reading MD: Ulysses Mae Measurements Intervals Junction Rate: 63 P: 46 MA: 144 QRS: -15 QRSD: 111 T: 72 QT: 523 QTc: 536 Interpretive Statements Sinus arrhythmia Borderline left axis deviation Low voltage, extremity leads Abnormal inferior Q waves Prolonged QT interval Electronically Signed On 04-11-2025 14:29:17 PDT by Ulysses Mae Please click the below link to view image of tracing.
[2025-04-11 10:37] LABS: Hematocrit 23.4 % (41.0-53.0); Hemoglobin 7.3 g/dL (13.5-17.5)
--- NOTE | 2025-04-11 10:47 | DVHEEG2 ---
Neurology EEG Procedural Note Procedural Note EXAM DATE: 04/09/25 REFERRING DOCTOR: Dr. Nathan TECHNIQUE: Eighteen channels of EEG, 2 channels of EOG, and 1 channel of EKG were recorded using the International 10/20 system. CLINICAL DATA: The patient was referred for an EEG evaluation for the evidence of seizure disorder. MEDICATIONS: See chart BACKGROUND ACTIVITY: There was significant amount of electrode artifacts in the recording. This record showed diffuse low amplitude mixed delta and theta activity over both hemispheres ACTIVATION: Hyperventilation: Not done Photic Stimulation: Not done Sleep: Nonresponsiveness IMPRESSION: This is a remarkably abnormal EEG, this EEG seen in severe cerebral dysfunction due to metabolic/hypoxic encephalopathy or medication effects, please correlate clinically The EKG channel showed a regular heart rate of 74 per minute[place] [address]. JOCELYNN NATHAN MD Apr 11, 2025 10:46
[2025-04-11 10:52] LABS: Mean Corpuscular Hemoglobin 23.4 pg (28.0-32.0); Mean Corpuscular Volume 74.8 fL (80.0-100.0); Nucleated Red Blood Cells % 0.3 %
[2025-04-11 10:53] LABS: INR 1.45 (0.9-1.15); Partial Thromboplastin Time 35.6 SEC (24.5-34.5); Prothrombin Time 14.8 sec (9.3-11.8)
[2025-04-11 11:04] LABS: Anion Gap 11 (5-15); BUN/Creatinine Ratio 28.8 (10.0-20.0); Carbon Dioxide 25 mmol/L (20-31); Creatine Kinase IFCC 114 U/L (46-171); Glucose 79 mg/dL (74-106); Magnesium 2.3 mg/dL (1.6-2.6); Potassium 3.9 mmol/L (3.5-5.1); Total Protein 6.0 g/dL (5.7-8.2)
[2025-04-11 11:05] LABS: Alanine Aminotransferase 96 U/L (7-40); Albumin 2.6 g/dL (3.2-4.8); Alkaline Phosphatase 212 U/L (46-116); Amylase 388 U/L (30-118); Bilirubin, Direct 1.1 mg/dL (<0.3); Bilirubin, Total 1.5 mg/dL (0.2-1.0); Blood Urea Nitrogen 42 mg/dL (9-23); Calcium 7.8 mg/dL (8.7-10.4); Chloride 122 mmol/L (98-107); Sodium 158 mmol/L (136-145)
[2025-04-11 11:20] LABS: Lipase 203 U/L (12-53)
--- NOTE | 2025-04-12 15:32 | DVHDSRES ---
Discharge Summary Date of Admission Resident Creating Document: JASWANT RUTHERFORD RESIDENT Apr 03, 2025 at 15:10 Date of Discharge: Apr 11, 2025 Admitting Diagnosis Sepsis Labs/Diagnostic Data: Laboratory Results Test 04/11/25 09:51 04/11/25 07:50 04/10/25 22:10 04/10/25 21:54 White Blood Count 24.4 10^3/uL (4.4-10.8) Red Blood Count 3.13 10^6/uL (4.5-5.90) Hemoglobin 7.3 g/dL (13.5-17.5) Hematocrit 23.4 % (41.0-53.0) Mean Corpuscular Volume 74.8 fL (80.0-100.0) Mean Corpuscular Hemoglobin 23.4 pg (28.0-32.0) Mean Corpuscular Hemoglobin Concent 31.2 g/dL (32.0-36.0) Red Cell Distribution Width 22.4 % (11.8-14.3) Platelet Count 187 10^3/uL (140-450) Mean Platelet Volume 9.0 fL (6.9-10.8) Neutrophils (%) (Auto) 84.3 % (37.0-80.0) Lymphocytes (%) (Auto) 10.6 % (10.0-50.0) Monocytes (%) (Auto) 3.5 % (0.0-12.0) Eosinophils (%) (Auto) 1.5 % (0.0-7.0) Basophils (%) (Auto) 0.1 % (0.0-2.0) Neutrophils # (Auto) 20.6 10 ^3/uL (1.6-8.6) Lymphocytes # (Auto) 2.6 10 ^3/uL (0.4-5.4) Monocytes # (Auto) 0.8 10 ^3/uL (0-1.3) Eosinophils # (Auto) 0.4 10 ^3/uL (0-0.8) Basophils # (Auto) 0 10 ^3/uL (0-0.2) Nucleated Red Blood Cells 0.3 % Prothrombin Time 14.8 sec (9.3-11.8) Prothrombin Time INR 1.45 (0.9-1.15) Activated Partial Thromboplast Time 35.6 SEC (24.5-34.5) Sodium Level 158 mmol/L (136-145) Potassium Level 3.9 mmol/L (3.5-5.1) Chloride Level 122 mmol/L (98-107) Carbon Dioxide Level 25 mmol/L (20-31) Anion Gap 11 (5-15) Blood Urea Nitrogen 42 mg/dL (9-23) Creatinine 1.46 mg/dL (0.700-1.30) Glomerular Filtration Rate Calc 55 mL/min (>90) BUN/Creatinine Ratio 28.8 (10.0-20.0) Serum Glucose 79 mg/dL (74-106) Calcium Level 7.8 mg/dL (8.7-10.4) Phosphorus Level 4.7 mg/dL (2.4-5.1) Magnesium Level 2.3 mg/dL (1.6-2.6) Total Bilirubin 1.5 mg/dL (0.2-1.0) Direct Bilirubin 1.1 mg/dL (<0.3) Aspartate Amino Transferase (AST) 256 U/L (13-40) Alanine Aminotransferase (ALT) 96 U/L (7-40) Alkaline Phosphatase 212 U/L (46-116) Creatine Kinase 114 U/L (46-171) Troponin I High Sensitivity 6 ng/L (</=54) Total Protein 6.0 g/dL (5.7-8.2) Albumin 2.6 g/dL (3.2-4.8) Amylase Level 388 U/L (30-118) Lipase 203 U/L (12-53) Blood Gas Specimen Type Arterial Blood Gas Sample Site Right radial Blood Gas Patient Temperature 37.0 Arterial Blood Date Drawn [id number] Arterial Blood pH 7.438 (7.350-7.450) Arterial Blood Partial Pressure CO2 37.4 mmHg (35.0-48.0) Arterial Blood Partial Pressure O2 63.7 mmHg (83.0-108.0) Arterial Blood HCO3 24.7 mmol/L (21.0-28.0) Arterial Blood Oxygen Saturation 89.6 % (94.0-98.0) Arterial Blood Base Excess 0.7 mmol/L (-2.0-3.0) Arterial Blood Oxyhemoglobin 88.3 % (94.0-98.0) Arterial Blood Carboxyhemoglobin 1.2 % (0.5-1.5) Arterial Blood Methemoglobin 0.3 % (0.0-1.5) Zaki Test Modified Blood Gas Total Hemoglobin 10.90 g/dL (13.5-17.5) Blood Gas Set Respiration Rate 22.0 Blood Gas Modality Vent - ac Blood Gas Spontaneous Rate 22 FiO2 % 30.0 Blood Gas Tidal Volume 500.0 Blood Gas PEEP or CPAP 5.0 Urine Color Light-yellow (Yellow) Urine Clarity Turbid (Clear) Urine pH 5.5 (5.0-9.0) Urine Specific [place] 1.011 (1.001-1.035) Urine Protein Negative (Negative) Urine Ketones Negative (Negative) Urine Blood Trace /uL (Negative) Urine Nitrite Negative (Negative) Urine Bilirubin Negative (Negative) Urine Urobilinogen Normal mg/dL (Negative) Urine Leukocyte Esterase Negative /uL (Negative) Urine RBC 2 /hpf (0 - 3) Urine Microscopic WBC 4 /HPF (0-3) Urine Squamous Epithelial Cells Few /hpf (<5) Urine Amorphous Crystals Few /hpf (None Seen) Urine Bacteria Few /hpf (None Seen) Urine Glucose Normal mg/dL (Normal) Random Vancomycin Level 8.5 ug/mL (5-10) Test 04/10/25 12:00 04/10/25 10:00 04/09/25 03:08 04/08/25 02:36 Urine Mucus Few (None Seen) Differential Total Cells Counted 100.0 (100) Neutrophils % (Manual) 66 (37.0-80.0) Band Neutrophils % (Manual) 12 Lymphocytes % (Manual) 17 (10.0-50.0) Monocytes % (Manual) 5 (0-12) Eosinophils % (Manual) 0 (0-7) Basophils % (Manual) 0 (0.0-2.0) Metamyelocytes % (manual) 0 Myelocytes % (Manual) 0 Promyelocytes % (Manual) 0 Blast Cells % (Manual) 0 Reactive Lymphocytes 0 Platelet Estimate Adequate Hypochromasia (manual) Moderate Anisocytosis (manual) Slight Microcytosis Moderate Triglycerides Level 207 mg/dL (< 150) Target Cells Few Test 04/07/25 22:58 04/07/25 12:34 04/07/25 06:26 04/06/25 02:44 Vancomycin Level Trough 23.8 ug/mL (5-10) POC Glucose 120 mg/dl (70-106) Blood Gas Critical Value Read Back Yes Blood Gas Notified Whom sandy [place] Blood Gas Notified Time [id number] Blood Gas Notified By Heating Equipment Repairer candido mistry Lactic Acid Level 1.1 mmol/L (0.4-2.0) Test 04/06/25 02:24 04/05/25 18:20 04/05/25 05:25 04/04/25 05:55 Large Platelets Few Stomatocytes Few Ammonia < 10 umol/L (11-32) Vitamin B12 Level 1154 pg/mL (211-911) Folic Acid 2.90 ng/mL (>5.38) B-Type Natriuretic Peptide 102.38 pg/mL (0-100) Test 04/03/25 19:32 04/03/25 15:45 04/03/25 09:50 Urine Hyaline Casts Few /lpf (0 - 2) Urine Granular Casts Few /lpf (0) Urine Opiates Screen Neg (NEGATIVE) Urine Fentanyl Screen Neg (NEGATIVE) Urine Barbiturates Screen Neg (NEGATIVE) Urine Phencyclidine Screen Neg (NEGATIVE) Urine Amphetamines Screen Neg (NEGATIVE) Urine Benzodiazepines Screen Neg (NEGATIVE) Urine Cocaine Screen Neg (NEGATIVE) Urine Cannabinoids Screen Pos (NEGATIVE) Iron Level 10 ug/dL (65-175) Total Iron Binding Capacity 200 ug/dL (250-425) Percent Iron Saturation 5.0 % (20-55) Ferritin 685.8 ng/mL (22-322) Thyroid Stimulating Hormone (TSH) 2.07 uIU/mL (0.55-4.78) Reticulocyte Count (auto) 2.45 % (0.5-1.5) Other Laboratory Tests 04/11/25 09:51 Brief Hx & Hospital Course: The patient is a 60-year-old male with a complex medical history including Valley Fever, chronic sacral wound, right foot drop, and recurrent anemia, who presented to the Emergency Department with hemoglobin of 7.7, generalized weakness, and nausea. During hospitalization, he exhibited acute confusion and agitation, pulling out his [place] catheter on 04/04, which required reinsertion after urology consultation. Haldol was administered for agitation. Wound care evaluated a chronic sacral wound with purulent drainage, and appropriate dressings and cultures were initiated. A GI consult had planned an EGD for 04/05, but it was canceled due to the patients inability to consent. On 04/05, the patient remained confused and complained of sacral wound pain. Thiamine and folic acid were started for suspected alcohol withdrawal. A renal ultrasound revealed moderate left hydronephrosis. Later that day, the patient became increasingly altered and was intubated for airway protection, then transferred to the ICU on mechanical ventilation. Over the next several days, the patient remained intubated and sedated. Despite weaning sedation, he showed no neurological improvement. A head CT on 04/08 revealed severe global cerebral and cerebellar edema with tonsillar herniation and obliteration of basal cisterns and ventricles. Neurology was consulted and determined the prognosis to be poor, recommending supportive care. The patient was managed for septic shock with vasopressors (Levophed, vasopressin, midodrine), IV fluids, and broad-spectrum antibiotics (vancomycin and meropenem). CT abdomen/pelvis showed asymmetric enlargement of the left psoas muscle with possible abscess or phlegmon and moderate to severe left hydroureteronephrosis, likely contributing to sepsis. Surgical consult recommended conservative management with IV antibiotics due to the small size of the suspected abscess. The patient also had a full-thickness sacral wound with purulent drainage, and severe malnutrition was noted. He was treated for symptomatic anemia with PRBC transfusion and monitored for iron deficiency. Despite aggressive management, the patients neurological status did not improve. On 04/09, a family meeting was held with the patients daughter and friend, during which goals of care were discussed. The family elected for DNR/DNI and comfort measures. The patient was a registered organ donor, and [facility] was contacted to take over care upon confirmation of brain . On 04/10, brain was confirmed by neurology and the attending physician, and [facility] assumed care for organ donation. Patient lying in bed, on mechanical ventilation General: RASS -3, afebrile, mucosae are moist Cardiovascular: Normal S1 and S2. No murmurs, gallops or rubs Respiratory: Intubated on mechanical ventilation with the vent settings RR 20, VTE 500, FiO2 30%, peep 5 Abdomen: Soft, nontender, no organomegaly, normal bowel sounds MSK/skin: Mobilization of limbs cannot be evaluated. Skin is dry and warm Neurological: Orientation cannot be assessed. No apparent motor no sensitive deficits. Pupillary and gag reflex not noted Operations or Procedures Exam: CT CT AB PEL WO CON-NO ORAL OR IV IMPRESSION: Distended urinary bladder. Large volume colonic stool. Asymmetric enlargement of the left psoas muscle with possible abscess or phlegmonous type change measuring 2.4 cm within the muscle at the level of the iliac crest. There is moderate to severe left hydroureteronephrosis. The left ureter is followed to the level of the left psoas muscle abscess/ phlegmon possibly representing setups obstruction. Sensitivity of the examination is extremely limited secondary to lack of intravenous contrast and scoliosis. ------ INDICATION: hydro resolution TECHNIQUE: Multiple real-time sonographic images of the kidneys and bladder were obtained. IMPRESSION: Stable moderate left hydronephrosis. -------- EXAM: CT HEAD WITHOUT CONTRAST IMPRESSION: No acute intracranial abnormality. -------- EXAM: CT CT CHEST/AB/PL W CON- IV ONLY INDICATION: LUNG ABSCESS, ABSCESS SIZE OSTEOMYELITIS IN LUMBOSACRE IMPRESSION: 1. Abnormal area of possible soft tissue emphysema along the left psoas muscle extending inferiorly to the level of the iliac wing. Possible underlying fluid collection, incompletely characterized. 2. Left-sided renal sinus cysts versus at least moderate hydronephrosis. No visualized hydroureter. No nephroureterolithiasis. 3. Partial collapse of bilateral lower lobes with trace right-sided pleural effusion. 4. Abnormal diffuse sclerosis of the visualized osseous structures, which may be suggestive of underlying systemic disease. 5. Constipation. Gallbladder hydrops with cholelithiasis. ------ COMPUTERIZED TOMOGRAPHY OF THE HEAD WITHOUT CONTRAST IMPRESSION: Severe global cerebral and cerebellar edema with cerebellar tonsillar herniation and obliteration of basal cisterns and the ventricular system. No acute intracranial hemorrhage is identified. [phone] ([facility]) Diffuse cerebral edema with tonsillar herniation. Critical Result: Diffuse intracranial edema Findings discussed with Dr. Dr. Rutherford, at 04/07/2025 04:03 PM, and acknowledged receipt and understanding of the findings. #CRITICAL# Condition at Discharge: Guarded Final Diagnosis/Problems List # Acute metabolic/hypoxic/toxic encephalopathy due to sepsis # Brain edema, etiology unclear # ? Hypoxic encephalopathy # ? Sepsis, septic shock # possible Gram-positive/negative bacterial pneumonia # Persistent nausea and vomiting # cholelithiasis with gallbladder hydrops # MARGARITA, likely due to VMN or obstructive uropathy # acute urinary retention # ruled out UTI or pyelonephritis # sepsis due to left psoas muscle with possible abscess or phlegmonous # Sacral wound/abscess, present on admission # history of valley fever # symptomatic anemia # likely blood loss vs iron-deficiency anemia # Severe malnutrition # hypokalemia, severe Discharge Disposition: one legacy Discharge Instruct/Medications Scheduled Amlodipine Besylate (Amlodipine Besylate), 1 TAB PO DAILY, (Reported) Benazepril Hcl (Benazepril Hcl), 1 TAB PO DAILY, (Reported) Docusate Sodium (Colace), 1 CAP PO BID, (Reported) Hydrochlorothiazide (Hydrochlorothiazide), 1 TAB PO DAILY, (Reported) Omeprazole (Omeprazole Dr), 1 CAP PO DAILY, (Reported) Voriconazole (Voriconazole), 1 TAB PO BID, (Reported) Scheduled PRN Oxycodone HCl (Oxycodone Hydrochloride), 1 TAB PO TID PRN for PAIN, (Reported) Miscellaneous Medications Ascorbic Acid (Vitamin C 500 mg), 1 TAB PO, (Reported) Ibuprofen (Ibuprofen), 800 MG PO, (Reported) Itraconazole (Itraconazole), 100 MG PO, (Reported) Naloxone Hcl (Naloxone Hcl), 0.4 MG TORRIE, (Reported) Ondansetron HCl (Ondansetron), 4 MG PO, (Reported) Pregabalin (Lyrica), 1 CAP PO, (Reported) Discharge Statement: "Patient was advised to return to the ER or call 911 if any headaches, dizziness, shortness of breath, chest pain, abdominal pain, bleeding, fevers, or worsening of medical condition. Patient was counseled about treatment plan, medications, possible side effects, patientverbalized understanding. All questions were answered to the best of my ability. This discharge took greater then 30 minutes in planning, reviewing documentation, counseling the patient, and discussing with other team members." ASSESSMENT ASSESSMENT Assessment Date of Service: Apr 11, 2025 Billing Provider: ALISSON NOBLE MD Common Visit Codes: [id number] DISCH DAY >30min JASWANT RUTHERFORD RESIDENT Apr 12, 2025 15:32 ALISSON NOBLE MD Apr 15, 2025 02:28
--- NOTE | 2025-04-15 15:38 | CODING ---
Date of Service: Apr 09, 2025 Billing Provider: SUKUMAR STARK MD Common Visit Codes: [id number] CARE 30-74 MIN SUKUMAR STARK MD Apr 15, 2025 15:38
--- NOTE | 2025-04-15 15:38 | CODING ---
Date of Service: Apr 08, 2025 Billing Provider: SUKUMAR STARK MD Common Visit Codes: [id number] CARE 30-74 MIN SUKUMAR STARK MD Apr 15, 2025 15:38
--- NOTE | 2025-04-15 15:39 | CODING ---
Date of Service: Apr 10, 2025 Billing Provider: SUKUMAR STARK MD Common Visit Codes: [id number] CARE 30-74 MIN SUKUMAR STARK MD Apr 15, 2025 15:39
== END 2025-04-10 22:24 | disposition short-term general hospital (02) | DRG 870 ==
LOC: ER 09:15 → EDBD 09:15 → OVERFLOW 15:10 → EAST 21:24 → ICU WEST 04-05 16:17
PROVIDERS: ADMIT Student in an Organized Health Care Education/Training Program; ATTEND Student in an Organized Health Care Education/Training Program
PROC: 0BH17EZ Insertion of Endotracheal Airway into Trachea, Via Natural or Artificial Opening (ICD-10-PCS; 2025-04-05)
PROC: 02HV33Z Insertion of Infusion Device into Superior Vena Cava, Percutaneous Approach (ICD-10-PCS; 2025-04-05)
PROC: 5A1955Z Respiratory Ventilation, Greater than 96 Consecutive Hours (ICD-10-PCS; 2025-04-05)
PROC: 30233N1 Transfusion of Nonautologous Red Blood Cells into Peripheral Vein, Percutaneous Approach (ICD-10-PCS; principal; 2025-04-08)
DX: A41.9 Sepsis, unspecified organism (principal); N17.0 Acute kidney failure with tubular necrosis; G93.6 Cerebral edema; E43 Unspecified severe protein-calorie malnutrition; R65.21 Severe sepsis with septic shock; K68.12 Psoas muscle abscess; J96.01 Acute respiratory failure with hypoxia; G92.8 Other toxic encephalopathy; J15.69 Pneumonia due to other Gram-negative bacteria; G93.5 Compression of brain; J15.9 Unspecified bacterial pneumonia; G93.1 Anoxic brain damage, not elsewhere classified; K82.1 Hydrops of gallbladder; J90 Pleural effusion, not elsewhere classified; E87.3 Alkalosis; N13.39 Other hydronephrosis; N13.9 Obstructive and reflux uropathy, unspecified; D50.9 Iron deficiency anemia, unspecified; E87.6 Hypokalemia; M41.80 Other forms of scoliosis, site unspecified; K80.20 Calculus of gallbladder without cholecystitis without obstruction; K59.00 Constipation, unspecified; I11.9 Hypertensive heart disease without heart failure; F17.290 Nicotine dependence, other tobacco product, uncomplicated; E11.9 Type 2 diabetes mellitus without complications; Z85.038 Personal history of other malignant neoplasm of large intestine; Z82.3 Family history of stroke; Z80.0 Family history of malignant neoplasm of digestive organs; Z68.21 Body mass index [BMI] 21.0-21.9, adult; Z79.899 Other long term (current) drug therapy
CPT/HCPCS: 36415; 36556; 36600; 70450; 71045; 71260; 74176; 74177; 76775; 80048; 80053; 80076; 80202; 80307; 81001; 82140; 82150; 82248; 82550; 82553; 82565; 82607; 82728; 82746; 82805; 82962; 83540; 83550; 83605; 83690; 83735; 83880; 84100; 84132; 84443; 84478; 84484; 85007; 85014; 85018; 85025; 85027; 85045; 85610; 85730; 86850; 86870; 86900; 86901; 86902; 86922; 87040; 87070; 87077; 87081; 87086; 87186; 87205; 93005; 93306; 94002; 94003; 95819; 96361; 96374; 96375; 99291; G0378; J2185; J2405; J2470; J3465; J3480; J3490; J7060

== ENCOUNTER 2025-04-10 22:24 | Inpatient (IN) | payer OTHER ==
[~2025-04-10] VITALS: Ht 175.3 cm; Wt 67.8 kg
[~2025-04-10 22:24] MED LIST changes: +ASCO1TAB27 PO; +DOCU-94 PO; +IBUP-1456 PO; +ITRA100C3 PO; +NALO0.4I3 NAS; +ONDA-155 PO; +PREG50CA PO
[2025-04-11] VITALS (44 sets, daily range): BP systolic 83–157; BP diastolic 42–86; PULSE 60–73; RESP 18–22; TEMP 96.3–99.7; O2SAT 94–98
[2025-04-11] MEDS: D5W 5% 1,000 ML IV SCH (12:15)
[2025-04-11] MEDS: NOREPINEPHRINE 8 MG/250ML KIT 250 ML IV SCH (12:15)
[2025-04-11] MEDS: VASOPRESSIN 20 UNITS in SODIUM CHL 0.9% 99 ML IV SCH (12:15)
[2025-04-11] MEDS ORDERED: ARTIFICIAL TEARS 15ml EACHEYE PRN (12:15)
[2025-04-11] MEDS ORDERED: CLINIMIX PER PHARMACY 0 ML IV SCH (12:15)
[2025-04-11] MEDS ORDERED: VANCOMYCIN PER PHARMACY 0 MG IV SCH (14:00)
--- NOTE | 2025-04-11 14:01 | DVH ---
INDICATION: VENT TECHNIQUE: Single frontal view of the chest was obtained COMPARISON: XY CHEST PORTABLE on DOS: 04/10/25, XY CHEST PORTABLE on DOS: 04/08/25, XY CHEST XRAY 1 VIEW on DOS: 04/07/25, XY CHEST PORTABLE on DOS: 04/06/25, XY CHEST PORTABLE on DOS: 04/05/25, XY CHEST IOANA BLE on DOS: 04/10/25 FINDINGS: Lines and Tubes: Unchanged. Lungs: Stable appearing bibasilar pulmonary airspace disease and bilateral pleural effusions. No pneumothorax. Cardiomediastinal contours: Unremarkable Bones: Unremarkable IMPRESSION: 1. Stable bibasilar pulmonary airspace disease and bilateral pleural effusions. 2. Lines and tubes unchanged.
[2025-04-11 14:03] LABS: Hemoglobin 7.5 g/dL (13.5-17.5); Nucleated Red Blood Cells % 0.2 %
[2025-04-11 14:04] LABS: Hematocrit 23.7 % (41.0-53.0); Mean Corpuscular Hemoglobin 23.6 pg (28.0-32.0); Mean Corpuscular Volume 74.9 fL (80.0-100.0)
[2025-04-11] MEDS ORDERED: VANCOMYCIN 1.5GM/250ML 250 ML IV ONE (14:15)
[2025-04-11 14:18] LABS: INR 1.54 (0.9-1.15); Partial Thromboplastin Time 34.6 SEC (24.5-34.5); Prothrombin Time 15.6 sec (9.3-11.8)
[2025-04-11 14:21] LABS: Alanine Aminotransferase 94 U/L (7-40); Albumin 2.3 g/dL (3.2-4.8); Alkaline Phosphatase 202 U/L (46-116); Amylase 365 U/L (30-118); Anion Gap 10 (5-15); BUN/Creatinine Ratio 32.9 (10.0-20.0); Bilirubin, Direct 1.2 mg/dL (<0.3); Blood Urea Nitrogen 48 mg/dL (9-23); Calcium 7.4 mg/dL (8.7-10.4); Carbon Dioxide 26 mmol/L (20-31); Chloride 123 mmol/L (98-107); Creatine Kinase IFCC 116 U/L (46-171); Glucose 89 mg/dL (74-106); Magnesium 2.3 mg/dL (1.6-2.6); Potassium 4.0 mmol/L (3.5-5.1); Sodium 159 mmol/L (136-145); Total Protein 5.3 g/dL (5.7-8.2)
[2025-04-11 14:22] LABS: Bilirubin, Total 1.6 mg/dL (0.2-1.0)
[2025-04-11] MEDS: PIPERACILLIN-TAZOB 3.375GM 100 ML IV SCH (14:29)
[2025-04-11 14:31] LABS: Lipase 219 U/L (12-53)
[2025-04-11] MEDS ORDERED: DEXTROSE (50%) 50ML SYRG IV SCH (15:00)
--- NOTE | 2025-04-11 15:09 | DVHPNRES ---
Progress Note Date Seen: Apr 11, 2025 Resident Creating Document: JASWANT LOMBARDO RESIDENT Medical Necessity Reason Pt with a Central, PICC or Fol: Yes The following are medically ne: Central Line, Sultana Catheter Subjective Review of Systems A 60-year-old male with a history of Valley Fever, chronic sacral wound, right foot drop, and recurrent anemia presented to the ED with hemoglobin of 7.7, weakness, and nausea. 04/04, he was disoriented and pulled out his Sultana catheter, causing bleeding; a new Sultana was placed after Urology consult, and Haldol was given for agitation. Wound care evaluated a chronic sacral wound and initiated appropriate dressing and culture. GI consult planned EGD for 04/05. 04/05, the patient remained confused and complained of sacral wound pain. CT abdomen/pelvis was ordered, and thiamine/folic acid started for suspected alcohol withdrawal. EGD was canceled due to inability to consent; daughter was expected to arrive for consent. Renal ultrasound showed moderate left hydronephrosis; outpatient cystoscopy was advised. Later, the patient became more altered and was intubated for airway protection, then transferred to ICU on mechanical ventilation. RR 20, VTE for 500, peep 5, FiO2 30% 04/06: seen and examined at the bedside. Unable to obtain ROS due to patient's clinical status. 04/07: Seen and examined at the bedside. Family at bedside. Unable to obtain ROS due to patient's clinical status currently intubated and on mechanical ventilation RR 20, VTE 500, peep 5 and FiO2 30%. Currently weaning off from the sedation. Due to lack of reflexes patient was ordered head CT And weaning off from sedation. Added vasopressin, hydrocortisone and midodrine. Pending CT abdominal pelvis with the contrast due to given kidney function but advised to give bolus and proceed with a CT scan. 04/08: CT results showed severe global cerebral and cerebellar edema with tonsillar herniation and obliteration of basal cisterns and the ventricular system. Consulted Neurology, recommended supportive management and recommended that likely having poor prognosis for meaningful recovery. Continuing current management, discontinue bicarbonate drip 04/09 : Patient seen and examined at the bedside. Unable to obtain ROS due to patient's clinical status. Family discussion done choosing comfort measures met patient is organ donor, [facility] is taking over the patient. history 04/10: Patient is seen and examined at the bedside. Unable to obtain ROS due to patient's clinical status. Doing brain did evaluation today after that [facility] will take over with the patient. 04/11: Patient is seen and examined at the bedside. Unable to obtain ROS due to patient's clinical status currently intubated and mechanical ventilation. [facility] take over the patient today Changes from previous H/P or p: No Changes Objective vital signs Vital Sign Date Time Temp Pulse Resp B/P (MAP) Pulse Ox O2 Delivery O2 Flow Rate FiO2 04/11/25 13:30 61 21 88/42 (57) 95 83/51 (62) medications Current Medications Medications Dose Ordered Sig/Lakhwinder Route Start Time Stop Time Status Last Admin Dose Admin Norepinephrine Bitartrate 250 ml @ 3.75 mls/hr Q24H IV 04/11/25 12:15 Vasopressin 20 units/Sodium Chloride 100 ml @ 12 mls/hr Q8H20M IV 04/11/25 12:15 Artificial Tears 2 drop Q6HP PRN EACHEYE 04/11/25 12:15 Amino Acids 0 ml @ 0 mls/hr PER PHARMACY IV 04/11/25 12:15 Dextrose 1,000 ml @ 50 mls/hr Q20H IV 04/11/25 12:15 Piperacillin Sod/ Tazobactam Sod 100 ml @ 25 mls/hr Q8HPRN IV 04/11/25 14:29 Vancomycin HCl 0 ml @ 0 mls/hr UD IV 04/11/25 14:00 Furosemide 40 mg Q4HP IV 04/11/25 18:00 Vancomycin HCl 250 ml @ 250 mls/hr Q24H IV 04/12/25 12:00 Diagnostic Test (Pha) 1 strip Q6HR 04/11/25 18:00 Insulin Human Regular FOLLOW SLIDING SCALE Q6HR SC 04/11/25 18:00 Dextrose 50 ml UD IV 04/11/25 15:00 Amino Acids/ Electrolytes/ Dextrose 1,000 ml @ 41 mls/hr DAILY@2200 IV 04/11/25 22:00 Examination Patient lying in bed, on mechanical ventilation General: RASS -3, afebrile, mucosae are moist Cardiovascular: Normal S1 and S2. No murmurs, gallops or rubs Respiratory: Intubated on mechanical ventilation with the vent settings RR 20, VTE 500, FiO2 30%, peep 5 Abdomen: Soft, nontender, no organomegaly, normal bowel sounds MSK/skin: Mobilization of limbs cannot be evaluated. Skin is dry and warm Neurological: Orientation cannot be assessed. No apparent motor no sensitive deficits. Pupillary and gag reflex not noted laboratory and microbiology Laboratory Tests 04/11/25 13:53 Test 04/11/25 13:53 Range/Units Serum Glucose 89 74-106 mg/dL Labs and/or images reviewed: Labs reviewed by me, Image(s) reviewed by me Problem List/Assessment/Plan Problem List/Assessment/Plan Neurology : # Acute metabolic/hypoxic/toxic encephalopathy due to sepsis # Brain edema, etiology unclear ? Hypoxic encephalopathy ? Sepsis, septic shock - patient is intubated and sedated - maintain ventilation setting -coming down from sedation, currently off of sedation -repeat CT head showed diffuse cerebral and cerebellar edema with a tonsillar herniation Cardiovascular : # septic shock -currently on Levophed and added vasopressin today along with midodrine -continue IVF Respiratory : # possible Gram-positive/negative bacterial pneumonia - continue current antibiotic, meropenem and vancomycin - Intubated on mechanical ventilation with the vent settings RR 20, VTE 500, FiO2 30%, peep 5 - pulmonology consult Gastrointestinal : # Persistent nausea and vomiting -canceled schedule EGD for today due to patient being more agitated and altered -now patient is intubated # cholelithiasis with gallbladder hydrops -he is not a surgical candidate at this time Genitourinary : # MARGARITA, likely due to VMN or obstructive uropathy # acute urinary retention # ruled out UTI or pyelonephritis - moderate to severe left hydronephrosis, likely obstructive from above - CT abd/ pel showed asymmetric enlargement of the left psoas muscle with possible abscess or phlegmonous and moderate to severe left hydroureteronephrosis - inserted Sultana - antibiotics as above Infectious Disease : # sepsis due to left psoas muscle with possible abscess or phlegmonous - IVF - CT abd/ pel showed asymmetric enlargement of the left psoas muscle with possible abscess or phlegmonous and moderate to severe left hydroureteronephrosis - vancomycin, MEROPENEM - monitor labs - surgical consult appreciated: Recommend, repeat a CT of the abdomen and pelvis with IV contrast for better evaluation. If it really is a 2.4 cm abscess this is quite small and may not be amenable to percutaneous , conservative treatment with IV antibiotics. - ordered blood culture # Sacral wound/abscess, present on admission - full thickness, with pus ozzing -antibiotics as above # history of valley fever Hematology : # symptomatic anemia # likely iron-deficiency anemia - transfuse if it is less than 7 - 1 PRBC - consulted GI - ordered iron panel - SOB pending Nutrition : # Severe malnutrition # hypokalemia, severe - replenished - continuously monitor labs Prophylaxis PUD : IV Protonix 40 mg daily DVT: SCD Diet: Clinimix Invasive access : Sultana catheter : Placed on 04/04/25 Endotracheal tube : Placed on 04/05/2025 Rt IJ central line : Placed on 04/05/2025 Drips: Levophed off Fentanyl 0 Vasopressin off Talked to his daughter (Pineda [phone]), updated her about patient's condition and management plan. Goals of care, full code status for now Critical Care time spent 53 minutes including patient care, chart review and updating family, excluding procedure. Family meeting done 04/09/25 with daughter Nilo and patient's friend, explained all the concerns and choose DNR DNI and comfort measures but patient is legal organ donor so [facility] is taking over the patient once brain declared by two physicians. Plan discussed with Dr Ayala Plan discussed with: Patient's daughter Plan discussed with: Daughter JASWANT LOMBARDO RESIDENT Apr 11, 2025 15:09
[2025-04-11] MEDS: THIAMINE INJ 500 MG in D5W 5% 50 ML IV ONE (17:32)
[2025-04-11] MEDS: methylPREDNISolone SOD SUCC 2,000 MG in SODIUM CHL 0.9% 100 ML IV ONE (17:35)
[2025-04-11] MEDS ORDERED: ACCU-CHEK COMFORT CURVE STRIP VI SCH (18:00)
[2025-04-11] MEDS ORDERED: InsuLIN REG 1unit/0.01ml Soln (100units/ml) SC SCH (18:00)
[2025-04-11] MEDS: FUROSEMIDE 40 MG/4 ML VIAL IV SCH (18:25)
[2025-04-11] MEDS: ACCU-CHEK COMFORT CURVE STRIP VI SCH (18:26)
[2025-04-11 18:47] LABS: Hematocrit 23.7 % (41.0-53.0); Hemoglobin 7.4 g/dL (13.5-17.5); Mean Corpuscular Hemoglobin 23.4 pg (28.0-32.0); Mean Corpuscular Volume 75.0 fL (80.0-100.0); Nucleated Red Blood Cells % 0.3 %
[2025-04-11 19:03] LABS: Anion Gap 11 (5-15); BUN/Creatinine Ratio 27.7 (10.0-20.0); Carbon Dioxide 24 mmol/L (20-31); Creatine Kinase IFCC 99 U/L (46-171); Glucose 93 mg/dL (74-106); Magnesium 2.4 mg/dL (1.6-2.6); Potassium 3.8 mmol/L (3.5-5.1); Total Protein 6.1 g/dL (5.7-8.2)
[2025-04-11 19:09] LABS: Bilirubin, Direct 1.4 mg/dL (<0.3); Bilirubin, Total 1.8 mg/dL (0.2-1.0)
[2025-04-11 19:10] LABS: Alanine Aminotransferase 83 U/L (7-40); Albumin 2.7 g/dL (3.2-4.8); Alkaline Phosphatase 199 U/L (46-116); Amylase 344 U/L (30-118); Blood Urea Nitrogen 43 mg/dL (9-23); Calcium 7.9 mg/dL (8.7-10.4); Chloride 122 mmol/L (98-107); Sodium 157 mmol/L (136-145)
[2025-04-11 19:27] LABS: Base Excess -1.4 mmol/L (-2.0-3.0)
--- NOTE | 2025-04-11 19:37 | DVHPN2 ---
Progress Note - Dictate Date Seen: Apr 11, 2025 Medical Necessity Reason Pt with a Central, PICC or Fol: Yes The following are medically ne: Central Line, Sultana Catheter vital signs Vital Sign Date Time Temp Pulse Resp B/P (MAP) Pulse Ox O2 Delivery O2 Flow Rate FiO2 04/11/25 18:25 121/62 04/11/25 18:16 70 22 95 30 04/11/25 16:00 Mechanical Ventilator+ 30 medications Current Medications Medications Dose Ordered Sig/Lakhwinder Route Start Time Stop Time Status Last Admin Dose Admin Norepinephrine Bitartrate 250 ml @ 3.75 mls/hr Q24H IV 04/11/25 12:15 Vasopressin 20 units/Sodium Chloride 100 ml @ 12 mls/hr Q8H20M IV 04/11/25 12:15 04/11/25 17:32 12 MLS/HR Artificial Tears 2 drop Q6HP PRN EACHEYE 04/11/25 12:15 Amino Acids 0 ml @ 0 mls/hr PER PHARMACY IV 04/11/25 12:15 Dextrose 1,000 ml @ 50 mls/hr Q20H IV 04/11/25 12:15 Piperacillin Sod/ Tazobactam Sod 100 ml @ 25 mls/hr Q8HPRN IV 04/11/25 14:29 Vancomycin HCl 0 ml @ 0 mls/hr UD IV 04/11/25 14:00 Furosemide 40 mg Q4HP IV 04/11/25 18:00 04/11/25 18:25 40 MG Diagnostic Test (Pha) 1 strip Q6HR 04/11/25 18:00 Cancel Insulin Human Regular FOLLOW SLIDING SCALE Q6HR SC 04/11/25 18:00 Cancel Dextrose 50 ml UD IV 04/11/25 15:00 Cancel Amino Acids/ Electrolytes/ Dextrose 1,000 ml @ 41 mls/hr DAILY@2200 IV 04/11/25 22:00 Vancomycin HCl 250 ml @ 250 mls/hr Q24H IV 04/12/25 06:00 Thiamine HCl 100 mg/Dextrose 51 ml @ 100 mls/hr Q8H IV 04/13/25 01:00 04/14/25 17:31 Diagnostic Test (Pha) 1 strip Q4HR 04/11/25 18:00 04/11/25 18:26 1 STRIP Methylprednisolone Sodium Succinate 500 mg/Sodium Chloride 100 ml @ 200 mls/hr Q8H IV 04/13/25 01:00 laboratory and microbiology Laboratory Tests 04/11/25 18:21 Test 04/11/25 18:21 Range/Units Serum Glucose 93 74-106 mg/dL Assessment/Plan Impression: Acute hypoxic respiratory failure On mechanical ventilator Sepsis Left psoas muscle abscess Acute kidney injury Anemia Patient seen and examined in ICU Events Will sign off on case Management deferred to [facility] Plan discussed with: Other (Rn) DAVIE HART MD Apr 11, 2025 19:37
--- NOTE | 2025-04-11 19:38 | DVHNC2 ---
Procedure - Procedure- Right femoral arterial line catheter placement ultrasound guided Indication- Hemodynamic monitoring Procedure in detail Consent was obtained and timeout performed per protocol. The patient was placed in the supine position and the right femoral artery was localized using ultrasound SonoSite. ChloraPrep was used to clean the operative field, sterile drapes used to cover the area and local analgesia Lidocaine. The catheter was advanced over the wire with direct ultrasound guidance in the right femoral artery. The wire was removed, catheter flushed and attached to the transition device showing correct arterial waveform. Catheter was secured with 2 sutures and sterile dressing applied. No complications. DAVIE HART MD Apr 11, 2025 19:38
[2025-04-11 19:48] LABS: INR 1.61 (0.9-1.15); Prothrombin Time 16.3 sec (9.3-11.8)
--- NOTE | 2025-04-11 20:48 | DVH ---
CLINICAL HISTORY: [facility] PROTOCOL TECHNIQUE: Single view of the chest was obtained. COMPARISON: XY CHEST PORTABLE on DOS: 04/11/25, XY CHEST PORTABLE on DOS: 04/10/25, XY CHEST PORTABLE on DOS: 04/08/25, XY CHEST XRAY 1 VIEW on DOS: 04/07/25, XY CHEST PORTABLE on DOS: 04/06/25 FINDINGS: And endotracheal tube terminates 5.5 cm above the larry. Right i line terminates at the distal SVC. The heart size is mildly enlarged. There is worsening pulmonary vascular congestion and small bilater al pleural effusion / atelectasis. IMPRESSION: Worsening pulmonary vascular congestion and small bilateral pleural effusions / atelectasis..
[2025-04-11] MEDS: AMINO ACID INFUSION IN D10W 1,000 ML IV SCH (22:03)
[2025-04-11 22:30] LABS: Urine Amorphous Crystal FEW /hpf (None Seen); Urine Protein, UAD TRACE (Negative)
--- NOTE | 2025-04-11 22:48 | DVH ---
CHEST RADIOGRAPH Indication: ONE-[facility]GACY PROTOCOL Technique: Single frontal view of the chest was obtained Comparison: XY CHEST XRAY 1 VIEW on DOS: 04/11/25, XY CHEST PORTABLE on DOS: 04/11/25, XY CHEST PORTABLE on DOS: 04/10/25 FINDINGS: Lines and Tubes: Endotracheal tube is 6.9 cm above the larry. There is a right internal jugular cath eter in place with the tip in the superior vena cava. There are 2 radiopaque surgical suture loops in the mediastinum. Lungs: Bibasilar airspace disease is noted Pleura: No effusion. No pneumothorax. Cardiomediastinal contours: Unremarkable Bones: No acute osseous abnormality. IMPRESSION: 1. Endotracheal tube is 6.9 cm above the larry. 2. Right internal jugular catheter in place with the tip in the superior vena cava. 3. No evidence of pneumothorax. 4. Bibasilar airspace disease.
[2025-04-12] VITALS (39 sets, daily range): BP systolic 79–153; BP diastolic 29–86; PULSE 60–78; RESP 14–22; TEMP 97.2–99.9; O2SAT 95–100
[2025-04-12 00:22] LABS: Base Excess -3.3 mmol/L (-2.0-3.0)
[2025-04-12 04:00] LABS: Mean Corpuscular Hemoglobin 24.1 pg (28.0-32.0); Mean Corpuscular Volume 74.0 fL (80.0-100.0)
[2025-04-12 04:08] LABS: INR 1.82 (0.9-1.15); Prothrombin Time 18.2 sec (9.3-11.8)
[2025-04-12 04:11] LABS: Hematocrit 24.2 % (41.0-53.0); Hemoglobin 7.9 g/dL (13.5-17.5)
[2025-04-12 04:58] LABS: Anion Gap 12 (5-15); BUN/Creatinine Ratio 31.2 (10.0-20.0); Carbon Dioxide 23 mmol/L (20-31); Creatine Kinase IFCC 83 U/L (46-171); Potassium 4.1 mmol/L (3.5-5.1); Total Protein 7.0 g/dL (5.7-8.2)
[2025-04-12 05:06] LABS: Alanine Aminotransferase 81 U/L (7-40); Albumin 3.2 g/dL (3.2-4.8); Alkaline Phosphatase 240 U/L (46-116); Bilirubin, Total 2.2 mg/dL (0.2-1.0); Blood Urea Nitrogen 48 mg/dL (9-23); Calcium 8.3 mg/dL (8.7-10.4); Chloride 118 mmol/L (98-107); Glucose 170 mg/dL (74-106); Sodium 153 mmol/L (136-145)
[2025-04-12 05:21] LABS: Total Cells Counted 100.0 (100)
[2025-04-12 05:22] LABS: Anisocytosis Slight
[2025-04-12 05:29] LABS: Bilirubin, Direct 1.7 mg/dL (<0.3)
[2025-04-12] MEDS: VANCOMYCIN 1GM/250ML KIT 250 ML IV SCH (06:00)
[2025-04-12 06:03] LABS: Base Excess -1.7 mmol/L (-2.0-3.0)
[2025-04-12] MEDS ORDERED: ROCURONIUM 10MG/ML 10ML VIAL IV ONE (08:35)
[2025-04-12] MEDS ORDERED: MANNITOL FTV 25% 12.5 GM/50 ML 50 ML IV ONE ×2 (08:38→08:45)
[2025-04-12] MEDS ORDERED: FUROSEMIDE 20 MG/2 ML VIAL ONE ×2 (08:39→08:40)
[2025-04-12] MEDS ORDERED: HEPARIN SODIUM (PORCINE) 5000 UNITS/ML 1ML VIAL IV ONE (08:45)
[2025-04-12] MEDS ORDERED: VANCOMYCIN 1GM/250ML KIT 250 ML IV SCH (12:00)
[2025-04-12] MEDS ORDERED: NOREPINEPHRINE 8 MG/250ML KIT 250 ML IV ONE (18:09)
[2025-04-13] MEDS ORDERED: methylPREDNISolone SOD SUCC 500 MG in SODIUM CHL 0.9% 100 ML IV SCH (01:00)
[2025-04-13] MEDS ORDERED: THIAMINE IV SCH (01:00)
[2025-04-13] MEDS ORDERED: D5W 5% IV SCH (01:00)
== END 2025-04-12 08:45 | DRG 871 ==
LOC: ICU WEST 22:24
PROVIDERS: ADMIT Student in an Organized Health Care Education/Training Program; ATTEND Student in an Organized Health Care Education/Training Program
PROC: 04HY32Z Insertion of Monitoring Device into Lower Artery, Percutaneous Approach (ICD-10-PCS; principal; 2025-04-11)
PROC: 5A1935Z Respiratory Ventilation, Less than 24 Consecutive Hours (ICD-10-PCS; 2025-04-11)
DX: A41.9 Sepsis, unspecified organism (principal); E43 Unspecified severe protein-calorie malnutrition; G92.8 Other toxic encephalopathy; J96.01 Acute respiratory failure with hypoxia; K68.12 Psoas muscle abscess; R65.21 Severe sepsis with septic shock; J15.69 Pneumonia due to other Gram-negative bacteria; J15.9 Unspecified bacterial pneumonia; N17.0 Acute kidney failure with tubular necrosis; G93.1 Anoxic brain damage, not elsewhere classified; K82.1 Hydrops of gallbladder; A18.01 Tuberculosis of spine; N13.30 Unspecified hydronephrosis; K80.20 Calculus of gallbladder without cholecystitis without obstruction; R33.9 Retention of urine, unspecified; Z68.22 Body mass index [BMI] 22.0-22.9, adult; E87.6 Hypokalemia; D50.9 Iron deficiency anemia, unspecified; Z86.19 Personal history of other infectious and parasitic diseases
CPT/HCPCS: 36415; 36600; 71045; 80053; 80202; 81001; 82150; 82248; 82550; 82553; 82805; 82962; 83615; 83690; 83735; 83930; 84100; 84484; 85007; 85025; 85027; 85610; 85730; 86850; 86900; 86901; 86902; 86920; 94003; G0378; J1642; J2543; J7060